=== PATIENT | female | born 1930 | race Caucasian/White ===

== ENCOUNTER 2016-12-20 10:40 | Emergency (ER) | payer OTHER, MEDICARE ==
[~2016-12-20] VITALS: Ht 167.6 cm; Wt 72.6 kg
[~2016-12-20 10:40] MED LIST: AMLODIPINE BESY10 M1; AMLODIPINE BESY10 M1 PO; AMLODIPINE10 MG PO; AVAPRO 150MG150 MG PO; AVAPRO300 M1 PO; CEFTRIAXONE2 G2 IV; CENTRUM SILVER1 CTB PO; CLONIDINE HCL0.1 MG PO; CLONIDINE0.1 MG PO; CRANBERRY450 M3 PO; DIGOXIN125 MCG PO; FIBER625 MG PO; FUROSEMIDE40 M1 PO; GABAPENTIN300 M2 PO; HYDRALAZINE HCL50 MG PO; JANUVIA100 M1 PO; KLOR-CON M2020 ME1 PO; KLOR-CON M2020 MEQ PO; LEVEMIR 10100 UNITS/ SC; LEVEMIR100 U/ML SC; LEVOTHROID0.125 MG PO; LIPITOR20 M2 PO; LOMOTIL 2.5-0.1 EACH PO; LOPERAMIDE2 M2 PO; LOVENOX 8080 MG/0.8 SC; LOVENOX80 MG/0.8 SC; Lomotil PO; MASON NATURAL1200 MG PO; METOPROLOL SUCC25 M1; MULTI-DAY VITA1 EACH PO; MULTIVITAMIN1 TAB PO; NEURONTIN300 MG; OMEPRAZOLE20 M2 PO; ONDANSETRON ODT8 M1 PO; PERCOCET 325 MG1 TA2 PO; POTASSIUM CHLO20 ME4 PO; RIVA15T PO; SYNTHROID125 MCG PO; TOPROL XL25 M1 PO; TRAMADOL HCL50 M1 PO; VESICARE5 M1 PO; VITAMIN D1000 UNIT PO; XANAX0.5 M1 PO
[2016-12-20 11:23] VITALS: BP 180/86
--- NOTE | 2016-12-20 11:32 | ED ANKLE/FOOT INJURY COMPLAINT ---
History of Present Illness General Chief Complaint: Foot or Ankle Injury Stated Complaint: L FOOT INFECTION/BLEEDING Source: patient Exam Limitations: no limitations Vital Signs & Intake/Output Vital Signs & Intake/Output Vital Signs Date Time Temp Pulse Resp B/P Pulse O2 O2 Flow FiO2 Ox Delivery Rate 12/20 1124 Room Air 12/20 1123 180/86 12/20 1053 97.2 93 18 195/75 97 Room Air Allergies Coded Allergies: Sulfa (Sulfonamide Antibiotics) (Intermediate, RASH 04/11/16) adhesive tape (PAPER TAPE OK PER PT 04/11/16) Reconcile Medications Alprazolam (Xanax 0.5MG Tab) 0.5 MG TAB 1 TAB PO PRN Anxiety (Reported) Amlodipine Besylate 5 MG TABLET 1 TAB PO DAILY HTN (Reported) Amoxicillin/Potassium Clav (Augmentin 875-125 Tablet) 875 MG-125 MG TABLET 1 TAB PO BID cellulitis Atorvastatin Calcium (Lipitor) 20 MG TAB 1 TAB PO DAILY High LIPID (Reported) Cholecalciferol (Vitamin D3) (Vitamin D) 1,000 UNIT TABLET 1 TAB PO DAILY SUPPLEMENT (Reported) Cranberry Fruit Concentrate (Cranberry) (Unknown Strength) CAPSULE (Unknown Dose) PO DAILY SUPPLEMENT (Reported) Digoxin 125 MCG TABLET 1 TAB PO QPM HEART (Reported) Furosemide 40 MG TAB 1 TAB PO DAILY Blood pressure (Reported) Gabapentin 300 MG CAPSULE 1 CAP PO BID Pain/Neuropathy Insulin Detemir (Levemir) 100 UNITS/ML CHRISTIAN 35 UNITS SC BID diabetes management Irbesartan 300 MG TAB 1 TAB PO DAILY Blood pressure (Reported) Levothyroxine Sodium (Synthroid) 125 MCG TABLET 1 TAB PO DAILY THYROID ( Reported) Metoprolol Succ XL (Toprol XL) 25 MG TAB 0.5 TAB PO DAILY HEART/BP (Reported) Multivitamin (Multi-Day Vitamins) 1 EACH TABLET 1 TAB PO DAILY SUPPLEMENT ( Reported) Potassium Chloride 20 MEQ TABLET.ER 1 TAB PO DAILY SUPPLEMENT (Reported) Rivaroxaban (Xarelto) 15 MG TAB 1 TAB PO DAILY BLOOD THINNER Sitagliptin Phosphate (Januvia) 100 MG TAB 1 TAB PO DAILY DM type 2 (Reported ) Before lunch Solifenacin Succinate (Vesicare) 5 MG TAB 1 TAB PO DAILY Bladder issues ( Reported) after breakfast Triage Note: PT TO ED FOR L TOE INFECTION. REPORTS SHE TOOK A SHOWER THIS AM AND NOTICED TOE STARTED BLEEDING, DENIES FEVER, WEAKNESS, SOB, FLOYD. CALLED DR RODRIGUEZ WHO REFERRED PT TO ED. Triage Nurses Notes Reviewed? yes HPI: Patient is an 86 year old female presents for evaluation of possible infection of her left 2nd toe. Patient has had a blister to her left 2nd toe chronically. Seeing Dr. Rodriguez, last saw 1 month ago for the blister on the 2nd toe, has an appointment on Thursday. Yesterday patient felt tingling in her toes, took off her sock and noticed that her toe was red. Overnight toe was swollen, red and area of blister was oozing a small amount of blood. Patient called Dr. Rodriguez and was referred to the Emergency department. Denies fevers, recent trauma (ELKIN PFEIFFER) Past History Travel History Traveled to [place] past 21 day No Medical History Any Pertinent Medical History? see below for history Neurological: peripheral neuropathy, TIA EENT: NONE Cardiovascular: AFIB, CHF, hypertension, hyperlipidemia Respiratory: NONE Gastrointestinal: hx colon ca, s/p R extended colectomy Hepatic: NONE Renal: NONE Musculoskeletal: osteoarthritis Psychiatric: anxiety Endocrine: diabetes, hyperthyroidism, vitamin D deficiency Blood Disorders: NONE Cancer(s): colon/rectal cancer COMMERCIAL COORDINATOR/Reproductive: NONE Other Medical Hx: Gout Rheumatoid arthritis History of MRSA: No History of VRE: No History of CDIFF: No Surgical History Surgical History: cholecystectomy, colon resection, , hysterectomy, diagnostic laparoscopy, PERNELL Psychosocial History Who do you live with Spouse Services at Home None What is your primary language Dominican Tobacco Use: Never used ETOH Use: denies use Illicit Drug Use: denies illicit drug use Family History Family History, If Any: FATHER FH: heart disease MOTHER FH: diabetes mellitus Hx Contributory? No (ELKIN PFEIFFER) Review of Systems Review of Systems Constitutional: Denies: chills, fever. EENTM: Reports: no symptoms. Respiratory: Denies: cough, short of breath. Cardiovascular: Denies: chest pain. GI: Denies: abdominal pain, nausea, vomiting. Genitourinary: Reports: no symptoms. Musculoskeletal: Denies: back pain, neck pain. Skin: Reports: see HPI. Neurological/Psychological: Reports: headache (none currently). Hematologic/Endocrine: Reports: bleeding. Immunologic/Allergic: Denies: splenectomy. (ELKIN PFEIFFER) Physical Exam Physical Exam General Appearance: well developed/nourished, alert, awake Head: atraumatic, normal appearance Eyes: Bilateral: normal appearance, PERRL, EOMI. Ears, Nose, Throat: hearing grossly normal Neck: normal inspection, full range of motion Cardiovascular/Respiratory: irregularly irregular (systolic murmur 4/6) Back: normal range of motion Leg/Knee/Thigh Left: normal range of motion, normal inspection Leg/Knee/Thigh Right: normal range of motion, normal inspection Ankle Left: normal inspection, normal range of motion Foot Left: 1 cm blister on the dorsal surface 2nd toe over PIP joint Diffuse erythema and swelling of left 2nd toe Dorsalis pedis pulse and posterior tibialis pulse 2+ Neuro/Vascular: normal motor function, decreased sensation to left foot to light touch Psychiatric: awake, alert, oriented x 3 (ELKIN PFEIFFER) Progress Differential Diagnosis: Cellulitis, osteomyelitis, abscess Plan of Care: Orders Procedure Date/time Status BLOOD CULTURE 12/20 115 Active WESTERGREN SED RATE 12/20 1155 Complete COMPREHENSIVE METABOLIC PANEL 12/20 115 Complete CBC WITHOUT DIFFERENTIAL 12/20 115 Complete Laboratory Tests 12/20/16 1225: Anion Gap 11, Estimated GFR > 60, BUN/Creatinine Ratio 25.0, Glucose 218 H, Calcium 9.7, Total Bilirubin 0.8, AST 26, ALT 32, Alkaline Phosphatase 84, Total Protein 7.8, Albumin 4.4, Globulin 3.4, Albumin/Globulin Ratio 1.3, CBC w Diff NO MAN DIFF REQ, RBC 4.53, MCV 85.0, MCH 27.9, RDW 14.5, MPV 8.7, Gran % 72.7, Lymphocytes % 17.7 L, Monocytes % 7.4, Eosinophils % 1.8, Basophils % 0.4, Absolute Granulocytes 5.6, Absolute Lymphocytes 1.4, Absolute Monocytes 0.6, Absolute Eosinophils 0.1, Absolute Basophils 0, PUBS MCHC 32.8 L, ESR Westergren 30 H Microbiology 12/20 1235 BLOOD: Blood Culture - RECD 12/20 1225 BLOOD: Blood Culture - RECD 1210: Discussed with Dr. Tejada. 1315: Discussed with Dr. Rodriguez: Place on antibiotics and will see in the office on Thursday. Labs, x-ray and follow up discussed with patient who is agreeable to plan. (ELKIN PFEIFFER) Diagnostic Imaging: Viewed by Me: Radiology Read. Discussed w/RAD: Radiology Read. Radiology Impression: PATIENT: LARS FENG PRESENT AGE: 86 PATIENT ACCOUNT NO: [id number] : 30 LOCATION: [facility] ORDERING PHYSICIAN: ELKIN HENLEY SERVICE DATE: 12/20/16 EXAM TYPE: RAD - XRY-TOES, LEFT EXAMINATION: XR TOES, LEFT CLINICAL INFORMATION: Left second toe infection. Evaluate for osteomyelitis. COMPARISON: Contralateral right foot films from 04/11/2016. TECHNIQUE: Frontal view of the left foot and 2 views of the left toes were obtained. FINDINGS: Diffuse osteopenia. No acute fracture or dislocation. Evaluation limited due to chronic flexion deformities of the second through fifth digits. There is mild soft tissue swelling seen associated with the dorsum of the second toe. No underlying radiopaque foreign body, soft tissue calcification, abnormal periosteal reaction or focal lytic or destructive bone lesion is seen. There is mild hallux valgus deformity of the first ray with moderate degenerative changes at the first metatarsal phalangeal joint and the first interphalangeal joint. Mild degenerative changes are seen at the interphalangeal joints of the second through fifth digits. IMPRESSION: 1. No plain film evidence of osteomyelitis. 2. Diffuse osteopenia, hallux valgus deformity and degenerative changes as discussed above. DICTATED BY: ANDI MEREDITH MD DATE/TIME DICTATED:12/20/161242 BOX SPRING MAKER:ALEX DATE/ TIME TRANSCRIBED:12/20/161242 CONFIDENTIAL, DO NOT COPY WITHOUT APPROPRIATE AUTHORIZATION. <Electronically signed in Other Vendor System> SIGNED BY: ANDI MEREDITH MD 12/20/16 1253 (ELKIN PFEIFFER) Departure Departure Time of Disposition: 1321 Disposition: HOME OR SELF CARE Condition: Stable Clinical Impression Primary Impression: Cellulitis of toe of left foot Secondary Impressions: Hyperglycemia, Hypertension Referrals: SHAUN AVALOS,XIOMARA Lacy (PCP/Family) JOSEPHINE RODRIGUEZ DPM Additional Instructions: Follow up with Dr. Rodriguez on Thursday. Return to the emergency department if fevers, redness spreading, worsening of symptoms. Departure Forms: Customer Survey General Discharge Information Prescriptions: Current Visit Scripts Amoxicillin/Potassium Clav (Augmentin 875-125 Tablet) 1 TAB PO BID #14 TAB (ALEXANDRE HENLEY,ELKIN) PA/EDGERMAN Co-Sign Statement Statement: ED Attending supervision documentation- [X] I saw and evaluated the patient. I have also reviewed all the pertinent lab results and diagnostic results. I agree with the findings and the plan of care as documented in the PA's/EDGERMAN's documentation. [X] I have reviewed the ED Record and agree with the PA's/EDGERMAN's documentation. [] Additions or exceptions (if any) to the PAs/EDGERMAN's note and plan are summarized below: [] (MONTY AVALOS,JEANIE Correa)
[2016-12-20] MEDS ORDERED: AMLODIPINE BESYL5 M1 PO (11:58)
[2016-12-20 12:52] LABS: ABSOLUTE BASOPHIL COUNT 0 /CUMM (0.0-0.2); ABSOLUTE EOSINOPHIL COUNT 0.1 /CUMM (0.0-0.7); ABSOLUTE GRANULOCYTE CT 5.6 /CUMM (1.4-6.5); ABSOLUTE LYMPH COUNT 1.4 /CUMM (1.2-3.4); ABSOLUTE MONOCYTE COUNT 0.6 /CUMM (0.10-0.60); BASOPHIL % 0.4 % (0.0-2.0); EOSINOPHIL % 1.8 % (0-5); GRANULOCYTE % 72.7 % (42.2-75.2); HEMATOCRIT 38.5 % (37-47); MEAN CORPUSCULAR HGB 27.9 PG (27.0-31.0); MEAN CORPUSCULAR HGB CONC 32.8 G/DL (33.0-37.0); MEAN PLATELET VOLUME 8.7 FL (7.4-10.4); PLATELET COUNT 204 /CUMM (130-400); RBC DISTRIBUTION WIDTH 14.5 % (11.5-14.5); RED BLOOD CELL CT 4.53 /CUMM (4.20-5.40); WHITE BLOOD CELL COUNT 7.7 /CUMM (4.8-10.8)
--- NOTE | 2016-12-20 12:52 | RADIOLOGY REPORT ---
EXAMINATION: XR TOES, LEFT CLINICAL INFORMATION: Left second toe infection. Evaluate for osteomyelitis. COMPARISON: Contralateral right foot films from 04/11/2016. TECHNIQUE: Frontal view of the left foot and 2 views of the left toes were obtained. FINDINGS: Diffuse osteopenia. No acute fracture or dislocation. Evaluation limited due to chronic flexion deformities of the second through fifth digits. There is mild soft tissue swelling seen associated with the dorsum of the second toe. No underlying radiopaque foreign body, soft tissue calcification, abnormal periosteal reaction or focal lytic or destructive bone lesion is seen. There is mild hallux valgus deformity of the first ray with moderate degenerative changes at the first metatarsal phalangeal joint and the first interphalangeal joint. Mild degenerative changes are seen at the interphalangeal joints of the second through fifth digits. IMPRESSION: 1. No plain film evidence of osteomyelitis. 2. Diffuse osteopenia, hallux valgus deformity and degenerative changes as discussed above.
[2016-12-20] MEDS ORDERED: AUGMENTIN 875-1 EACH PO (13:20)
== END 2016-12-20 13:36 ==
LOC: ERH 10:40
PROVIDERS: Physician Assistant
DX: L03.032 Cellulitis of left toe (principal); I10 Essential (primary) hypertension; E11.65 Type 2 diabetes mellitus with hyperglycemia; I50.9 Heart failure, unspecified; I48.91 Unspecified atrial fibrillation
CPT/HCPCS: 73660-LT; 87040

== ENCOUNTER 2017-02-09 13:50 | Inpatient (IN) | payer OTHER, MEDICARE ==
[~2017-02-09] VITALS: Ht 167.6 cm; Wt 68.9 kg
[~2017-02-09 13:50] MED LIST changes: +AMLODIPINE BESYL5 M1 PO; +AUGMENTIN 875-1 EACH PO
--- NOTE | 2017-02-09 14:33 | ED AMS/SEIZURE/WEAK/DIZZY ---
History of Present Illness General Chief Complaint: General Adult Stated Complaint: WEAKNESS Source: patient, family, old records Exam Limitations: no limitations Vital Signs & Intake/Output Vital Signs & Intake/Output Vital Signs Date Time Temp Pulse Resp B/P Pulse O2 O2 Flow FiO2 Ox Delivery Rate 02/10 0620 98.2 65 20 122/58 92 Room Air 02/09 2300 98.0 02/09 2251 98.0 63 19 118/60 91 Room Air 02/09 1935 98.3 95 20 144/64 96 Room Air 02/09 1538 100.8 76 18 145/65 93 Room Air 02/09 1445 Room Air 02/09 1358 100.5 02/09 1353 100.5 114 20 170/73 95 Room Air ED Intake and Output 02/10 0000 02/09 1200 Intake Total 630 Output Total 300 Balance 330 Intake, IV 150 Intake, Oral 480 Output, Urine 300 Patient 152 lb Weight Allergies Coded Allergies: Sulfa (Sulfonamide Antibiotics) (Intermediate, RASH 04/11/16) adhesive tape (PAPER TAPE OK PER PT 04/11/16) Triage Note: PT PRESENTS TO ER C/O OF BODY ACHES AND WEAKNESS. PT STATES SHE HAS FELT WEAK FOR OVER A FEW WEEKS. Triage Nurses Notes Reviewed? yes Onset: Abrupt Duration: week(s): (3), constant, getting worse Timing: recent history Injury Environment: home Severity: moderate, severe Severity Numbers: 7 No Modifying Factors: none Associated Symptoms: denies HPI: 86-year-old female history of A. fib on xarelto,dm, resected colon cancer hypertension presents emergency room for evaluation complaining of generalized bodyaches weakness and increased urinary incontinence over the past 3 weeks. She reports the positive subjective fever chills at home she presents febrile today, she took Tylenol just prior to arrival medicated Motrin in triage. She denies any chest pain shortness of breath sore throat rhinorrhea congestion. No abdominal pain nausea vomiting or diarrhea. No black or bloody stools. No rashes to her skin recent tick or insect bites. No sick contacts. She states that she is a leasing cotton of urine however more so recently. No modifying factors or associated symptoms otherwise she is THE symptoms until today. (QUANG HENLEY,TONY) Reconcile Medications Alprazolam (Xanax) 0.5 MG TABLET 1 TAB PO PRN ANXIETY (Reported) Atorvastatin Calcium (Lipitor) 20 MG TABLET 1 TAB PO DAILY CHOLESTEROL ( Reported) Cholecalciferol (Vitamin D3) (Vitamin D) 1,000 UNIT TABLET 1 TAB PO DAILY SUPPLEMENT (Reported) Clonidine HCl 0.1 MG TABLET 1 TAB PO PRN BP (Reported) Cranberry Fruit Concentrate (Cranberry) (Unknown Strength) CAPSULE (Unknown Dose) PO DAILY SUPPLEMENT (Reported) Digoxin 125 MCG TABLET 1 TAB PO QPM HEART (Reported) Furosemide 40 MG TABLET 1 TAB PO DAILY DIURETIC (Reported) Gabapentin 300 MG CAPSULE 1 CAP PO DAILY NEUROPATHY Insulin Detemir (Levemir) 100 UNIT/ML VIAL 35 UNIT SC BID DM (Reported) Irbesartan (Avapro) 300 MG TABLET 1 TAB PO DAILY BP (Reported) Levothyroxine Sodium (Synthroid) 125 MCG TABLET 1 TAB PO DAILY THYROID ( Reported) Metoprolol Succ XL (Toprol XL) 25 MG TAB 12.5 TAB PO DAILY HEART/BP (Reported ) Multivitamin (Multi-Day Vitamins) 1 EACH TABLET 1 TAB PO DAILY SUPPLEMENT ( Reported) Potassium Chloride 20 MEQ TABLET.ER 1 TAB PO BID SUPPLEMENT (Reported) Rivaroxaban (Xarelto) 15 MG TABLET 1 TAB PO DAILY BLOOD THINNER (Reported) Sitagliptin Phosphate (Januvia) 100 MG TABLET 1 TAB PO DAILY DM (Reported) Solifenacin Succinate (Vesicare) 5 MG TABLET 1 TAB PO DAILY BLADDER (Reported ) (BRUCE AVALOS,JOHNIE) Past History Travel History Traveled to [place] past 21 day No Medical History Any Pertinent Medical History? 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 No (TONY LIM) Review of Systems Review of Systems Constitutional: Reports: see HPI. All Other Systems: Reviewed and Negative Comments Review of systems: See HPI, All other systems negative. Constitutional, chills fever, no malaise HEENT: No visual changes no sore throat no congestion Cardiovascular: No chest pain , no palpitation , no orthopnea no ankle swelling Skin, no jaundice no rashes, no change in skin Respiratory: No dyspnea no cough no sputum GI: No nausea no vomiting, no diarrhea, no bloating/constipation : No dysuria No hematuria, frequency, no discharge Muscle skeletal: No joint pain, no joint swelling, no back pain, no neck pain, Neurologic: No numbness no headache Psych: No stress Heme/endocrine: No bruising no bleeding Immunology: No lymphadenopathy (TONY LIM) Physical Exam Physical Exam General Appearance: well developed/nourished, no apparent distress, alert Comments: Well-developed well-nourished person in no acute distress HEENT: Normal EENT exam; PERRL, EOMI,HEAD is atraumatic. moist mucous membranes. Neck: Supple, no lymphadenopathy, normal range of motion Back: Nontender, no CVA tenderness. Full range of motion Cardiovascular: Regular rate and rhythms no murmurs rubs Respiratory: Chest nontender.There were no bony deformities, no asymmetry. No respiratory distress. Patient speaking in full complete sentences. Breath sounds clear to auscultation bilaterally: NO W/R/R Abdomen: Soft, nontender nondistended, no appreciable organomegaly. Normal bowel sounds. No rebound/guarding Extremity: No edema, full range of motion of extremities Neuro: Alert oriented x3, motor sensory normal,There were no obvious focal neurologic abnormalities. Skin: No appreciable rash on exposed skin, skin is warm and dry. Psych: Mood and affect is normal, memory and judgment is normal. Core Measures ACS in differential dx? Yes CVA/TIA Diagnosis: No Severe Sepsis Present: No Septic Shock Present: No (TONY LIM) Progress Differential Diagnosis: arrythmia, anemia, benign positional vertigo, dehydration, electrolyte imbalance, GI bleed, labrynthitis, meningitis, pneumonia, UTI/pyelo, vertebrobasilar insuff Plan of Care: Orders Procedure Date/time Status Consistent Carbohydrate 2 02/10 B Active ECHOCARDIOGRAM 02/10 1647 Active CBC WITHOUT DIFFERENTIAL 02/10 0500 Complete BASIC ELECTROLYTES PLUS BUN&CR 02/10 0500 Complete FingerStick- Glucose 02/09 2130 Active WESTERGREN SED RATE 02/10 2000 Complete BASIC ELECTROLYTES PLUS BUN&CR 02/10 2000 Complete Vital Signs 02/09 192 Active Teach/Educate 02/09 192 Active Pain Treatment and Response 02/09 192 Active Nutritional Intake, Monitor 02/09 192 Active Isolation 02/09 192 Active Intake & Output 02/09 192 Active Patient Care Conference 02/09 192 Active Activity/Ambulation 02/09 1921 Active Intake & Output 02/09 1632 Active Admit to inpatient 02/09 1628 Active Pathway - chart 02/09 1623 Active House Staff 02/09 1623 Active Patient Data 02/09 1623 Active Code Status 02/09 1623 Active Add-on Test (ER Only) 02/09 1608 Active URINE OSMOLALITY 02/09 1516 Complete THYROID STIMULATING HORMONE 02/09 1501 Complete SERUM OSMOLALITY 02/09 1501 Complete LACTIC ACID 02/09 1501 Complete DIGOXIN 02/09 1501 Complete Straight Cath 02/09 1441 Complete CULTURE,URINE 02/09 1434 Active BLOOD CULTURE 02/09 1434 Active URINALYSIS 02/09 1434 Complete TROPONIN LEVEL 02/09 1434 Complete PARTIAL THROMBOPLASTIN TIME 02/09 1434 Complete PROTHROMBIN TIME 02/09 1434 Complete COMPREHENSIVE METABOLIC PANEL 02/09 1434 Complete CBC WITHOUT DIFFERENTIAL 02/09 1434 Complete RAPID VIRAL INFLUENZA A 02/09 1355 Complete EKG 02/09 1354 Active Lab Add-on Test 02/09 UNK Active VTE Mechanical Prophylaxis 02/09 UNK Active Current Medications Sig/Darrell Start time Last Medication Dose Stop Time Status Admin Atorvastatin Calcium 20 MG 1700 02/10 1700 AC (Lipitor) Amlodipine Besylate 5 MG DAILY 02/10 1000 CAN (Norvasc) Enoxaparin Sodium 40 MG DAILY 02/10 1000 CAN (Lovenox) Insulin Detemir 30 UNITS BID 02/10 1000 AC (Levemir) Metoprolol Succinate 312.5 MG DAILY 02/10 1000 CAN (Toprol XL) Metoprolol Tartrate 12.5 MG DAILY 02/10 1000 AC (Lopressor) Levothyroxine Sodium 0.125 MG DAILY AC 02/10 0700 AC (Synthroid) Insulin Aspart 0 TIDAC 02/09 1700 AC (NovoLOG) Clonidine 0.1 MG QPM PRN 02/09 1645 AC (Catapres) Acetaminophen 650 MG Q6P PRN 02/09 1630 AC (Tylenol) Acetaminophen/ 1 TAB Q6P PRN 02/09 1630 AC Hydrocodone Bitart (Vicodin) Morphine Sulfate 2 MG Q4P PRN 02/09 1630 AC (Morphine) Laboratory Tests 02/10/17 0720: Anion Gap 10, Estimated GFR > 60, BUN/Creatinine Ratio 21.3, CBC w Diff NO MAN DIFF REQ, RBC 3.46 L, MCV 83.5, MCH 27.5, RDW 15.3 H, MPV 8.5, Gran % 74.4, Lymphocytes % 11.9 L, Monocytes % 11.4 H, Eosinophils % 1.8, Basophils % 0.5, Absolute Granulocytes 6.1, Absolute Lymphocytes 1.0 L, Absolute Monocytes 0.9 H, Absolute Eosinophils 0.1, Absolute Basophils 0, PUBS MCHC 33.0 02/09/17 2050: Anion Gap 8, Estimated GFR 53 L, BUN/Creatinine Ratio 19.0, ESR Westergren 63 H 02/09/17 1836: ESR Westergren Cancelled 02/09/17 1747: Lactic Acid Cancelled 02/09/17 1516: Urine Osmolality 309 02/09/17 1516: Urine Color YEL, Urine Clarity CLEAR, Urine pH 6.5, Ur Specific [place] 1.010, Urine Protein 100 H, Urine Ketones NEG, Urine Nitrite NEG, Urine Bilirubin NEG, Urine Urobilinogen 0.2, Ur Leukocyte Esterase NEG, Ur Microscopic SEDIMENT EXAMINED, Urine RBC RARE, Ur Epithelial Cells FEW, Urine Bacteria FEW H, Urine Hemoglobin TRACE-INTACT, Urine Glucose NEG 02/09/17 1501: Anion Gap 12, Estimated GFR 59 L, BUN/Creatinine Ratio 22.2, Glucose 214 H, Serum Osmolality 272 L, Lactic Acid 1.7, Calcium 8.6, Total Bilirubin 1.0, AST 27, ALT 38, Alkaline Phosphatase 79, Troponin I < 0.01, Total Protein 6.5, Albumin 3.4 L, Globulin 3.1, Albumin/Globulin Ratio 1.1, TSH 0.445, PT 16.1 H, INR 1.54 H, APTT 31, CBC w Diff NO MAN DIFF REQ, RBC 3.72 L, MCV 81.5, MCH 27.8, RDW 15.3 H, MPV 8.1, Gran % 81.5 H, Lymphocytes % 8.5 L, Monocytes % 9.5 H, Eosinophils % 0.3, Basophils % 0.2, Absolute Granulocytes 9.7 H, Absolute Lymphocytes 1.0 L, Absolute Monocytes 1.1 H, Absolute Eosinophils 0, Absolute Basophils 0, PUBS MCHC 34.0, Digoxin 0.5 L 02/09/17 1447: Lactic Acid Cancelled Microbiology 02/09 1537 BLOOD: Blood Culture - RECD 02/09 1516 URINE ROUT: Urine Culture - RECD 02/09 1501 BLOOD: Blood Culture - RECD 02/09 1402 NASOPHARYN: Influenza Virus A & B Rapid Smear - COMP Labs ordered old records reviewed. Negative case discussed with Dr. Polk agrees with plan medically of Motrin in triage Old records reviewed patient had one episode previously with sodium of 123 however given her fever, generalized malaise going on for 3 weeks I believe premature discharge in medically harmful case was discussed Dr. Polk agrees with plan. Case was discussed with Dr. foy will admit (TONY LIM) Diagnostic Imaging: Viewed by Me: Radiology Read. Discussed w/RAD: Radiology Read. Initial ED EKG: a. FIB AT 100, NO ACUTE st SEGMENT CHANGES NORMAL AXIS Prior EKG: unchanged (08/2016) (TONY LIM) Departure Departure Time of Disposition: 1616 Disposition: STILL A PATIENT Condition: Stable Clinical Impression Primary Impression: Hyponatremia Secondary Impressions: Fever of unknown origin, Hyperkalemia Referrals: SHAUN AVALOS,XIOMARA Lacy (PCP/Family) Departure Forms: Customer Survey General Discharge Information Admission Note Spoke With: YAHIR FOY MD Documentation of Exam: Documentation of any treatments & extenuating circumstances including Concerns Regarding Discharge (functional status, medication knowledge or non-compliance, living conditions, etc.) that warrant an admission rather than observation: TREND LABS, IV FLUIDS, TREND CULTURES, UNKNOWN SOURCE OF WHITE COUTN, FEVERS, PREMATURE DISCHARGE WOULD BE MEDICALLY HARMFUL (TONY LIM) Departure Prescriptions: Current Visit Scripts Gabapentin 1 CAP PO DAILY 30 Days PA/RADIO PROGRAM DIRECTOR Co-Sign Statement Statement: ED Attending supervision documentation- [X] I saw and evaluated the patient. I have also reviewed all the pertinent lab results and diagnostic results. I agree with the findings and the plan of care as documented in the PA's/RADIO PROGRAM DIRECTOR's documentation. [X] I have reviewed the ED Record and agree with the PA's/RADIO PROGRAM DIRECTOR's documentation. [] Additions or exceptions (if any) to the PAs/RADIO PROGRAM DIRECTOR's note and plan are summarized below: [] (BRUCE AVALOS,JOHNIE)
--- NOTE | 2017-02-09 15:09 | RADIOLOGY REPORT ---
EXAMINATION: XR PORTABLE CHEST CLINICAL INFORMATION: Fever. Weakness. COMPARISON: CT chest 08/18/16. Chest x-ray of 06/05/16 and multiple priors dated back to 11/22/15. TECHNIQUE: Portable AP view of the chest was obtained. FINDINGS: The cardiomediastinal silhouette is stable with moderate cardiomegaly. A right-sided Port-A-Cath is in place with the tip projecting over the expected location of the lower SVC. The lungs are mildly hypoexpanded. No focal consolidation, changes of congestion, pleural effusions or pneumothorax. Mild central congestion persists. Severe deformity of the right humeral head is redemonstrated. No acute osseous abnormality. IMPRESSION: Stable cardiomegaly. No radiographic evidence of pneumonia. No acute pulmonary process.
[2017-02-09 15:13] LABS: ABSOLUTE BASOPHIL COUNT 0 /CUMM (0.0-0.2); ABSOLUTE EOSINOPHIL COUNT 0 /CUMM (0.0-0.7); ABSOLUTE GRANULOCYTE CT 9.7 /CUMM (1.4-6.5); ABSOLUTE MONOCYTE COUNT 1.1 /CUMM (0.10-0.60); BASOPHIL % 0.2 % (0.0-2.0); EOSINOPHIL % 0.3 % (0-5); GRANULOCYTE % 81.5 % (42.2-75.2); HEMATOCRIT 30.3 % (37-47); MEAN CORPUSCULAR HGB 27.8 PG (27.0-31.0); MEAN CORPUSCULAR VOLUME 81.5 FL (81.0-99.0); MEAN PLATELET VOLUME 8.1 FL (7.4-10.4); PLATELET COUNT 238 /CUMM (130-400); RBC DISTRIBUTION WIDTH 15.3 % (11.5-14.5); RED BLOOD CELL CT 3.72 /CUMM (4.20-5.40); WHITE BLOOD CELL COUNT 11.9 /CUMM (4.8-10.8)
[2017-02-09 15:20] LABS: PT 16.1 SEC (9.4-12.5); PTT 31 SEC (25-37)
[2017-02-09] MEDS ORDERED: LEVEMIR100 UNIT/1 SC (15:59)
[2017-02-09] MEDS ORDERED: CLONIDINE HCL0.1 MG PO (16:00)
[2017-02-09] MEDS ORDERED: XARELTO15 M1 PO (16:01)
--- NOTE | 2017-02-09 16:19 | History & Physical ---
See Addendum General Information and HPI MD Statement: I have seen and personally examined LARS FENG and documented this H&P. The patient is a 86 year old F who presented with a patient stated chief complaint of [MUSCLE ACHES]. 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 She has been complaining of persistet fever and myalgas and arthrlagias for the last 1 week. The patient states that the fever started suddenly and has denied any recent sick contacts or any recent travels. She lives at home with her . Denies any recent outdoor activity, rash. No history significant for cough chest pain palpitations rhinorrhea or congestion. No no reports of black or melanotic stools. In the ER she was found to have a temperature of 100.8, sodium I-123 Allergies/Medications Allergies: Coded Allergies: Sulfa (Sulfonamide Antibiotics) (Intermediate, RASH 04/11/16) adhesive tape (PAPER TAPE OK PER PT 04/11/16) Home Med list Alprazolam (Xanax) 0.5 MG TABLET 1 TAB PO PRN ANXIETY (Reported) Amlodipine Besylate 5 MG TABLET 1 TAB PO DAILY HTN (Reported) Atorvastatin Calcium (Lipitor) 20 MG TABLET 1 TAB PO DAILY CHOLESTEROL ( Reported) Cholecalciferol (Vitamin D3) (Vitamin D) 1,000 UNIT TABLET 1 TAB PO DAILY SUPPLEMENT (Reported) Clonidine HCl 0.1 MG TABLET 1 TAB PO PRN BP (Reported) Cranberry Fruit Concentrate (Cranberry) (Unknown Strength) CAPSULE (Unknown Dose) PO DAILY SUPPLEMENT (Reported) Digoxin 125 MCG TABLET 1 TAB PO QPM HEART (Reported) Furosemide 40 MG TABLET 1 TAB PO DAILY DIURETIC (Reported) Gabapentin 300 MG CAPSULE 1 CAP PO BID Pain/Neuropathy Insulin Detemir (Levemir) 100 UNIT/ML VIAL 35 UNIT SC BID DM (Reported) Irbesartan (Avapro) 300 MG TABLET 1 TAB PO DAILY BP (Reported) Levothyroxine Sodium (Synthroid) 125 MCG TABLET 1 TAB PO DAILY THYROID ( Reported) Metoprolol Succ XL (Toprol XL) 25 MG TAB 0.5 TAB PO DAILY HEART/BP (Reported) Multivitamin (Multi-Day Vitamins) 1 EACH TABLET 1 TAB PO DAILY SUPPLEMENT ( Reported) Potassium Chloride 20 MEQ TABLET.ER 1 TAB PO BID SUPPLEMENT (Reported) Rivaroxaban (Xarelto) 15 MG TABLET 1 TAB PO DAILY BLOOD THINNER (Reported) Sitagliptin Phosphate (Januvia) 100 MG TABLET 1 TAB PO DAILY DM (Reported) Solifenacin Succinate (Vesicare) 5 MG TABLET 1 TAB PO DAILY BLADDER (Reported ) Past History Travel History Traveled to [place] past 21 day No Medical History Neurological: peripheral neuropathy, TIA EENT: NONE Cardiovascular: AFIB, CHF, hypertension, hyperlipidemia Respiratory: NONE Gastrointestinal: hx colon ca, s/p R extended colectomy Hepatic: NONE Renal: NONE Musculoskeletal: osteoarthritis Psychiatric: anxiety Endocrine: diabetes, hyperthyroidism, vitamin D deficiency Blood Disorders: NONE Cancer(s): colon/rectal cancer 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 spouse Services at Home: None Functional Ability ADLs Independent: dressing, eating, toileting, bathing. Ambulation: independent IADLs Independent: shopping, housework, finances, food prep, telephone, medication admin. Needs Assist: transportation. Review of Systems Review of Systems Constitutional: Reports: see HPI. EENTM: Reports: see HPI. Cardiovascular: Denies: chest pain, edema, orthopena, palpitations. Respiratory: Denies: cough, hemoptysis, orthopnea, short of breath. GI: Denies: bloating, constipation, diarrhea, distention. Genitourinary: Denies: dysuria, frequency, hematuria. Musculoskeletal: Denies: back pain, gout, joint pain, joint swelling. Skin: Denies: change in skin color, change in hair/nails, dryness, jaundice, lesions. Exam & Diagnostic Data Last 24 Hrs of Vital Signs/I&O Vital Signs Date Time Temp Pulse Resp B/P Pulse O2 O2 Flow FiO2 Ox Delivery Rate 02/09 1538 100.8 76 18 145/65 93 Room Air 02/09 1445 Room Air 02/09 1358 100.5 02/09 1353 100.5 114 20 170/73 95 Room Air Physical Exam General Appearance Alert, Oriented X3 Skin No Rashes, No Breakdown HEENT PERRLA, EOMI Neck No JVD, No thryomegaly Lymphatic Axillary nl, Cervical nl Cardiovascular Normal S1, Normal S2 Lungs Clear to Auscultation, Normal Air Movement Abdomen Soft, No Tenderness Extremities No Cyanosis, No Edema, Normal Pulses, WOUND ON THE LEFT SECOND TOE COVERED WITH bAND-aID BUT NO DRAINAGE OR PUS COMING OUT. Diagnostic Data EKG Results Normal sinus rhythm CXR Results Stable cardiomegaly. No radiographic evidence of pneumonia. No acute pulmonary process. Assessment/Plan Assessment: This is 86-year-old female with a past medical history of moderate aortic stenosis atrial fibrillation currently on Xarelto, hypertension and diabetes mellitus must colon cancer status post resection and chemotherapy currently in remission who presented to the [facility] with generalized body aches and fever What is at the time of admission shows a temperature of 100.8 blood pressure 144 /78, respiration rate of 18, heart rate of 74, saturation of 94% on room air Labs at the time of admission showed WBC of 11.9, hemoglobin of 10.3 hematocrit of 30.3, platelet count of 238, INR 1.54, sodium 123, potassium of 5.4, chloride of 89, WN of 20, Chest x-ray unremarkable Assessment 1. Fever of unknown origin: Differential is broad, , the wound on the left toE doesn't seem like infected and does not have a purulent discharge. Site of the Port-A-Cath also looks clean Lyme disease can be one of the differentials as well as infective endocarditis 2. Hyponatremia likely secondary to medication induced which includes furosemide, other possibility could be hypothyroidism needs to be ruled out 3. History of atrial fibrillation currently on Xarelto did controlled with metoprolol 4. History of moderate aortic stenosis 5. History of colon cancer status post resection and chemotherapy currently in remission Moderate times Plan Admit to general medicine floor Do the infectious disease workup for fever of unknown origin, will do Lyme titers Transthoracic echocardiogram considering that the patient has systolic murmur on examination Watch off antibiotics for now Blood cultures 2 urine cultures time 2 ESR and CRP For the patient's hyponatremia will check TSH and free T4 Even though urine osmolarity and lites would be unreliable in the setting off Lasix use they have been admitted by the ER IV fluids normal saline and recheck sodium in the next 6 hours. No increase or improvement of sodium more than 8 mEq in the first 24 hours Hold the Lasix and digoxin along with lisinopril in the setting of hyponatremia Patient is full code Due to prophylaxis with Xarelto at all times Pain pathways As Ranked By This Provider Problem List: 1. Hyperkalemia 2. Fever of unknown origin Core Measures/Miscellaneous Acute Coronary Syndrome ACS Diagnosis: No Cerebrovascular Accident CVA/TIA Diagnosis: No Congestive Heart Failure CHF Diagnosis: No Venous Thromboembolism VTE Risk Factors: Acute medical illness, Age > 40 No [facility] VTE prophylaxis d/t: VTE low risk, No contraindications No VTE Pharm Prophylaxis d/t: VTE low risk, No contraindications VTE Diagnosis: No VTE Type: NONE VTE Confirmed by (Test): NONE Severe Sepsis Severe Sepsis Present: No Septic Shock Septic Shock Present: No Miscellaneous Documentation Attending Case Discussed With: YAHIR JACKMAN MD Primary Care Physician: SHAUN AVALOS,XIOMARA Lacy Patient sees these Specialists NONE Level of Patient Care: General Medicine
--- NOTE | 2017-02-09 18:17 | Admission Certification ---
Admission Certification Certification Statement - As attending physician, I certify that at the time of - admission, based on clinical presentation, severity of - symptoms, need for further diagnostic testing and - therapeutic interventions, and risk of adverse outcomes - without in-hospital treatment, in my clinical assessment, - this patient requires an acute hospital stay for a minimum - of two nights or longer. I have also considered psychsocial - factors such as support system, advanced age, financial - issues, cognitive issues, and failed out-patient treatments, - past re-admission history, safety of patient, and lack of - compliance as applicable. Specific rationale supporting this admission is: hyponatremia. hyperkalemia, fever.
--- NOTE | 2017-02-09 18:17 | PN- Att Addend ---
Attending MD Review Statement Attending Statement Attending MD Statement: examined this patient, discuss w/resident/PA/JUVENILE DETENTION OFFICER, agreed w/resident/PA/JUVENILE DETENTION OFFICER, discussed with family, reviewed EMR data (avail), discussed w/ nursing Attending Assessment/Plan: Laboratory Tests 02/09/17 1747: Lactic Acid Cancelled 02/09/17 1516: Urine Color YEL, Urine Clarity CLEAR, Urine pH 6.5, Ur Specific Perkins 1.010, Urine Protein 100 H, Urine Ketones NEG, Urine Nitrite NEG, Urine Bilirubin NEG, Urine Urobilinogen 0.2, Ur Leukocyte Esterase NEG, Ur Microscopic SEDIMENT EXAMINED, Urine RBC RARE, Ur Epithelial Cells FEW, Urine Bacteria FEW H, Urine Hemoglobin TRACE-INTACT, Urine Glucose NEG 02/09/17 1501: Anion Gap 12, Estimated GFR 59 L, BUN/Creatinine Ratio 22.2, Glucose 214 H, Lactic Acid 1.7, Calcium 8.6, Total Bilirubin 1.0, AST 27, ALT 38, Alkaline Phosphatase 79, Troponin I < 0.01, Total Protein 6.5, Albumin 3.4 L, Globulin 3.1, Albumin/Globulin Ratio 1.1, PT 16.1 H, INR 1.54 H, APTT 31, CBC w Diff NO MAN DIFF REQ, RBC 3.72 L, MCV 81.5, MCH 27.8, RDW 15.3 H, MPV 8.1, Gran % 81.5 H, Lymphocytes % 8.5 L, Monocytes % 9.5 H, Eosinophils % 0.3, Basophils % 0.2 , Absolute Granulocytes 9.7 H, Absolute Lymphocytes 1.0 L, Absolute Monocytes 1.1 H, Absolute Eosinophils 0, Absolute Basophils 0, PUBS MCHC 34.0, Digoxin 0.5 L 02/09/17 1447: Lactic Acid Cancelled Microbiology 02/09 1402 NASOPHARYN: Influenza Virus A & B Rapid Smear - COMP Vital Signs Date Time Temp Pulse Resp B/P Pulse O2 O2 Flow FiO2 Ox Delivery Rate 02/09 1538 100.8 76 18 145/65 93 Room Air 02/09 1445 Room Air 02/09 1358 100.5 02/09 1353 100.5 114 20 170/73 95 Room Air Patient seen and examined at bedside. Discussed with patient as well as patient 's family member at bedside the care plan. 86-year-old female with past medical history of diabetes mellitus on insulin, atrial fibrillation onset alto and digoxin, CHF, colon cancer status post resection in August 2015 and status post chemotherapy. Patient admitted with the chief complaint of weakness for about 1 week and was found to have fever in the emergency room of 100.8 along with white count of 11.9 and sodium of 123. Patient gives history of eating outside at the [employer] but denies eating any uncooked food. Denies any sick contacts. On exam patient found to have systolic murmur in the aortic area as well as mitral area with radiation to the axilla. Hyponatremia severe-patient does have previous history of hyponatremia with sodium down to 123 last year which resolved with IV fluids. We will hold her Lasix and give her IV fluid with normal saline and recheck her sodium every 8 hour. We will also follow up on her potassium as her potassium in emergency room was 5.4. Given her murmur on exam we'll get an echocardiogram. We will hold off on antibiotics at this point of time and monitor her closely.
--- NOTE | 2017-02-09 19:30 | PN- Student ---
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 Denies any recent outdoor activity, rash. No history significant for cough, chest pain, palpitations, rhinorrhea, or congestion. No reports of black or melanotic stools. 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 Other Medical Hx: Gout Rheumatoid arthritis History of MRSA: No History of VRE: No History of CDIFF: No Surgical History Surgical History: Cholecystectomy, colon resection, , hysterectomy, diagnostic laparoscopy, PERNELL Family History Relations & Conditions if any Father FH: heart disease Mother FH: diabetes mellitus Allergies/Medications Allergies: Coded Allergies: Sulfa (Sulfonamide Antibiotics) (Intermediate, RASH 04/11/16) adhesive tape (PAPER TAPE OK PER PT 04/11/16) Home Medication List Alprazolam (Xanax) 0.5 MG TABLET 1 TAB PO PRN ANXIETY (Reported) Amlodipine Besylate 5 MG TABLET 1 TAB PO DAILY HTN (Reported) Atorvastatin Calcium (Lipitor) 20 MG TABLET 1 TAB PO DAILY CHOLESTEROL ( Reported) Cholecalciferol (Vitamin D3) (Vitamin D) 1,000 UNIT TABLET 1 TAB PO DAILY SUPPLEMENT (Reported) Clonidine HCl 0.1 MG TABLET 1 TAB PO PRN BP (Reported) Cranberry Fruit Concentrate (Cranberry) (Unknown Strength) CAPSULE (Unknown Dose) PO DAILY SUPPLEMENT (Reported) Digoxin 125 MCG TABLET 1 TAB PO QPM HEART (Reported) Furosemide 40 MG TABLET 1 TAB PO DAILY DIURETIC (Reported) Gabapentin 300 MG CAPSULE 1 CAP PO BID Pain/Neuropathy Insulin Detemir (Levemir) 100 UNIT/ML VIAL 35 UNIT SC BID DM (Reported) Irbesartan (Avapro) 300 MG TABLET 1 TAB PO DAILY BP (Reported) Levothyroxine Sodium (Synthroid) 125 MCG TABLET 1 TAB PO DAILY THYROID ( Reported) Metoprolol Succ XL (Toprol XL) 25 MG TAB 0.5 TAB PO DAILY HEART/BP (Reported) Multivitamin (Multi-Day Vitamins) 1 EACH TABLET 1 TAB PO DAILY SUPPLEMENT ( Reported) Potassium Chloride 20 MEQ TABLET.ER 1 TAB PO BID SUPPLEMENT (Reported) Rivaroxaban (Xarelto) 15 MG TABLET 1 TAB PO DAILY BLOOD THINNER (Reported) Sitagliptin Phosphate (Januvia) 100 MG TABLET 1 TAB PO DAILY DM (Reported) Solifenacin Succinate (Vesicare) 5 MG TABLET 1 TAB PO DAILY BLADDER (Reported ) Review of Systems Constitutional: Reports: see HPI. EENTM: Reports: see HPI. Cardiovascular: Denies: chest pain, edema, orthopena, palpitations. Respiratory: Denies: cough, hemoptysis, orthopnea, short of breath. GI: Denies: bloating, constipation, diarrhea, distention. Genitourinary: Denies: dysuria, frequency, hematuria. Musculoskeletal: Denies: back pain, gout, joint pain, joint swelling. Skin: Denies: change in skin color, change in hair/nails, dryness, jaundice, lesions. Objective Objective: Vital Signs Date Time Temp Pulse Resp B/P Pulse O2 O2 Flow FiO2 Ox Delivery Rate 02/09 1538 100.8 76 18 145/65 93 Room Air 02/09 1445 Room Air 02/09 1358 100.5 02/09 1353 100.5 114 20 170/73 95 Room Air Physical Exam General Appearance Alert, Oriented X3 Skin No Rashes, No Breakdown HEENT PERRLA, EOMI Neck No JVD, No thryomegaly Lymphatic Axillary nl, Cervical nl Cardiovascular Normal S1, Normal S2 Lungs Clear to Auscultation, Normal Air Movement Abdomen Soft, No Tenderness Extremities No Cyanosis, No Edema, Normal Pulses, WOUND ON THE LEFT SECOND TOE COVERED WITH bAND-aID BUT NO DRAINAGE OR PUS COMING OUT. Current Medications Sig/Darrell Start time Last Medication Dose Route Stop Time Status Admin Acetaminophen 650 MG Q6P PRN 02/09 1630 AC PO Acetaminophen/ 1 TAB Q6P PRN 02/09 1630 AC Hydrocodone Bitart PO Amlodipine Besylate 5 MG DAILY 02/10 1000 AC PO Atorvastatin Calcium 20 MG 1700 02/10 1700 AC PO Clonidine 0.1 MG QPM PRN 02/09 1645 AC PO Enoxaparin Sodium 40 MG DAILY 02/10 1000 CAN SC Ibuprofen 400 MG ONCE ONE 02/09 1400 DC 02/09 PO 02/09 1401 1358 Insulin Aspart 0 TIDAC 02/09 1700 AC SC Insulin Detemir 20 UNITS BID 02/09 2200 AC SC Levothyroxine Sodium 0.125 MG DAILY AC 02/10 0700 AC PO Morphine Sulfate 2 MG Q4P PRN 02/09 1630 AC IV Rivaroxaban 15 MG DAILY 02/10 1000 AC PO Sodium Chloride 1,000 ML Q13H 02/09 1645 AC IV Sodium Chloride 1,000 ML BOLUS ONE 02/09 1615 DC 02/09 IV 02/09 1714 1631 Assessment/Plan Assessment: Patient is an 86 year-old diabetic woman with a past medical history significant for peripheral neuropathy, atrial fibrillation maintained on Xarelto, moderate aortic stenosis, colon cancer (diagnosed June of 2016) status post right hemicolectomy 1 year ago which was previously treated with chemotherapy ( currently not receiving any chemotherapy treatment) via a Port-A-Cath (still getting flushed every 6 weeks), osteomyelitis of the right big toe status post amputation on October 2015, and osteomyelitis of the left 2nd toe who presented to [facility] with generalized body aches and fevers. On admission, patient showed a temperature of 100.8 F, blood pressure of 144/78 mmHg, respiratory rate of 18, heart rate of 74, saturation of 94% on room air Labs on admission: WBC of 11.9, hemoglobin of 10.3, hematocrit of 30.3, platelet count of 238, INR of 1.54, sodium of 123, potassium of 5.4, chloride of 89, WN of 20, Chest x-ray: unremarkable 1. Fever of unknown origin: Broad differential. The wound on the left 2nd toe doesn't seem infected with no purulent discharge. Site of the Port-A-Cath also looks clean. Differential diagnosis includes Lyme disease, as well as infective endocarditis. 2. Hyponatremia: Likely secondary to medication-induced, which includes furosemide. Other cause could be due to hypothyroidism (needs to be ruled out) 3. History of atrial fibrillation: currently on Xarelto did controlled with metoprolol 4. History of moderate aortic stenosis. 5. History of colon cancer status post resection and chemotherapy: currently in remission. Moderate times Plan 1. Fever of unknown origin: * Admit to the general medicine floor * Do infectious disease workup for fever of unknown origin, as well as Lyme titers * Do a transthoracic echocardiogram considering that the patient has systolic murmur on examination * Watch off antibiotics for now * Blood cultures 2 urine cultures * ESR and CRP 2. Hyponatremia: * Check TSH and free T4 to rule out hypothyroidism * Administer IV fluids (normal saline) and recheck sodium in the next 6 hours. No increase or improvement of sodium more than 8 mEq in the first 24 hours * Hold the Lasix and digoxin along with lisinopril in the setting of hyponatremia 3. History of atrial fibrillation: * Continue with Xarelto Patient is full code Prophylaxis with Xarelto at all times Pain pathways Pain pathways
[2017-02-09 19:35] VITALS: BP 144/64
[2017-02-09] MEDS ORDERED: GABAPENTIN300 M2 PO (22:14)
[2017-02-09 22:51] VITALS: BP 118/60
[2017-02-10 06:20] VITALS: BP 122/58
[2017-02-10 08:32] LABS: ABSOLUTE BASOPHIL COUNT 0 /CUMM (0.0-0.2); ABSOLUTE EOSINOPHIL COUNT 0.1 /CUMM (0.0-0.7); ABSOLUTE GRANULOCYTE CT 6.1 /CUMM (1.4-6.5); ABSOLUTE MONOCYTE COUNT 0.9 /CUMM (0.10-0.60); BASOPHIL % 0.5 % (0.0-2.0); EOSINOPHIL % 1.8 % (0-5); GRANULOCYTE % 74.4 % (42.2-75.2); HEMATOCRIT 28.9 % (37-47); MEAN CORPUSCULAR HGB 27.5 PG (27.0-31.0); MEAN CORPUSCULAR VOLUME 83.5 FL (81.0-99.0); MEAN PLATELET VOLUME 8.5 FL (7.4-10.4); PLATELET COUNT 202 /CUMM (130-400); RBC DISTRIBUTION WIDTH 15.3 % (11.5-14.5); RED BLOOD CELL CT 3.46 /CUMM (4.20-5.40); WHITE BLOOD CELL COUNT 8.2 /CUMM (4.8-10.8)
--- NOTE | 2017-02-10 11:47 | Cons- Infect Disease ---
General Information and HPI Consulting Request Date of Consult: 02/10/17 Requested By: YAHIR JACKMAN MD Reason for Consult: Fever with no obvious source Source of Information: patient, old records History of Present Illness: This is an 86-year-old woman with a history of diabetes, peripheral neuropathy, atrial fibrillation, maintained on Xarelto, osteoarthritis, gout and colon cancer, status post right hemicolectomy 1 and 1/2 years prior to admission, followed by chemotherapy for 4 months via a Port-A-Cath, which remains in place, hospitalized 10 months prior to admission with osteomyelitis of the right great toe in the setting of gout, status post amputation of the toe and a four-week course of antibiotics, seen in the emergency room 2 months prior to admission with a left second toe infection, with an x-ray negative for osteomyelitis, treated with Augmentin for 1 week, admitted on February 09 with several weeks of myalgias, primarily of the proximal muscles of the lower extremities, and fatigue and a more recent onset of fevers and chills. On admission she was febrile to 100.8. Laboratory data revealed a white blood cell count of 12,000, BUN/creatinine 20 and 0.9, sodium 123, with normal liver enzymes, INR 1.54. Urinalysis rare RBCs. Chest x-ray was negative. She was followed off antibiotics. She has remained afebrile overnight and feels improved this morning. She does report mild tenderness on the medial aspect of her left knee and chronic urinary incontinence, but she denies any acute respiratory, GI or symptoms. Allergies/Medications Allergies: Coded Allergies: Sulfa (Sulfonamide Antibiotics) (Intermediate, RASH 04/11/16) adhesive tape (PAPER TAPE OK PER PT 04/11/16) Home Med List: Alprazolam (Xanax) 0.5 MG TABLET 1 TAB PO PRN ANXIETY (Reported) Atorvastatin Calcium (Lipitor) 20 MG TABLET 1 TAB PO DAILY CHOLESTEROL ( Reported) Cholecalciferol (Vitamin D3) (Vitamin D) 1,000 UNIT TABLET 1 TAB PO DAILY SUPPLEMENT (Reported) Clonidine HCl 0.1 MG TABLET 1 TAB PO PRN BP (Reported) Cranberry Fruit Concentrate (Cranberry) (Unknown Strength) CAPSULE (Unknown Dose) PO DAILY SUPPLEMENT (Reported) Digoxin 125 MCG TABLET 1 TAB PO QPM HEART (Reported) Furosemide 40 MG TABLET 1 TAB PO DAILY DIURETIC (Reported) Gabapentin 300 MG CAPSULE 1 CAP PO DAILY NEUROPATHY Insulin Detemir (Levemir) 100 UNIT/ML VIAL 35 UNIT SC BID DM (Reported) Irbesartan (Avapro) 300 MG TABLET 1 TAB PO DAILY BP (Reported) Levothyroxine Sodium (Synthroid) 125 MCG TABLET 1 TAB PO DAILY THYROID ( Reported) Metoprolol Succ XL (Toprol XL) 25 MG TAB 12.5 TAB PO DAILY HEART/BP (Reported ) Multivitamin (Multi-Day Vitamins) 1 EACH TABLET 1 TAB PO DAILY SUPPLEMENT ( Reported) Potassium Chloride 20 MEQ TABLET.ER 1 TAB PO BID SUPPLEMENT (Reported) Rivaroxaban (Xarelto) 15 MG TABLET 1 TAB PO DAILY BLOOD THINNER (Reported) Sitagliptin Phosphate (Januvia) 100 MG TABLET 1 TAB PO DAILY DM (Reported) Solifenacin Succinate (Vesicare) 5 MG TABLET 1 TAB PO DAILY BLADDER (Reported ) Past History Travel History Traveled to [place] past 21 day No Medical History Blood Transfusion Hx: Yes Neurological: peripheral neuropathy, TIA EENT: NONE Cardiovascular: AFIB, CHF, hypertension, hyperlipidemia Respiratory: NONE Hepatic: NONE Renal: NONE Musculoskeletal: gout, osteoarthritis Psychiatric: anxiety Endocrine: diabetes, hypothyroidism, vitamin D deficiency Blood Disorders: NONE Cancer(s): colon/rectal cancer GEAR TESTER/Reproductive: NONE Other Medical Hx: Gout Rheumatoid arthritis History of MRSA: No History of VRE: No History of CDIFF: No Isolation History: Standard Influenza Vaccine: 09/25/16 Surgical History Surgical History: cholecystectomy, colon resection (right hemicolectomy), c- section, hysterectomy, diagnostic laparoscopy, PERNELL Family History Relations & Conditions If Any: FATHER FH: heart disease MOTHER FH: diabetes mellitus Psychosocial History Where Do You Live? Home Who Do You Live With? spouse Services at Home: None Smoking Status: Never Smoked Functional Ability ADLs Independent: dressing, eating, toileting, bathing. Ambulation: independent IADLs Independent: shopping, housework, finances, food prep, telephone, medication admin. Needs Assist: transportation. Review of Systems Review of Systems Musculoskeletal: Reports: joint pain (left knee). All Other Systems: Reviewed and Negative Exam & Diagnostic Data Last 24 Hrs of Vital Signs/I&O Vital Signs Date Time Temp Pulse Resp B/P Pulse O2 O2 Flow FiO2 Ox Delivery Rate 02/10 0954 98.2 65 20 122/58 02/10 0620 98.2 65 20 122/58 92 Room Air 02/09 2300 98.0 02/09 2251 98.0 63 19 118/60 91 Room Air 02/09 1935 98.3 95 20 144/64 96 Room Air 02/09 1538 100.8 76 18 145/65 93 Room Air 02/09 1445 Room Air 02/09 1358 100.5 02/09 1353 100.5 114 20 170/73 95 Room Air Intake & Output 02/10 1600 02/10 0800 02/10 0000 Intake Total 630 Output Total 300 Balance 330 Intake, IV 150 Intake, Oral 480 Output, Urine 300 Patient 152 lb Weight Physical Exam Other Physical Findings: She is awake and alert in no acute distress. MAXIMUM TEMPERATURE 100.8. Skin reveals no rash. HEENT exam is negative. Neck is supple with no adenopathy. Chest Port-A-Cath in the right upper chest with no inflammation at the site. Lungs few basilar crackles. Heart irregular rhythm with no murmur. Abdomen is soft, nontender with positive bowel sounds. Back no CVA tenderness. Extremities left knee mild swelling and warmth, with good range of motion and with no erythema or tenderness; status post right great toe amputation; left second toe ulcer over the dorsal aspect with no surrounding erythema or drainage ; no cyanosis, clubbing or edema of the lower extremities; 1+ pulses bilaterally. Neuro neuropathy both feet. Last 24 Hours of Lab Results: Laboratory Tests 02/10 02/09 02/09 0720 2050 1836 Chemistry Sodium (137 - 145 mmol/L) 129 L 122 L Potassium (3.5 - 5.1 mmol/L) 4.6 5.2 H Chloride (98 - 107 mmol/L) 97 L 90 L Carbon Dioxide (22 - 30 mmol/L) 22 23 Anion Gap (5 - 16) 10 8 BUN (7 - 17 mg/dL) 17 19 H Creatinine (0.5 - 1.0 mg/dL) 0.8 1.0 Estimated GFR (>60 ml/min) > 60 53 L BUN/Creatinine Ratio (7 - 25 %) 21.3 19.0 Hematology CBC w Diff NO MAN DIFF REQ WBC (4.8 - 10.8 /CUMM) 8.2 RBC (4.20 - 5.40 /CUMM) 3.46 L Hgb (12.0 - 16.0 G/DL) 9.5 L Hct (37 - 47 %) 28.9 L MCV (81.0 - 99.0 FL) 83.5 MCH (27.0 - 31.0 PG) 27.5 RDW (11.5 - 14.5 %) 15.3 H Plt Count (130 - 400 /CUMM) 202 MPV (7.4 - 10.4 FL) 8.5 Gran % (42.2 - 75.2 %) 74.4 Lymphocytes % (20.5 - 51.1 %) 11.9 L Monocytes % (1.7 - 9.3 %) 11.4 H Eosinophils % (0 - 5 %) 1.8 Basophils % (0.0 - 2.0 %) 0.5 Absolute Granulocytes (1.4 - 6.5 /CUMM) 6.1 Absolute Lymphocytes (1.2 - 3.4 /CUMM) 1.0 L Absolute Monocytes (0.10 - 0.60 /CUMM) 0.9 H Absolute Eosinophils (0.0 - 0.7 /CUMM) 0.1 Absolute Basophils (0.0 - 0.2 /CUMM) 0 PUBS MCHC (33.0 - 37.0 G/DL) 33.0 ESR Westergren (0 - 20 MM) 63 H Cancelled 02/09 02/09 02/09 1747 1516 1516 Chemistry Lactic Acid Cancelled Urines Urine Color (YEL,AMB,STR) YEL Urine Clarity (CLEAR) CLEAR Urine pH (5.0 - 8.0) 6.5 Ur Specific [place] (1.001 - 1.035) 1.010 Urine Protein (NEG,<30 MG/DL) 100 H Urine Ketones (NEG) NEG Urine Nitrite (NEG) NEG Urine Bilirubin (NEG) NEG Urine Urobilinogen (0.1 - 1.0 EU/dl) 0.2 Ur Leukocyte Esterase (NEG) NEG Ur Microscopic SEDIMENT EXAMINED Urine RBC (0 - 5 /HPF) RARE Ur Epithelial Cells (NONE,FEW) FEW Urine Bacteria (NEG/NONE) FEW H Urine Hemoglobin (NEG) TRACE-INTACT Urine Osmolality (300 - 1000 MOSM/KG) 309 Urine Glucose (N MG/DL) NEG 02/09 02/09 1501 1447 Chemistry Sodium (137 - 145 mmol/L) 123 L Potassium (3.5 - 5.1 mmol/L) 5.4 H Chloride (98 - 107 mmol/L) 89 L Carbon Dioxide (22 - 30 mmol/L) 22 Anion Gap (5 - 16) 12 BUN (7 - 17 mg/dL) 20 H Creatinine (0.5 - 1.0 mg/dL) 0.9 Estimated GFR (>60 ml/min) 59 L BUN/Creatinine Ratio (7 - 25 %) 22.2 Glucose (65 - 99 mg/dL) 214 H Serum Osmolality (285 - 295 MOSM/KG) 272 L Lactic Acid (0.7 - 2.1 mmol/L) 1.7 Cancelled Calcium (8.4 - 10.2 mg/dL) 8.6 Total Bilirubin (0.2 - 1.3 mg/dL) 1.0 AST (14 - 36 U/L) 27 ALT (9 - 52 U/L) 38 Alkaline Phosphatase (<127 U/L) 79 Troponin I (< 0.11 ng/ml) < 0.01 Total Protein (6.3 - 8.2 g/dL) 6.5 Albumin (3.5 - 5.0 g/dL) 3.4 L Globulin (1.9 - 4.2 gm/dL) 3.1 Albumin/Globulin Ratio (1.1 - 2.2 %) 1.1 TSH (0.270 - 4.200 uIU/mL) 0.445 Coagulation PT (9.4 - 12.5 SEC) 16.1 H INR (0.90 - 1.19) 1.54 H APTT (25 - 37 SEC) 31 Hematology CBC w Diff NO MAN DIFF REQ WBC (4.8 - 10.8 /CUMM) 11.9 H RBC (4.20 - 5.40 /CUMM) 3.72 L Hgb (12.0 - 16.0 G/DL) 10.3 L Hct (37 - 47 %) 30.3 L MCV (81.0 - 99.0 FL) 81.5 MCH (27.0 - 31.0 PG) 27.8 RDW (11.5 - 14.5 %) 15.3 H Plt Count (130 - 400 /CUMM) 238 MPV (7.4 - 10.4 FL) 8.1 Gran % (42.2 - 75.2 %) 81.5 H Lymphocytes % (20.5 - 51.1 %) 8.5 L Monocytes % (1.7 - 9.3 %) 9.5 H Eosinophils % (0 - 5 %) 0.3 Basophils % (0.0 - 2.0 %) 0.2 Absolute Granulocytes (1.4 - 6.5 /CUMM) 9.7 H Absolute Lymphocytes (1.2 - 3.4 /CUMM) 1.0 L Absolute Monocytes (0.10 - 0.60 /CUMM) 1.1 H Absolute Eosinophils (0.0 - 0.7 /CUMM) 0 Absolute Basophils (0.0 - 0.2 /CUMM) 0 PUBS MCHC (33.0 - 37.0 G/DL) 34.0 Toxicology Digoxin (0.8 - 2.0 ng/mL) 0.5 L Last 24 Hours of Sanjeev Results: Blood cultures 2 February 09 negative Urine culture February 09 approximately 40,000 colonies of gram-negative rods Rapid flu swab February 09 negative Diagnostic Data Recent Imaging Findings: Chest x-ray February 09 mild central congestion with no acute process Assessment/Plan Assessment/Plan Impression: This is an 86-year-old woman with a history of diabetes, peripheral neuropathy, atrial fibrillation, osteoarthritis, gout and colon cancer, status post right hemicolectomy and treatment with chemotherapy, with a Port-A-Cath still in place , treated with antibiotics for an infected left second toe ulcer 2 months prior to admission, admitted on February 09 with several weeks of myalgias, primarily of the lower extremities, and fatigue, found to have a low-grade fever with a mild leukocytosis with no obvious source. She has several possible sources of fever including the left second toe ulcer, with the possibility of underlying osteomyelitis, the Port-A-Cath, though there is no overlying inflammation and her blood cultures are so far negative, and a noninfectious process such as gout or pseudogout with mild inflammation on the medial aspect of her left knee (and which could also be responsible for her left second toe process) or another inflammatory process such as polymyalgia rheumatica, with her elevated ESR, though she has no definite proximal muscle weakness. Her positive urine culture likely represents contamination with no new urinary symptoms and a negative urinalysis. Suggestion: 1. X-ray of the left knee and left second toe 2. MRI of the left foot if x-ray of the toe negative 3. Would discuss removal of the Port-A-Cath with Oncology 4. Would evaluate need for prophylaxis for gout upon discharge 5. Continue to follow off antibiotics pending above Consult Acknowledgment - Thank you for your consult request.
--- NOTE | 2017-02-10 12:34 | Event Note ---
Event Note Event Note: Spoke to Dr Son and discussed the possibility of removal of Jeferson cath. Dr Son was comofrtable with the decision of removing the jeferson cath.Will schedule with IR the removal.
--- NOTE | 2017-02-10 12:46 | ECHOCARDIOGRAM REPORT ---
LARS FENG Age: 86 : 1930 Gender: F Exam Date: 02/10/2017 10:03 Exam Location: 2 [address] A Ht (in): 66 Wt (lb): 151 BSA: 1.79 BP: 122 / 58 Ordering Physician: TEMITOPE FLORES MD Referring Physician: TEMITOPE FLORES MD Technologist: Gonzalo Pruitt [facility] Room Number: [id number] Indications: AFIB/FLUTTER Rhythm: Atrial fibrillation Technical Quality: FINDINGS Left Ventricle Normal left ventricular wall motion. Normal size left ventricle. left ventricular wall thickness mildly increased. Left ventricular ejection fraction is estimated at 65 %. Right Ventricle Normal right ventricular size and function. Right Atrium Moderate to severe right atrial dilatation. Left Atrium Severe left atrial dilatation. Mitral Valve Mitral annular calcification. Fbxa-jw-kcgciwjp mitral regurgitation. Aortic Valve Diffuse thickening of the aortic valve cusps with reduced excursion. Pcyxcuid-dv-wcgyal aortic stenosis. Mild aortic regurgitation. Tricuspid Valve Structurally normal tricuspid valve. Nkqp-wx-gtnlzsfu tricuspid regurgitation. Right ventricular systolic pressure estimated at 55 mmHg. Pulmonic Valve Structurally normal pulmonic valve. Mild pulmonic regurgitation. Pericardium No pleural effusion. No pericardial effusion. Great Vessels Normal size aortic root. CONCLUSIONS Left ventricular wall thickness mildly increased. Left ventricular ejection fraction is estimated at 65 %. Moderate to severe right atrial dilatation. Severe left atrial dilatation. Mitral annular calcification. Askw-cd-cscyotpq mitral regurgitation. Mmwvecjo-mo-pobgoh aortic stenosis. Mild aortic regurgitation. Aale-ft-njlayapq tricuspid regurgitation. Right ventricular systolic pressure estimated at 55 mmHg. Mild pulmonic regurgitation. Johan Ferguson M.D. (Electronically Signed) Final Date: 10 February 2017 12:46 MEASUREMENTS (Male / Female) Normal Values 2D ECHO LV Diastolic Diameter PLAX 4.7 cm 4.2 - 5.9 / 3.9 - 5.3 cm LV Systolic Diameter PLAX 2.6 cm 2.1 - 4.0 cm LV Fractional Shortening PLAX 44.7 % 25 - 46 % LV Ejection Fraction 2D Teich 76.0 % IVS Diastolic Thickness 1.0 cm LVPW Diastolic Thickness 1.0 cm LV Relative Wall Thickness 0.4 RV Internal Dim ED PLAX 4.2 cm 1.9 - 3.8 cm LVOT Diameter 1.8 cm Aortic Root Diameter 3.3 cm LA Systolic Diameter LX 5.9 cm 3.0 - 4.0 / 2.7 - 3.8 cm LA Volume 226.0 cm 18 - 58 / 22 - 52 cm Ascending Aorta Diameter 3.8 cm DOPPLER AV Peak Velocity 410.0 cm/s AV Peak Gradient 67.2 mmHg AV Mean Velocity 283.0 cm/s AV Mean Gradient 38.0 mmHg AV Velocity Time Integral 101.0 cm AI Deceleration [place] 228.0 cm/s AI Peak Velocity 379.5 cm/s AI Pressure Half Time 558.5 ms AI Peak Gradient 57.6 mmHg LVOT Peak Velocity 115.0 cm/s LVOT Peak Gradient 5.3 mmHg LVOT Mean Velocity 75.7 cm/s LVOT Mean Gradient 3.0 mmHg LVOT Velocity Time Integral 27.2 cm LVOT Stroke Volume 69.2 cm AV Area Cont Eq vti 0.7 cm AV Area Cont Eq pk 0.7 cm MV Peak Velocity 161.0 cm/s MV Peak Gradient 10.4 mmHg MV Mean Velocity 69.9 cm/s MV Mean Gradient 3.0 mmHg Mitral E Point Velocity 186.0 cm/s MV Deceleration [place] 630.0 cm/s MV Deceleration Time 218.0 ms MR Peak Velocity 645.0 cm/s MR Peak Gradient 166.4 mmHg TR Peak Velocity 352.0 cm/s TR Peak Gradient 49.6 mmHg Right Atrial Pressure 10.0 mmHg Pulmonary Artery Systolic Pressu 59.6 mmHg Right Ventricular Systolic Press 59.6 mmHg PV Peak Velocity 175.0 cm/s PV Peak Gradient 12.3 mmHg PV Mean Velocity 116.0 cm/s PV Mean Gradient 7.0 mmHg PV Velocity Time Integral 35.5 cm LV E' Lateral Velocity 9.3 cm/s Mitral E to LV E' Lateral Ratio 20.1 LV E' Septal Velocity 5.3 cm/s Mitral E to LV E' Septal Ratio 35.4
--- NOTE | 2017-02-10 13:35 | PN- Housestaff ---
JOE AVALOS,[facility] 02/10/17 1335: Subjective Follow-up For: hyponatremia fever Subjective: saw pt at [facility]. She staetd that she felt better in AM. Febrile to 100.8. Review of Systems Constitutional: Reports: no symptoms. Objective Last 24 Hrs of Vital Signs/I&O Vital Signs Date Time Temp Pulse Resp B/P B/P Pulse O2 O2 Flow FiO2 Mean Ox Delivery Rate 02/11 1725 70 128/60 02/11 1627 100.3 02/11 1620 100.3 02/11 1548 102.0 02/11 1439 102.0 02/11 1410 100.5 100 20 140/70 96 Room Air 02/11 1234 99.8 95 22 170/78 02/11 1230 99.8 95 22 17078 95 Room Air Room Air 02/11 0800 95 Room Air Room Air 02/11 0624 98.6 98 20 160/72 92 Room Air Intake & Output 02/11 1600 02/11 0800 02/11 0000 Intake Total 930 600 440 Output Total Balance 930 600 440 Intake, IV 450 600 300 Intake, Oral 480 140 Physical Exam General Appearance: Alert, Oriented X3, Cooperative, No Acute Distress Skin: No Significant Lesion HEENT: Atraumatic, PERRLA, EOMI Neck: Supple Cardiovascular: Regular Rate, Normal S1, Normal S2 Lungs: Clear to Auscultation Abdomen: Soft, No Tenderness Neurological: Normal Gait, Normal Speech Extremities: No Cyanosis, No Edema Assessment/Plan Assessment: This is an 86-year-old diabetic woman with a peripheral neuropathy, atrial fibrillation on Xarelto, moderate , Colon ca s/p right hemicolectomy treated with chemotherapy via a Port-A-Cath, currently not on any chemotherapy, 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 Comes in with CC persistent fever and myalgas and arthrlagias for the last 1 week PLAN 1. Fever: Currently unknown source but with several possibilities. Tmax 100.8 overnight. Has UC with 62543 CFU GNR. Portacath in place. Possible infection in second toe of l. foot. * Unlikely to be UTI with only 40,000 CFU; monitor final result * Set for protacath removal tomorrow * culture tip * pancultures if she spikes * watch of abx * ID onboard * F/u existing sputum and blood cultures * Note hx of colon ca in setting of unnown fevers... 2. Hyponatremia: Came in with NA 123 now 129.Given elevated BUN could be 2/2 dehydration. No alkalosis suggesting diuretic was responsible for Na loss, but cannot entirely rule out. Improving well. Con't monitor * Con't NS at 75cc/hr * hold dig and diuretic; consider restarting tomorro 4. Afib on xarelto: Chronic and stable. COn't monitor * cont xarelto * hold dig * monitor HR. 5. Hx : hAS 3/6 murmur at RUSB * echo Problem List: 1. Hyperkalemia 2. Hyperglycemia 3. Status post partial colectomy 4. Amputated great toe of right foot Pain Ratin Pain Location: none Pain Goal: Remain pain free Pain Plan: none Tomorrow's Labs & Rationales: cbc bep DVT/Prophylaxis: pharmacological DEBRA ACEVEDO 02/10/17 1401: Attending MD Review Statement Attending Statement Attending MD Statement: examined this patient, discuss w/resident/PA/[employer], agreed w/resident/PA/[employer], discussed with family, reviewed EMR data (avail), discussed with nursing, discussed with case mgmt, reviewed images, amended to note Attending Assessment/Plan: ASSESSMENT 1. Fever of unknown origin 2. Hyponatremia 2/2 IVVD 3. History of atrial fibrillation currently on Xarelto did controlled with metoprolol 4. History of moderate aortic stenosis 5. History of colon cancer status post resection and chemotherapy currently in remission 6. h/o osteomyeltiis 7. Cardiac murmur. 8. Elevated ESR 9 Port -a cath placement. PLAN Admit to general medicine floor Consult infectious disease workup for fever. f/u cultures. f/u imaging. Transthoracic echocardiogram considering that the patient has systolic murmur on examination IV fluids normal saline, Na improving. Watch off antibiotics for now, port-a cath exchange. IR consult. Patient is full code DVT prophylaxis with Xarelto at all times
[2017-02-10 14:06] VITALS: BP 130/70
--- NOTE | 2017-02-10 15:42 | RADIOLOGY REPORT ---
EXAMINATION: XR FOOT, left X-ray knee, LEFT CLINICAL INFORMATION: Left knee pain. Swelling. Effusion. Second toe infection. Pain. COMPARISON: None TECHNIQUE: Four views of the left foot. 4 views of the left knee FINDINGS: Left knee: There is no acute fracture, subluxation or suspicious focal lesion. There is mild narrowing of the medial compartment. There are some marginal osteophytes. Moderately extensive chondrocalcinosis. No convincing opaque loose body. There may be a small amount joint fluid. Extensive arterial calcification. Left foot: Moderate to marked hallux valgus deformity. Narrowing of first MTP joint with overlying soft tissue swelling and some soft tissue calcification medial to the distal first metatarsal. No convincing erosion. There is generalized osteopenia. The toes are not well evaluated due to marked dorsi flexion at the MTP joints. There may be some flattening of the distal second metatarsal. There is some irregularity at the base of the second proximal phalanx. No convincing acute destruction. No soft tissue gas. There is some ossific density in the region of the plantar fascia adjacent to the calcaneus. There may be some degenerative change of the tibiotalar joint. IMPRESSION: No acute abnormality. Chondrocalcinosis involving the knee. Limited assessment of the second toe due to severe dorsi flexion. Depending upon the clinical circumstances further evaluation might include dedicated views of the second toe with attention to positioning. Hallux valgus with bunion formation and adjacent soft tissue calcification
[2017-02-10 16:09] VITALS: BP 128/60
[2017-02-10 22:05] VITALS: BP 124/70
[2017-02-11 06:24] VITALS: BP 160/72
[2017-02-11 08:32] LABS: PT 13.9 SEC (9.4-12.5)
[2017-02-11 08:51] LABS: ABSOLUTE BASOPHIL COUNT 0 /CUMM (0.0-0.2); ABSOLUTE EOSINOPHIL COUNT 0.1 /CUMM (0.0-0.7); ABSOLUTE GRANULOCYTE CT 7.1 /CUMM (1.4-6.5); ABSOLUTE MONOCYTE COUNT 0.9 /CUMM (0.10-0.60); BASOPHIL % 0.3 % (0.0-2.0); EOSINOPHIL % 0.6 % (0-5); GRANULOCYTE % 77.8 % (42.2-75.2); MEAN CORPUSCULAR HGB 27.5 PG (27.0-31.0); MEAN CORPUSCULAR HGB CONC 33.5 G/DL (33.0-37.0); MEAN CORPUSCULAR VOLUME 82.1 FL (81.0-99.0); MEAN PLATELET VOLUME 8.3 FL (7.4-10.4); PLATELET COUNT 253 /CUMM (130-400); RBC DISTRIBUTION WIDTH 15.2 % (11.5-14.5); RED BLOOD CELL CT 3.54 /CUMM (4.20-5.40); WHITE BLOOD CELL COUNT 9.2 /CUMM (4.8-10.8)
--- NOTE | 2017-02-11 08:56 | PN- Housestaff ---
JOE AVALOS,[facility]ANDEGRAND [facility] H[facility]ALSaravanan 02/11/17 0856: Subjective Follow-up For: fever hyponatremia Subjective: pt feeling better. States that her muscle aches have improved but still feels like she is having fevers and chills. Low grade temp present overnight. Review of Systems Constitutional: Reports: chills, fever. EENTM: Reports: no symptoms. Cardiovascular: Reports: no symptoms. Respiratory: Denies: cough, short of breath. Gastrointestinal: Reports: no symptoms. Genitourinary: Reports: no symptoms. Denies: frequency, hesitation. Musculoskeletal: Reports: joint pain. Objective Last 24 Hrs of Vital Signs/I&O Vital Signs Date Time Temp Pulse Resp B/P B/P Pulse O2 O2 Flow FiO2 Mean Ox Delivery Rate 02/11 1439 102.0 02/11 1410 100.5 100 20 140/70 96 Room Air 02/11 1234 99.8 95 22 170/78 02/11 1230 99.8 95 22 170/78 95 Room Air Room Air 02/11 0800 95 Room Air Room Air 02/11 0624 98.6 98 20 160/72 92 Room Air 02/10 2205 99.3 81 20 124/70 94 02/10 1609 99.4 90 20 128/60 93 Intake & Output 02/11 1600 02/11 0800 02/11 0000 Intake Total 930 600 440 Output Total Balance 930 600 440 Intake, IV 450 600 300 Intake, Oral 480 140 Physical Exam General Appearance: Alert, Oriented X3, Cooperative, No Acute Distress Skin: No Breakdown, No Significant Lesion HEENT: Atraumatic, PERRLA, EOMI Neck: Supple Cardiovascular: Regular Rate, Normal S1, Normal S2 Lungs: Normal Air Movement Abdomen: Soft, No Tenderness Neurological: Normal Speech Extremities: l. knee looks normal to inspection. Smok slight tenderness to aggressive palpation. Not erythematous, luctuant or warmer than other extremity. 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 Comes in with CC persistent fever and myalgas and arthrlagias for the last 1 week PLAN 1. Fever: Has UC with 59975 CFU GNR. Portacath scheduled to be removed today with culture of cath tip. Patient had MAXIMUM TEMPERATURE yesterday of 102.5. Overnight she remained afebrile with a MAXIMUM TEMPERATURE of 99.8. However today during the day, she has a temperature of 100.5. Labs show an improving white count. Came in with 11.9, today at 9.2. Concerrn forpossible rheuumatic etiology of fever; possible pseudogout/gout of l. knee. MRI of l. toe came back - for osteomyelitis tho study was not of optimal quality. Note hx of colon ca in setting of unnown fevers...?? * Unlikely to be UTI with only 40,000 CFU; monitor final result * Set for protacath removal today * culture tip * pancultures if she spikes * watch of abx * ID onboard * F/u existing sputum and blood cultures * colchicine started 2. Hyponatremia: Came in with NA 123--> 129--> 132.Given elevated BUN could be 2 /2 dehydration. No alkalosis; suggesting diuretic was responsible for Na loss, but cannot entirely rule out. Improving well on fluids suggesting hypovolemic hyponatremia. Con't monitor. * Con't NS at 75cc/hr * holding diuretic * Start digoxin today 4. Afib on xarelto: Chronic and stable. COn't monitor * cont xarelto * hold dig * monitor HR. 5. Hx : Has 3/6 murmur at RUSB * echo 6. DM: Chronic and stable. Con't current reg * cont' insulin regimen * FS * Start gabapentin Problem List: 1. Hyperkalemia 2. Fever of unknown origin 3. H/O right hemicolectomy Pain Ratin Pain Location: none Pain Goal: Remain pain free Pain Plan: none Tomorrow's Labs & Rationales: DEBRA Berry 02/11/17 1412: Attending MD Review Statement Attending Statement Attending MD Statement: examined this patient, discuss w/resident/PA/OUTSOLE CUTTER MACHINE, agreed w/resident/PA/OUTSOLE CUTTER MACHINE, discussed with family, reviewed EMR data (avail), discussed with nursing, discussed with case mgmt, reviewed images, amended to note Attending Assessment/Plan: ASSESSMENT 1. Fever of unknown origin 2. Hyponatremia 2/2 IVVD 3. History of atrial fibrillation currently on Xarelto did controlled with metoprolol 4. History of moderate aortic stenosis 5. History of colon cancer status post resection and chemotherapy currently in remission 6. h/o osteomyeltiis 7. Cardiac murmur. 8. Elevated ESR 9 Port -a cath placement. 10 Chondrocalcinosis pseudogout PLAN Admit to general medicine floor Consult infectious disease workup for fever. f/u cultures. f/u imaging. Transthoracic echocardiogram considering that the patient has systolic murmur on examination Watch off antibiotics for now, port-a cath removal. IR consulted started on colchicine. Patient is full code DVT prophylaxis with Xarelto at all times
[2017-02-11 12:30] VITALS: BP 170/78
[2017-02-11 14:10] VITALS: BP 140/70
--- NOTE | 2017-02-11 14:11 | MRI REPORT ---
EXAMINATION: MR FOOT WITHOUT CONTRAST, LEFT CLINICAL INFORMATION: Pain and nonhealing ulcer on the left 2nd toe. COMPARISON: Radiograph dated 02/10/2017. TECHNIQUE: Multiplanar MR imaging was obtained through the left foot without contrast material on a 1.5 Kelsea magnet. Images are limited due to marked motion artifact on all sequences. FINDINGS: As noted above, the examination is markedly limited by motion artifact on all sequences, limiting sensitivity and specificity of this study. There is likely mild edema signal at the 2nd toe proximal phalangeal base. No appreciable low signal intensity in this region on T1-weighted images. No specific findings of osteomyelitis are identified. Bone marrow signal is otherwise normal. The toes are hyperextended at the MTP joints with flexion at the interphalangeal joints. There is at least moderate degenerative arthritis at the 1st MTP joint with hallux valgus. Intrinsic foot musculature is atrophic. No fluid collections are identified. Evaluation of the tendons is limited. IMPRESSION: Markedly limited examination due to patient motion. Marrow edema at the base of the 2nd toe proximal phalanx. This is nonspecific and could be due to degenerative arthritis, fracture, trauma, or other processes in addition to osteomyelitis. No specific findings of osteomyelitis. 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
--- NOTE | 2017-02-11 14:30 | PN- Infect Dx ---
Subjective Subjective: MAXIMUM TEMPERATURE 102.5. She feels improved today with no further myalgias and with decreased left knee discomfort. Objective Last 24 Hrs of Vital Signs/I&O Vital Signs Date Time Temp Pulse Resp B/P B/P Pulse O2 O2 Flow FiO2 Mean Ox Delivery Rate 02/11 1410 100.5 100 20 140/70 96 Room Air 02/11 1234 99.8 95 22 170/78 02/11 1230 99.8 95 22 170/78 95 Room Air Room Air 02/11 0800 95 Room Air Room Air 02/11 0624 98.6 98 20 160/72 92 Room Air 02/10 2205 99.3 81 20 124/70 94 02/10 1609 99.4 90 20 128/60 93 02/10 1530 99.6 02/10 1437 102.5 02/10 1419 102.5 Intake & Output 02/11 1600 02/11 0800 02/11 0000 Intake Total 600 440 Output Total Balance 600 440 Intake, IV 600 300 Intake, Oral 140 Physical Exam Other Physical Findings: She appears comfortable in no acute distress Lungs crackles at the left base Heart irregular rhythm with no murmur Extremities decreased swelling over the left knee, with no erythema or tenderness; left second toe ulcer with no surrounding inflammation Results Last 24 Hours of Lab Results: Laboratory Tests 02/11 0800 Chemistry Sodium (137 - 145 mmol/L) 132 L Potassium (3.5 - 5.1 mmol/L) 4.2 Chloride (98 - 107 mmol/L) 98 Carbon Dioxide (22 - 30 mmol/L) 25 Anion Gap (5 - 16) 9 BUN (7 - 17 mg/dL) 13 Creatinine (0.5 - 1.0 mg/dL) 0.7 Estimated GFR (>60 ml/min) > 60 BUN/Creatinine Ratio (7 - 25 %) 18.6 Coagulation PT (9.4 - 12.5 SEC) 13.9 H INR (0.90 - 1.19) 1.33 H Hematology CBC w Diff NO MAN DIFF REQ WBC (4.8 - 10.8 /CUMM) 9.2 RBC (4.20 - 5.40 /CUMM) 3.54 L Hgb (12.0 - 16.0 G/DL) 9.7 L Hct (37 - 47 %) 29.0 L MCV (81.0 - 99.0 FL) 82.1 MCH (27.0 - 31.0 PG) 27.5 RDW (11.5 - 14.5 %) 15.2 H Plt Count (130 - 400 /CUMM) 253 MPV (7.4 - 10.4 FL) 8.3 Gran % (42.2 - 75.2 %) 77.8 H Lymphocytes % (20.5 - 51.1 %) 11.1 L Monocytes % (1.7 - 9.3 %) 10.2 H Eosinophils % (0 - 5 %) 0.6 Basophils % (0.0 - 2.0 %) 0.3 Absolute Granulocytes (1.4 - 6.5 /CUMM) 7.1 H Absolute Lymphocytes (1.2 - 3.4 /CUMM) 1.0 L Absolute Monocytes (0.10 - 0.60 /CUMM) 0.9 H Absolute Eosinophils (0.0 - 0.7 /CUMM) 0.1 Absolute Basophils (0.0 - 0.2 /CUMM) 0 PUBS MCHC (33.0 - 37.0 G/DL) 33.5 Last 24 Hours of Sanjeev Results: Blood cultures 2 February 09 negative Urine culture February 09 approximately 40,000 colonies of Klebsiella pneumoniae resistant to Ampicillin Recent Imaging Studies: X-ray of the left knee February 10 revealed moderately extensive chondrocalcinosis with a small amount of joint fluid X-ray of the left foot February 10 (a limited exam secondary to severe dorsiflexion ) with no convincing erosion noted MRI of the left foot February 11 negative for any specific findings of osteomyelitis, though exam is markedly limited due to patient motion Assessment/Plan Impression: Stable with no further fevers, now on Colchicine, begun yesterday for possible pseudogout of the left knee. The MRI of the left foot, though a poor study, did not reveal evidence of osteomyelitis. Her Port-A-Cath was removed earlier today , with culture of the tip pending, though this is not likely to be the source of her fever. The positive urine culture likely represents contamination with no urinary symptoms and with a negative urinalysis. Suggestion: 1. Further management of her left toe ulcer per Podiatry 2. Follow-up Portacath tip culture 3. Continue Colchicine 4. Would begin prophylaxis for gout after she completes her course of Colchicine 5. Continue to follow off antibiotics
--- NOTE | 2017-02-11 14:37 | PN- Student ---
Subjective Subjective: Patient seen this morning. Overnight reports of epistaxis secondary to dry nose, as well as episodes of fever and chills. Patient deny any other current complaint this morning. Objective Objective: Vital Signs Date Time Temp Pulse Resp B/P B/P Pulse O2 O2 Flow FiO2 Mean Ox Delivery Rate 02/11 1410 100.5 100 20 140/70 96 Room Air 02/11 1234 99.8 95 22 170/78 02/11 1230 99.8 95 22 170/78 95 Room Air Room Air 02/11 0800 95 Room Air Room Air 02/11 0624 98.6 98 20 160/72 92 Room Air 02/10 2205 99.3 81 20 124/70 94 02/10 1609 99.4 90 20 128/60 93 02/10 1530 99.6 02/10 1437 102.5 Intake & Output 02/11 1600 02/11 0800 02/11 0000 Intake Total 600 440 Output Total Balance 600 440 Intake, IV 600 300 Intake, Oral 140 Current Medications Sig/Darrell Start time Last Medication Dose Route Stop Time Status Admin Acetaminophen 650 MG Q6P PRN 02/09 1630 AC 02/10 PO 1437 Acetaminophen/ 1 TAB Q6P PRN 02/09 1630 AC Hydrocodone Bitart PO Atorvastatin Calcium 20 MG 1700 02/10 1700 AC 02/10 PO 1615 Clonidine 0.1 MG QPM PRN 02/09 1645 AC PO Colchicine 600 MCG BID 02/11 1000 AC 02/11 PO 1416 Colchicine 1,200 MCG ONCE ONE 02/10 1845 DC 02/10 PO 02/10 1846 1846 Colchicine 600 MCG ONCE ONE 02/10 1815 DC 02/10 PO 02/10 181 2034 Colchicine 1.2 MCG ONCE ONE 02/10 1715 DC PO 02/10 1716 Dextrose/Sodium 1,000 ML Q13H 02/11 0100 DC 02/11 Chloride IV 0129 Digoxin 0.125 MG 1700 02/11 1700 AC PO Fentanyl Citrate 0 .STK-MED ONE 02/11 1007 DC .ROUTE Furosemide 40 MG DAILY 02/12 1000 AC PO Insulin Aspart 0 TIDAC 02/09 1700 AC 02/11 SC 1241 Insulin Detemir 30 UNITS BID 02/10 1000 AC 02/11 SC 1234 Levothyroxine Sodium 0.125 MG DAILY AC 02/10 0700 AC 02/11 PO 0611 Lidocaine 0 .STK-MED ONE 02/11 0850 DC .ROUTE Lidocaine/Epinephrine 0 .STK-MED ONE 02/11 0912 DC .ROUTE Metoprolol Tartrate 12.5 MG DAILY 02/10 1000 AC 02/11 PO 1234 Midazolam HCl 0 .STK-MED ONE 02/11 1007 DC .ROUTE Morphine Sulfate 2 MG Q4P PRN 02/09 1630 AC IV Oxybutynin Chloride 5 MG 1/2H BEFOR/BREAKFAST 02/10 0700 02/11 PO 0611 Patient Medication 1 ED .STK-MED ONE 02/11 1404 DC Teaching ED 02/11 1405 Rivaroxaban 15 MG 2200 02/09 2359 DC 02/10 PO 0037 Sodium Chloride 1,000 ML Q13H 02/09 1645 DC 02/10 IV 02/10 2300 2034 Assessment/Plan Assessment: Patient is an 86 year-old diabetic woman with a past medical history significant for peripheral neuropathy, atrial fibrillation maintained on Xarelto, moderate aortic stenosis, colon cancer (diagnosed June of 2016) status post right hemicolectomy 1 year ago which was previously treated with chemotherapy ( currently not receiving any chemotherapy treatment) via a Port-A-Cath (still getting flushed every 6 weeks), osteomyelitis of the right big toe status post amputation on October 2015, and osteomyelitis of the left 2nd toe who presented to [facility] with generalized body aches and fevers. 1 - Fever of unknown origin 2 - Hyponatremia 3 - Hyperkalemia 4 - Atrial fibrillation 5 - Aortic stenosis 1 - Fever of unknown origin * Port-A-Cath removal with tip culture. Pending results * MRI of the left foot showed no specific findings of osteomyelitis * X-ray of the left knee showed findings of chondrocalcinosis. Rule out pseudogout as possible cause of fever 2 - Hyponatremia * Upward trend of serum sodium to lower 130s * Continue current treatment 3 - Hyperkalemia * Serum potassium normalized * Check serum magnesium 4 - Atrial Fibrillation * Restart patient on Xarelto post Port-A-Cath removal 5 - Aortic Stenosis * Echo results received: Findings of mild LV wall thickness increase; Ejection fraction of 65%; [id number] right atrial dilation; Severe left atrial dilation; Vksnahvm-yi-nhauhq aortic stenosis; Mild aortic regurgitation; Mitral annular calcifications; Stgj-vm-pryiknmd mitral regurgitation; Pbim-hl-dwmcdsts tricuspid regurgitation; Mild pulmonic regurgitation
--- NOTE | 2017-02-11 16:48 | INTERVENTIONAL RADIOLOGY RPT ---
PROCEDURE: Port removal CLINICAL INFORMATION: Port no longer required. Recurrent fevers. COMPARISON: Chest x-ray 02/09/2017 INTERVENTIONAL RADIOLOGIST: Jameel Lorenzana M.D. FLUOROSCOPY TIME: 0.1 minutes. SEDATION: Intravenous conscious sedation was performed with full clinical nurse monitoring. An independent third-alliance party monitor nurse was utilized for full clinical nurse monitoring. The total sedation time was 25 minutes. A total of 1 mg of Versed and 50 mcg of fentanyl was utilized. 1% lidocaine and lidocaine with epinephrine was also used. DESCRIPTION: Informed consent was obtained from the patient prior to the procedure. During this process, the procedure and potential alternatives were explained, along with the intended outcome and benefits. The risks of the procedure, as well as the risks of not doing the procedure, were discussed. The patient was given the opportunity to ask questions regarding the procedure and appeared competent to make medical decisions. A signed consent form which documents this discussion was placed in the medical record. The patient was placed on the procedure table. A final timeout was called. The right chest wall and neck were prepped in a sterile fashion with maximal barrier protection. A single fluoroscopic image was taken of the port. Using lidocaine and lidocaine with epinephrine, the right chest wall pocket was reaccessed through the prior incision. The catheter was dissected using blunt dissection and clamped proximally. The catheter was then pulled back while holding pressure at the insertion site to the vein in the lower right neck. Pressure was held for approximately 5 minutes, assuring hemostasis. The port was then bluntly dissected. Two sutures securing the port in place were removed The port was then removed in its entirety. The pocket was flushed with saline. There was no bleeding appreciated. The pocket was closed using deep subcutaneous absorbable sutures. The skin was closed using Dermabond. A single fluoroscopic image was obtained at the end of the procedure verifying complete removal of the port. The patient tolerated the procedure well. There were no complications. The patient was discharged back to the floor after standard monitoring with written instructions. Port tip sent for culture. IMPRESSION: Successful port removal. No complications.
[2017-02-11 22:42] VITALS: BP 140/70
[2017-02-12 06:38] VITALS: BP 134/70
[2017-02-12] MEDS ORDERED: COLCHICINE0.6 M2 PO ×2 (07:28→21:13)
--- NOTE | 2017-02-12 07:30 | Patient Discharge Instructions ---
Discharge Instructions General Discharge Information You were seen/treated for: FEVER AND JOINT PAIN Special Instructions: PLEASE F/U WITH YOURT PCP IN 1 WEEK OF DISCHARGE Acute Coronary Syndrome Inclusion Criteria At DC or during hospital stay patient has or had the following: ACS DIAGNOSIS No Discharge Core Measures Meds if any: Prescribed or Continued at Discharge Meds if any: NOT Prescribed or Continued at Discharge Congestive Heart Failure Inclusion Criteria At DC or during hospital stay patient has or had the following: CHF DIAGNOSIS No Discharge Core Measures Meds if any: Prescribed or Continued at Discharge Meds if any: NOT Prescribed or Continued at Discharge Cerebrovascular accident Inclusion Criteria At DC or during hospital stay patient has or had the following: CVA/TIA Diagnosis No Discharge Core Measures Meds if any: Prescribed or Continued at Discharge Meds if any: NOT Prescribed or Continued at Discharge Venous thromboembolism Inclusion Criteria VTE Diagnosis No VTE Type NONE VTE Confirmed by (Test) NONE Discharge Core Measures - Per Current guidelines, there needs to be overlap - treatment for the first 5 days of Warfarin therapy. - If discharged on Warfarin prior to 5 days of - overlap therapy, the patient will need to be - assessed for post discharge needs including - *Post discharge parental anticoagulation - *Warfarin and/or parental anticoagulation education - *Follow up date to check INR post discharge At least 5 days overlap therapy as Inpatient No Meds if any: Prescribed or Continued at Discharge Note: Overlap Therapy is Warfarin and Anticoagulant Meds if any: NOT Prescribed or Continued at Discharge
[2017-02-12 08:17] LABS: ABSOLUTE BASOPHIL COUNT 0 /CUMM (0.0-0.2); ABSOLUTE EOSINOPHIL COUNT 0.2 /CUMM (0.0-0.7); ABSOLUTE GRANULOCYTE CT 6.4 /CUMM (1.4-6.5); ABSOLUTE LYMPH COUNT 1.8 /CUMM (1.2-3.4); ABSOLUTE MONOCYTE COUNT 1.3 /CUMM (0.10-0.60); BASOPHIL % 0.4 % (0.0-2.0); EOSINOPHIL % 1.6 % (0-5); GRANULOCYTE % 65.6 % (42.2-75.2); HEMATOCRIT 26.8 % (37-47); MEAN CORPUSCULAR HGB 27.7 PG (27.0-31.0); MEAN CORPUSCULAR HGB CONC 33.4 G/DL (33.0-37.0); MEAN CORPUSCULAR VOLUME 82.8 FL (81.0-99.0); MEAN PLATELET VOLUME 8.2 FL (7.4-10.4); PLATELET COUNT 236 /CUMM (130-400); RBC DISTRIBUTION WIDTH 15.3 % (11.5-14.5); RED BLOOD CELL CT 3.24 /CUMM (4.20-5.40); WHITE BLOOD CELL COUNT 9.8 /CUMM (4.8-10.8)
--- NOTE | 2017-02-12 08:21 | PN- Housestaff ---
JOE AVALOS,SMOOTH 02/12/17 0805: Subjective Follow-up For: Hyponatremia fever Subjective: Saw pt at bedside. She stated that she did not sleep well last night. States she was "zay by the MRI" and it made her SOB and kept her awake. Otherwise no acute overnight events. Pt afebrile and remains off antibiotics. Review of Systems Constitutional: Denies: chills, fever, weakness. EENTM: Reports: no symptoms. Cardiovascular: Denies: chest pain, palpitations. Respiratory: Reports: no symptoms. Gastrointestinal: Denies: abdominal pain, diarrhea, nausea, vomiting. Genitourinary: Denies: frequency, pain, urgency. Musculoskeletal: Reports: no symptoms. Objective Last 24 Hrs of Vital Signs/I&O Vital Signs Date Time Temp Pulse Resp B/P B/P Pulse O2 O2 Flow FiO2 Mean Ox Delivery Rate 02/12 0638 98.4 90 18 134/70 96 Room Air 02/12 0217 99.0 02/11 2242 98.8 92 20 140/70 97 Room Air 02/11 1725 70 128/60 02/11 1627 100.3 02/11 1620 100.3 02/11 1548 102.0 02/11 1439 102.0 02/11 1410 100.5 100 20 140/70 96 Room Air 02/11 1234 99.8 95 22 170/78 02/11 1230 99.8 95 22 170/78 95 Room Air Room Air Intake & Output 02/12 1600 02/12 0800 02/12 0000 Intake Total 240 120 Output Total Balance 240 120 Intake, Oral 240 120 Physical Exam General Appearance: Alert, Oriented X3, Cooperative, No Acute Distress Skin: No Rashes, No Significant Lesion HEENT: Atraumatic, PERRLA, EOMI, Mucous Membr. moist/pink Neck: Supple Cardiovascular: Regular Rate, Normal S1, Normal S2 Lungs: Clear to Auscultation Abdomen: Soft, No Tenderness Extremities: No Edema, Normal Pulses Current Medications: Current Medications Sig/Darrell Start time Last Medication Dose Route Stop Time Status Admin Acetaminophen 650 MG .STK-MED ONE 02/11 1455 DC PO 02/11 1456 Acetaminophen 650 MG Q6P PRN 02/09 1630 AC 02/11 PO 1548 Acetaminophen/ 1 TAB Q6P PRN 02/09 1630 AC 02/12 Hydrocodone Bitart PO 0225 Atorvastatin Calcium 20 MG 1700 02/10 1700 AC 02/11 PO 1723 Clonidine 0.1 MG QPM PRN 02/09 1645 AC PO Colchicine 600 MCG BID 02/11 1000 AC 02/11 PO 2121 Dextrose/Sodium 1,000 ML Q13H 02/11 0100 DC 02/11 Chloride IV 0129 Digoxin 0.125 MG 1700 02/11 1700 AC 02/11 PO 1725 Fentanyl Citrate 0 .STK-MED ONE 02/11 1007 DC .ROUTE Furosemide 40 MG DAILY 02/12 1000 AC PO Gabapentin 300 MG DAILY 02/11 1556 AC 02/11 PO 1757 Insulin Aspart 0 TIDAC 02/09 1700 AC 02/11 SC 1725 Insulin Detemir 30 UNITS BID 02/10 1000 AC 02/11 SC 2121 Levothyroxine Sodium 0.125 MG DAILY AC 02/10 0700 AC 02/12 PO 0609 Lidocaine 0 .STK-MED ONE 02/11 0850 DC .ROUTE Lidocaine/Epinephrine 0 .STK-MED ONE 02/11 0912 DC .ROUTE Melatonin 5 MG AT BEDTIME 02/11 2200 AC 02/11 PO 2121 Metoprolol Tartrate 12.5 MG DAILY 02/10 1000 AC 02/11 PO 1234 Midazolam HCl 0 .STK-MED ONE 02/11 1007 DC .ROUTE Morphine Sulfate 2 MG Q4P PRN 02/09 1630 AC IV Oxybutynin Chloride 5 MG 1/2H BEFOR/BREAKFAST 02/10 0700 AC 02/12 PO 0609 Patient Medication 1 ED .STK-MED ONE 02/11 1404 DC Teaching ED 02/11 1405 Rivaroxaban 15 MG 02/11 220 AC 02/11 PO 2121 Last 24 Hrs of Lab/Sanjeev Results Last 24 Hrs of Labs/Mics: Laboratory Tests 02/12/17 0656: Sodium Pending, Potassium Pending, Chloride Pending, Carbon Dioxide Pending, Anion Gap Pending, BUN Pending, Creatinine Pending, BUN/Creatinine Ratio Pending , CBC w Diff Pending, WBC Pending, RBC Pending, Hgb Pending, Hct Pending, MCV Pending, MCH Pending, RDW Pending, Plt Count Pending, MPV Pending, PUBS MCHC Pending Microbiology 02/11 0900 CATH TIP: Catheter Tip Culture - RECD Assessment/Plan Assessment: This is an 86-year-old diabetic woman with a peripheral neuropathy, atrial fibrillation on Xarelto, moderate , Colon ca s/p right hemicolectomy with a Port-A-Cath currently not on any chemotherapy, 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 Comes in with CC persistent fever and myalgas and arthrlagias for the last 1 week PLAN 1. Fever: Has UC with 04559 CFU now speciated to Klebsiella pneumonia. Portacath removed 02/11/2017 with culture of cath tip pending. Patient had MAXIMUM TEMPERATURE yesterday of 102.5. Overnight she remained afebrile. Came in with WBC 11.9--> 9.2--> 9.8. Concern for possible rheumatic etiology of fever; possible pseudogout/gout of l. knee. MRI of l. toe came back negative for osteomyelitis though study was not of optimal quality. Note hx of colon ca in setting of unnown fevers...?? Also considering tick-borne etiology of fevers. * Unlikely to be UTI with only 40,000 CFU; monitor final result * F/U culture tip * del cid-cultures if she spikes * watch of abx * ID onboard * F/u existing sputum and blood cultures * colchicine started 2. Hyponatremia: Came in with NA 123--> 129--> 132--->129. Given elevated BUN could be 2/2 dehydration. No alkalosis to suggest diuretic was responsible for Na loss, but cannot entirely rule out. Improving well on fluids suggesting hypovolemic hyponatremia. Con't monitor. * Con't NS at 75cc/hr * holding diuretic * Start digoxin today 4. Afib on xarelto: Chronic and stable. Con't monitor * cont xarelto * hold dig * monitor HR. 5. Hx : Has 3/6 murmur at RUSB * echo done showing 6. DM: Chronic and stable. Con't current reg * cont' insulin regimen * FS * Start gabapentin Problem List: 1. Hyperkalemia Pain Ratin Pain Location: none Pain Goal: Remain pain free Pain Plan: none Tomorrow's Labs & Rationales: none DEBRA ACEVEDO 02/12/17 1103: Attending MD Review Statement Attending Statement Attending MD Statement: examined this patient, discuss w/resident/PA/PRODUCT/DEVICE TECHNOLOGIST, agreed w/resident/PA/PRODUCT/DEVICE TECHNOLOGIST, discussed with family, reviewed EMR data (avail), discussed with nursing, discussed with case mgmt, reviewed images, amended to note Attending Assessment/Plan: ASSESSMENT 1. Fever 2. Hyponatremia 2/2 IVVD 3. History of atrial fibrillation currently on Xarelto did controlled with metoprolol 4. History of moderate aortic stenosis 5. History of colon cancer status post resection and chemotherapy currently in remission 6. h/o osteomyeltiis 7. Cardiac murmur. 8. Elevated ESR 9 Port -a cath placement. 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 f/u cultures. f/u imaging. Watch off antibiotics for now, port-a cath removal. IR consulted started on colchicine. watch for fever. plan for afebrile 24-48 hrs before d/c. Patient is full code DVT prophylaxis with Xarelto at all times plan of care d/wed patient and ID. time spent >35 min
--- NOTE | 2017-02-12 09:55 | Discharge Summary ---
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 Comes in with CC persistent fever and myalgas and arthrlagias for the last 1 week. During hospital stay had Tmax 102.8 and was held off antibiotics. Pt seen for following problems in hospital. 1. Fever: Full fever workup was done:Pt had UC with 10209 CFU Klebsiella pneumonia but a negative UA. Portacath removed on 02/11/2017 with culture of cath tip pending. Came in with WBC 11.9--> 9.2 WITHOUT antibiotics. MRI of l. toe came back negative for osteomyelitis though study was not of optimal quality. Negative Lyme titer. Tmax 102.8 in hospital, so far all blood cultures negative. Pt not treated with antibiotics and fevers resolved. Most likely etiology of fever is of rheumatic etiology;most likely pseudogout/ gout of l. knee as she has chondrocalcinosis on cxr, some warmth, swelling and pain in that area. HOWEVER, note hx of colon ca in setting of unnown fevers. She was informed that if she continued to have fevers that consideration for malignancy would likely be higher on differential and pt would require outpatient work up, including abdominal cat scan with contrast. * Unlikely to be UTI with only 40,000 CFU * F/U culture tip of matias-cath * F/u existing sputum and blood cultures * Colchicine started * CONCERN FOR MALIGNANCY IN SETTING OF RECURRENT FEVERS AND PREVIOUS COLON CA! 2. Hyponatremia: Came in with NA 123--> 129--> 132. Given elevated BUN could be 2/2 dehydration. No alkalosis; suggesting diuretic was not responsible for Na loss, but cannot entirely rule out. Improving well on fluids suggesting hypovolemic hyponatremia. Con't monitor. * Diuretic started prior to discharge * Digoxin cont' * Monitor electrolytes in outpatient basis 4. Afib on xarelto: Chronic and stable. Con't monitor * cont' xarelto * Cont' dig * monitor HR. 5. Hx : Has 3/6 murmur at RUSB * echo done 6. DM: Chronic and stable. Con't current reg * cont' insulin regimen * FS * Start gabapentin Allergies: Coded Allergies: Sulfa (Sulfonamide Antibiotics) (Intermediate, RASH 04/11/16) adhesive tape (PAPER TAPE OK PER PT 04/11/16) Pertinent Lab Results: ECHOCARDIOGRAM Left Ventricle Normal left ventricular wall motion. Normal size left ventricle. left ventricular wall thickness mildly increased. Left ventricular ejection fraction is es Laboratory Tests 02/13 0819 Chemistry Sodium (137 - 145 mmol/L) 131 L Potassium (3.5 - 5.1 mmol/L) 4.4 Chloride (98 - 107 mmol/L) 95 L Carbon Dioxide (22 - 30 mmol/L) 24 Anion Gap (5 - 16) 12 BUN (7 - 17 mg/dL) 18 H Creatinine (0.5 - 1.0 mg/dL) 0.8 Estimated GFR (>60 ml/min) > 60 BUN/Creatinine Ratio (7 - 25 %) 22.5 Vital Signs Date Time Temp Pulse Resp B/P B/P Pulse O2 O2 Flow FiO2 Mean Ox Delivery Rate 02/13 0901 80 136/78 02/13 0624 98.9 82 20 126/80 94 Room Air 02/13 0006 99.2 02/12 2210 99.5 99 20 128/80 95 02/12 1621 97 118/80 02/12 1600 Room Air 02/12 1422 98.4 84 20 120/60 97 Room Air Intake & Output 02/13 1600 02/13 0800 02/13 0000 Intake Total 360 500 Output Total Balance 360 500 Intake, Oral 360 500 timated at 65 %. Right Ventricle Normal right ventricular size and function. Right Atrium Moderate to severe right atrial dilatation. Left Atrium Severe left atrial dilatation. Mitral Valve Mitral annular calcification. Hpkh-ds-fcgqejkt mitral regurgitation. Aortic Valve Diffuse thickening of the aortic valve cusps with reduced excursion. Avaeccmx-vn-osiirw aortic stenosis. Mild aortic regurgitation. Tricuspid Valve Structurally normal tricuspid valve. Wcwq-to-eejnztmt tricuspid regurgitation. Right ventricular systolic pressure estimated at 55 mmHg. Pulmonic Valve Structurally normal pulmonic valve. Mild pulmonic regurgitation. Pericardium No pleural effusion. No pericardial effusion. Great Vessels Normal size aortic root. CONCLUSIONS Left ventricular wall thickness mildly increased. Left ventricular ejection fraction is estimated at 65 %. Moderate to severe right atrial dilatation. Severe left atrial dilatation. Mitral annular calcification. Ijlw-sq-juijnuij mitral regurgitation. Reitnnjm-le-nmkydc aortic stenosis. Mild aortic regurgitation. Taaa-xs-txmukbiq tricuspid regurgitation. Right ventricular systolic pressure estimated at 55 mmHg. Mild pulmonic regurgitation. Johan Ferguson M.D. (Electronically Signed) Final Date: 10 February 2017 12:46 MEASUREMENTS (Male / Female) Normal Values 2D ECHO LV Diastolic Diameter PLAX 4.7 cm 4.2 - 5.9 / 3.9 - 5.3 cm LV Systolic Diameter PLAX 2.6 cm 2.1 - 4.0 cm LV Fractional Shortening PLAX 44.7 % 25 - 46 % LV Ejection Fraction 2D Teich 76.0 % IVS Diastolic Thickness 1.0 cm LVPW Diastolic Thickness 1.0 cm LV Relative Wall Thickness 0.4 RV Internal Dim ED PLAX 4.2 cm 1.9 - 3.8 cm LVOT Diameter 1.8 cm Aortic Root Diameter 3.3 cm LA Systolic Diameter LX 5.9 cm 3.0 - 4.0 / 2.7 - 3.8 cm LA Volume 226.0 cm 18 - 58 / 22 - 52 cm Ascending Aorta Diameter 3.8 cm DOPPLER AV Peak Velocity 410.0 cm/s AV Peak Gradient 67.2 mmHg AV Mean Velocity 283.0 cm/s AV Mean Gradient 38.0 mmHg AV Velocity Time Integral 101.0 cm AI Deceleration [place] 228.0 cm/s AI Peak Velocity 379.5 cm/s AI Pressure Half Time 558.5 ms AI Peak Gradient 57.6 mmHg LVOT Peak Velocity 115.0 cm/s LVOT Peak Gradient 5.3 mmHg LVOT Mean Velocity 75.7 cm/s LVOT Mean Gradient 3.0 mmHg LVOT Velocity Time Integral 27.2 cm LVOT Stroke Volume 69.2 cm AV Area Cont Eq vti 0.7 cm AV Area Cont Eq pk 0.7 cm MV Peak Velocity 161.0 cm/s MV Peak Gradient 10.4 mmHg MV Mean Velocity 69.9 cm/s MV Mean Gradient 3.0 mmHg Mitral E Point Velocity 186.0 cm/s MV Deceleration [place] 630.0 cm/s MV Deceleration Time 218.0 ms MR Peak Velocity 645.0 cm/s MR Peak Gradient 166.4 mmHg TR Peak Velocity 352.0 cm/s TR Peak Gradient 49.6 mmHg Right Atrial Pressure 10.0 mmHg Pulmonary Artery Systolic Pressu 59.6 mmHg Right Ventricular Systolic Press 59.6 mmHg PV Peak Velocity 175.0 cm/s PV Peak Gradient 12.3 mmHg PV Mean Velocity 116.0 cm/s PV Mean Gradient 7.0 mmHg PV Velocity Time Integral 35.5 cm LV E' Lateral Velocity 9.3 cm/s Mitral E to LV E' Lateral Ratio 20.1 LV E' Septal Velocity 5.3 cm/s Mitral E to LV E' Septal Ratio 35.4 MRI FINDINGS: As noted above, the examination is markedly limited by motion artifact on all sequences, limiting sensitivity and specificity of this study. There is likely mild edema signal at the 2nd toe proximal phalangeal base. No appreciable low signal intensity in this region on T1-weighted images. No specific findings of osteomyelitis are identified. Bone marrow signal is otherwise normal. The toes are hyperextended at the MTP joints with flexion at the interphalangeal joints. There is at least moderate degenerative arthritis at the 1st MTP joint with hallux valgus. Intrinsic foot musculature is atrophic. No fluid collections are identified. Evaluation of the tendons is limited. IMPRESSION: Markedly limited examination due to patient motion. Marrow edema at the base of the 2nd toe proximal phalanx. This is nonspecific and could be due to degenerative arthritis, fracture, trauma, or other processes in addition to osteomyelitis. No specific findings of osteomyelitis. 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 Disposition Summary Disposition Principal Diagnosis: HYPONATREMIA Additional Diagnosis: GOUT FLARE Discharge Disposition: home health services Discharge Instructions General Discharge Information Code Status: Full Code Patient's Diet: TOLERATED Patient's Activity: TOLERATED Follow-Up Instructions/Appts: SEE ABOVE Medications at Discharge Discharge Medications: Continue taking these medications: Irbesartan (Avapro) 300 MG TABLET 1 Tablet ORAL DAILY Comments: NOT GIVEN IN HOSPITAL Alprazolam (Xanax) 0.5 MG TABLET 1 Tablet ORAL QDAILY as needed for ANXIETY Comments: NOT GIVEN IN HOSPITAL Atorvastatin Calcium (Lipitor) 20 MG TABLET 1 Tablet ORAL DAILY Comments: Last Taken:02/12/17 Time:4:20 PM Digoxin (Digoxin) 125 MCG TABLET 1 Tablet ORAL Every night Comments: Last Taken:02/12/17 Time:4:30 PM Furosemide (Furosemide) 40 MG TABLET 1 Tablet ORAL DAILY Comments: Last Taken:02/13/17 Time:9 AM Sitagliptin Phosphate (Januvia) 100 MG TABLET 1 Tablet ORAL DAILY Comments: NOT GIVEN IN HOSPITAL Solifenacin Succinate (Vesicare) 5 MG TABLET 1 Tablet ORAL DAILY Comments: NOT GIVEN IN HOSPITAL DITROPAN GIVEN Levothyroxine Sodium (Synthroid) 125 MCG TABLET 1 Tablet ORAL DAILY Comments: Last Taken:02/13/17 Time:6 AM Multivitamin (Multi-Day Vitamins) 1 EACH TABLET 1 Tablet ORAL DAILY Comments: NOT GIVEN IN HOSPITAL Cranberry Fruit Concentrate (Cranberry) (Unknown Strength) CAPSULE Unknown Dose ORAL DAILY Comments: NOT GIVEN IN HOSPITAL Potassium Chloride (Potassium Chloride) 20 MEQ TABLET.ER 1 Tablet ORAL TWICE DAILY Comments: PER PT Cholecalciferol (Vitamin D3) (Vitamin D) 1,000 UNIT TABLET 1 Tablet ORAL DAILY Comments: NOT GIVEN IN HOSPITAL Metoprolol Succ XL (Toprol XL) 25 MG TAB 12.5 Tablet ORAL DAILY Comments: Last Taken:02/13/17 Time:9 AM Insulin Detemir (Levemir) 100 UNIT/ML VIAL 35 Unit Inject into fatty tissue TWICE DAILY Comments: Last Taken:02/13/17 Time:11 AM Clonidine HCl (Clonidine HCl) 0.1 MG TABLET 1 Tablet ORAL QDAILY as needed for BP Comments: NOT GIVEN IN HOSPITAL Rivaroxaban (Xarelto) 15 MG TABLET 1 Tablet ORAL DAILY Comments: Last Taken:02/12/17 Time:8 PM Start taking the following new medications: Colchicine (Colchicine) 0.6 MG TABLET 300 Microgram ORAL TWICE DAILY Qty = 30 No Refills Comments: Last Taken:02/13/17 Time:9 AM The following medications have been changed: Old: Gabapentin (Gabapentin) 300 MG CAPSULE 1 Capsule ORAL TWICE DAILY Days = 30 New: Gabapentin (Gabapentin) 300 MG CAPSULE 1 Capsule ORAL DAILY Days = 30 Comments: Last Taken:02/13/17 Time:9 AM Copies To: SHAUN AVALOS,XIOMARA Lacy
--- NOTE | 2017-02-12 11:15 | PN- Infect Dx ---
Subjective Subjective: Afebrile. She feels well today with no complaints Objective Last 24 Hrs of Vital Signs/I&O Vital Signs Date Time Temp Pulse Resp B/P B/P Pulse O2 O2 Flow FiO2 Mean Ox Delivery Rate 02/12 0949 88 130/68 02/12 0638 98.4 90 18 134/70 96 Room Air 02/12 0217 99.0 02/11 2242 98.8 92 20 140/70 97 Room Air 02/11 1725 70 128/60 02/11 1627 100.3 02/11 1620 100.3 02/11 1548 102.0 02/11 1439 102.0 02/11 1410 100.5 100 20 140/70 96 Room Air 02/11 1234 99.8 95 22 170/78 02/11 1230 99.8 95 22 170/78 95 Room Air Room Air Intake & Output 02/12 1600 02/12 0800 02/12 0000 Intake Total 240 120 Output Total Balance 240 120 Intake, Oral 240 120 Physical Exam Other Physical Findings: She appears comfortable in no acute distress Lungs bibasilar crackles Heart regular rhythm with no murmur Extremities left knee with no inflammation; left second toe ulcer with no surrounding inflammation Results Last 24 Hours of Lab Results: Laboratory Tests 02/12 0656 Chemistry Sodium (137 - 145 mmol/L) 129 L Potassium (3.5 - 5.1 mmol/L) 4.0 Chloride (98 - 107 mmol/L) 96 L Carbon Dioxide (22 - 30 mmol/L) 26 Anion Gap (5 - 16) 7 BUN (7 - 17 mg/dL) 16 Creatinine (0.5 - 1.0 mg/dL) 0.9 Estimated GFR (>60 ml/min) 59 L BUN/Creatinine Ratio (7 - 25 %) 17.8 Hematology CBC w Diff NO MAN DIFF REQ WBC (4.8 - 10.8 /CUMM) 9.8 RBC (4.20 - 5.40 /CUMM) 3.24 L Hgb (12.0 - 16.0 G/DL) 8.9 L Hct (37 - 47 %) 26.8 L MCV (81.0 - 99.0 FL) 82.8 MCH (27.0 - 31.0 PG) 27.7 RDW (11.5 - 14.5 %) 15.3 H Plt Count (130 - 400 /CUMM) 236 MPV (7.4 - 10.4 FL) 8.2 Gran % (42.2 - 75.2 %) 65.6 Lymphocytes % (20.5 - 51.1 %) 18.7 L Monocytes % (1.7 - 9.3 %) 13.7 H Eosinophils % (0 - 5 %) 1.6 Basophils % (0.0 - 2.0 %) 0.4 Absolute Granulocytes (1.4 - 6.5 /CUMM) 6.4 Absolute Lymphocytes (1.2 - 3.4 /CUMM) 1.8 Absolute Monocytes (0.10 - 0.60 /CUMM) 1.3 H Absolute Eosinophils (0.0 - 0.7 /CUMM) 0.2 Absolute Basophils (0.0 - 0.2 /CUMM) 0 PUBS MCHC (33.0 - 37.0 G/DL) 33.4 Last 24 Hours of Sanjeev Results: Blood cultures 2 February 09 negative Port-A-Cath tip culture February 11 negative Assessment/Plan Impression: Overall improved though was again febrile yesterday despite treatment with Colchicine, begun 2 days ago for presumed pseudogout of the left knee. The MRI of the left foot, though a poor study, did not reveal evidence of osteomyelitis. Other possible sources of fever include the left toe, though there is no surrounding inflammation, the urinary tract, though she has no urinary symptoms and her urinalysis was negative, or a noninfectious process, such as tumor fever , for example secondary to liver metastasis from her colon cancer, though her liver enzymes are normal. The Port-A-Cath has been removed but does not appear to be a likely source of fever, with her blood cultures negative and the tip culture, so far, negative. Suggestion: 1. Follow-up Portacath tip culture 2. Continue Colchicine 3. Would begin prophylaxis for gout/pseudogout after she completes her course of treatment 4. Consider further evaluation, for example CT the abdomen and pelvis, if fevers persist 5. Continue to follow off antibiotics
--- NOTE | 2017-02-12 14:17 | PN- Student ---
Subjective Subjective: Patient seen this morning eating breakfast on the bedside. Overnight report of poor sleep. Patient denies any other current complaints. Objective Objective: Vital Signs Date Time Temp Pulse Resp B/P B/P Pulse O2 O2 Flow FiO2 Mean Ox Delivery Rate 02/12 0949 88 130/68 02/12 0638 98.4 90 18 134/70 96 Room Air 02/12 0217 99.0 02/11 2242 98.8 92 20 140/70 97 Room Air 02/11 1725 70 128/60 02/11 1627 100.3 02/11 1620 100.3 02/11 1548 102.0 02/11 1439 102.0 Intake & Output 02/12 1600 02/12 0800 02/12 0000 Intake Total 240 120 Output Total Balance 240 120 Intake, Oral 240 120 Current Medications Sig/Darrell Start time Last Medication Dose Route Stop Time Status Admin Acetaminophen 650 MG .STK-MED ONE 02/11 1455 DC PO 02/11 1456 Acetaminophen 650 MG Q6P PRN 02/09 1630 AC 02/11 PO 1548 Acetaminophen/ 1 TAB Q6P PRN 02/09 1630 AC 02/12 Hydrocodone Bitart PO 0225 Atorvastatin Calcium 20 MG 1700 02/10 1700 AC 02/11 PO 1723 Clonidine 0.1 MG QPM PRN 02/09 1645 AC PO Colchicine 600 MCG BID 02/11 1000 AC 02/12 PO 0947 Digoxin 0.125 MG 1700 02/11 1700 AC 02/11 PO 1725 Furosemide 40 MG DAILY 02/12 1000 AC 02/12 PO 0947 Gabapentin 300 MG DAILY 02/11 1556 AC 02/12 PO 0947 Insulin Aspart 0 TIDAC 02/09 1700 AC 02/12 SC 1206 Insulin Detemir 30 UNITS BID 02/10 1000 AC 02/12 SC 1039 Levothyroxine Sodium 0.125 MG DAILY AC 02/10 0700 AC 02/12 PO 0609 Melatonin 5 MG AT BEDTIME 02/11 2200 AC 02/11 PO 2121 Metoprolol Tartrate 12.5 MG DAILY 02/10 1000 AC 02/12 PO 0949 Morphine Sulfate 2 MG Q4P PRN 02/09 1630 AC IV Oxybutynin Chloride 5 MG 1/2H BEFOR/BREAKFAST 02/10 0700 AC 02/12 PO 0609 Rivaroxaban 15 MG 02/11 2200 AC 02/11 PO 212 Assessment/Plan Assessment: Patient is an 86 year-old diabetic woman with a past medical history significant for peripheral neuropathy, atrial fibrillation maintained on Xarelto, moderate aortic stenosis, colon cancer (diagnosed June of 2016) status post right hemicolectomy 1 year ago which was previously treated with chemotherapy ( currently not receiving any chemotherapy treatment) via a Port-A-Cath (still getting flushed every 6 weeks), osteomyelitis of the right big toe status post amputation on October 2015, and osteomyelitis of the left 2nd toe who presented to [facility] with generalized body aches and fevers. 1 - Fever of unknown origin 2 - Hyponatremia 3 - Hyperkalemia 4 - Atrial fibrillation 5 - Aortic stenosis 1 - Fever of unknown origin * Port-A-Cath removed. Cultured tip revealed no significant findings * MRI of the left foot showed no specific findings of osteomyelitis * X-ray of the left knee showed findings of chondrocalcinosis. Rule out pseudogout as possible cause of fever. Low dose Colchicine * Urine culture on 02/09/17 found 40,000 colonies of ampicillin-resistant Klebsiella pneumoniae per ml. Repeat UC to monitor for growth * Rule out recurrence of cancer with possible metastasis. Consider CT scan with contrast of the abdomen * Lyme disease antibody of 0.50. No presence of lyme disease. 2 - Hyponatremia * IV saline * Continue monitoring for resolution 3 - Hyperkalemia * Resolved 4 - Atrial Fibrillation * Xarelto started again on 02/11/17 5 - Aortic Stenosis * Echo results received: Findings of mild LV wall thickness increase; Ejection fraction of 65%; Ijybzdwa-tp-fvoxey right atrial dilation; Severe left atrial dilation; Yfkeiehg-dj-zdddoj aortic stenosis; Mild aortic regurgitation; Mitral annular calcifications; Eskv-pj-fzlbygdi mitral regurgitation; Sfcc-xo-lkfyuwik tricuspid regurgitation; Mild pulmonic regurgitation
[2017-02-12 14:22] VITALS: BP 120/60
[2017-02-12 22:10] VITALS: BP 128/80
[2017-02-13 06:24] VITALS: BP 126/80
--- NOTE | 2017-02-13 07:16 | PN- Housestaff ---
JOE AVALOS,SMOOTH 02/13/17 0714: Subjective Follow-up For: hyponatremia fevers Subjective: Saw pt at bedside this AM. She stated that she felt better, had no fevers overnight. Likely d/c this AM. Review of Systems Constitutional: Denies: chills, fever, weakness. EENTM: Reports: no symptoms. Cardiovascular: Denies: chest pain, palpitations. Respiratory: Reports: no symptoms. Gastrointestinal: Reports: no symptoms. Genitourinary: Denies: frequency, hesitation. Musculoskeletal: Reports: no symptoms. Objective Last 24 Hrs of Vital Signs/I&O Vital Signs Date Time Temp Pulse Resp B/P B/P Pulse O2 O2 Flow FiO2 Mean Ox Delivery Rate 02/13 0624 98.9 82 20 126/80 94 Room Air 02/13 0006 99.2 02/12 2210 99.5 99 20 128/80 95 02/12 1621 97 118/80 02/12 1600 Room Air 02/12 1422 98.4 84 20 120/60 97 Room Air 02/12 0949 88 130/68 Intake & Output 02/13 0800 02/13 0000 02/12 1600 Intake Total 360 500 720 Output Total Balance 360 500 720 Intake, Oral 360 500 720 Physical Exam General Appearance: Alert, Oriented X3, Cooperative, No Acute Distress Skin: No Rashes, No Significant Lesion HEENT: Atraumatic, PERRLA, EOMI Neck: Supple Cardiovascular: Regular Rate, Normal S1, Normal S2, 3/6 murmur at rusb Lungs: Normal Air Movement Abdomen: Soft, No Tenderness Neurological: Normal Speech Extremities: No Clubbing, No Edema Current Medications: Current Medications Sig/Darrell Start time Last Medication Dose Route Stop Time Status Admin Acetaminophen 650 MG Q6P PRN 02/09 1630 AC 02/11 PO 1548 Acetaminophen/ 1 TAB Q6P PRN 02/09 1630 AC 02/12 Hydrocodone Bitart PO 2127 Atorvastatin Calcium 20 MG 02/10 1700 AC 02/12 PO 1621 Clonidine 0.1 MG QPM PRN 02/09 1645 AC PO Colchicine 600 MCG BID 02/11 1000 AC 02/12 PO 2126 Digoxin 0.125 MG 1700 02/11 1700 AC 02/12 PO 1621 Furosemide 40 MG DAILY 02/12 1000 AC 02/12 PO 0947 Gabapentin 300 MG DAILY 02/11 1556 AC 02/12 PO 0947 Insulin Aspart 0 TIDAC 02/09 1700 AC 02/12 SC 1206 Insulin Detemir 30 UNITS BID 02/10 1000 AC 02/12 SC 2127 Levothyroxine Sodium 0.125 MG DAILY AC 02/10 0700 AC 02/13 PO 0618 Melatonin 5 MG AT BEDTIME 02/11 2200 AC 02/12 PO 2125 Metoprolol Tartrate 12.5 MG DAILY 02/10 1000 AC 02/12 PO 0949 Morphine Sulfate 2 MG Q4P PRN 02/09 1630 AC IV Oxybutynin Chloride 5 MG 1/2H BEFOR/BREAKFAST 02/10 0700 AC 02/13 PO 617 Rivaroxaban 15 MG 2200 02/11 2200 AC 02/12 PO 2125 Assessment/Plan Assessment: This is an 86-year-old diabetic woman with a peripheral neuropathy, atrial fibrillation on Xarelto, moderate , Colon ca s/p right hemicolectomy with a Port-A-Cath currently not on any chemotherapy, 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 Comes in with CC persistent fever and myalgas and arthrlagias for the last 1 week. PLAN 1. Fever: Has UC with 05591 CFU now speciated to Klebsiella pneumonia. Portacath removed 02/11/2017 with culture of cath tip pending. Overnight she remained afebrile. Came in with WBC 11.9--> 9.2--> 9.8. Concern for possible rheumatic etiology of fever; possible pseudogout/gout of l. knee. MRI of l. toe came back negative for osteomyelitis though study was not of optimal quality. Note hx of colon ca in setting of unnown fevers...?? Remained afebrile for past 24 hrs. Hightest temp recorded in last 24hrs is 99.5. * Unlikely to be UTI with only 40,000 CFU * F/U culture tip * del cid-cultures if she spikes * watch off abx * ID onboard * F/u existing sputum and blood cultures * colchicine started * Negative Lyme titer 2. Hyponatremia: Came in with NA 123--> 129--> 132--->129. Given elevated BUN could be 2/2 dehydration. No alkalosis to suggest diuretic was responsible for Na loss, but cannot entirely rule out. Improving well on fluids suggesting hypovolemic hyponatremia. Con't monitor. * Con't NS at 75cc/hr * holding diuretic * Started digoxin 4. Afib on xarelto: Chronic and stable. Con't monitor * cont xarelto * hold dig * monitor HR. 5. Hx : Has 3/6 murmur at RUSB * echo done showing moderate --> outpt cardiology follow up. 6. DM: Chronic and stable. Last blood sugars between 130-150. Con't current reg * cont' insulin regimen * FS * Start gabapentin Problem List: 1. Hyperkalemia 2. Fever of unknown origin Pain Ratin Pain Location: none Pain Goal: Remain pain free Pain Plan: none Tomorrow's Labs & Rationales: none DVT/Prophylaxis: pharmacological Consulting Request: Consulting Specialty: Infectious Disease DEBRA ACEVEDO 02/13/17 1134: Attending MD Review Statement Attending Statement Attending MD Statement: examined this patient, discuss w/resident/PA/BOW STRING MAKER, agreed w/resident/PA/BOW STRING MAKER, discussed with family, reviewed EMR data (avail), discussed with nursing, discussed with case mgmt, reviewed images, amended to note Attending Assessment/Plan: ASSESSMENT 1. Fever 2. Hyponatremia 2/2 IVVD 3. History of atrial fibrillation currently on Xarelto did controlled with metoprolol 4. History of moderate aortic stenosis 5. History of colon cancer status post resection and chemotherapy currently in remission 6. h/o osteomyeltiis 7. Cardiac murmur. 8. Elevated ESR 9 Port -a cath placement. 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 f/u cultures negative so far, MRI negative for OM. Watch off antibiotics for now, port-a cath removal. IR consulted started on colchicine. watch for fever. plan for afebrile 24-48 hrs before d/c. Patient is full code DVT prophylaxis with Xarelto at all times d/c today.
--- NOTE | 2017-02-13 08:15 | PN- Student ---
Subjective Subjective: Patient seen this morning. Sitting at the bedside eating breakfast. No acute overnight reports. Patient denies any other current complaint. Objective Objective: Vital Signs Date Time Temp Pulse Resp B/P B/P Pulse O2 O2 Flow FiO2 Mean Ox Delivery Rate 02/14 624 98.9 82 20 126/80 94 Room Air 02/13 0006 99.2 02/12 2210 99.5 99 20 128/80 95 02/12 1621 97 118/80 02/12 1600 Room Air 02/12 1422 98.4 84 20 120/60 97 Room Air 02/12 0949 88 130/68 Intake & Output 02/13 1600 02/13 0800 02/13 0000 Intake Total 360 500 Output Total Balance 360 500 Intake, Oral 360 500 Current Medications Sig/Darrell Start time Last Medication Dose Route Stop Time Status Admin Acetaminophen 650 MG Q6P PRN 02/09 1630 AC 02/11 PO 1548 Acetaminophen/ 1 TAB Q6P PRN 02/09 1630 AC 02/12 Hydrocodone Bitart PO 212 Atorvastatin Calcium 20 MG 1700 02/10 1700 AC 02/12 PO 1621 Clonidine 0.1 MG QPM PRN 02/09 1645 AC PO Colchicine 600 MCG BID 02/11 1000 AC 02/12 PO 2126 Digoxin 0.125 MG 1700 02/11 1700 AC 02/12 PO 1621 Furosemide 40 MG DAILY 02/12 1000 AC 02/12 PO 0947 Gabapentin 300 MG DAILY 02/11 1556 AC 02/12 PO 0947 Insulin Aspart 0 TIDAC 02/09 1700 AC 02/12 SC 1206 Insulin Detemir 30 UNITS BID 02/10 1000 AC 02/12 SC 2127 Levothyroxine Sodium 0.125 MG DAILY AC 02/10 0700 AC 02/13 PO 0618 Melatonin 5 MG AT BEDTIME 02/11 2200 AC 02/12 PO 2125 Metoprolol Tartrate 12.5 MG DAILY 02/10 1000 AC 02/12 PO 0949 Morphine Sulfate 2 MG Q4P PRN 02/09 1630 AC IV Oxybutynin Chloride 5 MG 1/2H BEFOR/BREAKFAST 02/10 0700 AC 02/13 PO 0618 Rivaroxaban 15 MG 2200 02/11 2200 AC 02/12 PO 2126 Assessment/Plan Assessment: Patient is an 86 year-old diabetic woman with a past medical history significant for peripheral neuropathy, atrial fibrillation maintained on Xarelto, moderate aortic stenosis, colon cancer (diagnosed June of 2016) status post right hemicolectomy 1 year ago which was previously treated with chemotherapy ( currently not receiving any chemotherapy treatment) via a Port-A-Cath (still getting flushed every 6 weeks), osteomyelitis of the right big toe status post amputation on October 2015, and osteomyelitis of the left 2nd toe who presented to [facility] with generalized body aches and fevers. 1 - Fever of unknown origin 2 - Hyponatremia 3 - Hyperkalemia 4 - Atrial fibrillation 5 - Aortic stenosis 1 - Fever of unknown origin * Afebril for 24 hours with Tmax of 99.5 * Work-up negative for Port-A-Cath tip culture MRI of the left foot Lyme disease antibody * Urine culture on 02/09/17 found 40,000 colonies of ampicillin-resistant Klebsiella pneumoniae per ml. Unliky source of fevers as WBC is normal, along with absent clinical signs & symptoms of UTI * If fevers reoccur, follow up with PCP for possibility of cancer recurrence 2 - Hyponatremia * Increased to lower 130s * Add salt to diet 3 - Hyperkalemia * Resolved 4 - Atrial Fibrillation * Xarelto started again on 02/11/17 5 - Aortic Stenosis * Echo results received: Findings of mild LV wall thickness increase; Ejection fraction of 65%; Wbmsgrmv-ki-ahhsqh right atrial dilation; Severe left atrial dilation; Wlfmusym-dq-ztykcf aortic stenosis; Mild aortic regurgitation; Mitral annular calcifications; Pckw-nc-epycgrni mitral regurgitation; Idgw-ku-jfwjgmik tricuspid regurgitation; Mild pulmonic regurgitation
--- NOTE | 2017-02-13 11:28 | PN- Infect Dx ---
Subjective Subjective: Afebrile without complaints Objective Last 24 Hrs of Vital Signs/I&O Vital Signs Date Time Temp Pulse Resp B/P B/P Pulse O2 O2 Flow FiO2 Mean Ox Delivery Rate 02/13 0901 80 136/78 02/13 0624 98.9 82 20 126/80 94 Room Air 02/13 0006 99.2 02/12 2210 99.5 99 20 128/80 95 02/12 1621 97 118/80 02/12 1600 Room Air 02/12 1422 98.4 84 20 120/60 97 Room Air Intake & Output 02/13 1600 02/13 0800 02/13 0000 Intake Total 360 500 Output Total Balance 360 500 Intake, Oral 360 500 Physical Exam Other Physical Findings: She appears well in no acute distress Lungs crackles at the left base Heart regular rhythm with a 2/6 systolic ejection murmur Extremities mild swelling to the left knee, with no erythema or tenderness and with full range of motion Results Last 24 Hours of Lab Results: Laboratory Tests 02/13 819 Chemistry Sodium (137 - 145 mmol/L) 131 L Potassium (3.5 - 5.1 mmol/L) 4.4 Chloride (98 - 107 mmol/L) 95 L Carbon Dioxide (22 - 30 mmol/L) 24 Anion Gap (5 - 16) 12 BUN (7 - 17 mg/dL) 18 H Creatinine (0.5 - 1.0 mg/dL) 0.8 Estimated GFR (>60 ml/min) > 60 BUN/Creatinine Ratio (7 - 25 %) 22.5 Last 24 Hours of Sanjeev Results: Port-A-Cath tip culture February 11 negative Assessment/Plan Impression: Doing well with temperatures and white blood cell count remaining normal on Colchicine, begun 3 days ago for presumed pseudogout of the left knee, with resolution of her left knee discomfort and diffuse myalgias. She remains stable off antibiotics with no evidence for any infectious process and with Port-A-Cath tip culture negative. Suggestion: 1. Further management of her pseudogout/gout per Medicine, with consideration of prophylaxis for these processes after she completes her course of treatment 2. Continue to follow off antibiotics
[2017-02-13 13:32] VITALS: BP 138/64
== END 2017-02-13 15:50 | disposition home health service (06) | DRG 554 ==
LOC: ENRESERVTM → ENRESERVDT → ERH 13:50 → ERHI 16:28 → 2NA 16:28 → ENPENDDIS 02-13 09:59 → 2NA 02-13 15:50
PROVIDERS: Internal Medicine Nephrology; Physician Assistant Medical; Student in an Organized Health Care Education/Training Program; ADMIT Internal Medicine
PROC: 0JPT0XZ Removal of Tunneled Vascular Access Device from Trunk Subcutaneous Tissue and Fascia, Open Approach (ICD-10-PCS; principal; 2017-02-11)
DX: M11.262 Other chondrocalcinosis, left knee (principal); E87.5 Hyperkalemia; I11.0 Hypertensive heart disease with heart failure; I50.9 Heart failure, unspecified; E87.1 Hypo-osmolality and hyponatremia; I48.91 Unspecified atrial fibrillation; L97.529 Non-pressure chronic ulcer of other part of left foot with unspecified severity; M06.9 Rheumatoid arthritis, unspecified; R50.9 Fever, unspecified; E11.9 Type 2 diabetes mellitus without complications; I35.0 Nonrheumatic aortic (valve) stenosis; M10.9 Gout, unspecified; Z79.84 Long term (current) use of oral hypoglycemic drugs; Z79.01 Long term (current) use of anticoagulants; Z85.038 Personal history of other malignant neoplasm of large intestine; E78.5 Hyperlipidemia, unspecified; E55.9 Vitamin D deficiency, unspecified
CPT/HCPCS: 04007; 2NASP; 75657; 86618; 87070; 87205; 36415; 73562-LT; 73630-LT; 77002; 81001; 82436; 87040; 87086; 87804; 87804-59; 93005; 93010; 93306; 97116-GO; 97161-GP; J7042

== ENCOUNTER 2017-03-26 19:24 | Inpatient (IN) | payer OTHER, MEDICARE ==
[~2017-03-26] VITALS: Ht 167.6 cm; Wt 76.2 kg
[~2017-03-26 19:24] MED LIST changes: +COLCHICINE0.6 M2 PO; +LEVEMIR100 UNIT/1 SC; +XARELTO15 M1 PO
--- NOTE | 2017-03-26 19:27 | NUR ---
PT DENIES SOB AT THIS TIME, ONLY DURING ACTIVITY.
--- NOTE | 2017-03-26 19:33 | NUR ---
PT TO TRIAGE WITH INCREASE SOB WITH EXERTION. PT STATES OVER THE LAST THREE DAYS SHE HAS FELT SOB AND WEAK. DENIES CHEST PAIN. SHE IS ALERT AND ORIENTED AND IN NO DSITRESS AT THIS TIME. SKIN WARM AND DRY
--- NOTE | 2017-03-26 20:01 | ED DYSPNEA/ASTHMA COMPLAINT ---
History of Present Illness General Chief Complaint: Dyspnea (COPD, CHF, Other) Stated Complaint: SOB UPON EXERTION Source: patient, family, old records Exam Limitations: no limitations Vital Signs & Intake/Output Vital Signs & Intake/Output Vital Signs Date Time Temp Pulse Resp B/P B/P Pulse O2 O2 Flow FiO2 Mean Ox Delivery Rate 03/26 2228 99 Nasal 2.0L Cannula 03/26 2222 98.3 73 20 157/77 98 Nasal 2.0L Cannula 03/26 2133 98.4 69 20 151/68 99 Nasal 2.0L Cannula 03/26 1931 99.2 91 16 132/64 96 Room Air Room Air Allergies Coded Allergies: Sulfa (Sulfonamide Antibiotics) (Intermediate, RASH 03/26/17) adhesive tape (PAPER TAPE OK PER PT 03/26/17) Reconcile Medications Alprazolam (Xanax) 0.5 MG TABLET 1 TAB PO QDAILY PRN ANXIETY (Reported) Amlodipine Besylate 5 MG TABLET 1 TAB PO DAILY BP (Reported) Atorvastatin Calcium (Lipitor) 20 MG TABLET 1 TAB PO DAILY CHOLESTEROL ( Reported) Cholecalciferol (Vitamin D3) (Vitamin D) 1,000 UNIT TABLET 1 TAB PO DAILY SUPPLEMENT (Reported) Clonidine HCl 0.1 MG TABLET 1 TAB PO QDAILY PRN BP (Reported) Colchicine 0.6 MG TABLET 300 MCG PO BID PSEUDOGOUT Cranberry Fruit Concentrate (Cranberry) (Unknown Strength) CAPSULE (Unknown Dose) PO DAILY SUPPLEMENT (Reported) Digoxin 125 MCG TABLET 1 TAB PO QPM HEART (Reported) Furosemide 40 MG TABLET 1 TAB PO DAILY DIURETIC (Reported) Gabapentin 300 MG CAPSULE 1 CAP PO DAILY NEUROPATHY Insulin Detemir (Levemir) 100 UNIT/ML VIAL 40 UNIT SC BID DM (Reported) Irbesartan (Avapro) 300 MG TABLET 1 TAB PO DAILY BP (Reported) Levothyroxine Sodium (Synthroid) 125 MCG TABLET 1 TAB PO DAILY THYROID ( Reported) Metoprolol Succ XL (Toprol XL) (Unknown Strength) TAB (Unknown Dose) PO DAILY HEART/BP (Reported) Multivitamin (Multi-Day Vitamins) 1 EACH TABLET 1 TAB PO DAILY SUPPLEMENT ( Reported) Potassium Chloride 20 MEQ TABLET.ER 1 TAB PO DAILY SUPPLEMENT (Reported) Rivaroxaban (Xarelto) 15 MG TABLET 1 TAB PO DAILY BLOOD THINNER (Reported) Sitagliptin Phosphate (Januvia) 100 MG TABLET 1 TAB PO DAILY DM (Reported) Solifenacin Succinate (Vesicare) 5 MG TABLET 1 TAB PO DAILY BLADDER (Reported ) Core Measure Meds Pre-Hospital xarelto Triage Note: PT TO TRIAGE WITH INCREASE SOB WITH EXERTION. PT STATES OVER THE LAST THREE DAYS SHE HAS FELT SOB AND WEAK. DENIES CHEST PAIN. SHE IS ALERT AND ORIENTED AND IN NO DSITRESS AT THIS TIME. SKIN WARM AND DRY Triage Nurses Notes Reviewed? yes Onset: Last week Duration: day(s):, changing over time Timing: recent history Severity: moderate Activities at Onset: activity Prior Episodes/Possible Cause: occasional episodes Modifying Factors: Improves With: rest. Worsens With: movement. Associated Symptoms: weakness LMP (ages 10-50): post menopausal : No Patient currently breastfeeds: No HPI: One week prior to admission patient complains of shortness of breath with exertion palpitations resolving with rest. She reports now she can only walk 10 -20 feet. During this time she noted her stools to become darker in color now almost black. She denies fever chills nausea vomiting diarrhea abdominal pain chest pain headache dysuria rash. Past History Travel History Traveled to [place] past 21 day No Medical History Any Pertinent Medical History? see below for history Neurological: peripheral neuropathy, TIA EENT: NONE Cardiovascular: AFIB, CHF, hypertension, hyperlipidemia Respiratory: NONE Gastrointestinal: NONE Hepatic: NONE Renal: NONE Musculoskeletal: gout, osteoarthritis Psychiatric: anxiety Endocrine: diabetes, hypothyroidism, vitamin D deficiency Blood Disorders: NONE Cancer(s): colon/rectal cancer FLY RAISER LOCKSTITCH/Reproductive: NONE Other Medical Hx: Gout Rheumatoid arthritis History of MRSA: No History of VRE: No History of CDIFF: No Influenza Vaccine: 09/25/16 Surgical History Surgical History: cholecystectomy, colon resection (right hemicolectomy), c- section, hysterectomy, diagnostic laparoscopy, PERNELL Psychosocial History Who do you live with Spouse Services at Home None What is your primary language Maori Tobacco Use: Never used ETOH Use: denies use Illicit Drug Use: denies illicit drug use Family History Family History, If Any: FATHER FH: heart disease MOTHER FH: diabetes mellitus Hx Contributory? No Review of Systems Review of Systems Constitutional: Reports: no symptoms. EENTM: Reports: no symptoms. Respiratory: Reports: see HPI, short of breath. Cardiovascular: Reports: see HPI, palpitations, peripheral edema. GI: Reports: see HPI, changes in stool. Genitourinary: Reports: no symptoms. Musculoskeletal: Reports: no symptoms. Skin: Reports: no symptoms. Neurological/Psychological: Reports: no symptoms. Hematologic/Endocrine: Reports: no symptoms. Immunologic/Allergic: Reports: no symptoms. All Other Systems: Reviewed and Negative Physical Exam Physical Exam General Appearance: well developed/nourished, alert, awake, anxious, mild distress, obese Head: atraumatic, normal appearance Eyes: Bilateral: normal appearance, PERRL, EOMI. Ears, Nose, Throat: normal pharynx, normal ENT inspection, hearing grossly normal Neck: normal inspection, supple, full range of motion, no midline tenderness Respiratory: normal breath sounds, chest non-tender, no respiratory distress, quiet respiration, lungs clear Cardiovascular: edema, normal peripheral pulses, systolic murmur, irregularly irregular Peripheral Pulses: 4+ carotid (R), 4+ carotid (L) Gastrointestinal: normal bowel sounds, soft, non-tender, no organomegaly Rectal: black stool, heme positive stool Extremities: normal capillary refill, normal range of motion Neurologic/Psych: no motor/sensory deficits, awake, alert, oriented x 3, normal mood/affect, aerophysicist II-XII nml as tested Skin: intact, normal color, warm/dry, left foot bandaged with a postop shoe evaluated by podiatry prior to admission Lymphatic: no anterior cervical salomón Core Measures ACS in differential dx? Yes ASA ordered for poss ACS? No-other contraindication Severe Sepsis Present: No Septic Shock Present: No Progress Differential Diagnosis: AMI, CHF, COPD, pneumonia Plan of Care: Orders Procedure Date/time Status Nothing by Mouth 03/27 B Active Intake & Output 03/26 2221 Active FingerStick- Glucose 03/26 2220 Active Patient Data 03/26 2145 Active BLOOD PRODUCT PICKUP 03/26 2136 Active LEUKOCYTE POOR (PACKED CELLS) 03/26 2105 Active OXYGEN SETUP (GEN) 03/26 2101 Active Saline Lock 03/26 2101 Active Admit to inpatient 03/26 2101 Active Vital Signs 03/26 2101 Active Activity/Ambulation 03/26 2101 Active Code Status 03/26 2101 Active Add-on Test (ER Only) 03/26 2042 Active PARTIAL THROMBOPLASTIN TIME 03/26 2038 Complete PROTHROMBIN TIME 03/26 2038 Complete TYPE & SCREEN (NOT X-MATCH) 03/26 2038 Active TROPONIN LEVEL 03/26 1955 Complete MAGNESIUM 03/26 1955 Complete DIGOXIN 03/26 1955 Complete COMPREHENSIVE METABOLIC PANEL 03/26 1955 Complete CBC WITHOUT DIFFERENTIAL 03/26 1955 Complete B-TYPE NATRIURETIC PEP (BNP) 03/26 1955 Complete EKG 03/26 1933 Active Laboratory Tests 03/26/17 2020: Anion Gap 10, Estimated GFR 53 L, BUN/Creatinine Ratio 24.0, Glucose 179 H, Calcium 8.7, Magnesium 1.9, Total Bilirubin 0.4, AST 25, ALT 42, Alkaline Phosphatase 55, Troponin I < 0.01, Oan-V-Ehkorqwjmla Pept 292 H, Total Protein 6.2 L, Albumin 3.6, Globulin 2.6, Albumin/Globulin Ratio 1.4, PT 13.5 H, INR 1.29 H, APTT 30, CBC w Diff NO MAN DIFF REQ, RBC 2.40 L, MCV 79.7 L, MCH 25.6 L, RDW 19.3 H, MPV 8.2, Gran % 65.2, Lymphocytes % 23.8, Monocytes % 8.4, Eosinophils % 2.1, Basophils % 0.5, Absolute Granulocytes 4.9, Absolute Lymphocytes 1.8, Absolute Monocytes 0.6, Absolute Eosinophils 0.2, Absolute Basophils 0, PUBS MCHC 32.1 L, Digoxin 0.9 Diagnostic Imaging: Viewed by Me: Radiology Read. Discussed w/RAD: Radiology Read. CXR Impression: no acute abnormality Initial ED EKG: AFIB, nonspecific ST T wave chg Prior EKG: unchanged Rhythm Strip: atrial fibrillation Departure Departure Disposition: STILL A PATIENT Condition: Stable Clinical Impression Primary Impression: Acute GI bleeding Secondary Impressions: Atrial fibrillation with normal ventricular rate, Dyspnea on exertion, Symptomatic anemia Referrals: SHAUN AVALOS,XIOMARA Lacy (PCP/Family) Departure Forms: Customer Survey General Discharge Information Admission Note Spoke With: RICK SOSA MD Documentation of Exam: Documentation of any treatments & extenuating circumstances including Concerns Regarding Discharge (functional status, medication knowledge or non-compliance, living conditions, etc.) that warrant an admission rather than observation: Transfusion packed red blood cells serial lab exam medication adjustment GI evaluation continuing care discharge planning Critical Care Note Critical Care Note Critical Care Time: 30-74 min (35)
--- NOTE | 2017-03-26 20:23 | NUR ---
PT'S BLOOD DRAWN AT 1LAV,1BLU,[id number] AND SENT TO LAB
[2017-03-26 20:27] LABS: ABSOLUTE BASOPHIL COUNT 0 /CUMM (0.0-0.2); ABSOLUTE EOSINOPHIL COUNT 0.2 /CUMM (0.0-0.7); ABSOLUTE GRANULOCYTE CT 4.9 /CUMM (1.4-6.5); ABSOLUTE LYMPH COUNT 1.8 /CUMM (1.2-3.4); ABSOLUTE MONOCYTE COUNT 0.6 /CUMM (0.10-0.60); BASOPHIL % 0.5 % (0.0-2.0); EOSINOPHIL % 2.1 % (0-5); GRANULOCYTE % 65.2 % (42.2-75.2); MEAN CORPUSCULAR HGB 25.6 PG (27.0-31.0); MEAN CORPUSCULAR HGB CONC 32.1 G/DL (33.0-37.0); MEAN CORPUSCULAR VOLUME 79.7 FL (81.0-99.0); MEAN PLATELET VOLUME 8.2 FL (7.4-10.4); PLATELET COUNT 203 /CUMM (130-400); RBC DISTRIBUTION WIDTH 19.3 % (11.5-14.5); WHITE BLOOD CELL COUNT 7.4 /CUMM (4.8-10.8)
[2017-03-26 20:31] LABS: HEMATOCRIT 19.1 % (37-47)
[2017-03-26] MEDS ORDERED: AMLODIPINE BESYL5 M1 PO (20:44)
--- NOTE | 2017-03-26 20:44 | NUR ---
IV EST, PCXR AT BEDSIDE. PINK TUBE AND EXTRA/MCKEON/SST SENT TO LAB. PT WITH NO COMPLAINTS AT REST,, SP02 96% ON RA, HR 81.
--- NOTE | 2017-03-26 20:45 | NUR ---
CRITICAL TEST RESULTS [id number] LARS FENG 86 F TESTS AND RESULTS: HGB 6.1, HCT 19.1 Results received and read back by: EKTA MENDEZ Results received date and time: 03/26/172044 The following provider was notified of the results, and read the results back: DR GOLDSTEIN Notified date and time: 03/26/17 at 2039
--- NOTE | 2017-03-26 20:49 | NUR ---
DR GOLDSTEIN AT BEDSIDE TO CONSENT PT FOR TRANSFUSION. TYPE AND SCREEN PENDING.
[2017-03-26 20:57] LABS: PT 13.5 SEC (9.4-12.5); PTT 30 SEC (25-37)
--- NOTE | 2017-03-26 21:34 | NUR ---
PT/FAMILY NOW REPORTING BLACK STOOLS AT HOME. MEDICATED WITH PROTONIX, AWAITING COMPLETION OF TYPE AND SCREEN AND PREPARATION OF BLOOD, ALSO AWAITING ADMISSION. PT AWARE OF POC, NO COMPLAINTS AT REST. PLACED ON 2L NC PER DR GOLDSTEIN, 02 SATS 96 ON RA, 99 ON NC.
--- NOTE | 2017-03-26 21:55 | RADIOLOGY REPORT ---
EXAMINATION: XR PORTABLE CHEST CLINICAL INFORMATION: Shortness of breath with exertion. COMPARISON: Chest x-ray 02/09/2017. TECHNIQUE: Portable frontal view of the chest was obtained. FINDINGS: The lungs are hypoinflated, without focal airspace consolidation. No pleural effusions or pneumothoraces are identified. Cardiomediastinal contours are stable and there is stable enlargement of the cardiac silhouette, indicative of cardiomegaly. In comparison to the prior examination, there has been interval removal of a previously identified right chest wall Port-A-Cath. Soft tissues are unremarkable. No acute osseous abnormality is identified. Redemonstrated are advanced degenerative changes involving the right shoulder with associated remodeling of the right humeral head. IMPRESSION: Interval removal of a previously identified right chest wall Port-A-Cath. Stable cardiomegaly. No acute pulmonary process.
--- NOTE | 2017-03-26 22:17 | NUR ---
JEANIE (SON) WOULD LIKE TO BE NOTIFIED OF ANY CHANGES [phone]
--- NOTE | 2017-03-26 22:17 | History & Physical ---
[facility] 03/26/17 2217: General Information and HPI MD Statement: I have seen and personally examined LARS FENG and documented this H&P. The patient is a 86 year old F who presented with a patient stated chief complaint of [shortness of breath on exertion and weakness]. Source of Information: patient Exam Limitations: no limitations History of Present Illness: 86-year-old female with past medical history of atrial fibrillation on xarelto for years, moderate aortic stenosis, hypertension, hyperlipidemia, TIA, hypothyroidism, diabetes mellitus, gout, osteoarthritis, colon cancer status post resection and chemotherapy, presented for shortness of breath on exertion and black stool. Patient has been in her normal state of health up until a few days ago, when she noticed that she gets increasingly dyspneic on mild exertion, such as walking from kitchen to the dining table. She has also noted foul-smelling stool, and it looks "chocolatey brown in color". She usually does not look in her stool so does not know how long the stool has been black for. She denies cough, sputum production, chest pain, palpitations. Her H&H in the ED was noted to be 6.1/19.1. In January 2017, her hemoglobin was 8.9. She was transfused 2 units of packed red blood cell in the ED. Stool guaiac done by Dr. Romano was positive for blood; black stool. Allergies/Medications Allergies: Coded Allergies: Sulfa (Sulfonamide Antibiotics) (Intermediate, RASH 03/26/17) adhesive tape (PAPER TAPE OK PER PT 03/26/17) Past History Travel History Traveled to [place] past 21 day No Medical History Neurological: peripheral neuropathy, TIA EENT: NONE Cardiovascular: AFIB, CHF, hypertension, hyperlipidemia Respiratory: NONE Gastrointestinal: NONE Hepatic: NONE Renal: NONE Musculoskeletal: gout, osteoarthritis Psychiatric: anxiety Endocrine: diabetes, hypothyroidism, vitamin D deficiency Blood Disorders: NONE Cancer(s): colon/rectal cancer [employer]/Reproductive: NONE Other Medical Hx: Gout Rheumatoid arthritis History of MRSA: No History of VRE: No History of CDIFF: No Influenza Vaccine: 09/25/16 Surgical History Surgical History: cholecystectomy, colon resection (right hemicolectomy), c- section, hysterectomy, diagnostic laparoscopy, PERNELL Past Family/Social History Family History Relations & Conditions if any FATHER FH: heart disease MOTHER FH: diabetes mellitus Psychosocial History Where do you live? Home Who Do You Live With? spouse Services at Home: None Smoking Status: Never Smoked ETOH Use: denies use Illicit Drug Use: denies illicit drug use Functional Ability ADLs Independent: dressing, eating, toileting, bathing. Ambulation: independent IADLs Independent: shopping, housework, finances, food prep, telephone, medication admin. Needs Assist: transportation. Review of Systems Review of Systems Constitutional: Reports: weakness. Denies: chills, fever. EENTM: Denies: visual changes. Cardiovascular: Denies: chest pain, palpitations, peripheral edema. Respiratory: Reports: short of breath. Denies: cough, sputum production. GI: Reports: melena. Denies: abdominal pain, bloating, constipation, diarrhea. Genitourinary: Denies: dysuria. Exam & Diagnostic Data Last 24 Hrs of Vital Signs/I&O Vital Signs Date Time Temp Pulse Resp B/P B/P Pulse O2 O2 Flow FiO2 Mean Ox Delivery Rate 03/27 0048 97.1 80 18 163/70 98 Nasal 2.0L Cannula 03/268 99 Nasal 2.0L Cannula 03/26 2222 98.3 73 20 157/77 98 Nasal 2.0L Cannula 03/26 2133 98.4 69 20 151/68 99 Nasal 2.0L Cannula 03/26 1931 99.2 91 16 132/64 96 Room Air Room Air Intake & Output 03/27 0800 06/ 0000 03/26 1600 Intake Total 100 Output Total 400 Balance -300 Intake, IV 100 Output, Urine 400 Patient 74.843 kg Weight Physical Exam General Appearance Alert, Oriented X3, Cooperative, No Acute Distress Skin No Significant Lesion Skin Temp/Moisture Exam: Warm/Dry Sepsis Skin Exam (color): Normal for Ethnicity HEENT Atraumatic, PERRLA, EOMI, dry mucous membrane Neck Supple, left carotid bruit Lymphatic Axillary nl, Cervical nl Cardiovascular systolic murmur 3/6 irregularly irregular r Lungs Clear to Auscultation, Normal Air Movement Abdomen Normal Bowel Sounds, Soft, No Tenderness Extremities chronic swelling , sp first toe amputation on right, ulcer on 2nd toe on the left foot Vascular Normal Pulses Last 24 Hrs of Labs/Sanjeev: Laboratory Tests 03/26/17 2020: Anion Gap 10, Estimated GFR 53 L, BUN/Creatinine Ratio 24.0, Glucose 179 H, Calcium 8.7, Magnesium 1.9, Total Bilirubin 0.4, AST 25, ALT 42, Alkaline Phosphatase 55, Troponin I < 0.01, Vjr-V-Yfslefgfefd Pept 292 H, Total Protein 6.2 L, Albumin 3.6, Globulin 2.6, Albumin/Globulin Ratio 1.4, PT 13.5 H, INR 1.29 H, APTT 30, CBC w Diff NO MAN DIFF REQ, RBC 2.40 L, MCV 79.7 L, MCH 25.6 L, RDW 19.3 H, MPV 8.2, Gran % 65.2, Lymphocytes % 23.8, Monocytes % 8.4, Eosinophils % 2.1, Basophils % 0.5, Absolute Granulocytes 4.9, Absolute Lymphocytes 1.8, Absolute Monocytes 0.6, Absolute Eosinophils 0.2, Absolute Basophils 0, PUBS MCHC 32.1 L, Digoxin 0.9 Diagnostic Data CXR Results EXAM TYPE: RAD - XRY-PORTABLE CHEST XRAY EXAMINATION: XR PORTABLE CHEST CLINICAL INFORMATION: Shortness of breath with exertion. COMPARISON: Chest x-ray 02/09/2017. TECHNIQUE: Portable frontal view of the chest was obtained. FINDINGS: The lungs are hypoinflated, without focal airspace consolidation. No pleural effusions or pneumothoraces are identified. Cardiomediastinal contours are stable and there is stable enlargement of the cardiac silhouette, indicative of cardiomegaly. In comparison to the prior examination, there has been interval removal of a previously identified right chest wall Port-A-Cath. Soft tissues are unremarkable. No acute osseous abnormality is identified. Redemonstrated are advanced degenerative changes involving the right shoulder with associated remodeling of the right humeral head. IMPRESSION: Interval removal of a previously identified right chest wall Port-A-Cath. Stable cardiomegaly. No acute pulmonary process. DICTATED BY: DELONTE ALICEA MD DATE/TIME DICTATED:03/26/172148 Other Results Left ventricular wall thickness mildly increased. Left ventricular ejection fraction is estimated at 65 %. Moderate to severe right atrial dilatation. Severe left atrial dilatation. Mitral annular calcification. Uuev-ez-vmgqqfcd mitral regurgitation. Werjtnvd-wo-koqoog aortic stenosis. Mild aortic regurgitation. Rrte-rb-bwjsldht tricuspid regurgitation. Right ventricular systolic pressure estimated at 55 mmHg. Mild pulmonic regurgitation. Johan Ferguson M.D. (Electronically Signed) Final Date: 10 February 2017 12:46 Assessment/Plan Assessment: 86-year-old female with past medical history of atrial fibrillation on xarelto for years, moderate aortic stenosis, hypertension, hyperlipidemia, TIA, hypothyroidism, diabetes mellitus, gout, osteoarthritis, colon cancer status post resection and chemotherapy, presented for shortness of breath on exertion and black stool. Stool guaiac was positive, and H&H was 6. 1/19.1. Patient was admitted to general medicine status post 2 units of packed red blood cell transfusion for further workup of anemia, pending gastroenterology and cardiology consultation, as we are holding Xarelto. Problem list: # GI bleed, melena # Atrial fibrillation on Xarelto # Moderate to severe aortic stenosis # Hyponatremia # GI bleed, melena, sp 2units PRBCs * hold Xarelto * hold off IV fluid as patient has received 2 packed red blood cell transfusion * NPO for possible upper endoscopy in am * GI consult in am * Insulin nothing by mouth sliding scale * Levemir 20 units twice a day (home 40) * HOLD Lasix 40 mg daily (can resume if orthostats +) * Follow up orthostat vitals * Avoid NSAIDs * Monitor H&H closely # Atrial fibrillation on Xarelto * Hold xarelto * Cardio consult in am (Pt's histotechnologist supervisor is Dr. Orozco) * TSH and cortisol level in am # Moderate to severe aortic stenosis * Watch out for fluid overloaded # Hyponatremia - Na 129 * Serum osm and urine osm # Continue home meds Oxybutynin 5 mg daily Metoprolol XL 25 mg daily Synthroid 125 g daily Losartan 50 mg daily Gabapentin 300 mg daily Digoxin 125 cg QPM colchicine 300 g daily Vitamin D 1000 international unit daily Atorvastatin 20 mg daily Amlodipine 5 mg daily Xanax 0.5 mg daily as needed IVF: none Diet: NPO DVT ppx: alps. Hold xarelto pending GI eval DNR/DNI As Ranked By This Provider Problem List: 1. Symptomatic anemia Core Measures/Miscellaneous Acute Coronary Syndrome ACS Diagnosis: No Cerebrovascular Accident CVA/TIA Diagnosis: No Congestive Heart Failure CHF Diagnosis: No Venous Thromboembolism VTE Risk Factors: Age > 40 [facility] prophylaxis d/t: No contraindications No VTE Pharm Prophylaxis d/t: No contraindications VTE Diagnosis: No VTE Type: NONE VTE Confirmed by (Test): NONE Severe Sepsis Severe Sepsis Present: No Septic Shock Septic Shock Present: No Miscellaneous Documentation Attending Case Discussed With: RICK ROMANO MD Primary Care Physician: SHAUN AVALOS,XIOMARA Lacy Patient sees these Specialists Dr Orozco cardiology Dr Demar Flores Level of Patient Care: General Medicine [facility] 03/26/17 0468: General Information and HPI Allergies/Medications Home Med list Alprazolam (Xanax) 0.5 MG TABLET 1 TAB PO QDAILY PRN ANXIETY (Reported) Amlodipine Besylate 5 MG TABLET 1 TAB PO DAILY BP (Reported) Atorvastatin Calcium (Lipitor) 20 MG TABLET 1 TAB PO DAILY CHOLESTEROL ( Reported) Cholecalciferol (Vitamin D3) (Vitamin D) 1,000 UNIT TABLET 1 TAB PO DAILY SUPPLEMENT (Reported) Colchicine 0.6 MG TABLET 300 MCG PO BID PSEUDOGOUT Cranberry Fruit Concentrate (Cranberry) 450 MG CAPSULE 1 CAP PO DAILY SUPPLEMENT (Reported) Digoxin 125 MCG TABLET 1 TAB PO QPM HEART (Reported) Furosemide 40 MG TABLET 1 TAB PO DAILY DIURETIC (Reported) Gabapentin 300 MG CAPSULE 1 CAP PO DAILY NEUROPATHY Insulin Detemir (Levemir) 100 UNIT/ML VIAL 40 UNIT SC BID DM (Reported) Irbesartan (Avapro) 300 MG TABLET 1 TAB PO DAILY BP (Reported) Levothyroxine Sodium (Synthroid) 125 MCG TABLET 1 TAB PO DAILY THYROID ( Reported) Metoprolol Succ XL (Toprol XL) 25 MG TAB 25 MG PO DAILY HEART/BP (Reported) Multivitamin (Multi-Day Vitamins) 1 EACH TABLET 1 TAB PO DAILY SUPPLEMENT ( Reported) Potassium Chloride 20 MEQ TABLET.ER 1 TAB PO DAILY SUPPLEMENT (Reported) Rivaroxaban (Xarelto) 15 MG TABLET 1 TAB PO DAILY BLOOD THINNER (Reported) Sitagliptin Phosphate (Januvia) 100 MG TABLET 1 TAB PO DAILY DM (Reported) Solifenacin Succinate (Vesicare) 5 MG TABLET 1 TAB PO DAILY BLADDER (Reported ) Resident Review Statement Resident Statement: examined this patient, discussed with international representative, agreed with international representative, discussed with family, reviewed EMR data (avail), discussed with nursing , discussed with case mgmt, reviewed images, amended to note Other Findings: 86-year-old female with a past medical history of peripheral neuropathy, TIA, A. fib on Xarelto, CHF, moderate , AI, MR, hypertension, hyperlipidemia, gout, insulin-dependent diabetes, hypothyroidism, colon/rectal cancer status post right hemicolectomy and chemotherapy, osteomyelitis status post resection of 1st digit of right foot presents to the ED with complains of shortness of breath on exertion with palpitations which resolve with rest. She says it can only walk about 10-20 feet. She also endorses dark colored stools that are now almost black. According to the patient she gets exertional shortness of breath even while ambulating from the kitchen to the dining table. She denies any cough, chest pain, palpitations, nausea, vomiting, abdominal pain, however does endorse change in the color of her stools stating that they seem chocolatey brown. She usually does not be much he to the color of her stools and so cannot really identify how long this has been going on for of note her last hemoglobin was done in January 2017 and was 8.9 however on presentation to the ED today was down to 6.1. Stool guaiac done by Dr. Romano in [facility] ER was positive. Note she was advised to get a colonoscopy when she saw her GI physician earlier on about a week ago however she denied it at that point. Vitals at the time of admission blood pressure 157/77, respiratory rate of 20, pulse 73, afebrile saturating 98% on 2 L of oxygen via nasal cannula. On physical exam she is alert and oriented 3 and in no acute distress lying comfortably in bed. HEENT revealed PERRLA, nonicteric sclera,dry mucous membranes. Examination of the neck did not reveal an elevated JVP, cervical lymphadenopathy with carotid bruit. Cardiovascular exam was pertinent for normal S1, S2, grade IV holosystolic murmur located at the right sternal border with an irregularly irregular pulse. Chest was clear to auscultation bilaterally. Abdominal exam was benign with abdomen soft, nontender, nondistended with normal bowel sounds in all 4 quadrants. Examination of the lower extremities revealed bilateral 1+ nonpitting edema, as well as amputation of the first toe on the right foot, and wound dressing on 2nd toe. Labs pertinent for microcytic anemia with an H&H of 6.1/19.1, MCV of 79.7 with platelet count 203,000. Serum chemistries revealed hyponatremia with a sodium of 129, potassium of 4.7, bicarbonate of 24, anion gap of 10, BUN/creatinine 24 with a creatinine of 1.0. Serum glucose of 179. LFTs unremarkable with an AST/ ALT of 25/42, pulse of 55, and troponin less than 0.01 with a proBNP of 292. INR was 1.29 this level 0.9 Chest x-ray was done which revealed interval and previously identified right chest wall port a cath, stable cardiomegaly no acute pulmonary process. EKG revealed Atrial fibrillation with a heart rate of 87, normal axis, left ventricular hypertrophy, no ST-T changes, QTC of 472. Last echocardiogram was done in January 2017 which revealed normal left ventricular wall motion, EF of 65% In the ER she received Protonix 40 mg IV 1 and was transfused with 1 unit of packed RBC. Assessment and plan Admit patient to general medicine #Dyspnea on exertion Most likely secondary to anemia given acute drop in her H&H, patient did not seem to be hypervolemic on physical exam Follow-up CVC after transfusion with 2 units of packed RBCs Continue to wean off oxygen as tolerated to maintain saturations greater than 94 %. #Acute blood loss anemia Most liekly 2/2 lower GI bleed, gievn melena, and hx of colon cancer Nothing by mouth for now Protonix 40 mg IV twice a day GI consult in a.m. for possible colonoscopy Follow-up CBC in a.m. Continue to hold her out of for now and cardiology consult in a.m. regarding anticoagulation. Follow-up iron studies #Hypertension Continue on amlodipine 5 mg daily, losartan 50 mg daily, metoprolol XL 25 mg by mouth daily, baby Loyda 300 mg daily #Hyponatremia - 2/2 hypovolemia Follow-up serum osmolality and urine osmolality For now hold Lasix #Anxiety Continue on 7.5 mg daily by mouth when necessary #Hyperlipidemia Continue on Lipitor 20 mg daily #Gout Continue on colchicine 300 MCG twice a day by mouth #Diabetic neuropathy Continue on gabapentin 300 mg daily #History of atrial fibrillation Continue digoxin 0.125 mg at bedtime Will hold Xarelto for now given acute blood loss anemia Cardiology consult in a.m. with Dr. Ferreira #Insulin-dependent diabetes mellitus Continue on Levemir 20 units twice a day subcutaneous and Novolin nothing by mouth sliding scale every 6 since patient is currently nothing by mouth Will hold Januvia while in the hospital #Urinary incontinence Continue on Vesicare 5 mg daily #Hypothyroidism Continue on levothyroxine 125 MCG daily -DVT prophylaxis On Alps given acute blood loss anemia -Diet Nothing by mouth for now -CODE STATUS DNR/DNI RICK ROMANO 03/27/17 0258: Attending MD Review Statement Attending Statement Attending MD Statement: examined this patient, discuss w/resident/PA/TOE LASTER, agreed w/resident/PA/TOE LASTER, discussed with family, reviewed EMR data (avail), reviewed images, amended to note Attending Assessment/Plan: CC: Dyspnea on exertion PMH: DM, A. fib, moderate aortic stenosis, moderate MR, mild to moderate AI, CVA : colon cancer S/P colon resection and chemotherapy, HTN, HLD, stroke Patient came to ER for progressive worsening of dyspnea on exertion since 3 days. Patient states that lately she is noticing worsening of shortness of breath more so on walking at home. Then she noticed black colored stools but she is not aware since how long that is going on. Patient denied any bright red colored blood in the stool. Patient denies any cough, expectoration, chest pain, chest tightness, abdominal pain, tenesmus, diarrhea, nausea, vomiting, dizziness , passing out episodes. Given history of colon cancer she followed up with surgeon 1 week back who suggested colonoscopy as follow-up but patient denied at that time. Patient does not recall if patient had black colored stool at that time. Vitals: Tmax 99.2, HR in 90s, RR 16, blood pressure 151/62, saturating well on room air. On exam: A O 3, cooperative, no acute distress, neck supple, JVD normal, no lymphadenopathy, mucosa moist, no focal neurological deficit, gait normal, no dependent edema, no obvious skin rashes or inflammation CVS: S1-S2, irregular, systolic murmur in aortic area, radiating to carotid. RS: Clear to auscultate bilaterally. Abdomen: Soft, NT, ND, bowel sounds present. Rectal examination: vault empty, trace black colored stool heme occult positive, no ashia blood. Labs: WBC 7.4, hemoglobin 6.1, MCV 79.7, RDW 19.3, sodium 129, chloride 95, bicarbonate 24, BUN 24, creatinine 1.0, anion gap 10, glucose 179, AST 25, ALT 42, alkaline phosphatase 55, proBNP 292, troponin less than 0.01, INR 1.29, dig 0.9 CXR: Interval removal of a previously identified right chest wall Port-A-Cath. Stable cardiomegaly. No acute pulmonary process. EKG: Dolly. fib A and P 86-year-old female with multiple comorbidities including but not limited to diabetes, A. fib on anticoagulation, moderate aortic stenosis, colon cancer S/P resection and chemotherapy, currently not under chemotherapy and on routine follow-up presented with dyspnea on exertion of few days duration. Patient does not have any chest pain, chest tightness or cough, her troponin and proBNP are within acceptable range. Her hemoglobin is 6.1 which is markedly decreased from her previous hospitalization done in January 2017. At that time patient was admitted for fever of unclear origin and was found to have pseudogout and was started on colchicine and unclear if patient is using any [id number] NSAIDs. Patient was suggested a follow-up colonoscopy in her previous outpatient visit 1 week back but patient refuses it at that time. Patient hemodynamically stable, no symptoms of orthostatic, gait normal. Patient received 2 unit PRBC in ER. Gastroenterology was consulted. + Melena + Symptomatic anemia + History of DM, A. fib on anticoagulation, moderate aortic stenosis, history of colon cancer S/P resection and chemotherapy, HTN, HLD, stroke - Admit to general medicine - Orthostatic vitals in a.m. - Hold Xeralto - Check hemoglobin and hematocrit at 6 AM - Consult gastroenterology - Inform patient's surgeon and oncologist of patient being admitted for symptomatic anemia - Check serum osmolality and urine osmolality for hyponatremia - Check TSH, serum cortisol in a.m. - Nothing by mouth - Saline lock IV - Cardiology consult in a.m. as anticoagulation is on hold - Continue amlodipine, atorvastatin, digoxin, gabapentin, Levemir,, levothyroxine, irbesartan, metoprolol, Vesicare, - sliding scale insulin for nothing by mouth - Hold Lasix, if orthostatics in morning are negative then continue by mouth Lasix. - Adequate pain control
--- NOTE | 2017-03-26 22:25 | NUR ---
1ST UNIT PRBCS INFUSING AT 100CC/HR PER DR GOLDSTEIN, PT TOLERATING WELL AND AWARE TO REPORT ANY SYMPTOMS TO STAFF. PT AMBULATORY TO/FROM BATHROOM (LESS THAN 25 FEET TOTAL) WITHOUT DIFFICULTY AND WITHOUT VISIBLE SOB USING CANE. PT AWARE SHE IS AWAITING BED ASSIGNMENT AND VOICING NOT COMPLAINTS.
--- NOTE | 2017-03-26 22:44 | NUR ---
CONTS TO TOLERATE TRANSFUSION, RESTING COMFORTABLY ON STRETCHER. MADE AWARE OF ORDER FOR NPO AT MIDNIGHT, AWARE STILL AWAITING BED ASSIGNMENT.
--- NOTE | 2017-03-27 00:12 | NUR ---
BED ASSIGNMENT 222-1
--- NOTE | 2017-03-27 02:14 | NUR ---
REPORT GIVEN TRANSPORTED VIA
--- NOTE | 2017-03-27 02:59 | Admission Certification ---
Admission Certification Certification Statement - As attending physician, I certify that at the time of - admission, based on clinical presentation, severity of - symptoms, need for further diagnostic testing and - therapeutic interventions, and risk of adverse outcomes - without in-hospital treatment, in my clinical assessment, - this patient requires an acute hospital stay for a minimum - of two nights or longer. I have also considered psychsocial - factors such as support system, advanced age, financial - issues, cognitive issues, and failed out-patient treatments, - past re-admission history, safety of patient, and lack of - compliance as applicable. Specific rationale supporting this admission is: Melena, symptomatic anemia
[2017-03-27 06:50] VITALS: BP 130/64
--- NOTE | 2017-03-27 07:29 | PN- Housestaff ---
ABRAHAM AVALOS,FRANKIE 03/27/17 0729: Subjective Follow-up For: GI bleed Subjective: I saw and examined the patient today morning She is doing well, underwent endoscopy today morning which didnt reveal any acute bleeding. No acute distress. Review of Systems Constitutional: Reports: see HPI. Objective Last 24 Hrs of Vital Signs/I&O Vital Signs Date Time Temp Pulse Resp B/P B/P Pulse O2 O2 Flow FiO2 Mean Ox Delivery Rate 03/27 0650 98.3 66 18 130/64 97 Nasal 1.0L Cannula 03/27 0332 Nasal 2.0L Cannula 03/27 0048 97.1 80 18 163/70 98 Nasal 2.0L Cannula 03/26 2228 99 Nasal 2.0L Cannula 03/26 2222 98.3 73 20 157/77 98 Nasal 2.0L Cannula 03/26 2133 98.4 69 20 151/68 99 Nasal 2.0L Cannula 03/26 1931 99.2 91 16 132/64 96 Room Air Room Air Intake & Output 03/27 0800 03/27 0000 03/26 1600 Intake Total 100 Output Total 400 Balance -300 Intake, IV 100 Output, Urine 400 Patient 76.204 kg 74.843 kg Weight Weight Reported by Patient Measurement Method Physical Exam General Appearance: Alert, Oriented X3, Cooperative Skin: No Rashes, No Breakdown HEENT: Atraumatic, PERRLA, EOMI Neck: Supple Cardiovascular: Normal S1, Normal S2 Lungs: Clear to Auscultation, Normal Air Movement Abdomen: Normal Bowel Sounds, No Tenderness, mildly distended Neurological: Normal Gait, Normal Speech, Strength at 5/5 X4 Ext, Normal Tone Extremities: No Clubbing, No Cyanosis, No Edema Assessment/Plan Assessment: 86-year-old female with past medical history of atrial fibrillation on xarelto for years, moderate aortic stenosis, hypertension, hyperlipidemia, TIA, hypothyroidism, diabetes mellitus, gout, osteoarthritis, colon cancer status post resection and chemotherapy, presented for shortness of breath on exertion and black stool. Stool guaiac was positive, and H&H was 6. 1/19.1. Patient was admitted to general medicine status post 2 units of packed red blood cell transfusion for further workup of anemia, pending gastroenterology and cardiology consultation, as we are holding Xarelto. Upper GI bleed --> Melena --> symtomatic anemia--> s/p 2 Units PRBC. * H&H is 6.1/19.1 at admission, previously Hb is 8.9. after transfusion of 2 units -- 8.3/25.6 * hold Xarelto - for next 2 weeks * Underwent endoscopy in the morning, revels no acute bleed but antral gastritis , a benign appearing duodenal nodule (removed). * There is no absolute CI for anticoagulation as per GI. * Avoid NSAIDS, follow up pathology results. * Pillcam study as an outpatient. * Advanced diet, restarted lasix after orthostatic vitals ae negative. * Avoid NSAIDs * Monitor H&H closely Atrial fibrillation on Xarelto * Hold xarelto - consider starting eliquis 2.5mg BID as out patient. * agrees with holding it for 1-2 days and restarting Moderate to severe aortic stenosis * Watch out for fluid overloaded Hyponatremia - Na 129 * Serum osm and urine osm Anxiety Continue on 7.5 mg daily by mouth when necessary Hyperlipidemia Continue on Lipitor 20 mg daily Gout Continue on colchicine 300 MCG twice a day by mouth #Diabetic neuropathy Continue on gabapentin 300 mg daily #History of atrial fibrillation Continue digoxin 0.125 mg at bedtime Will hold Xarelto for now given acute blood loss anemia Cardiology consult in a.m. with Dr. Ferreira #Insulin-dependent diabetes mellitus Continue on Levemir 20 units twice a day subcutaneous and Novolin nothing by mouth sliding scale every 6 since patient is currently nothing by mouth Will hold Januvia while in the hospital #Urinary incontinence Continue on Vesicare 5 mg daily #Hypothyroidism Continue on levothyroxine 125 MCG daily IVF: none Diet: NPO DVT ppx: alps. Hold xarelto pending GI eval DNR/DNI Problem List: 1. Hyponatremia 2. Diabetes 3. GI bleed Pain Ratin Pain Location: n/a Pain Goal: Pain 4 or less Pain Plan: tylenol prn Tomorrow's Labs & Rationales: cbc to monitor H&H IMELDA NELSON MD 03/27/17 1202: Attending Review Statement Attending Statement Attending Statement: examined this patient, discuss w/resident/PA/INSIDE SALES RECRUITER, agreed w/resident/PA/INSIDE SALES RECRUITER, discussed with family, reviewed EMR data (avail), discussed with nursing, discussed with case mgmt, amended to note Attending Assessment/Plan: Patient seen and examined. Resting comfortably not in any acute distress. Afebrile and hemodynamically stable. Underwent EGD earlier on today. It revealed atrophic gastritis, benign-appearing duodenal nodule that was removed via cold biopsy. No active bleeding or upper GI source of her anemia appreciated. On examination she is not in any acute distress. Heart sounds are regular with a 2/6 systolic murmur. Lungs are clear bilaterally. Abdomen is soft and nontender. She has no peripheral edema. She received only 1 unit of blood overnight and hemoglobin has improved from 6.1-6.9. Cardiology consultation appreciated. Problems: 1. Acute on chronic anemia; melena stool raises concern for gastrointestinal bleeding. 2. Atrial fibrillation on anticoagulation with Xarelto 3. Moderate aortic stenosis. 4. Diabetes mellitus. Plan: -Transfuse 1 more unit of blood to further optimize her oxygen carrying capacity giving her symptomatic nature on presentation. -The cardiology service is recommending holding her anticoagulation for 1-[address] Johan Torres will be following up the patient as an outpatient and will possibly restart her on a different anticoagulant Eliquis as it has been shown in a large study to cause less GI bleeding as compared to Coumadin. Continue her home insulin regimen with close monitoring of her glucose levels.- -If her hemoglobin level is stable tomorrow she may be discharged home on Thursday. - She will follow-up with the gastroenterology service as an outpatient for a PillCam study. -Please follow-up iron profile.
--- NOTE | 2017-03-27 07:32 | Cons- Gastroenterology ---
General Information and HPI Consulting Request Date of Consult: 03/27/17 Requested By: IMELDA NELSON M.D Reason for Consult: Anemia, melena Source of Information: patient, old records Exam Limitations: no limitations History of Present Illness: Ms. 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 She states that she noticed her stool to be black over the past few days and it was also a bit loose. She was unable to say how many black bms shes seen, but she doesn't feel its been that much. She is without any associated abdominal pain with the black stool and she denies any brbpr. She also denies any heartburn, dysphagia or vomiting. She denies having black bowel movements like this in the past. Her last dark stool was the day before admission. She is without any CP and she hasn't had any syncopal episodes. On arrival the the ED she was hemodynamically stable and she was noted to have dark guaic positive stool without any blood on rectal exam. She was noted to have a hgb of 6.1 which was a drop from 8.9 this past January. She was admitted to the medical service last night, her xarelto was held and she was started on IV protonix and transfused with 2 units of PRBCs. She has remained hemodynamically stable since admission and she has not had any further black tarry stool. She also notes improvement in her shortness of breath since having the transfusion. Allergies/Medications Allergies: Coded Allergies: Sulfa (Sulfonamide Antibiotics) (Intermediate, RASH 03/26/17) adhesive tape (PAPER TAPE OK PER PT 03/26/17) Home Med List: Alprazolam (Xanax) 0.5 MG TABLET 1 TAB PO QDAILY PRN ANXIETY (Reported) Amlodipine Besylate 5 MG TABLET 1 TAB PO DAILY BP (Reported) Atorvastatin Calcium (Lipitor) 20 MG TABLET 1 TAB PO DAILY CHOLESTEROL ( Reported) Cholecalciferol (Vitamin D3) (Vitamin D) 1,000 UNIT TABLET 1 TAB PO DAILY SUPPLEMENT (Reported) Colchicine 0.6 MG TABLET 300 MCG PO BID PSEUDOGOUT Cranberry Fruit Concentrate (Cranberry) 450 MG CAPSULE 1 CAP PO DAILY SUPPLEMENT (Reported) Digoxin 125 MCG TABLET 1 TAB PO QPM HEART (Reported) Docusate Sodium 100 MG CAPSULE 100 MG PO DAILY NEEDED PRN CONSTIPATION Ferrous Sulfate 325 MG (65 MG IRON) TABLET.DR 325 MG PO BID IRON SUPPLEMENT Furosemide 40 MG TABLET 1 TAB PO DAILY DIURETIC (Reported) Gabapentin 300 MG CAPSULE 1 CAP PO DAILY NEUROPATHY Insulin Detemir (Levemir) 100 UNIT/ML VIAL 40 UNIT SC BID DM (Reported) Irbesartan (Avapro) 300 MG TABLET 1 TAB PO DAILY BP (Reported) Levothyroxine Sodium (Synthroid) 125 MCG TABLET 1 TAB PO DAILY THYROID ( Reported) Metoprolol Succ XL (Toprol XL) 25 MG TAB 25 MG PO DAILY HEART/BP (Reported) Multivitamin (Multi-Day Vitamins) 1 EACH TABLET 1 TAB PO DAILY SUPPLEMENT ( Reported) Omeprazole 20 MG CAPSULE.DR 40 MG PO DAILY AC PRN DYSPEPSIA Polyethylene Glycol 3350 (Miralax) 17 GRAM/DOSE POWDER 17 GM PO DAILY PRN CONSTIPATION Potassium Chloride 20 MEQ TABLET.ER 1 TAB PO DAILY SUPPLEMENT (Reported) Sennosides/Docusate Sodium (Senna Plus Tablet) 8.6 MG-50 MG TABLET 2 TAB PO DAILY CONSTIPATION Sitagliptin Phosphate (Januvia) 100 MG TABLET 1 TAB PO DAILY DM (Reported) Solifenacin Succinate (Vesicare) 5 MG TABLET 1 TAB PO DAILY BLADDER (Reported ) Current Medications: Current Medications Sig/Darrell Start time Last Medication Dose Route Stop Time Status Admin Alprazolam 0.5 MG DAILY NEEDED PRN 03/27 0045 AC PO 04/03 0044 Amlodipine Besylate 5 MG DAILY 03/27 1000 AC PO Atorvastatin Calcium 20 MG DAILY 03/27 1000 AC PO Cholecalciferol 1,000 IU DAILY 03/27 1000 AC PO Colchicine 300 MCG BID 03/27 1000 AC PO Digoxin 0.125 MG QPM 03/27 2200 AC PO Furosemide 40 MG DAILY 03/28 1000 AC PO Furosemide 40 MG DAILY 03/27 1000 DC PO Gabapentin 300 MG DAILY 03/27 1000 AC PO Insulin Detemir 20 UNITS BID 03/27 1000 AC SC Insulin Human Regular 0 Q6 03/27 0600 AC SC Levothyroxine Sodium 0.125 MG DAILY AC 03/27 0700 AC PO Losartan Potassium 50 MG DAILY 03/27 1000 AC PO Metoprolol Succinate 25 MG DAILY 03/27 1000 AC PO Oxybutynin Chloride 5 MG DAILY 03/27 1000 AC PO Pantoprazole Sodium 40 MG DAILY 03/27 1000 DC IV Pantoprazole Sodium 40 MG BID 03/27 1000 AC IV Pantoprazole Sodium 0 .STK-MED ONE 03/26 2134 DC IV Pantoprazole Sodium 40 MG ONCE ONE 03/26 2130 DC 03/26 IV 03/26 Potassium Chloride 40 MEQ .Q10H 03/27 0030 CAN Dextrose/Water 1,000 ML IV Past History Travel History Traveled to [place] past 21 day No Medical History Neurological: peripheral neuropathy, TIA EENT: NONE Cardiovascular: AFIB, CHF, hypertension, hyperlipidemia Respiratory: NONE Gastrointestinal: NONE Hepatic: NONE Renal: NONE Musculoskeletal: gout, osteoarthritis Psychiatric: anxiety Endocrine: diabetes, hypothyroidism, vitamin D deficiency Blood Disorders: NONE Cancer(s): colon/rectal cancer 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 Home Who Do You Live With? spouse Services at Home: None Smoking Status: Never Smoked ETOH Use: denies use Illicit Drug Use: denies illicit drug use Functional Ability ADLs Independent: dressing, eating, toileting, bathing. Ambulation: independent IADLs Independent: shopping, housework, finances, food prep, telephone, medication admin. Needs Assist: transportation. Review of Systems Review of Systems Constitutional: Reports: malaise, weakness. Denies: diaphoresis, fever. EENTM: Denies: no symptoms. Cardiovascular: Denies: chest pain, edema, orthopena. Respiratory: Reports: short of breath. Denies: cough. GI: Reports: see HPI. Genitourinary: Denies: no symptoms. Musculoskeletal: Denies: no symptoms. Skin: Denies: no symptoms. Neurological/Psychological: Denies: no symptoms. Hematologic/Endocrine: Denies: no symptoms. Immunologic/Allergic: Denies: no symptoms. All Other Systems: Reviewed and Negative Exam & Diagnostic Data Vital Signs and I&O Vital Signs Date Time Temp Pulse Resp B/P B/P Pulse O2 O2 Flow FiO2 Mean Ox Delivery Rate 03/27 0650 98.3 66 18 130/64 97 Nasal 1.0L Cannula 03/27 0332 Nasal 2.0L Cannula 03/27 0048 97.1 80 18 163/70 98 Nasal 2.0L Cannula 03/268 99 Nasal 2.0L Cannula 03/26 2222 98.3 73 20 157/77 98 Nasal 2.0L Cannula 03/263 98.4 69 20 151/68 99 Nasal 2.0L Cannula 03/26 1931 99.2 91 16 132/64 96 Room Air Room Air Intake & Output 03/27 04003/26 04003/25 040 Intake Total 100 Output Total 400 Balance -300 Intake, IV 100 Output, Urine 400 Patient 168 lb Weight Weight Reported by Patient Measurement Method Physical Exam General Appearance: well developed/nourished, no apparent distress, alert, comfortable Head: atraumatic, normal appearance Ears, Nose, Throat: normal pharynx, normal ENT inspection Neck: normal inspection, supple, full range of motion Respiratory: normal breath sounds, chest non-tender, no respiratory distress Cardiovascular: systolic murmur, irregularly irregular Gastrointestinal: normal bowel sounds, soft, non-tender, no organomegaly Rectal: deferred, dark guaiac positive per ED Back: normal inspection Extremities: normal inspection Neurologic/Psych: no motor/sensory deficits, awake, alert, oriented x 3 Skin: intact, normal color, warm/dry Results Pertinent Lab Results: Laboratory Tests 03/27 Chemistry Sodium (137 - 145 mmol/L) Pending 129 L Potassium (3.5 - 5.1 mmol/L) Pending 4.7 Chloride (98 - 107 mmol/L) Pending 95 L Carbon Dioxide (22 - 30 mmol/L) Pending 24 Anion Gap (5 - 16) Pending 10 BUN (7 - 17 mg/dL) Pending 24 H Creatinine (0.5 - 1.0 mg/dL) Pending 1.0 Estimated GFR (>60 ml/min) 53 L BUN/Creatinine Ratio (7 - 25 %) Pending 24.0 Glucose (65 - 99 mg/dL) 179 H Serum Osmolality (285 - 295 MOSM/KG) 282 L Calcium (8.4 - 10.2 mg/dL) 8.7 Magnesium (1.6 - 2.3 mg/dL) 1.9 Iron (37 - 170 ug/dL) 24 L TIBC (265 - 497 ug/dL) 437 Ferritin (11.1 - 264 ng/mL) 26.5 Total Bilirubin (0.2 - 1.3 mg/dL) 0.4 AST (14 - 36 U/L) 25 ALT (9 - 52 U/L) 42 Alkaline Phosphatase (<127 U/L) 55 Troponin I (< 0.11 ng/ml) < 0.01 [id number]-[id number] Pept (<125 pg/mL) 292 H Total Protein (6.3 - 8.2 g/dL) 6.2 L Albumin (3.5 - 5.0 g/dL) 3.6 Globulin (1.9 - 4.2 gm/dL) 2.6 Albumin/Globulin Ratio (1.1 - 2.2 %) 1.4 Vitamin B12 (239 - 931 pg/mL) 788 Coagulation PT (9.4 - 12.5 SEC) 13.5 H INR (0.90 - 1.19) 1.29 H APTT (25 - 37 SEC) 30 Hematology CBC w Diff Pending NO MAN DIFF REQ WBC (4.8 - 10.8 /CUMM) Pending 7.4 RBC (4.20 - 5.40 /CUMM) Pending 2.40 L Hgb (12.0 - 16.0 G/DL) Pending 6.1 *L Hct (37 - 47 %) Pending 19.1 *L MCV (81.0 - 99.0 FL) Pending 79.7 L MCH (27.0 - 31.0 PG) Pending 25.6 L RDW (11.5 - 14.5 %) Pending 19.3 H Plt Count (130 - 400 /CUMM) Pending 203 MPV (7.4 - 10.4 FL) Pending 8.2 Gran % (42.2 - 75.2 %) 65.2 Lymphocytes % (20.5 - 51.1 %) 23.8 Monocytes % (1.7 - 9.3 %) 8.4 Eosinophils % (0 - 5 %) 2.1 Basophils % (0.0 - 2.0 %) 0.5 Absolute Granulocytes (1.4 - 6.5 /CUMM) 4.9 Absolute Lymphocytes (1.2 - 3.4 /CUMM) 1.8 Absolute Monocytes (0.10 - 0.60 /CUMM) 0.6 Absolute Eosinophils (0.0 - 0.7 /CUMM) 0.2 Absolute Basophils (0.0 - 0.2 /CUMM) 0 PUBS MCHC (33.0 - 37.0 G/DL) Pending 32.1 L Toxicology Digoxin (0.8 - 2.0 ng/mL) 0.9 Assessment/Plan Assessment/Recommendations: Assessment: Ms. Moreland is an 86 year old female with aortic stenosis and afib on Xarelto who was found to have a 3gm hgb drop since this past January after she presented to yesterday with reports of black stool and worsening shortness of breath. As she reports black stool an upper GI source of anemia should be ruled out. That being said, I am not certain that she truly had melena as she was only noted to have dark guaiaic positive stool on rectal exam and her BUN/cr ratio isn't elevated. So while PUD or an occult upper GI malignancy should be ruled out by an EGD, that I will arrange for today, if that is negative I will then pursue a small bowel pill cam as I suspect her anemia is secondary to small bowel avms that have been exacerbated to bleed by her anticoagulation considering her aortic stenosis which can be associated with AVMs anywhere in the gi tract. Of note, she has a history of crc that was resected last year and she had a one year surveillance examination this past August which I don't feel needs to be repeated at this time. Reommendations: 1. Keep NPO 2. Follow daily CBC and trasfuse as needed to keep hgb > 8 or as per cardiology recommendations 3. Hold xarelto for now 4. Notify GI for signs of hemodynamically significant overt GI bleeding 5. Will arrange for a diagnostic/therapeutic EGD for later today to assess or an upper GI source of anemia and if that is negative will then consider an outpatient small bowel pill cam. 6. Avoid nsaids 7. Continue IV protonix for now. I will continue to follow this patient and make further recommedations based on her clinical course and the results of the EGD to be performed later today. Problem List: 1. Atrial fibrillation with controlled ventricular response 2. GI bleed 3. Symptomatic anemia 4. Acute GI bleeding Copies To: SHAUN AVALOS,XIOMARA Lacy; AGUSTIN AVALOS,YONI Consult Acknowledgment - Thank you for your consult request.
[2017-03-27 07:43] LABS: ABSOLUTE BASOPHIL COUNT 0 /CUMM (0.0-0.2); ABSOLUTE EOSINOPHIL COUNT 0.2 /CUMM (0.0-0.7); ABSOLUTE GRANULOCYTE CT 4.4 /CUMM (1.4-6.5); ABSOLUTE LYMPH COUNT 1.8 /CUMM (1.2-3.4); ABSOLUTE MONOCYTE COUNT 0.6 /CUMM (0.10-0.60); BASOPHIL % 0.5 % (0.0-2.0); EOSINOPHIL % 3.2 % (0-5); GRANULOCYTE % 62.7 % (42.2-75.2); MEAN CORPUSCULAR HGB CONC 31.9 G/DL (33.0-37.0); MEAN CORPUSCULAR VOLUME 81.5 FL (81.0-99.0); PLATELET COUNT 169 /CUMM (130-400); RBC DISTRIBUTION WIDTH 19.5 % (11.5-14.5); RED BLOOD CELL CT 2.67 /CUMM (4.20-5.40); WHITE BLOOD CELL COUNT 7.1 /CUMM (4.8-10.8)
--- NOTE | 2017-03-27 07:45 | NUR ---
TO GI SUITE [facility]RETCH[facility]
[2017-03-27 07:48] LABS: HEMATOCRIT 21.7 % (37-47)
--- NOTE | 2017-03-27 08:54 | Proc Note Endoscopy ---
Endoscopy Procedure Medical History: unchanged (see [facility] consult) Mental Status: alert/oriented Heart/Lung Eval Prior to Sedation: within normal limits Candidate for Sedation? Yes Procedure Date: 03/27/17 Procedure Type: EGD w/biopsy Nurses Director: Ryan Benz MD ASA Classification: III Indications: Melena, anemia. Instrument: diagnostic gastroscope Meds Received: MAC Patient's Tolerance: good Complications: none Extent Reached: second part of duodenum Procedure: After getting written informed consent the patient was placed in the left lateral decubitus position with pulse oximetry, cardiac monitoring, and supplemental oxygen given. A bite block was inserted and IV sedation was given until the desired effect was achieved. A high definition upper Olympus endoscope was then inserted into the mouth and advanced to the second portion of the duodenum with little difficulty. Retroflexed views and photodocumentation was obtained. Findings: Esophagus: The esophageal mucosa was grossly normal in appearance and is a normal-appearing Z line at 44 cm from the incisors. Stomach: The gastric mucosa was diffusely atrophic in appearance, but there were no ulcers, erosions, or masses appreciated. Distention and peristalsis of the stomach appeared normal. Retroflexed views were normal did not reveal significant hiatal hernia. There was bile appreciated throughout the stomach. Duodenum: There was a 3 mm benign-appearing nodule within the duodenal bulb which was biopsied and essentially removed with cold biopsy forceps and was sent to pathology for further evaluation. The duodenal sweep and folds are grossly normal in appearance. The villi were normal and there were no AVMs appreciated. There was bile appreciated throughout to the second portion of the duodenum. Impression: 1. Atrophic gastritis. 2. Benign-appearing duodenal bulb nodule status post removal via cold biopsy forceps. 3. No active bleeding or upper GI source of anemia appreciated. Recommendations: 1. Her diet should be advanced as tolerated. 2. There are no absolute GI contraindications to resuming her anticoagulation if medically indicated, but would recommend holding it for the next 72-96 hours if no objections from cardiology. 3. She should avoid NSAIDs. 4. She should follow up the pathology results me as an outpatient. 5. Notify GI for signs of overt GI bleeding. 6. Follow CBCs and transfuse as needed to keep her hemoglobin greater than 8 or as per cardiology recommendations. 7. My office will arrange for an outpatient small bowel PillCam to assess for small bowel source of anemia. 8. D/c IV protonix and would only use a ppi as needed for dyspeptic symptoms or heartburn or would put her on it for GI prophylaxis if she is going to be started on a baby ASA while her xarelto is being held. CC: SHAUN AVALOS,XIOMARA Lacy; AGUSTIN AVALOS,YONI
[2017-03-27 10:30] VITALS: BP 130/80
--- NOTE | 2017-03-27 10:37 | Cons- Cardiology ---
General Information and HPI Consulting Request Date of Consult: 03/27/17 Requested By: IMELDA NELSON M.D Reason for Consult: AF, GI bleed Source of Information: patient Exam Limitations: no limitations History of Present Illness: 86-year-old female with past medical history of atrial fibrillation on xarelto, moderate to severe aortic stenosis, hypertension, hyperlipidemia, TIA, hypothyroidism, diabetes mellitus, gout, osteoarthritis, colon cancer status post resection and chemotherapy. She has h/o GI bleed due to colon cancer which resolved with cancer treatment and surgery. She was admitted with shortness of breath, anemia and quiack positive black stools. Allergies/Medications Allergies: Coded Allergies: Sulfa (Sulfonamide Antibiotics) (Intermediate, RASH 03/26/17) adhesive tape (PAPER TAPE OK PER PT 03/26/17) Home Med List: Alprazolam (Xanax) 0.5 MG TABLET 1 TAB PO QDAILY PRN ANXIETY (Reported) Amlodipine Besylate 5 MG TABLET 1 TAB PO DAILY BP (Reported) Atorvastatin Calcium (Lipitor) 20 MG TABLET 1 TAB PO DAILY CHOLESTEROL ( Reported) Cholecalciferol (Vitamin D3) (Vitamin D) 1,000 UNIT TABLET 1 TAB PO DAILY SUPPLEMENT (Reported) Colchicine 0.6 MG TABLET 300 MCG PO BID PSEUDOGOUT Cranberry Fruit Concentrate (Cranberry) 450 MG CAPSULE 1 CAP PO DAILY SUPPLEMENT (Reported) Digoxin 125 MCG TABLET 1 TAB PO QPM HEART (Reported) Furosemide 40 MG TABLET 1 TAB PO DAILY DIURETIC (Reported) Gabapentin 300 MG CAPSULE 1 CAP PO DAILY NEUROPATHY Insulin Detemir (Levemir) 100 UNIT/ML VIAL 40 UNIT SC BID DM (Reported) Irbesartan (Avapro) 300 MG TABLET 1 TAB PO DAILY BP (Reported) Levothyroxine Sodium (Synthroid) 125 MCG TABLET 1 TAB PO DAILY THYROID ( Reported) Metoprolol Succ XL (Toprol XL) 25 MG TAB 25 MG PO DAILY HEART/BP (Reported) Multivitamin (Multi-Day Vitamins) 1 EACH TABLET 1 TAB PO DAILY SUPPLEMENT ( Reported) Potassium Chloride 20 MEQ TABLET.ER 1 TAB PO DAILY SUPPLEMENT (Reported) Rivaroxaban (Xarelto) 15 MG TABLET 1 TAB PO DAILY BLOOD THINNER (Reported) Sitagliptin Phosphate (Januvia) 100 MG TABLET 1 TAB PO DAILY DM (Reported) Solifenacin Succinate (Vesicare) 5 MG TABLET 1 TAB PO DAILY BLADDER (Reported ) Current Medications: Current Medications Sig/Darrell Start time Last Medication Dose Route Stop Time Status Admin Alprazolam 0.5 MG DAILY NEEDED PRN 03/27 0045 AC PO 04/03 0044 Amlodipine Besylate 5 MG DAILY 03/27 1000 AC PO Atorvastatin Calcium 20 MG DAILY 03/27 1000 AC PO Chlorhexidine 1 GM .STK-MED ONE 03/27 0918 DC Gluconate TOP 03/27 919 Cholecalciferol 1,000 IU DAILY 03/27 1000 AC PO Colchicine 300 MCG BID 03/27 1000 AC PO Digoxin 0.125 MG QPM 03/27 2200 AC PO Furosemide 40 MG DAILY 03/28 1000 AC PO Furosemide 40 MG DAILY 03/27 1000 DC PO Gabapentin 300 MG DAILY 03/27 1000 AC PO Insulin Detemir 20 UNITS BID 03/27 1000 AC SC Insulin Human Regular 0 Q6 03/27 0600 AC 03/27 SC 0733 Levothyroxine Sodium 0.125 MG DAILY AC 03/27 0700 AC 03/27 PO 0736 Losartan Potassium 50 MG DAILY 03/27 1000 AC PO Metoprolol Succinate 25 MG DAILY 03/27 1000 AC PO Oxybutynin Chloride 5 MG DAILY 03/27 1000 AC PO Pantoprazole Sodium 40 MG DAILY 03/27 1000 DC IV Pantoprazole Sodium 40 MG BID 03/27 1000 AC IV Pantoprazole Sodium 0 .STK-MED ONE 03/26 2134 DC IV Pantoprazole Sodium 40 MG ONCE ONE 03/26 2130 DC 03/26 IV 03/26 2131 2133 Potassium Chloride 40 MEQ .Q10H 03/27 0030 CAN Dextrose/Water 1,000 ML IV Review of Systems Review of Systems: 14 point ROS negative except for HPI Past History Travel History Traveled to [place] past 21 day No Medical History Neurological: peripheral neuropathy, TIA EENT: NONE Cardiovascular: AFIB, CHF, hypertension, hyperlipidemia Respiratory: NONE Gastrointestinal: NONE Hepatic: NONE Renal: NONE Musculoskeletal: gout, osteoarthritis Psychiatric: anxiety Endocrine: diabetes, hypothyroidism, vitamin D deficiency Blood Disorders: NONE Cancer(s): colon/rectal cancer [employer]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 Home Who Do You Live With? spouse Services at Home: None Smoking Status: Never Smoked ETOH Use: denies use Illicit Drug Use: denies illicit drug use Functional Ability ADLs Independent: dressing, eating, toileting, bathing. Ambulation: independent IADLs Independent: shopping, housework, finances, food prep, telephone, medication admin. Needs Assist: transportation. Exam & Diagnostic Data Vital Signs and I&O Vital Signs Date Time Temp Pulse Resp B/P B/P Pulse O2 O2 Flow FiO2 Mean Ox Delivery Rate 03/27 0650 98.3 66 18 130/64 97 Nasal 1.0L Cannula 03/27 0332 Nasal 2.0L Cannula 03/27 0048 97.1 80 18 163/70 98 Nasal 2.0L Cannula 03/26 2228 99 Nasal 2.0L Cannula 03/26 2222 98.3 73 20 157/77 98 Nasal 2.0L Cannula 03/26 2133 98.4 69 20 151/68 99 Nasal 2.0L Cannula 03/26 1931 99.2 91 16 132/64 96 Room Air Room Air Intake & Output 03/27 1600 03/27 0800 03/27 0000 03/26 1600 03/26 0800 03/26 0000 Intake Total 100 Output Total 400 Balance -300 Intake, IV 100 Output, Urine 400 Patient 168 lb 165 lb Weight Weight Reported by Patient Measurement Method Physical Exam: HEENT-PERRLA Neck-JVP normal, no bruits Lungs-clear bilaterally Heart-S1S2 regular, 2/6 KEDAR at the base Abdoment-soft, not tender, BS+, no organomegaly Ext-no edema, 2+ pulses, no cyanosis Neuro-non focal Labs/Sanjeev Results: Laboratory Tests 03/27 03/27 0800 0800 Urines Urine Color (YEL,AMB,STR) YEL Urine Clarity (CLEAR) HAZY H Urine pH (5.0 - 8.0) 6.5 Ur Specific [place] (1.001 - 1.035) <= 1.005 Urine Protein (NEG,<30 MG/DL) NEG Urine Ketones (NEG) NEG Urine Nitrite (NEG) NEG Urine Bilirubin (NEG) NEG Urine Urobilinogen (0.1 - 1.0 EU/dl) 0.2 Ur Leukocyte Esterase (NEG) LARGE H Ur Microscopic SEDIMENT EXAMINED Urine RBC (0 - 5 /HPF) 1-3 Urine WBC (0 - 2 /HPF) > 75 H Ur Epithelial Cells (NONE,FEW) RARE Urine Bacteria (NEG/NONE) MANY H Urine Hemoglobin (NEG) TRACE-INTACT Urine Osmolality (300 - 1000 MOSM/KG) 245 L Urine Glucose (N MG/DL) NEG 03/27 03/26 0612 2020 Chemistry Sodium (137 - 145 mmol/L) 134 L 129 L Potassium (3.5 - 5.1 mmol/L) 3.9 4.7 Chloride (98 - 107 mmol/L) 100 95 L Carbon Dioxide (22 - 30 mmol/L) 24 24 Anion Gap (5 - 16) 10 10 BUN (7 - 17 mg/dL) 23 H 24 H Creatinine (0.5 - 1.0 mg/dL) 1.0 1.0 Estimated GFR (>60 ml/min) 53 L 53 L BUN/Creatinine Ratio (7 - 25 %) 23.0 24.0 Glucose (65 - 99 mg/dL) 179 H Serum Osmolality (285 - 295 MOSM/KG) 282 L Calcium (8.4 - 10.2 mg/dL) 8.7 Magnesium (1.6 - 2.3 mg/dL) 1.9 Iron (37 - 170 ug/dL) 24 L TIBC (265 - 497 ug/dL) 437 Ferritin (11.1 - 264 ng/mL) 26.5 Total Bilirubin (0.2 - 1.3 mg/dL) 0.4 AST (14 - 36 U/L) 25 ALT (9 - 52 U/L) 42 Alkaline Phosphatase (<127 U/L) 55 Troponin I (< 0.11 ng/ml) < 0.01 [id number] Pept (<125 pg/mL) 292 H Total Protein (6.3 - 8.2 g/dL) 6.2 L Albumin (3.5 - 5.0 g/dL) 3.6 Globulin (1.9 - 4.2 gm/dL) 2.6 Albumin/Globulin Ratio (1.1 - 2.2 %) 1.4 Vitamin B12 (239 - 931 pg/mL) 788 Coagulation PT (9.4 - 12.5 SEC) 13.5 H INR (0.90 - 1.19) 1.29 H APTT (25 - 37 SEC) 30 Hematology CBC w Diff NO MAN DIFF REQ NO MAN DIFF REQ WBC (4.8 - 10.8 /CUMM) 7.1 7.4 RBC (4.20 - 5.40 /CUMM) 2.67 L 2.40 L Hgb (12.0 - 16.0 G/DL) 6.9 *L 6.1 *L Hct (37 - 47 %) 21.7 L 19.1 *L MCV (81.0 - 99.0 FL) 81.5 79.7 L MCH (27.0 - 31.0 PG) 26.0 L 25.6 L RDW (11.5 - 14.5 %) 19.5 H 19.3 H Plt Count (130 - 400 /CUMM) 169 203 MPV (7.4 - 10.4 FL) 9.0 8.2 Gran % (42.2 - 75.2 %) 62.7 65.2 Lymphocytes % (20.5 - 51.1 %) 25.0 23.8 Monocytes % (1.7 - 9.3 %) 8.6 8.4 Eosinophils % (0 - 5 %) 3.2 2.1 Basophils % (0.0 - 2.0 %) 0.5 0.5 Absolute Granulocytes (1.4 - 6.5 /CUMM) 4.4 4.9 Absolute Lymphocytes (1.2 - 3.4 /CUMM) 1.8 1.8 Absolute Monocytes (0.10 - 0.60 /CUMM) 0.6 0.6 Absolute Eosinophils (0.0 - 0.7 /CUMM) 0.2 0.2 Absolute Basophils (0.0 - 0.2 /CUMM) 0 0 PUBS MCHC (33.0 - 37.0 G/DL) 31.9 L 32.1 L Toxicology Digoxin (0.8 - 2.0 ng/mL) 0.9 Diagnostic Data EKG Results AF 86 BPM, non specific ST abnormalities CXR Results No CHF or infiltrate Assessment/Plan Assessment/Plan 86-year-old female with past medical history of atrial fibrillation on xarelto for years, moderate aortic stenosis, hypertension, hyperlipidemia, TIA, hypothyroidism, diabetes mellitus, gout, osteoarthritis, colon cancer status post resection and chemotherapy admitted with upper GI bleed requiring transfusion. She is s/p endoscopy. No source of bleeding found. Plan: stop Xarelto for now continue pre-admission cardiac medications patient being considered for pill camera capsule will keep her of anticoagulation for 1-2 weeks if blood count stable as outpatient I will start her on Eliquis 2.5 mg bid which caused less GI bleed than Warfarin in [place] study f/u with me in 1-2 weeks with CBC Consult Acknowledgment - Thank you for your consult request.
--- NOTE | 2017-03-27 11:00 | NUR ---
BACK FROM GI SUITE, S/P ENDOSCOPY. PATIENT ALERT ORIENTED X3. NO COMPLAINTS. FAMILY AT BEDSIDE. VSS. CALL MAZARIEGOS IN REACH.
[2017-03-27 14:23] VITALS: BP 130/80
[2017-03-27 15:19] VITALS: BP 120/80
--- NOTE | 2017-03-27 19:01 | Patient Discharge Instructions ---
Discharge Instructions General Discharge Information You were seen/treated for: GI bleed You had these procedures: Endoscopy Watch for these problems: any sudden black stools, blood in stools needs immediate medical attention worsening shortness of breath, chest pain, lightheadedness and dizziness needs immediate medical attention Special Instructions: Your medication XARELTO IS ON HOLD. Please visit Dr arenas to restart it. He plans to restart it in 10-14 days. Please follow up with your PCP Dr. Michael in a week Please follow up with your oncologist in a week Please follow up with in a week. Pillcam study can be done as an outpatient. Diet Recommended Diet: Heart Healthy Activity Full Activity/No Limits: Yes Activity Self Limited: Yes Acute Coronary Syndrome Inclusion Criteria At DC or during hospital stay patient has or had the following: ACS DIAGNOSIS No Discharge Core Measures Meds if any: Prescribed or Continued at Discharge Meds if any: NOT Prescribed or Continued at Discharge Congestive Heart Failure Inclusion Criteria At DC or during hospital stay patient has or had the following: CHF DIAGNOSIS No Discharge Core Measures Meds if any: Prescribed or Continued at Discharge Meds if any: NOT Prescribed or Continued at Discharge Cerebrovascular accident Inclusion Criteria At DC or during hospital stay patient has or had the following: CVA/TIA Diagnosis No Discharge Core Measures Meds if any: Prescribed or Continued at Discharge Meds if any: NOT Prescribed or Continued at Discharge Venous thromboembolism Inclusion Criteria VTE Diagnosis No VTE Type NONE VTE Confirmed by (Test) NONE Discharge Core Measures - Per Current guidelines, there needs to be overlap - treatment for the first 5 days of Warfarin therapy. - If discharged on Warfarin prior to 5 days of - overlap therapy, the patient will need to be - assessed for post discharge needs including - *Post discharge parental anticoagulation - *Warfarin and/or parental anticoagulation education - *Follow up date to check INR post discharge At least 5 days overlap therapy as Inpatient No Meds if any: Prescribed or Continued at Discharge Note: Overlap Therapy is Warfarin and Anticoagulant Meds if any: NOT Prescribed or Continued at Discharge
[2017-03-27 19:11] LABS: ABSOLUTE BASOPHIL COUNT 0.1 /CUMM (0.0-0.2); ABSOLUTE EOSINOPHIL COUNT 0.2 /CUMM (0.0-0.7); ABSOLUTE GRANULOCYTE CT 5.3 /CUMM (1.4-6.5); ABSOLUTE LYMPH COUNT 1.9 /CUMM (1.2-3.4); ABSOLUTE MONOCYTE COUNT 0.6 /CUMM (0.10-0.60); BASOPHIL % 0.7 % (0.0-2.0); EOSINOPHIL % 2.6 % (0-5); GRANULOCYTE % 65.6 % (42.2-75.2); HEMATOCRIT 25.6 % (37-47); MEAN CORPUSCULAR HGB 26.8 PG (27.0-31.0); MEAN CORPUSCULAR HGB CONC 32.4 G/DL (33.0-37.0); MEAN CORPUSCULAR VOLUME 82.8 FL (81.0-99.0); MEAN PLATELET VOLUME 9.2 FL (7.4-10.4); PLATELET COUNT 194 /CUMM (130-400); RBC DISTRIBUTION WIDTH 18.5 % (11.5-14.5); WHITE BLOOD CELL COUNT 8.1 /CUMM (4.8-10.8)
[2017-03-27 22:26] VITALS: BP 128/78
[2017-03-28 06:00] VITALS: BP 128/64
[2017-03-28 08:23] LABS: ABSOLUTE BASOPHIL COUNT 0 /CUMM (0.0-0.2); ABSOLUTE EOSINOPHIL COUNT 0.2 /CUMM (0.0-0.7); ABSOLUTE GRANULOCYTE CT 5.6 /CUMM (1.4-6.5); ABSOLUTE LYMPH COUNT 1.4 /CUMM (1.2-3.4); ABSOLUTE MONOCYTE COUNT 0.5 /CUMM (0.10-0.60); BASOPHIL % 0.5 % (0.0-2.0); GRANULOCYTE % 71.9 % (42.2-75.2); HEMATOCRIT 24.3 % (37-47); MEAN CORPUSCULAR HGB 26.8 PG (27.0-31.0); MEAN CORPUSCULAR HGB CONC 32.6 G/DL (33.0-37.0); MEAN CORPUSCULAR VOLUME 82.1 FL (81.0-99.0); MEAN PLATELET VOLUME 9.1 FL (7.4-10.4); PLATELET COUNT 166 /CUMM (130-400); RBC DISTRIBUTION WIDTH 18.4 % (11.5-14.5); RED BLOOD CELL CT 2.96 /CUMM (4.20-5.40); WHITE BLOOD CELL COUNT 7.8 /CUMM (4.8-10.8)
--- NOTE | 2017-03-28 08:40 | PN- Housestaff ---
KOBI AVALOS,PERRY 03/28/17 0840: Subjective Follow-up For: GI bleeding Subjective: Patient examined and followed up today. She was comfortable, not in distress, did not offer any complaints, vitals have been stable overnight. She was using additional oxygen via nasal cannula at the time of examination. Review of Systems Constitutional: Reports: see HPI. Objective Last 24 Hrs of Vital Signs/I&O Vital Signs Date Time Temp Pulse Resp B/P B/P Pulse O2 O2 Flow FiO2 Mean Ox Delivery Rate 03/28 1600 98 Nasal 1.0L Cannula 03/28 1543 98.1 71 20 110/70 98 03/28 1025 88 128/64 03/28 1025 88 128/64 03/28 1024 88 128/64 03/28 0600 98.2 88 18 128/64 93 Room Air 03/28 0000 97 Nasal 1.0L Cannula 03/27 2226 98.2 97 20 128/78 97 Intake & Output 03/28 1600 03/28 0800 03/28 0000 Intake Total 700 250 Output Total Balance 700 250 Intake, IV 10 Intake, Oral 700 240 Number 0 Bowel Movements Physical Exam General Appearance: Alert, Oriented X3, Cooperative, No Acute Distress Other Physical Findings: Patient not in distress, examination no change from yesterday. Current Medications: Current Medications Sig/Darrell Start time Last Medication Dose Route Stop Time Status Admin Alprazolam 0.5 MG DAILY NEEDED PRN 03/27 0045 AC 03/27 PO 04/03 0044 2237 Amlodipine Besylate 5 MG DAILY 03/27 1000 AC 03/28 PO 1025 Atorvastatin Calcium 20 MG DAILY 03/27 1000 AC 03/28 PO 1024 Benzocaine/Menthol 1 JEFF Q2P PRN 03/28 1730 AC PO Cholecalciferol 1,000 IU DAILY 03/27 1000 AC 03/28 PO 1025 Colchicine 300 MCG BID 03/27 1000 AC 03/28 PO 1025 Digoxin 0.125 MG QPM 03/27 2200 AC 03/27 PO 2104 Docusate Sodium 100 MG DAILY NEEDED PRN 03/28 1700 AC PO Ferrous Sulfate 325 MG BID 03/27 2200 AC 03/28 PO 1024 Furosemide 40 MG DAILY 03/28 1000 AC 03/28 PO 1024 Gabapentin 300 MG DAILY 03/27 1000 AC 03/28 PO 1025 Insulin Aspart 0 TIDAC 03/27 1200 AC 03/28 SC 1714 Insulin Detemir 40 UNITS BID 03/27 2200 AC 03/28 SC 1024 Levothyroxine Sodium 0.125 MG DAILY AC 03/27 0700 AC 03/28 PO 0608 Losartan Potassium 50 MG DAILY 03/27 1000 AC 03/28 PO 1024 Metoprolol Succinate 25 MG DAILY 03/27 1000 AC 03/28 PO 1025 Omeprazole 40 MG DAILY AC PRN 03/28 0700 AC PO Oxybutynin Chloride 5 MG DAILY 03/27 1000 AC 03/28 PO 1025 Polyethylene Glycol 17 GM DAILY 03/28 1648 AC PO Senna/Docusate Sodium 2 TAB DAILY 03/29 1000 AC PO Last 24 Hrs of Lab/Sanjeev Results Last 24 Hrs of Labs/Mics: Laboratory Tests 03/28/17 1820: CBC w Diff NO MAN DIFF REQ, RBC 3.15 L, MCV 81.8, MCH 26.6 L, RDW 18.6 H, MPV 9.0, Gran % 79.5 H, Lymphocytes % 11.2 L, Monocytes % 6.8, Eosinophils % 2.1, Basophils % 0.4, Absolute Granulocytes 7.3 H, Absolute Lymphocytes 1.0 L, Absolute Monocytes 0.6, Absolute Eosinophils 0.2, Absolute Basophils 0, PUBS MCHC 32.5 L 03/28/17 0705: Anion Gap 8, Estimated GFR > 60, BUN/Creatinine Ratio 23.8, Cortisol AM Sample 8.3, CBC w Diff NO MAN DIFF REQ, RBC 2.96 L, MCV 82.1, MCH 26.8 L, RDW 18.4 H , MPV 9.1, Gran % 71.9, Lymphocytes % 18.2 L, Monocytes % 6.4, Eosinophils % 3.0, Basophils % 0.5, Absolute Granulocytes 5.6, Absolute Lymphocytes 1.4, Absolute Monocytes 0.5, Absolute Eosinophils 0.2, Absolute Basophils 0, PUBS MCHC 32.6 L Assessment/Plan Assessment: 86-year-old female with past medical history of atrial fibrillation on xarelto for years, moderate aortic stenosis, hypertension, hyperlipidemia, TIA, hypothyroidism, diabetes mellitus, gout, osteoarthritis, colon cancer status post resection and chemotherapy, presented for shortness of breath on exertion and black stool. Stool guaiac was positive, and H&H was 6. 1/19.1. Patient was admitted to general medicine status post 2 units of packed red blood cell transfusion for further workup of anemia, pending gastroenterology and cardiology consultation, as we are holding Xarelto. Upper GI bleed --> Melena --> symtomatic anemia--> s/p 2 Units PRBC. * H&H was 6.1/19.1 at admission, previously Hb is 8.9. after transfusion of 2 units -- 8.3/25.6 * held Xarelto for next 2 weeks * Underwent endoscopy which reveled no acute bleed but antral gastritis, a benign appearing duodenal nodule (removed). * There is no absolute CI for anticoagulation as per GI. * Avoid NSAIDS, follow up pathology results. * Pillcam study as an outpatient. * Advanced diet, restarted lasix after orthostatic vitals ae negative. * Avoid NSAIDs * Monitor H&H closely * This morning H&H was 7.9/24.3, which was below 8 thus a repeat H&H done at 1820 hrs. showed H&H to be 8.4/25.8. Thus will not repeat blood transfusion today. Atrial fibrillation on Xarelto * Hold xarelto - consider starting eliquis 2.5mg BID as out patient. * agrees with holding it for 1-2 days and restarting Moderate to severe aortic stenosis * Watch out for fluid overloaded Hyponatremia Sodium was 129 on admission, is better already, today at 134. Anxiety Continue on 0.5 mg daily by mouth when necessary Hyperlipidemia Continue on Lipitor 20 mg daily Gout Continue on colchicine 300 MCG twice a day by mouth #Diabetic neuropathy Continue on gabapentin 300 mg daily #History of atrial fibrillation Continue digoxin 0.125 mg at bedtime Will hold Xarelto for now given acute blood loss anemia Cardiology consult in a.m. with Dr. Ferreira #Insulin-dependent diabetes mellitus Continuing insulin scale as before Will hold Januvia while in the hospital #Urinary incontinence Continue on Vesicare 5 mg daily #Hypothyroidism Continue on levothyroxine 125 MCG daily IVF: none Diet: NPO DVT ppx: alps. Hold xarelto pending GI eval DNR/DNI Problem List: 1. Acute GI bleeding Pain Ratin Pain Location: - Pain Goal: Pain 4 or less Pain Plan: prn Tomorrow's Labs & Rationales: CBC, BEP SOLANKY MD,[facility] 03/28/17 1240: Attending MD Review Statement Attending Statement Attending MD Statement: examined this patient, discuss w/resident/PA/[employer]UMNI RELATIONS OFFICER, agreed w/resident/PA/ALUMNI RELATIONS OFFICER, discussed with family, reviewed EMR data (avail), discussed with nursing, discussed with case mgmt, reviewed images, amended to note Attending Assessment/Plan: Patient sitting comfortably in bed. She has not had bowel movements since admission, but has been passing gas. No abdominal pain, nausea, vomiting. Her hemoglobin is 7.9 today which is dropped from 8.3. Her Coumadin is on hold as per cardiology. Recommendations: 1. Recheck CBC today evening, transfuse third unit if she drops her hemoglobin/ hematocrit. 2. Start her on a bowel regimen. 3. Continue PPI 4. If her CBC is stable tonight and she doesn't need any transfusion she can be discharged home tomorrow.
[2017-03-28 15:43] VITALS: BP 110/70
[2017-03-28 19:08] LABS: ABSOLUTE BASOPHIL COUNT 0 /CUMM (0.0-0.2); ABSOLUTE EOSINOPHIL COUNT 0.2 /CUMM (0.0-0.7); ABSOLUTE GRANULOCYTE CT 7.3 /CUMM (1.4-6.5); ABSOLUTE MONOCYTE COUNT 0.6 /CUMM (0.10-0.60); BASOPHIL % 0.4 % (0.0-2.0); EOSINOPHIL % 2.1 % (0-5); GRANULOCYTE % 79.5 % (42.2-75.2); HEMATOCRIT 25.8 % (37-47); MEAN CORPUSCULAR HGB 26.6 PG (27.0-31.0); MEAN CORPUSCULAR HGB CONC 32.5 G/DL (33.0-37.0); MEAN CORPUSCULAR VOLUME 81.8 FL (81.0-99.0); PLATELET COUNT 212 /CUMM (130-400); RBC DISTRIBUTION WIDTH 18.6 % (11.5-14.5); RED BLOOD CELL CT 3.15 /CUMM (4.20-5.40); WHITE BLOOD CELL COUNT 9.2 /CUMM (4.8-10.8)
[2017-03-28 21:50] VITALS: BP 136/54
[2017-03-29 06:30] VITALS: BP 144/60
--- NOTE | 2017-03-29 08:45 | PN- Housestaff ---
KOBI AVALOS,PERRY 03/29/17 0845: Subjective Follow-up For: GI bleeding Subjective: I followed up and examined the patient today. She was comfortable, not in distress, did not offer any complaints, vitals have been stable, no issues otherwise. Review of Systems Constitutional: Reports: no symptoms. Objective Last 24 Hrs of Vital Signs/I&O Vital Signs Date Time Temp Pulse Resp B/P B/P Pulse O2 O2 Flow FiO2 Mean Ox Delivery Rate 03/29 1138 98 144/60 03/29 1138 98 144/60 03/29 1136 144/60 03/29 0630 98.9 98 20 144/60 93 Room Air / 2150 99.5 79 20 136/54 94 Room Air / 2117 79 136/54 Intake & Output 03/29 1600 03/29 0800 03/29 0000 Intake Total 400 100 200 Output Total Balance 400 100 200 Intake, Oral 400 100 200 Physical Exam General Appearance: Alert, Oriented X3, Cooperative, No Acute Distress Other Physical Findings: Patient not in distress, examination no change from yesterday. Current Medications: Current Medications Sig/Darrell Start time Last Medication Dose Route Stop Time Status Admin Alprazolam 0.5 MG DAILY NEEDED PRN 03/27 0045 DCD 06 PO 04/03 0044 2237 Amlodipine Besylate 5 MG DAILY 03/27 1000 DCD 06/ PO 1138 Atorvastatin Calcium 20 MG DAILY 03/27 1000 DCD 06/04 PO 1138 Benzocaine/Menthol 1 JEFF Q2P PRN 03/28 1730 DCD PO Cholecalciferol 1,000 IU DAILY 03/27 1000 DCD 06 PO 1138 Colchicine 300 MCG BID 03/27 1000 DCD 06/04 PO 1139 Digoxin 0.125 MG QPM 03/27 2200 DCD 06 PO 2117 Docusate Sodium 100 MG DAILY NEEDED PRN 03/28 1700 DCD PO Ferrous Sulfate 325 MG BID 03/27 2200 DCD 06/ PO 1137 Furosemide 40 MG DAILY 03/28 1000 DCD 06/04 PO 1138 Gabapentin 300 MG DAILY 03/27 1000 DCD 06/04 PO 1138 Insulin Aspart 0 TIDAC 06 1200 DCD 03/28 SC 1714 Insulin Detemir 40 UNITS BID 03/27 2200 DCD 03/29 SC 1139 Levothyroxine Sodium 0.125 MG DAILY AC 03/27 0700 DCD 03/29 PO 0618 Losartan Potassium 50 MG DAILY 03/27 1000 DCD 03/29 PO 1136 Metoprolol Succinate 25 MG DAILY 03/27 1000 DCD 03/29 PO 1138 Omeprazole 40 MG DAILY AC PRN 03/28 0700 DCD PO Oxybutynin Chloride 5 MG DAILY 03/27 1000 DCD 03/29 PO 1136 Polyethylene Glycol 17 GM DAILY 03/28 1648 DCD 03/29 PO 1139 Senna/Docusate Sodium 2 TAB DAILY 03/29 1000 DCD 03/29 PO 1138 Last 24 Hrs of Lab/Sanjeev Results Last 24 Hrs of Labs/Mics: Laboratory Tests 03/29/17 0605: Anion Gap 10, Estimated GFR > 60, BUN/Creatinine Ratio 18.8, CBC w Diff NO MAN DIFF REQ, RBC 3.10 L, MCV 82.3, MCH 26.6 L, RDW 18.5 H, MPV 8.8, Gran % 73.6, Lymphocytes % 13.8 L, Monocytes % 10.4 H, Eosinophils % 1.9, Basophils % 0.3, Absolute Granulocytes 6.1, Absolute Lymphocytes 1.1 L, Absolute Monocytes 0.9 H, Absolute Eosinophils 0.2, Absolute Basophils 0, PUBS MCHC 32.4 L 03/28/17 1820: CBC w Diff NO MAN DIFF REQ, RBC 3.15 L, MCV 81.8, MCH 26.6 L, RDW 18.6 H, MPV 9.0, Gran % 79.5 H, Lymphocytes % 11.2 L, Monocytes % 6.8, Eosinophils % 2.1, Basophils % 0.4, Absolute Granulocytes 7.3 H, Absolute Lymphocytes 1.0 L, Absolute Monocytes 0.6, Absolute Eosinophils 0.2, Absolute Basophils 0, PUBS MCHC 32.5 L Assessment/Plan Assessment: 86-year-old female with past medical history of atrial fibrillation on xarelto for years, moderate aortic stenosis, hypertension, hyperlipidemia, TIA, hypothyroidism, diabetes mellitus, gout, osteoarthritis, colon cancer status post resection and chemotherapy, presented for shortness of breath on exertion and black stool. Stool guaiac was positive, and H&H was 6. 1/19.1. Patient was admitted to general medicine status post 2 units of packed red blood cell transfusion for further workup of anemia, pending gastroenterology and cardiology consultation, as we are holding Xarelto. Upper GI bleed --> Melena --> symtomatic anemia--> s/p 2 Units PRBC. * H&H was 6.1/19.1 at admission, previously Hb is 8.9. after transfusion of 2 units -- 8.3/25.6 * Patient's H&H is 8.3/25.5 today. Hemoglobin level has remained stable after transfusion. Patient is asymptomatic currently. Patient can be safely sent home, where she has her who can take care of her. She however has to follow-up with cardiology, GI, and her primary care physician. She has been explained clearly about the plan and agrees to it. * held Xarelto for next 2 weeks according to cardiology consult. He plans to restart patient on Xarelto probably after 2 weeks in the outpatient clinic setting. * Underwent endoscopy which reveled no acute bleed but antral gastritis, a benign appearing duodenal nodule (removed). * There is no absolute CI for anticoagulation as per GI. * Avoid NSAIDS, follow up pathology results. * Pillcam study as an outpatient. Atrial fibrillation on Xarelto * Hold xarelto - consider starting eliquis 2.5mg BID as out patient. * Dr. Ferguson agrees with holding it for 1-2 weeks and restarting Moderate to severe aortic stenosis * Watch out for fluid overloaded Hyponatremia Sodium was 129 on admission, is better already, today at 134. Anxiety Continue on 0.5 mg daily by mouth when necessary Hyperlipidemia Continue on Lipitor 20 mg daily Gout Continue on colchicine 300 MCG twice a day by mouth #Diabetic neuropathy Continue on gabapentin 300 mg daily #History of atrial fibrillation Continue digoxin 0.125 mg at bedtime Will hold Xarelto for now given acute blood loss anemia Cardiology consult in a.m. with Dr. Ferreira #Insulin-dependent diabetes mellitus Continuing insulin scale as before Will hold Januvia while in the hospital #Urinary incontinence Continue on Vesicare 5 mg daily #Hypothyroidism Continue on levothyroxine 125 MCG daily IVF: none Diet: NPO DVT ppx: alps. Hold xarelto pending GI eval DNR/DNI Problem List: 1. Symptomatic anemia Pain Ratin Pain Location: - Pain Goal: Pain 4 or less Pain Plan: prn Tomorrow's Labs & Rationales: - GURJIT AVALOS,[facility] 03/29/17 1125: Attending MD Review Statement Attending Statement Attending MD Statement: examined this patient, discuss w/resident/PA/TAKER OFF HEMP FIBER, agreed w/resident/PA/TAKER OFF HEMP FIBER, discussed with family, reviewed EMR data (avail), discussed with nursing, discussed with case mgmt, reviewed images, amended to note Attending Assessment/Plan: Patient sitting comfortably in bed. Does not offer any complaints. Her hemoglobin and hematocrit has been stable for more than 24 hours. Vitals are stable. She can be discharged home today with instructions to follow up with GI as an outpatient for a pill cam. Xarelto is on hold as per Dr. Ferguson, further need for anticoagulation will be addressed by Dr. Ferguson as an outpatient.
[2017-03-29 08:52] LABS: ABSOLUTE BASOPHIL COUNT 0 /CUMM (0.0-0.2); ABSOLUTE EOSINOPHIL COUNT 0.2 /CUMM (0.0-0.7); ABSOLUTE GRANULOCYTE CT 6.1 /CUMM (1.4-6.5); ABSOLUTE LYMPH COUNT 1.1 /CUMM (1.2-3.4); ABSOLUTE MONOCYTE COUNT 0.9 /CUMM (0.10-0.60); BASOPHIL % 0.3 % (0.0-2.0); EOSINOPHIL % 1.9 % (0-5); GRANULOCYTE % 73.6 % (42.2-75.2); HEMATOCRIT 25.5 % (37-47); MEAN CORPUSCULAR HGB 26.6 PG (27.0-31.0); MEAN CORPUSCULAR HGB CONC 32.4 G/DL (33.0-37.0); MEAN CORPUSCULAR VOLUME 82.3 FL (81.0-99.0); MEAN PLATELET VOLUME 8.8 FL (7.4-10.4); PLATELET COUNT 188 /CUMM (130-400); RBC DISTRIBUTION WIDTH 18.5 % (11.5-14.5); WHITE BLOOD CELL COUNT 8.3 /CUMM (4.8-10.8)
[2017-03-29] MEDS ORDERED: FERROUS SULFAT325 M2 PO (08:59)
[2017-03-29] MEDS ORDERED: DOCUSATE SODIU100 M3 PO (08:59)
[2017-03-29] MEDS ORDERED: SENNA PLUS TAB1 EACH PO (08:59)
[2017-03-29] MEDS ORDERED: MIRALAX119 GM PO (08:59)
[2017-03-29] MEDS ORDERED: OMEPRAZOLE20 M2 PO (08:59)
[2017-03-29 11:38] VITALS: BP 144/60
--- NOTE | 2017-03-30 07:59 | Discharge Summary ---
See Addendum Visit Information Visit Dates Admission Date: 03/26/17 Discharge Date: 03/29/17 Hospital Course Course Attending Physician: IMELDA NELSON M.D Primary Care Physician: SHAUN AVALOS,XIOMARA Lacy Consulting Request: 1 Consulting Specialty: Cardiology Consulting Physician: Dr. Phyllis ahmadi Reason for Consult: Anticoagulation in the setting of bleed Consulting Request: 2 Consulting Specialty: Gastroenterology Consulting Physician: Dr. Demar Davis Reason for Consult: Upper GI bleed Hospital Course: 86-year-old female with past medical history of atrial fibrillation on xarelto for years, moderate aortic stenosis, hypertension, hyperlipidemia, TIA, hypothyroidism, diabetes mellitus, gout, osteoarthritis, colon cancer status post resection and chemotherapy, presented for shortness of breath on exertion and black stool. Stool guaiac was positive, and H&H was 6. 1/19.1. Patient was admitted to general medicine status post 1 units of packed red blood cell transfusion for further workup of anemia Symptomatic anemia in the setting of melena while on xarelto H&H was 6.1/19.1 at admission, previously Hb is 8.9. After 2 units PRBC transfusion Hb remained stable at 8.3/25. 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 As per GI stand point of view no contraindications to restart anticoagulation. However held xarelto for the next 2 weeks as per cardiac recommendations. Plan to restart as outpatient. Patient is advised to avoid NSAIDS, follow up with GI for pill cam study. she was discharged home as her can take care of her. Atrial fibrillation on Xarelto Xarelto held and planning to restart eliquis 2.5mg BID as outpatient as per after 2 weeks. Continue digoxin 0.125 at bedtime. Moderate to severe aortic stenosis Hyponatremia : Sodium was 129 on admission, resolved --> 134 at discharge. Anxiety: Continue xanax 0.5 mg daily by mouth when necessary Hyperlipidemia: Lipitor 20 mg daily Gout:colchicine 300 MCG twice a day by mouth Diabetic neuropathy: gabapentin 300 mg daily Urinary incontinence: Vesicare 5 mg daily Hypothyroidism: levothyroxine 125 MCG daily Insulin dependent diabetesmellitus DVT ppx: alps. Hold xarelto pending GI eval DNR/DNI Complications: none Allergies: Coded Allergies: Sulfa (Sulfonamide Antibiotics) (Intermediate, RASH 03/26/17) adhesive tape (PAPER TAPE OK PER PT 03/26/17) Significant Procedures: Chest X ray - on march 26 2017 IMPRESSION: Interval removal of a previously identified right chest wall Port-A-Cath. Stable cardiomegaly. No acute pulmonary process. Endoscopy Procedure Mental Status: alert/oriented Heart/Lung Eval Prior to Sedation: within normal limits Candidate for Sedation? Yes Procedure Date: 03/27/17 Procedure Type: EGD w/biopsy Crusher Assembler: Delia Benz MD ASA Classification: III Indications: Melena, anemia. Instrument: diagnostic gastroscope Meds Received: MAC Patient's Tolerance: good Complications: none Extent Reached: second part of duodenum Procedure: After getting written informed consent the patient was placed in the left lateral decubitus position with pulse oximetry, cardiac monitoring, and supplemental oxygen given. A bite block was inserted and IV sedation was given until the desired effect was achieved. A high definition upper Olympus endoscope was then inserted into the mouth and advanced to the second portion of the duodenum with little difficulty. Retroflexed views and photodocumentation was obtained. Findings: Esophagus: The esophageal mucosa was grossly normal in appearance and is a normal-appearing Z line at 44 cm from the incisors. Stomach: The gastric mucosa was diffusely atrophic in appearance, but there were no ulcers, erosions, or masses appreciated. Distention and peristalsis of the stomach appeared normal. Retroflexed views were normal did not reveal significant hiatal hernia. There was bile appreciated throughout the stomach. Duodenum: There was a 3 mm benign-appearing nodule within the duodenal bulb which was biopsied and essentially removed with cold biopsy forceps and was sent to pathology for further evaluation. The duodenal sweep and folds are grossly normal in appearance. The villi were normal and there were no AVMs appreciated. There was bile appreciated throughout to the second portion of the duodenum. Impression: 1. Atrophic gastritis. 2. Benign-appearing duodenal bulb nodule status post removal via cold biopsy forceps. 3. No active bleeding or upper GI source of anemia appreciated. Recommendations: 1. Her diet should be advanced as tolerated. 2. There are no absolute GI contraindications to resuming her anticoagulation if medically indicated, but would recommend holding it for the next 72-96 hours if no objections from cardiology. 3. She should avoid NSAIDs. 4. She should follow up the pathology results me as an outpatient. 5. Notify GI for signs of overt GI bleeding. 6. Follow CBCs and transfuse as needed to keep her hemoglobin greater than 8 or as per cardiology recommendations. 7. My office will arrange for an outpatient small bowel PillCam to assess for small bowel source of anemia. 8. D/c IV protonix and would only use a ppi as needed for dyspeptic symptoms or heartburn or woud put her on it for GI prophylaxis if she is going to be started on a baby ASA while her xarelto is being held. CC: SHAUN AVALOS,XIOMARA Lacy; YONI ARENAS MD DICTATED BY: DELIA BENZ MD DATE/TIME DICTATED:03/27/17849 OUTBOARD TECHNICIAN:MONIKA DATE/TIME TRANSCRIBED:03/27/17849 REPORT NUMBER:[id number] CONFIDENTIAL, DO NOT COPY WITHOUT APPROPRIATE AUTHORIZATION. Pertinent Lab Results: as above Disposition Summary Disposition Principal Diagnosis: Symptomatic anemia secondary to upper GI bleed Additional Diagnosis: Atrial fibrillation on Xarelto Moderate to severe aortic stenosis Hyponatremia Discharge Disposition: home or self care Discharge Instructions General Discharge Information Code Status: Do Not Resucitate/Intubat Patient's Diet: Heart healthy diet Patient's Activity: Acitivity as tolerated Follow-Up Instructions/Appts: Your medication XARELTO IS ON HOLD. Please visit Dr arenas to restart it. He plans to restart it in 10-14 days. Please follow up with your PCP Dr. Michael in a week Please follow up with your oncologist in a week Please follow up with in a week. Pillcam study can be done as an outpatient. Medications at Discharge Discharge Medications: Stop taking the following medications: Rivaroxaban (Xarelto) 15 MG TABLET ORAL DAILY Continue taking these medications: Irbesartan (Avapro) 300 MG TABLET 1 Tablet ORAL DAILY Comments: NOT GIVEN IN HOSPITAL Alprazolam (Xanax) 0.5 MG TABLET 1 Tablet ORAL QDAILY as needed for ANXIETY Comments: Last Taken: 03/27/17 Time: 10:00 PM Atorvastatin Calcium (Lipitor) 20 MG TABLET 1 Tablet ORAL DAILY Comments: Last Taken: 03/29/17 Time: 11:30 AM Digoxin (Digoxin) 125 MCG TABLET 1 Tablet ORAL Every night Comments: Last Taken: 03/28/17 Time: 9:15 PM Furosemide (Furosemide) 40 MG TABLET 1 Tablet ORAL DAILY Comments: Last Taken: 03/29/17 Time: 11:30 AM Sitagliptin Phosphate (Januvia) 100 MG TABLET 1 Tablet ORAL DAILY Comments: NOT GIVEN IN HOSPITAL Solifenacin Succinate (Vesicare) 5 MG TABLET 1 Tablet ORAL DAILY Comments: NOT GIVEN IN HOSPITAL DITROPAN GIVEN Levothyroxine Sodium (Synthroid) 125 MCG TABLET 1 Tablet ORAL DAILY Comments: Last Taken: 03/29/17 Time: 6:00 AM Multivitamin (Multi-Day Vitamins) 1 EACH TABLET 1 Tablet ORAL DAILY Comments: NOT GIVEN IN HOSPITAL Cranberry Fruit Concentrate (Cranberry) 450 MG CAPSULE 1 Capsule ORAL DAILY Days = 60 Comments: NOT GIVEN IN HOSPITAL Potassium Chloride (Potassium Chloride) 20 MEQ TABLET.ER 1 Tablet ORAL DAILY Comments: NOT TAKEN IN HOSPITAL Cholecalciferol (Vitamin D3) (Vitamin D) 1,000 UNIT TABLET 1 Tablet ORAL DAILY Comments: NOT GIVEN IN HOSPITAL Metoprolol Succ XL (Toprol XL) 25 MG TAB 25 Milligram ORAL DAILY Comments: Last Taken: 03/29/17 Time: 11:30 AM Insulin Detemir (Levemir) 100 UNIT/ML VIAL 40 Unit Inject into fatty tissue TWICE DAILY Comments: Last Taken: 03/29/17 Time: 11:30 AM Gabapentin (Gabapentin) 300 MG CAPSULE 1 Capsule ORAL DAILY Days = 30 Comments: Last Taken: 03/29/17 TiME: 11:30 AM Colchicine (Colchicine) 0.6 MG TABLET 300 Microgram ORAL TWICE DAILY Qty = 30 Comments: Last Taken: 03/29/17 Time: 11:30 AM Amlodipine Besylate (Amlodipine Besylate) 5 MG TABLET 1 Tablet ORAL DAILY Qty = 90 Comments: Last Taken: 03/29/17 Time: 11:30 AM Start taking the following new medications: Ferrous Sulfate (Ferrous Sulfate) 325 MG (65 MG IRON) TABLET.DR 325 Milligram ORAL TWICE DAILY Qty = 60 No Refills Comments: Last Taken: 03/29/17 Time: 11:30 AM Docusate Sodium (Docusate Sodium) 100 MG CAPSULE 100 Milligram ORAL DAILY NEEDED as needed for CONSTIPATION Qty = 13 No Refills Comments: NOT TAKEN IN HOSPITAL Polyethylene Glycol 3350 (Miralax) 17 GRAM/DOSE POWDER 17 Gram ORAL DAILY as needed for CONSTIPATION Qty = 30 No Refills Comments: Last Taken: 03/29/17 Time: 11:30 AM Sennosides/Docusate Sodium (Senna Plus Tablet) 8.6 MG-50 MG TABLET 2 Tablet ORAL DAILY Qty = 30 No Refills Comments: Last Taken: 03/29/17 Time: 11:30 AM Omeprazole (Omeprazole) 20 MG CAPSULE.DR 40 Milligram ORAL DAILY BEFORE BREAKFAST as needed for DYSPEPSIA Qty = 30 No Refills Comments: NOT TAKEN IN HOSPITAL Copies To: SHAUN AVALOS,XIOMARA Lacy; PHYLLIS AVALOS,YONI; DEMAR AVALOS,DELIA Attending MD Review Statement Documenting Attending: IMELDA NELSON M.D
== END 2017-03-29 12:50 | DRG 378 ==
LOC: ERH 19:24 → ERHI 21:01 → 2NA 21:01 → ENRESERV 03-27 00:02 → 2NA 03-27 02:37
PROVIDERS: Emergency Medicine; Internal Medicine; Internal Medicine Infectious Disease; Student in an Organized Health Care Education/Training Program; ADMIT Internal Medicine
PROC: 0DB98ZX Excision of Duodenum, Via Natural or Artificial Opening Endoscopic, Diagnostic (ICD-10-PCS; principal; 2017-03-27)
PROC: 30233N1 Transfusion of Nonautologous Red Blood Cells into Peripheral Vein, Percutaneous Approach (ICD-10-PCS; 2017-03-27)
DX: K92.2 Gastrointestinal hemorrhage, unspecified (principal); E11.42 Type 2 diabetes mellitus with diabetic polyneuropathy; I48.91 Unspecified atrial fibrillation; E87.1 Hypo-osmolality and hyponatremia; I35.0 Nonrheumatic aortic (valve) stenosis; D62 Acute posthemorrhagic anemia; Z79.01 Long term (current) use of anticoagulants; I10 Essential (primary) hypertension; E78.5 Hyperlipidemia, unspecified; Z86.73 Personal history of transient ischemic attack (TIA), and cerebral infarction without residual deficits; E03.9 Hypothyroidism, unspecified; M10.9 Gout, unspecified; M19.90 Unspecified osteoarthritis, unspecified site; Z85.038 Personal history of other malignant neoplasm of large intestine; F41.9 Anxiety disorder, unspecified; Z79.4 Long term (current) use of insulin; Z66 Do not resuscitate
CPT/HCPCS: 2NAP; ERO; 36415; 81001; 82436; 86902; 86920; 86922; 88305; 93005; 93010; 96374; 99291; J1815; P9016

== ENCOUNTER 2017-05-12 15:34 | Observation (INO) | payer OTHER, MEDICARE ==
[~2017-05-12] VITALS: Ht 167.6 cm; Wt 68.1 kg
[~2017-05-12 15:34] MED LIST changes: +DOCUSATE SODIU100 M3 PO; +ELIQUIS2.5 M1 PO; +FERROUS SULFAT325 M2 PO; +MIRALAX119 GM PO; +SENNA PLUS TAB1 EACH PO
--- NOTE | 2017-05-12 15:43 | NUR ---
PT TO ED FOR "RECTAL SPOTTING" REPORTING SHE NOTICED "MEDIUM RED BLOOD" NOTED ON PERIPAD. DENIES HX OF HEMMORHOIDS. PT REPORTING HX OF COLON CA, STOPPED CHEMO LAST YEAR, WAS SEEING DR YO. DENIES ABD PAIN, NAUSEA, VOMITING. REPORTING "I CALLED MY DOCTOR AND THEY TOLD ME TO COME IN AND IT WOULD ALL BE SETTLED".
--- NOTE | 2017-05-12 16:13 | ED GENERAL ADULT ---
History of Present Illness General Chief Complaint: General Adult Stated Complaint: RECTAL SPOTTING Source: patient Exam Limitations: no limitations Vital Signs & Intake/Output Vital Signs & Intake/Output Vital Signs Date Time Temp Pulse Resp B/P B/P Pulse O2 O2 Flow FiO2 Mean Ox Delivery Rate 05/12 1544 98.1 102 18 174/74 100 Room Air Allergies Coded Allergies: Sulfa (Sulfonamide Antibiotics) (Intermediate, RASH 03/26/17) adhesive tape (PAPER TAPE OK PER PT 03/26/17) Reconcile Medications Alprazolam (Xanax) 0.5 MG TABLET 1 TAB PO QDAILY PRN ANXIETY (Reported) Amlodipine Besylate 10 MG TABLET 1 TAB PO DAILY BP (Reported) Apixaban (Eliquis) 2.5 MG TABLET 1 TAB PO BID BLOOD THINNER (Reported) Atorvastatin Calcium (Lipitor) 20 MG TABLET 1 TAB PO DAILY CHOLESTEROL ( Reported) Cholecalciferol (Vitamin D3) (Vitamin D) 1,000 UNIT TABLET 1 TAB PO DAILY SUPPLEMENT (Reported) Colchicine 0.6 MG TABLET 300 MCG PO BID PSEUDOGOUT Cranberry Fruit Concentrate (Cranberry) 450 MG CAPSULE 1 CAP PO DAILY SUPPLEMENT (Reported) Digoxin 125 MCG TABLET 1 TAB PO QPM HEART (Reported) Furosemide 40 MG TABLET 1 TAB PO DAILY DIURETIC (Reported) Gabapentin 300 MG CAPSULE 1 CAP PO DAILY NEUROPATHY Insulin Detemir (Levemir) 100 UNIT/ML VIAL 40 UNIT SC BID DM (Reported) Irbesartan (Avapro) 300 MG TABLET 1 TAB PO DAILY BP (Reported) Levothyroxine Sodium (Synthroid) 125 MCG TABLET 1 TAB PO DAILY AC THYROID ( Reported) Multivitamin (Multi-Day Vitamins) 1 EACH TABLET 1 TAB PO DAILY SUPPLEMENT ( Reported) Potassium Chloride 20 MEQ TABLET.ER 1 TAB PO DAILY SUPPLEMENT (Reported) Sitagliptin Phosphate (Januvia) 100 MG TABLET 1 TAB PO DAILY DM (Reported) Solifenacin Succinate (Vesicare) 5 MG TABLET 1 TAB PO DAILY BLADDER (Reported ) Triage Note: PT TO ED FOR "RECTAL SPOTTING" REPORTING SHE NOTICED "MEDIUM RED BLOOD". PT REPORTING HX OF COLON CA, STOPPED CHEMO "LAST YEAR". DENIES ABD PAIN, NAUSEA, VOMITING. REPORTING "I CALL MY DOCTOR AND THEY TOLD ME TO COME IN AND IT WOULD ALL BE SETTLED". Triage Nurses Notes Reviewed? yes Onset: Abrupt Duration: day(s): Timing: recent history HPI: 05/12/17 7:30 PM 86-year-old female presents to the emergency department for ongoing rectal bleeding. According to the patient her colorectal surgeon spoke with her today and referred her back to the emergency department to facilitate colonoscopy. She says she continues to feel weak and dizzy, and is having ongoing bleeding. No abdominal pain. The onset of the symptoms were abrupt, the duration was over the past 48 hours, the severity was significant as her symptoms required her to come to the emergency department for care. Past History Travel History Traveled to [place] past 21 day No Medical History Any Pertinent Medical History? see below for history Neurological: peripheral neuropathy, TIA EENT: NONE Cardiovascular: AFIB, CHF, hypertension, hyperlipidemia Respiratory: NONE Gastrointestinal: NONE Hepatic: NONE Renal: NONE Musculoskeletal: gout, osteoarthritis Psychiatric: anxiety Endocrine: diabetes, hypothyroidism, vitamin D deficiency Blood Disorders: NONE Cancer(s): colon/rectal cancer SKIP TRACER/Reproductive: NONE Other Medical Hx: Gout Rheumatoid arthritis History of MRSA: No History of VRE: No History of CDIFF: No Surgical History Surgical History: cholecystectomy, colon resection (right hemicolectomy), c- section, hysterectomy, diagnostic laparoscopy, PERNELL Psychosocial History Who do you live with Spouse Services at Home None What is your primary language Macanese Tobacco Use: Never used ETOH Use: denies use Illicit Drug Use: denies illicit drug use Family History Family History, If Any: FATHER FH: heart disease MOTHER FH: diabetes mellitus Hx Contributory? No Review of Systems Review of Systems Constitutional: Reports: no symptoms. EENTM: Reports: no symptoms. Respiratory: Reports: no symptoms. Cardiovascular: Reports: no symptoms. GI: Reports: bloody stool. Genitourinary: Reports: no symptoms. Musculoskeletal: Reports: no symptoms. Skin: Reports: no symptoms. Neurological/Psychological: Reports: no symptoms. Hematologic/Endocrine: Reports: bleeding. Immunologic/Allergic: Reports: no symptoms. All Other Systems: Reviewed and Negative Physical Exam Physical Exam General Appearance: alert, awake, anxious, moderate distress Head: atraumatic, normal appearance Eyes: Bilateral: normal appearance, PERRL, EOMI. Ears, Nose, Throat: normal pharynx, normal ENT inspection, hearing grossly normal Neck: normal inspection, supple Respiratory: normal breath sounds, chest non-tender, no respiratory distress Cardiovascular: irregularly irregular Peripheral Pulses: 4+ radial (R), 4+ radial (L) Gastrointestinal: soft, non-tender Rectal: heme positive stool Extremities: normal inspection, no edema Neurologic/Psych: no motor/sensory deficits, awake, alert, oriented x 3 Skin: pallor Core Measures ACS in differential dx? No CVA/TIA Diagnosis: No Severe Sepsis Present: No Septic Shock Present: No Progress Differential Diagnoses I considered the following diagnoses in my evaluation of the patient: [ Diverticulosis, hemorrhagic polyp, coagulopathy, upper GI bleed,] Plan of Care: Orders Procedure Date/time Status Full Liquid Diet 05/[address] in observation 05/12 1938 Active TROPONIN LEVEL 05/12 1646 Complete PROTHROMBIN TIME 05/12 1646 Complete COMPREHENSIVE METABOLIC PANEL 05/12 1646 Complete CBC WITHOUT DIFFERENTIAL 05/12 1646 Complete EKG 05/12 1646 Active Laboratory Tests 05/12/17 1720: Anion Gap 10, Estimated GFR > 60, BUN/Creatinine Ratio 18.8, Glucose 183 H, Calcium 8.9, Total Bilirubin 1.0, AST 29, ALT 37, Alkaline Phosphatase 57, Troponin I < 0.01, Total Protein 6.1 L, Albumin 3.5, Globulin 2.6, Albumin/ Globulin Ratio 1.3, PT 14.7 H, INR 1.40 H, CBC w Diff NO MAN DIFF REQ, RBC 3.04 L, MCV 76.3 L, MCH 25.6 L, RDW 20.9 H, MPV 8.8, Gran % 76.4 H, Lymphocytes % 14.4 L, Monocytes % 6.6, Eosinophils % 2.0, Basophils % 0.6, Absolute Granulocytes 8.2 H, Absolute Lymphocytes 1.5, Absolute Monocytes 0.7 H, Absolute Eosinophils 0.2, Absolute Basophils 0.1, PUBS MCHC 33.5 Initial ED EKG: AFIB Departure Departure Disposition: STILL A PATIENT Condition: Stable Clinical Impression Primary Impression: GI bleed Secondary Impressions: Hyponatremia Referrals: SHAUN AVALOS,XIOMARA Lacy (PCP/Family) Departure Forms: Customer Survey General Discharge Information Observation Note Spoke With: FAROOQ CARO MD Physician Advisor Notified: SOHAN GUAN DO Place Patient In: Non-ED OBS Care Area Rationale for Observation: My rational for observation is as follows [the patient needs inpatient observation for IV fluids, serial hematocrits, inpatient endoscopy, she failed outpatient therapy and is continuing to have bleeding and feeling weak, IV fluids with normal saline to correct hyponatremia, medical consultation]. Critical Care Note Critical Care Note Critical Care Time: non-applicable
--- NOTE | 2017-05-12 16:17 | NUR ---
TO ROOM 8, PT REPORTS HERE ALL DAY YESTERDAY FOR TRANSFUSION, TODAY NOTED CANT BLOOD WITH BM, UNSURE IF PUSHING OR NOT DENIES, DIZZYNESS NO SOB NO CO PAIN NO BLOSSOM BLOOD.
--- NOTE | 2017-05-12 16:21 | NUR ---
AWAITS PROVIDER EVAL
--- NOTE | 2017-05-12 16:56 | NUR ---
PER DR GUAN PT WAS HERE YESTERDAY AND SHOULD HAVE BEEN ADMITTED PER PMD, PT NOW PRESENTS FOR ADMISSION FRO BOWEL PREP FOR COLONSCOPY TOMORROW, PT WITHOTU CO.NO PAIN NO ACTIVE RECTAL BLEEDING
[2017-05-12 17:35] LABS: ABSOLUTE BASOPHIL COUNT 0.1 /CUMM (0.0-0.2); ABSOLUTE EOSINOPHIL COUNT 0.2 /CUMM (0.0-0.7); ABSOLUTE GRANULOCYTE CT 8.2 /CUMM (1.4-6.5); ABSOLUTE LYMPH COUNT 1.5 /CUMM (1.2-3.4); ABSOLUTE MONOCYTE COUNT 0.7 /CUMM (0.10-0.60); BASOPHIL % 0.6 % (0.0-2.0); GRANULOCYTE % 76.4 % (42.2-75.2); HEMATOCRIT 23.2 % (37-47); MEAN CORPUSCULAR HGB 25.6 PG (27.0-31.0); MEAN CORPUSCULAR HGB CONC 33.5 G/DL (33.0-37.0); MEAN CORPUSCULAR VOLUME 76.3 FL (81.0-99.0); MEAN PLATELET VOLUME 8.8 FL (7.4-10.4); RBC DISTRIBUTION WIDTH 20.9 % (11.5-14.5); RED BLOOD CELL CT 3.04 /CUMM (4.20-5.40); WHITE BLOOD CELL COUNT 10.7 /CUMM (4.8-10.8)
[2017-05-12 17:38] LABS: PLATELET COUNT 233 /CUMM (130-400)
--- NOTE | 2017-05-12 17:40 | NUR ---
PT DIFF ACCESS 2NDARY TO HEMATOMA FORMATION UPON IV INSERTION. #20 JELCO ESTABLISHED TO LH
[2017-05-12 17:41] LABS: PT 14.7 SEC (9.4-12.5)
--- NOTE | 2017-05-12 18:31 | NUR ---
DAUGHTER QUESTIONING WHEN PT WILL GET A ROOM UPSTAIRS, DAUGHTER AND PT AWARE THAT PT HAS NOT BEEN BOOKED OR ACCEPTED BY HOSPITALIST FOR ADMISSION SO A BED CANNOT BE GIVEN. MD AWARE PT HAS NO ORDERS FOR ADMISSION
--- NOTE | 2017-05-12 18:52 | NUR ---
DAUGHTER TO HOLLI, CONCERNED THAT PT HAS NOT HAD ANY OF SCHEDULED MEDS IN 24 HRS AND ALSO WANTS TO KNOW IF PT CAN EAT, PER DR GUAN' OVEN TENDER BAGELS WHO DISCUSSED WITH FAMILY, SHE WILL LET MD KNOW AND WHEN HE HAS A MOMENT WILL ADDRESS.
--- NOTE | 2017-05-12 19:18 | NUR ---
ICE CHIPS GAVE TO PT PER DR GUAN'S INSOLE LIP TURNER
--- NOTE | 2017-05-12 19:19 | NUR ---
THIS RN NOW ASSUMING CARE OF PT. PT RESTING ON STRETCHER. PT DENIES ANY COMPLAINTS AT THIS TIME. FAMILY AT BEDSIDE. WILL CONTINUE TO MONITOR.
--- NOTE | 2017-05-12 21:06 | NUR ---
PT CONTINUES TO REST ON STRETCHER. PT DENIES COMPLAINTS AT THIS TIME.
--- NOTE | 2017-05-12 21:28 | History & Physical ---
ELKIN DELGADO PA-C 05/12/172126: General Information and HPI MD Statement: I have seen and personally examined LARS FENG and documented this H&P. The patient is a 86 year old F who presented with a patient stated chief complaint of [gi bleed]. Source of Information: patient, old records, PCP Exam Limitations: no limitations History of Present Illness: 86-year-old female presents the the emergency room at the request of her colorectal surgeon, Dr Jha, for GI bleed. Past medical history of colon cancer, colon resection, GI bleed, multiple colonoscopies, A. fib, on ELIQUIS, diabetes, CHF and hypertension presents for evaluation of shortness of breath and weakness. Patient states the past week or so she has gradually become more short of breath, dyspneic on exertion and fatigue. She finds that she is short of breath when walking only short distances around the house. She occasionally notices some blood or dark or stool, she has a history of GI bleed as well. She had transfusions in March of this year for same. Symptoms are worse on exertion and improved with rest. She denies any chest pain or presyncopal symptoms. She was seen in the ER yesterday for same, it was noted that she had a low hematocrit to 21, she was given 2 units of blood and discharged home to follow- up with her doctor as outpatient. She had heme positive stool yesterday and per patient's report she was heme positive again today in the office and she was sent in for admission requiring colonoscopy. She denies any abdominal pain. She denies any melena or significant bright red blood per rectum or bloody bowel movements. Allergies/Medications Allergies: Coded Allergies: Sulfa (Sulfonamide Antibiotics) (Intermediate, RASH 03/26/17) adhesive tape (PAPER TAPE OK PER PT 03/26/17) Home Med list Alprazolam (Xanax) 0.5 MG TABLET 1 TAB PO QDAILY PRN ANXIETY (Reported) Amlodipine Besylate 10 MG TABLET 1 TAB PO DAILY BP (Reported) Apixaban (Eliquis) 2.5 MG TABLET 1 TAB PO BID BLOOD THINNER (Reported) Atorvastatin Calcium (Lipitor) 20 MG TABLET 1 TAB PO DAILY CHOLESTEROL ( Reported) Cholecalciferol (Vitamin D3) (Vitamin D) 1,000 UNIT TABLET 1 TAB PO DAILY SUPPLEMENT (Reported) Colchicine 0.6 MG TABLET 300 MCG PO BID PSEUDOGOUT Cranberry Fruit Concentrate (Cranberry) 450 MG CAPSULE 1 CAP PO DAILY SUPPLEMENT (Reported) Digoxin 125 MCG TABLET 1 TAB PO QPM HEART (Reported) Furosemide 40 MG TABLET 1 TAB PO DAILY DIURETIC (Reported) Gabapentin 300 MG CAPSULE 1 CAP PO DAILY NEUROPATHY Insulin Detemir (Levemir) 100 UNIT/ML VIAL 40 UNIT SC BID DM (Reported) Irbesartan (Avapro) 300 MG TABLET 1 TAB PO DAILY BP (Reported) Levothyroxine Sodium (Synthroid) 125 MCG TABLET 1 TAB PO DAILY AC THYROID ( Reported) Multivitamin (Multi-Day Vitamins) 1 EACH TABLET 1 TAB PO DAILY SUPPLEMENT ( Reported) Potassium Chloride 20 MEQ TABLET.ER 1 TAB PO DAILY SUPPLEMENT (Reported) Sitagliptin Phosphate (Januvia) 100 MG TABLET 1 TAB PO DAILY DM (Reported) Solifenacin Succinate (Vesicare) 5 MG TABLET 1 TAB PO DAILY BLADDER (Reported ) Past History Travel History Traveled to [place] past 21 day No Medical History Neurological: peripheral neuropathy, TIA EENT: NONE Cardiovascular: AFIB, CHF, hypertension, hyperlipidemia Respiratory: NONE Gastrointestinal: NONE Hepatic: NONE Renal: NONE Musculoskeletal: gout, osteoarthritis Psychiatric: anxiety Endocrine: diabetes, hypothyroidism, vitamin D deficiency Blood Disorders: NONE Cancer(s): colon/rectal cancer HAND GLUER AND SLICER/Reproductive: NONE Other Medical Hx: Gout Rheumatoid arthritis History of MRSA: No History of VRE: No History of CDIFF: No Surgical History Surgical History: cholecystectomy, colon resection (right hemicolectomy), c- section, hysterectomy, diagnostic laparoscopy, PERNELL Past Family/Social History Family History Relations & Conditions if any FATHER FH: heart disease MOTHER FH: diabetes mellitus Psychosocial History Who Do You Live With? spouse Services at Home: None ETOH Use: denies use Illicit Drug Use: denies illicit drug use Functional Ability ADLs Independent: dressing, eating, toileting, bathing. Ambulation: independent IADLs Independent: shopping, housework, finances, food prep, telephone, medication admin. Needs Assist: transportation. Review of Systems Review of Systems Constitutional: Reports: see HPI. EENTM: Denies: see HPI. Cardiovascular: Reports: see HPI. Respiratory: Reports: see HPI. GI: Reports: see HPI. Genitourinary: Reports: no symptoms. Musculoskeletal: Reports: no symptoms. Skin: Reports: no symptoms. Neurological/Psychological: Reports: no symptoms. Hematologic/Endocrine: Reports: see HPI. Immunologic/Allergic: Reports: no symptoms. All Other Systems: Reviewed and Negative Exam & Diagnostic Data Last 24 Hrs of Vital Signs/I&O Vital Signs Date Time Temp Pulse Resp B/P B/P Pulse O2 O2 Flow FiO2 Mean Ox Delivery Rate 05/12 2314 98.2 88 20 160/74 98 05/12 2250 Room Air 05/12 2229 97.3 77 18 136/63 95 Room Air 05/12 2116 97.1 81 18 154/67 95 Room Air 05/12 1544 98.1 102 18 174/74 100 Room Air Intake & Output 05/12 1600 05/12 0800 05/12 0000 Intake Total Output Total Balance Patient 165 lb Weight Weight Reported by Patient Measurement Method Physical Exam General Appearance Alert, Oriented X3, Cooperative, No Acute Distress Skin No Rashes, No Breakdown Skin Temp/Moisture Exam: Warm/Dry Sepsis Skin Exam (color): Normal for Ethnicity HEENT Atraumatic, PERRLA, EOMI, Mucous Membr. moist/pink Neck Supple, No JVD Cardiovascular irregularly irregular, heart rate in the 80s Lungs Clear to Auscultation, Normal Air Movement Abdomen Normal Bowel Sounds, Soft, No Tenderness, No Masses, well-healed surgical incisions Neurological Normal Speech, Strength at 5/5 X4 Ext, Normal Tone, Sensation Intact Extremities No Clubbing, No Cyanosis, No Edema, Normal Pulses, No Tenderness/ Swelling Last 24 Hrs of Labs/Sanjeev: Laboratory Tests 05/12/17 1720: Anion Gap 10, Estimated GFR > 60, BUN/Creatinine Ratio 18.8, Glucose 183 H, Calcium 8.9, Total Bilirubin 1.0, AST 29, ALT 37, Alkaline Phosphatase 57, Troponin I < 0.01, Total Protein 6.1 L, Albumin 3.5, Globulin 2.6, Albumin/ Globulin Ratio 1.3, PT 14.7 H, INR 1.40 H, CBC w Diff NO MAN DIFF REQ, RBC 3.04 L, MCV 76.3 L, MCH 25.6 L, RDW 20.9 H, MPV 8.8, Gran % 76.4 H, Lymphocytes % 14.4 L, Monocytes % 6.6, Eosinophils % 2.0, Basophils % 0.6, Absolute Granulocytes 8.2 H, Absolute Lymphocytes 1.5, Absolute Monocytes 0.7 H, Absolute Eosinophils 0.2, Absolute Basophils 0.1, PUBS MCHC 33.5 Diagnostic Data EKG Results atrial fibrillation, 70 beats per minutes, no ST or T-wave changes, no change from previous EKG Assessment/Plan Assessment: 86-year-old female on full dose anticoagulation with Eliquis with symptomatic anemia and heme positive stools. She will be placed in observation and colonoscopy likely to be performed on by Dr. Jha with whom the admission was discussed with. Clear liquid diet, GoLYTELY bowel prep tomorrow, follow labs, usual medication, follow blood sugar, continue anticoagulation as well per cardiology, transfuse as needed. Discussed with patient who understands and agrees with plan. As Ranked By This Provider Problem List: 1. GI bleed Core Measures/Miscellaneous Acute Coronary Syndrome ACS Diagnosis: No Cerebrovascular Accident CVA/TIA Diagnosis: No Congestive Heart Failure CHF Diagnosis: No VTE (View Protocol) VTE Risk Factors: Age > 40 No [facility] VTE prophylaxis d/t: No contraindications No VTE Pharm Prophylaxis d/t: No contraindications VTE Diagnosis: No VTE Type: NONE VTE Confirmed by (Test): NONE Sepsis (View Protocol) Severe Sepsis Present: No Septic Shock Septic Shock Present: No Miscellaneous Documentation Attending Case Discussed With: FAROOQ JHA MD Primary Care Physician: XIOMARA DUNN MD Patient sees these Specialists colorectal surgery Level of Patient Care: General Medicine FAROOQ JHA MD 05/13/17 0812: Attending MD Review Statement Attending Statement Attending MD Statement: examined this patient, discuss w/resident/PA/PROJECT ADMINISTRATIVE ASSISTANT, agreed w/resident/PA/PROJECT ADMINISTRATIVE ASSISTANT, discussed with family, reviewed EMR data (avail), discussed with case mgmt Attending Assessment/Plan: Patient is scheduled for colonoscopy on .
--- NOTE | 2017-05-12 22:28 | NUR ---
REPORT GIVEN TO ESHA POWELL.
--- NOTE | 2017-05-12 22:29 | NUR ---
PT AMBULATORY TO AND FROM RESTROOM.
--- NOTE | 2017-05-12 22:46 | NUR ---
PT ASSIGNED TO ROOM 210-02.
--- NOTE | 2017-05-12 23:13 | NUR ---
2250 PATIENT ARRIVED TO FLOOR. ALERT AND ORIENTED X 3. ON ROOM AIR. DENIES SHORTNESS OF BREATH DENIES CHEST PAIN. + PULSES. HX PERIPHERAL NEUROPATHY SKIN C/D/I. NO DISCOMFORT/DISTRESS NOTED BED LOW AND LOCKED. CALL LIGHT WITHIN REACH
[2017-05-12 23:14] VITALS: BP 160/74
--- NOTE | 2017-05-12 23:43 | Admission Core Measures ---
Admission Lab Results I reviewed the following labs: Laboratory Tests 05/12 1720 Chemistry Sodium (137 - 145 mmol/L) 126 L Potassium (3.5 - 5.1 mmol/L) 4.3 Chloride (98 - 107 mmol/L) 93 L Carbon Dioxide (22 - 30 mmol/L) 22 Anion Gap (5 - 16) 10 BUN (7 - 17 mg/dL) 15 Creatinine (0.5 - 1.0 mg/dL) 0.8 Estimated GFR (>60 ml/min) > 60 BUN/Creatinine Ratio (7 - 25 %) 18.8 Glucose (65 - 99 mg/dL) 183 H Calcium (8.4 - 10.2 mg/dL) 8.9 Total Bilirubin (0.2 - 1.3 mg/dL) 1.0 AST (14 - 36 U/L) 29 ALT (9 - 52 U/L) 37 Alkaline Phosphatase (<127 U/L) 57 Troponin I (< 0.11 ng/ml) < 0.01 Total Protein (6.3 - 8.2 g/dL) 6.1 L Albumin (3.5 - 5.0 g/dL) 3.5 Globulin (1.9 - 4.2 gm/dL) 2.6 Albumin/Globulin Ratio (1.1 - 2.2 %) 1.3 Coagulation PT (9.4 - 12.5 SEC) 14.7 H INR (0.90 - 1.19) 1.40 H Hematology CBC w Diff NO MAN DIFF REQ WBC (4.8 - 10.8 /CUMM) 10.7 RBC (4.20 - 5.40 /CUMM) 3.04 L Hgb (12.0 - 16.0 G/DL) 7.8 L Hct (37 - 47 %) 23.2 L MCV (81.0 - 99.0 FL) 76.3 L MCH (27.0 - 31.0 PG) 25.6 L RDW (11.5 - 14.5 %) 20.9 H Plt Count (130 - 400 /CUMM) 233 MPV (7.4 - 10.4 FL) 8.8 Gran % (42.2 - 75.2 %) 76.4 H Lymphocytes % (20.5 - 51.1 %) 14.4 L Monocytes % (1.7 - 9.3 %) 6.6 Eosinophils % (0 - 5 %) 2.0 Basophils % (0.0 - 2.0 %) 0.6 Absolute Granulocytes (1.4 - 6.5 /CUMM) 8.2 H Absolute Lymphocytes (1.2 - 3.4 /CUMM) 1.5 Absolute Monocytes (0.10 - 0.60 /CUMM) 0.7 H Absolute Eosinophils (0.0 - 0.7 /CUMM) 0.2 Absolute Basophils (0.0 - 0.2 /CUMM) 0.1 PUBS MCHC (33.0 - 37.0 G/DL) 33.5 Admission Meds I reviewed the following Meds: Current Medications Sig/Darrell Start time Last Medication Dose Stop Time Status Admin Acetaminophen 650 MG Q6PRN PRN 05/12 2200 AC (Tylenol) Alprazolam 0.5 MG DAILY PRN 05/12 221 AC (Xanax) 05/19 2214 Amlodipine Besylate 10 MG DAILY 05/13 1000 AC (Norvasc) Apixaban 2.5 MG BID 05/12 221 AC (Eliquis) Atorvastatin Calcium 20 MG 1700 05/13 1700 AC (Lipitor) Atorvastatin Calcium 20 MG DAILY 05/12 2005 CAN (Lipitor) Cholecalciferol 1,000 IU DAILY 05/13 1000 AC (Vitamin D) Cholecalciferol 1,000 IU DAILY 05/12 2005 CAN (Vitamin D) Colchicine 300 MCG BID 05/13 1000 AC (Colchicine 600MCG Tab) Colchicine 300 MCG BID 05/12 2200 CAN (Colchicine 600MCG Tab) Dextrose/Sodium 1,000 ML .Q20H 05/12 2200 AC Chloride (D5-Normal Saline) Digoxin 0.125 MG 1700 05/12 221 AC (Lanoxin) Digoxin 0.125 MG QPM 05/12 2200 CAN (Lanoxin) Furosemide 40 MG DAILY 05/13 1000 AC (Lasix) Gabapentin 300 MG DAILY 05/13 1000 AC (Neurontin) Gabapentin 300 MG DAILY 05/12 2006 CAN (Neurontin) Insulin Detemir 40 UNITS BID 05/12 2215 AC (Levemir) Insulin Detemir 40 UNITS BID 05/12 2200 CAN (Levemir) Insulin Human Regular 0 TIDAC/HS 05/13 0800 AC (NovoLIN R) Levothyroxine Sodium 0.125 MG DAILY AC 05/13 07 CAN (Synthroid) Levothyroxine Sodium 0.125 MG DAILY AC 05/13 07 AC (Synthroid) Losartan Potassium 100 MG DAILY 05/13 1000 AC (Cozaar) Multivitamins 1 TAB DAILY 05/13 1000 AC (Theragran Vitamins) Ondansetron HCl 4 MG Q8P PRN 05/120 AC (Zofran) Oxybutynin Chloride 2.5 MG BID 05/13 1000 AC (Ditropan 2.5MG Tab(1/2 of a 5mg tab)) Potassium Chloride 20 MEQ DAILY 05/13 1000 AC (K-Dur) Sitagliptin Phosphate 100 MG DAILY 05/13 1000 AC (JANUVIA) Sitagliptin Phosphate 100 MG DAILY 05/12 2009 CAN (JANUVIA) Acute Coronary Syndrome Inclusion Criteria ACS Diagnosis No Inpatient Core Measures LDL Reminder: If No, please order W/I first 24hr of stay Congestive Heart Failure Inclusion Criteria CHF Diagnosis No Cerebrovascular accident Inclusion Criteria CVA/TIA Diagnosis No Inpatient Core Measures Bedside Swallow Eval Reminder: If BSE failed, place ST order Antithrombotic Reminder: Order Antithrombotic Medication by end of day 2 Antithrombotic Reminder: Document Reason Antithrombotic Not ordered by end of day 2 AFIB/Flutter Reminder: If Present, add to problem list AFIB/Flutter Reminder: Order Anticoag Medication for pts with AFIB/Flutter Atherosclerosis Reminder: If Present, add to problem list LDL Reminder: If No, please order W/I first 24hr of stay PT Order Reminder: If No, please order Venous thromboembolism Inpatient Core Measures VTE Risk Factors: Age > 40 No [facility] VTE prophylaxis d/t No contraindications No VTE Pharm Prophylaxis d/t No contraindications Inclusion Criteria - Per Current guidelines, there needs to be overlap - treatment for the first 5 days of Warfarin therapy. - Parenteral Anticoagulation (IV or SC) needs to be - given along with Warfarin therapy. VTE Diagnosis No VTE Type NONE VTE Confirmed by (Test) NONE Problem List As ranked by this Provider includes Assessment & Plan 1. Symptomatic anemia 2. Acute GI bleeding HOME MEDS Home Med List Alprazolam (Xanax) 0.5 MG TABLET 1 TAB PO QDAILY PRN ANXIETY (Reported) Amlodipine Besylate 10 MG TABLET 1 TAB PO DAILY BP (Reported) Apixaban (Eliquis) 2.5 MG TABLET 1 TAB PO BID BLOOD THINNER (Reported) Atorvastatin Calcium (Lipitor) 20 MG TABLET 1 TAB PO DAILY CHOLESTEROL ( Reported) Cholecalciferol (Vitamin D3) (Vitamin D) 1,000 UNIT TABLET 1 TAB PO DAILY SUPPLEMENT (Reported) Colchicine 0.6 MG TABLET 300 MCG PO BID PSEUDOGOUT Cranberry Fruit Concentrate (Cranberry) 450 MG CAPSULE 1 CAP PO DAILY SUPPLEMENT (Reported) Digoxin 125 MCG TABLET 1 TAB PO QPM HEART (Reported) Furosemide 40 MG TABLET 1 TAB PO DAILY DIURETIC (Reported) Gabapentin 300 MG CAPSULE 1 CAP PO DAILY NEUROPATHY Insulin Detemir (Levemir) 100 UNIT/ML VIAL 40 UNIT SC BID DM (Reported) Irbesartan (Avapro) 300 MG TABLET 1 TAB PO DAILY BP (Reported) Levothyroxine Sodium (Synthroid) 125 MCG TABLET 1 TAB PO DAILY AC THYROID ( Reported) Multivitamin (Multi-Day Vitamins) 1 EACH TABLET 1 TAB PO DAILY SUPPLEMENT ( Reported) Potassium Chloride 20 MEQ TABLET.ER 1 TAB PO DAILY SUPPLEMENT (Reported) Sitagliptin Phosphate (Januvia) 100 MG TABLET 1 TAB PO DAILY DM (Reported) Solifenacin Succinate (Vesicare) 5 MG TABLET 1 TAB PO DAILY BLADDER (Reported )
--- NOTE | 2017-05-13 01:25 | NUR ---
JEANIE BRADY #[id number] AWARE OF NA.
--- NOTE | 2017-05-13 07:42 | PN- General Surgery ---
See Addendum Subjective Subjective: No complaints. Denies pain. Transfused 2u prbc for symptomatic blood loss related anemia. Currently tolerating clears. Anticipates GI prep today for colonoscopy tomorrow. Objective Vital Signs and I&Os Vital Signs Date Time Temp Pulse Resp B/P B/P Pulse O2 O2 Flow FiO2 Mean Ox Delivery Rate 05/13 0212 89 165/78 05/12 2314 98.2 88 20 160/74 98 05/12 2250 Room Air 05/12 2229 97.3 77 18 136/63 95 Room Air 05/12 2116 97.1 81 18 154/67 95 Room Air 05/12 1544 98.1 102 18 174/74 100 Room Air Intake & Output 05/13 0800 05/13 0000 05/12 1600 05/12 0800 05/12 0000 05/11 1600 Intake Total 520 0 Output Total Balance 520 0 Intake, IV 400 Intake, Oral 120 0 Patient 165 lb 165 lb Weight Weight Reported by Patient Measurement Method Physical Exam: General - alert & oriented x 3. comfortable. no acute distress. Lungs - clear bilaterally. no w/r/r. Cardiac - irreg. +systolic ejection murmur Abdomen - soft. nontender Extremities - warm bilaterally. no c/c/e. calves soft and nontender b/l. Current Medications: Current Medications Sig/Darrell Start time Last Medication Dose Route Stop Time Status Admin Acetaminophen 650 MG Q6PRN PRN 05/120 AC PO Alprazolam 0.5 MG DAILY PRN 05/12 221 AC PO 05/19 2214 Amlodipine Besylate 10 MG DAILY 05/13 1000 AC PO Apixaban 2.5 MG BID 05/12 2215 AC PO Atorvastatin Calcium 20 MG 05/13 1700 AC PO Atorvastatin Calcium 20 MG DAILY 05/12 2005 CAN PO Cholecalciferol 1,000 IU DAILY 05/13 1000 AC PO Cholecalciferol 1,000 IU DAILY 05/12 2005 CAN PO Colchicine 300 MCG BID 05/13 1000 AC PO Colchicine 300 MCG BID 05/12 2200 CAN PO Dextrose/Sodium 1,000 ML .Q20H 05/12 2200 DC 05/12 Chloride IV 2346 Digoxin 0.125 MG 1700 05/12 2215 AC 05/13 PO 0212 Digoxin 0.125 MG QPM 05/12 2200 CAN PO Furosemide 40 MG DAILY 05/13 1000 AC PO Gabapentin 300 MG DAILY 05/13 1000 AC PO Gabapentin 300 MG DAILY 05/12 2006 CAN PO Insulin Detemir 40 UNITS BID 05/12 2215 DC SC Insulin Detemir 40 UNITS BID 05/12 2200 CAN SC Insulin Human Regular 0 Q6 05/13 1200 AC SC Insulin Human Regular 0 TIDAC/HS 05/13 0800 CAN SC Levothyroxine Sodium 0.125 MG DAILY AC 05/13 0700 CAN PO Levothyroxine Sodium 0.125 MG DAILY AC 05/13 0700 AC 05/13 PO 0621 Losartan Potassium 100 MG DAILY 05/13 1000 AC PO Multivitamins 1 TAB DAILY 05/13 1000 AC PO Ondansetron HCl 4 MG Q8P PRN 05/12 2200 AC IV Oxybutynin Chloride 2.5 MG BID 05/13 1000 AC PO Polyethylene Glycol 1 GAL ONE TIME ONE 05/13 0745 DC PO 05/13 0746 Potassium Chloride 20 MEQ DAILY 05/13 1000 AC PO Potassium Chloride 20 MEQ Q20H 05/13 0745 AC Dextrose/Sodium 1,000 ML IV Chloride Sitagliptin Phosphate 100 MG DAILY 05/13 1000 CAN PO Sitagliptin Phosphate 100 MG DAILY 05/12 2009 CAN PO Sodium Chloride 1,000 ML BOLUS ONE 05/12 1700 DC IV 05/12 1859 Results Last 48 Hours of Labs: Laboratory Tests 05/12 1720 Chemistry Sodium (137 - 145 mmol/L) 126 L Potassium (3.5 - 5.1 mmol/L) 4.3 Chloride (98 - 107 mmol/L) 93 L Carbon Dioxide (22 - 30 mmol/L) 22 Anion Gap (5 - 16) 10 BUN (7 - 17 mg/dL) 15 Creatinine (0.5 - 1.0 mg/dL) 0.8 Estimated GFR (>60 ml/min) > 60 BUN/Creatinine Ratio (7 - 25 %) 18.8 Glucose (65 - 99 mg/dL) 183 H Calcium (8.4 - 10.2 mg/dL) 8.9 Total Bilirubin (0.2 - 1.3 mg/dL) 1.0 AST (14 - 36 U/L) 29 ALT (9 - 52 U/L) 37 Alkaline Phosphatase (<127 U/L) 57 Troponin I (< 0.11 ng/ml) < 0.01 Total Protein (6.3 - 8.2 g/dL) 6.1 L Albumin (3.5 - 5.0 g/dL) 3.5 Globulin (1.9 - 4.2 gm/dL) 2.6 Albumin/Globulin Ratio (1.1 - 2.2 %) 1.3 Coagulation PT (9.4 - 12.5 SEC) 14.7 H INR (0.90 - 1.19) 1.40 H Hematology CBC w Diff NO MAN DIFF REQ WBC (4.8 - 10.8 /CUMM) 10.7 RBC (4.20 - 5.40 /CUMM) 3.04 L Hgb (12.0 - 16.0 G/DL) 7.8 L Hct (37 - 47 %) 23.2 L MCV (81.0 - 99.0 FL) 76.3 L MCH (27.0 - 31.0 PG) 25.6 L RDW (11.5 - 14.5 %) 20.9 H Plt Count (130 - 400 /CUMM) 233 MPV (7.4 - 10.4 FL) 8.8 Gran % (42.2 - 75.2 %) 76.4 H Lymphocytes % (20.5 - 51.1 %) 14.4 L Monocytes % (1.7 - 9.3 %) 6.6 Eosinophils % (0 - 5 %) 2.0 Basophils % (0.0 - 2.0 %) 0.6 Absolute Granulocytes (1.4 - 6.5 /CUMM) 8.2 H Absolute Lymphocytes (1.2 - 3.4 /CUMM) 1.5 Absolute Monocytes (0.10 - 0.60 /CUMM) 0.7 H Absolute Eosinophils (0.0 - 0.7 /CUMM) 0.2 Absolute Basophils (0.0 - 0.2 /CUMM) 0.1 PUBS MCHC (33.0 - 37.0 G/DL) 33.5 Assessment/Plan Assessment/Plan This 86 year old female with hx afib on eliquis, iddm, htn, hld, hx chf, hx colon cancer s/p resection, presents with symptomatic anemia related to acute vs chronic blood loss from gi bleed, s/p transfusion 2u prbc with improvement tolerating clears. continue iv fluids @ 50/hr npo after midnight for colonscopy tomorrow golytely prep ordered, to start by 1400 today continue eliquis per f/u labs d/c levemir. accuchecks / ss coverage q6 hours ?hold [facility] hospitalist called to help co-manage d/w Core Measures/Miscellaneous Venous Thromboembolism VTE Risk Factors: Age > 40, Surgery VTE Contraindications: No Contraindications VTE Diagnosis: No VTE Type: NONE VTE Confirmed by (Test): NONE Beta Nidia Is Beta Nidia a Home Med? No Antibiotics Is Patient on Antibiotics? No
[2017-05-13 07:45] VITALS: BP 146/66
--- NOTE | 2017-05-13 08:41 | Cons- Cardiology ---
General Information and HPI Consulting Request Date of Consult: 05/13/17 Requested By: FAROOQ CARO MD Reason for Consult: AF, GI bleed on Eliquis Source of Information: patient Exam Limitations: no limitations History of Present Illness: I was asked by Dr. Castillo to evaluate patient for her AF and ongoing anticoagulation. 86-year-old female with past medical history of atrial fibrillation on xarelto, moderate to severe aortic stenosis, hypertension, hyperlipidemia, TIA, hypothyroidism, diabetes mellitus, gout, osteoarthritis, colon cancer status post resection and chemotherapy. She has h/o GI bleed due to colon cancer which resolved with cancer treatment and surgery. She was admitted with shortness of breath, anemia and quiack positive black stools last month. Dr. Benz did EGD and no source was found. We stopped Xarelto at that time. She was supposed to have outpatient colonscopy but she decided not to have ("I got scared"). Her blood count was stable as outpatient and after discussion with the patient we decided to start low dose Eliquis 2.5 mg bid. She started Eliquis 6 days ago. Over the past 10 days she has been experiencing increased dyspnea on exertion and fatigue. She presented to ED on April 11. She was seen in ER and was found to have severe anemia. She received 2 UPRBC and was sent home with continuation of Eliquis. Patient came back yesterday after she noticed fresh blood in stool. She is scheduled to have colonoscopy tomorrow. Allergies/Medications Allergies: Coded Allergies: Sulfa (Sulfonamide Antibiotics) (Intermediate, RASH 03/26/17) adhesive tape (PAPER TAPE OK PER PT 03/26/17) Home Med List: Alprazolam (Xanax) 0.5 MG TABLET 1 TAB PO QDAILY PRN ANXIETY (Reported) Amlodipine Besylate 10 MG TABLET 1 TAB PO DAILY BP (Reported) Apixaban (Eliquis) 2.5 MG TABLET 1 TAB PO BID BLOOD THINNER (Reported) Atorvastatin Calcium (Lipitor) 20 MG TABLET 1 TAB PO DAILY CHOLESTEROL ( Reported) Cholecalciferol (Vitamin D3) (Vitamin D) 1,000 UNIT TABLET 1 TAB PO DAILY SUPPLEMENT (Reported) Colchicine 0.6 MG TABLET 300 MCG PO BID PSEUDOGOUT Cranberry Fruit Concentrate (Cranberry) 450 MG CAPSULE 1 CAP PO DAILY SUPPLEMENT (Reported) Digoxin 125 MCG TABLET 1 TAB PO QPM HEART (Reported) Furosemide 40 MG TABLET 1 TAB PO DAILY DIURETIC (Reported) Gabapentin 300 MG CAPSULE 1 CAP PO DAILY NEUROPATHY Insulin Detemir (Levemir) 100 UNIT/ML VIAL 40 UNIT SC BID DM (Reported) Irbesartan (Avapro) 300 MG TABLET 1 TAB PO DAILY BP (Reported) Levothyroxine Sodium (Synthroid) 125 MCG TABLET 1 TAB PO DAILY AC THYROID ( Reported) Multivitamin (Multi-Day Vitamins) 1 EACH TABLET 1 TAB PO DAILY SUPPLEMENT ( Reported) Potassium Chloride 20 MEQ TABLET.ER 1 TAB PO DAILY SUPPLEMENT (Reported) Sitagliptin Phosphate (Januvia) 100 MG TABLET 1 TAB PO DAILY DM (Reported) Solifenacin Succinate (Vesicare) 5 MG TABLET 1 TAB PO DAILY BLADDER (Reported ) Current Medications: Current Medications Sig/Darrell Start time Last Medication Dose Route Stop Time Status Admin Acetaminophen 650 MG Q6PRN PRN 05/12 2200 AC PO Alprazolam 0.5 MG DAILY PRN 05/12 2215 AC PO 05/19 2214 Amlodipine Besylate 10 MG DAILY 05/13 1000 AC PO Apixaban 2.5 MG BID 05/12 2215 DC PO Atorvastatin Calcium 20 MG 1700 05/13 1700 AC PO Atorvastatin Calcium 20 MG DAILY 05/12 2005 CAN PO Cholecalciferol 1,000 IU DAILY 05/13 1000 AC PO Cholecalciferol 1,000 IU DAILY 05/12 2005 CAN PO Colchicine 300 MCG BID 05/13 1000 AC PO Colchicine 300 MCG BID 05/12 2200 CAN PO Dextrose/Sodium 1,000 ML .Q20H 05/12 2200 DC 05/12 Chloride IV 2346 Digoxin 0.125 MG 1700 05/12 2215 AC 05/13 PO 0212 Digoxin 0.125 MG QPM 05/12 2200 CAN PO Furosemide 40 MG DAILY 05/13 1000 AC PO Gabapentin 300 MG DAILY 05/13 1000 AC PO Gabapentin 300 MG DAILY 05/12 2006 CAN PO Insulin Detemir 40 UNITS BID 05/12 2215 DC SC Insulin Detemir 40 UNITS BID 05/12 2200 CAN SC Insulin Human Regular 0 Q6 05/13 1200 AC SC Insulin Human Regular 0 TIDAC/HS 05/13 0800 CAN SC Levothyroxine Sodium 0.125 MG DAILY AC 05/13 07 CAN PO Levothyroxine Sodium 0.125 MG DAILY AC 05/13 0700 AC 05/13 PO 0621 Losartan Potassium 100 MG DAILY 05/13 1000 AC PO Multivitamins 1 TAB DAILY 05/13 1000 AC PO Ondansetron HCl 4 MG Q8P PRN 05/12 2200 AC IV Oxybutynin Chloride 2.5 MG BID 05/13 1000 AC PO Polyethylene Glycol 1 GAL ONE TIME ONE 05/13 0745 DC PO 05/13 0746 Potassium Chloride 20 MEQ DAILY 05/13 1000 AC PO Potassium Chloride 20 MEQ Q20H 05/13 0745 AC Dextrose/Sodium 1,000 ML IV Chloride Sitagliptin Phosphate 100 MG DAILY 05/13 1000 CAN PO Sitagliptin Phosphate 100 MG DAILY 05/12 2009 CAN PO Sodium Chloride 1,000 ML BOLUS ONE 05/12 1700 DC IV 05/12 1859 Review of Systems Review of Systems Constitutional: Reports: weakness. Denies: no symptoms, see HPI, chills, diaphoresis, fever, malaise, unexplained weight loss. EENTM: Denies: no symptoms, see HPI, blurred vision, double vision, visual changes, eye pain, eye drainage, eye tearing, icterus, ear discharge, ear pain, ear redness, hearing changes, nasal congestion, epistaxis, nasal pain, throat pain, throat swelling, mouth pain, tooth pain. Cardiovascular: Denies: no symptoms, see HPI, chest pain, edema, orthopena, palpitations, peripheral edema, syncope. Respiratory: Reports: short of breath. Denies: no symptoms, see HPI, cough, hemoptysis, orthopnea, sputum production, stridor, wheezing. GI: Reports: bloody stool. Denies: no symptoms, see HPI, abdominal pain, bloating, constipation, diarrhea, distention, bowel incontinence, melena, nausea, changes in stool, vomiting, steatorrhea. Genitourinary: Denies: no symptoms, see HPI, discharge, dysuria, frequency, hematuria, hesitation, nocturia, pain, urgency. Musculoskeletal: Denies: no symptoms, see HPI, back pain, gout, joint pain, joint swelling, muscle pain, muscle stiffness, neck pain. Skin: Denies: no symptoms, see HPI, cysts, change in skin color, change in hair/nails, dryness, erythema, jaundice, lesions, lymphangitis, lumps, moles, rash. Neurological/Psychological: Denies: no symptoms, see HPI, anxiety, ataxia, cognitive dysfunction, confusion, depressed, dementia, emotional problems, headache, numbness, paresthesia, pre- existing deficit, petit mal seizures, tingling, tremors, tonic-clonic seizures, unable to move lower ext, unable to move upper ext, weakness, other. Hematologic/Endocrine: Denies: no symptoms, see HPI, bruising, bleeding, polyuria, polydipsia, other. Immunologic/Allergic: Denies: no symptoms, see HPI, splenectomy, HIV/AIDS, lymphadenopathy, other. 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 Home Who Do You Live With? spouse Services at Home: None Smoking Status: Never Smoked ETOH Use: denies use Illicit Drug Use: denies illicit drug use Functional Ability ADLs Independent: dressing, eating, toileting, bathing. Ambulation: independent IADLs Independent: shopping, housework, finances, food prep, telephone, medication admin. Needs Assist: transportation. Exam & Diagnostic Data Vital Signs and I&O Vital Signs Date Time Temp Pulse Resp B/P B/P Pulse O2 O2 Flow FiO2 Mean Ox Delivery Rate 05/13 0745 97.9 85 20 146/66 95 Room Air 05/13 0212 89 165/78 05/12 2314 98.2 88 20 160/74 98 05/12 2250 Room Air 05/12 2229 97.3 77 18 136/63 95 Room Air 05/12 2116 97.1 81 18 154/67 95 Room Air 05/12 1544 98.1 102 18 174/74 100 Room Air Intake & Output 05/13 1600 05/13 0800 05/13 0000 05/12 1600 05/12 0800 05/12 0000 Intake Total 520 0 Output Total Balance 520 0 Intake, IV 400 Intake, Oral 120 0 Patient 165 lb 165 lb Weight Weight Reported by Patient Measurement Method Physical Exam: No acute distress Skin-no rasch HEENT-PERRLa Neck-JVP normal, no bruits Lungs-few bibasilar crackles Heart S1S2 irregular, 2/6 KEDAR at the base\\ Abdomen-soft, not tender, not distended, BS+, no organomegaly Extremity-trace edema, 2+ pulses, no cyanosis Neuro-non focal, AAOx3 Labs/Sanjeev Results: Laboratory Tests 05/13 05/12 0751 1720 Chemistry Sodium (137 - 145 mmol/L) Pending 126 L Potassium (3.5 - 5.1 mmol/L) Pending 4.3 Chloride (98 - 107 mmol/L) Pending 93 L Carbon Dioxide (22 - 30 mmol/L) Pending 22 Anion Gap (5 - 16) Pending 10 BUN (7 - 17 mg/dL) Pending 15 Creatinine (0.5 - 1.0 mg/dL) Pending 0.8 Estimated GFR (>60 ml/min) > 60 BUN/Creatinine Ratio (7 - 25 %) Pending 18.8 Glucose (65 - 99 mg/dL) 183 H Calcium (8.4 - 10.2 mg/dL) 8.9 Total Bilirubin (0.2 - 1.3 mg/dL) 1.0 AST (14 - 36 U/L) 29 ALT (9 - 52 U/L) 37 Alkaline Phosphatase (<127 U/L) 57 Troponin I (< 0.11 ng/ml) < 0.01 Total Protein (6.3 - 8.2 g/dL) 6.1 L Albumin (3.5 - 5.0 g/dL) 3.5 Globulin (1.9 - 4.2 gm/dL) 2.6 Albumin/Globulin Ratio (1.1 - 2.2 %) 1.3 Coagulation PT (9.4 - 12.5 SEC) 14.7 H INR (0.90 - 1.19) 1.40 H Hematology CBC w Diff Pending NO MAN DIFF REQ WBC (4.8 - 10.8 /CUMM) Pending 10.7 RBC (4.20 - 5.40 /CUMM) Pending 3.04 L Hgb (12.0 - 16.0 G/DL) Pending 7.8 L Hct (37 - 47 %) Pending 23.2 L MCV (81.0 - 99.0 FL) Pending 76.3 L MCH (27.0 - 31.0 PG) Pending 25.6 L RDW (11.5 - 14.5 %) Pending 20.9 H Plt Count (130 - 400 /CUMM) Pending 233 MPV (7.4 - 10.4 FL) Pending 8.8 Gran % (42.2 - 75.2 %) 76.4 H Lymphocytes % (20.5 - 51.1 %) 14.4 L Monocytes % (1.7 - 9.3 %) 6.6 Eosinophils % (0 - 5 %) 2.0 Basophils % (0.0 - 2.0 %) 0.6 Absolute Granulocytes (1.4 - 6.5 /CUMM) 8.2 H Absolute Lymphocytes (1.2 - 3.4 /CUMM) 1.5 Absolute Monocytes (0.10 - 0.60 /CUMM) 0.7 H Absolute Eosinophils (0.0 - 0.7 /CUMM) 0.2 Absolute Basophils (0.0 - 0.2 /CUMM) 0.1 PUBS MCHC (33.0 - 37.0 G/DL) Pending 33.5 Diagnostic Data EKG Results AF non specific ST abnormalities, PVC unchange CXR-no CHF or infiltrate Assessment/Plan Assessment/Plan 1. Recurrent GI bleed in patient with h/o colon cancer. Unfortunately she develops BI bleed when we started again low dose anticoagulation with Eliuquis. 2. Hyponatremia-likely due to combination of losartan and lasix 3. HTN-controlled 4. Moderate to severe aortic stenosis. Currently without evidence of CHF Plan: -kepp off Eliquis prior to C scope. She took last dose yesterday morning. Eliquis half life is 12-16 hours in patients with normal renal function. She should be ready for tomorrow colonscopy and biopsy can be obtained if necessary -monitor Na -stay on Lasix and losartan for now, if sodium remains low, will stop losartan -watch for CHF iv view of her aortic stenosis and recent blood transfusion and fluids\\ -if she develops dyspnea or hypoxia, use iv Lasix -monitor I's and O's -will decide about restarting anticoagulation based on colonscopy results but given recurrent bleed we may need to hold it for now. Patient understands risks and benefits (risk of cardioembolism vs risk of bleeding). Copies To: SHAUN AVALOS,XIOMARA Crawford. Consult Acknowledgment - Thank you for your consult request.
[2017-05-13 09:13] LABS: ABSOLUTE BASOPHIL COUNT 0 /CUMM (0.0-0.2); ABSOLUTE EOSINOPHIL COUNT 0.2 /CUMM (0.0-0.7); ABSOLUTE GRANULOCYTE CT 4.6 /CUMM (1.4-6.5); ABSOLUTE LYMPH COUNT 1.1 /CUMM (1.2-3.4); ABSOLUTE MONOCYTE COUNT 0.7 /CUMM (0.10-0.60); BASOPHIL % 0.4 % (0.0-2.0); EOSINOPHIL % 3.4 % (0-5); GRANULOCYTE % 69.3 % (42.2-75.2); HEMATOCRIT 24.2 % (37-47); MEAN CORPUSCULAR HGB 25.3 PG (27.0-31.0); MEAN CORPUSCULAR HGB CONC 32.6 G/DL (33.0-37.0); MEAN CORPUSCULAR VOLUME 77.7 FL (81.0-99.0); MEAN PLATELET VOLUME 8.2 FL (7.4-10.4); PLATELET COUNT 241 /CUMM (130-400); RBC DISTRIBUTION WIDTH 20.7 % (11.5-14.5); RED BLOOD CELL CT 3.12 /CUMM (4.20-5.40); WHITE BLOOD CELL COUNT 6.6 /CUMM (4.8-10.8)
--- NOTE | 2017-05-13 10:32 | Cons- Medical ---
JACOB FROST MD 05/13/17 1032: General Information and HPI Consulting Request Date of Consult: 05/13/17 Requested By: FAROOQ CARO MD Reason for Consult: Management of co-morbidities Source of Information: patient Exam Limitations: no limitations History of Present Illness: 86-year-old female with past medical history of colon cancer s/p colon resection , GI bleed, multiple colonoscopies, A. fib, on ELIQUIS, diabetes, CHF and hypertension presents for evaluation of shortness of breath and fatigue on exertion and for evaluation for GI bleed. She had noticed blood in her massimo and ocassionally dark stools and has been treated for GI bleed in the past with blood transfusions. She was admitted for colonoscopy which is scheduled for the morning and was transfused 1 unit of blood. She denies any dizziness, shortness or breath, chest pain, abdominal pain or pre-syncope. Vitals are stable an dshe has no current complaints and denies any pain. No GI bleed since admission. She is sitting comfortably in bed and taking Golytely prep. Allergies/Medications Allergies: Coded Allergies: Sulfa (Sulfonamide Antibiotics) (Intermediate, RASH 03/26/17) adhesive tape (PAPER TAPE OK PER PT 03/26/17) Home Med List: Alprazolam (Xanax) 0.5 MG TABLET 1 TAB PO QDAILY PRN ANXIETY (Reported) Amlodipine Besylate 10 MG TABLET 1 TAB PO DAILY BP (Reported) Apixaban (Eliquis) 2.5 MG TABLET 1 TAB PO BID BLOOD THINNER (Reported) Atorvastatin Calcium (Lipitor) 20 MG TABLET 1 TAB PO DAILY CHOLESTEROL ( Reported) Cholecalciferol (Vitamin D3) (Vitamin D) 1,000 UNIT TABLET 1 TAB PO DAILY SUPPLEMENT (Reported) Colchicine 0.6 MG TABLET 300 MCG PO BID PSEUDOGOUT Cranberry Fruit Concentrate (Cranberry) 450 MG CAPSULE 1 CAP PO DAILY SUPPLEMENT (Reported) Digoxin 125 MCG TABLET 1 TAB PO QPM HEART (Reported) Furosemide 40 MG TABLET 1 TAB PO DAILY DIURETIC (Reported) Gabapentin 300 MG CAPSULE 1 CAP PO DAILY NEUROPATHY Insulin Detemir (Levemir) 100 UNIT/ML VIAL 40 UNIT SC BID DM (Reported) Irbesartan (Avapro) 300 MG TABLET 1 TAB PO DAILY BP (Reported) Levothyroxine Sodium (Synthroid) 125 MCG TABLET 1 TAB PO DAILY AC THYROID ( Reported) Multivitamin (Multi-Day Vitamins) 1 EACH TABLET 1 TAB PO DAILY SUPPLEMENT ( Reported) Potassium Chloride 20 MEQ TABLET.ER 1 TAB PO DAILY SUPPLEMENT (Reported) Sitagliptin Phosphate (Januvia) 100 MG TABLET 1 TAB PO DAILY DM (Reported) Solifenacin Succinate (Vesicare) 5 MG TABLET 1 TAB PO DAILY BLADDER (Reported ) Review of Systems Review of Systems Constitutional: Reports: no symptoms. GI: Reports: see HPI. 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 Home Who Do You Live With? spouse Services at Home: None Smoking Status: Never Smoked ETOH Use: denies use Illicit Drug Use: denies illicit drug use Functional Ability ADLs Independent: dressing, eating, toileting, bathing. Ambulation: independent IADLs Independent: shopping, housework, finances, food prep, telephone, medication admin. Needs Assist: transportation. Exam & Diagnostic Data Last 24 Hrs of Vital Signs/I&O Vital Signs Date Time Temp Pulse Resp B/P B/P Pulse O2 O2 Flow FiO2 Mean Ox Delivery Rate 05/13 1030 73 148/60 05/13 1029 73 148/60 05/13 0745 97.9 85 20 146/66 95 Room Air 05/13 0212 89 165/78 05/12 2314 98.2 88 20 160/74 98 05/12 2250 Room Air 05/12 2229 97.3 77 18 136/63 95 Room Air 05/12 2116 97.1 81 18 154/67 95 Room Air 05/12 1544 98.1 102 18 174/74 100 Room Air Intake & Output 05/13 1600 05/13 0800 05/13 0000 Intake Total 520 0 Output Total Balance 520 0 Intake, IV 400 Intake, Oral 120 0 Patient 165 lb 165 lb Weight Physical Exam General Appearance: well developed/nourished, no apparent distress, alert, awake , comfortable Eyes: Bilateral: PERRL, EOMI. Respiratory: normal breath sounds, lungs clear Cardiovascular: regular rate/rhythm Gastrointestinal: normal bowel sounds, soft, non-tender, no organomegaly Extremities: trace pedal edema bilaterally Last 24 Hrs of Labs/Sanjeev: Laboratory Tests 05/13/17 0751: Anion Gap 8, Estimated GFR > 60, BUN/Creatinine Ratio 15.0, CBC w Diff NO MAN DIFF REQ, RBC 3.12 L, MCV 77.7 L, MCH 25.3 L, RDW 20.7 H, MPV 8.2, Gran % 69.3, Lymphocytes % 16.9 L, Monocytes % 10.0 H, Eosinophils % 3.4, Basophils % 0.4, Absolute Granulocytes 4.6, Absolute Lymphocytes 1.1 L, Absolute Monocytes 0.7 H, Absolute Eosinophils 0.2, Absolute Basophils 0, PUBS MCHC 32.6 L 05/12/17 1720: Anion Gap 10, Estimated GFR > 60, BUN/Creatinine Ratio 18.8, Glucose 183 H, Calcium 8.9, Total Bilirubin 1.0, AST 29, ALT 37, Alkaline Phosphatase 57, Troponin I < 0.01, Total Protein 6.1 L, Albumin 3.5, Globulin 2.6, Albumin/ Globulin Ratio 1.3, PT 14.7 H, INR 1.40 H, CBC w Diff NO MAN DIFF REQ, RBC 3.04 L, MCV 76.3 L, MCH 25.6 L, RDW 20.9 H, MPV 8.8, Gran % 76.4 H, Lymphocytes % 14.4 L, Monocytes % 6.6, Eosinophils % 2.0, Basophils % 0.6, Absolute Granulocytes 8.2 H, Absolute Lymphocytes 1.5, Absolute Monocytes 0.7 H, Absolute Eosinophils 0.2, Absolute Basophils 0.1, PUBS MCHC 33.5 Assessment/Plan Assessment/Plan 86-year-old female with past medical history of colon cancer s/p colon resection , GI bleed, multiple colonoscopies, A. fib, on ELIQUIS, diabetes, hypothyroidism , pulm HTN, mod to severe aortic stenosis, CHF and hypertension presents for evaluation of shortness of breath and fatigue on exertion and for evaluation for GI bleed. Assessment 1. Symptomatic Anemia 2. GI bleed 3. Afib on eliquis 4. Insulin dependent diabetes 5. HTN 6. Hx of Colon cancer s/p resection Plan Continue current management and prep for colonoscopy per surgery Serial H&H Stable H&H post transfusion, would monitor; transfuse if H&H < 7 Continue Novolin SS, Check fingersticks Q6hrs while patient is NPO Continue to hold Eliquis for now per cardiology Gentle hydration with D5 1/2 NS while pt is NPO Resume all her impt home medications Alps for DVT ppx Thanks for asking us to consult, we will continue to follow Problem List: 1. Symptomatic anemia 2. Acute GI bleeding Consult Acknowledgment - Thank you for your consult request. IMELDA NELSON MD 05/13/17 1127: Assessment/Plan Consult Acknowledgment - Thank you for your consult request. Attending MD Review Statement Attending Statement Attending MD Statement: examined this patient, discuss w/resident/PA/CLINICAL CARE COORDINATOR, agreed w/resident/PA/CLINICAL CARE COORDINATOR, reviewed EMR data (avail), discussed with nursing, discussed with case mgmt, amended to note Attending Assessment/Plan: Patient seen and examined. Lying comfortably in bed and not in any acute distress. No events overnight. Denies any bloody bowel movements overnight. She is hemodynamically stable. Her hemoglobin level has been stable status post 1 unit of packed red blood cells on admission. She offers no complaints today. She is currently drinking her GoLYTELY in preparation for colonoscopy. Exam lungs are clear to auscultation bilaterally. Heart sounds are regular. Abdomen is soft and nontender with normal bowel sounds. She has no peripheral edema. Problems: 1. Acute on chronic anemia secondary to lower gastrointestinal bleeding. 2. Atrial fibrillation on anticoagulation Eliquis. 3. Moderate to severe aortic stenosis 4. Pulmonary hypertension 5. Insulin-dependent diabetes mellitus. 6. Hypothyroidism 7. History of colon cancer status post resection and chemotherapy. Plan: -Due to her Multiple comorbidities I would recommend transferring the patient to the general medical service unless otherwise recommended by the surgical team. -Colonoscopy and other management for her lower gastrointestinal will be directed by the surgery service. -She status post 1 unit of PRBC and her hemoglobin has improved from 6.7 and stable at 7.8/7.9. -Hold off on further blood transfusion unless her hemoglobin level trends below 7. -Patient is nothing by mouth since admission, the patient on IV dextrose infusion she has not been started back on long-acting insulin. Her glucose levels have been in the low 100s. At this point recommend placing patient on nothing by mouth sliding scale coverage. We will assess her insulin requirement and then make a determination about resuming her long-acting regimen. -Continue to hold her anticoagulation as recommended by the cardiology service. - Hydrate gently with D5 half and is while nothing by mouth at 60 mL an hour to avoid volume overload. -Ensure DVT prophylaxis at all times with bilateral compression device.
[2017-05-13 16:06] VITALS: BP 134/69
[2017-05-13 20:47] LABS: ABSOLUTE BASOPHIL COUNT 0 /CUMM (0.0-0.2); ABSOLUTE EOSINOPHIL COUNT 0.2 /CUMM (0.0-0.7); ABSOLUTE GRANULOCYTE CT 4.3 /CUMM (1.4-6.5); ABSOLUTE LYMPH COUNT 1.4 /CUMM (1.2-3.4); ABSOLUTE MONOCYTE COUNT 0.6 /CUMM (0.10-0.60); BASOPHIL % 0.3 % (0.0-2.0); EOSINOPHIL % 3.2 % (0-5); GRANULOCYTE % 66.2 % (42.2-75.2); HEMATOCRIT 28.9 % (37-47); MEAN CORPUSCULAR HGB 25.5 PG (27.0-31.0); MEAN CORPUSCULAR HGB CONC 32.4 G/DL (33.0-37.0); MEAN CORPUSCULAR VOLUME 78.8 FL (81.0-99.0); MEAN PLATELET VOLUME 8.1 FL (7.4-10.4); PLATELET COUNT 263 /CUMM (130-400); RBC DISTRIBUTION WIDTH 20.1 % (11.5-14.5); RED BLOOD CELL CT 3.66 /CUMM (4.20-5.40); WHITE BLOOD CELL COUNT 6.6 /CUMM (4.8-10.8)
[2017-05-13 23:37] VITALS: BP 142/68
[2017-05-14 05:56] LABS: ABSOLUTE BASOPHIL COUNT 0 /CUMM (0.0-0.2); ABSOLUTE EOSINOPHIL COUNT 0.2 /CUMM (0.0-0.7); ABSOLUTE GRANULOCYTE CT 4.4 /CUMM (1.4-6.5); ABSOLUTE LYMPH COUNT 1.2 /CUMM (1.2-3.4); ABSOLUTE MONOCYTE COUNT 0.6 /CUMM (0.10-0.60); BASOPHIL % 0.4 % (0.0-2.0); EOSINOPHIL % 3.5 % (0-5); GRANULOCYTE % 69.1 % (42.2-75.2); HEMATOCRIT 27.5 % (37-47); MEAN CORPUSCULAR HGB 25.6 PG (27.0-31.0); MEAN CORPUSCULAR HGB CONC 32.7 G/DL (33.0-37.0); MEAN CORPUSCULAR VOLUME 78.3 FL (81.0-99.0); MEAN PLATELET VOLUME 7.9 FL (7.4-10.4); PLATELET COUNT 254 /CUMM (130-400); RED BLOOD CELL CT 3.52 /CUMM (4.20-5.40); WHITE BLOOD CELL COUNT 6.4 /CUMM (4.8-10.8)
[2017-05-14 08:03] VITALS: BP 148/66
--- NOTE | 2017-05-14 08:12 | PN- Cardiology ---
Subjective Subjective: Patient feels good, no CP or SOB. She was prepped yesterday, still with red blood present. Objective Vital Signs and I&Os Vital Signs Date Time Temp Pulse Resp B/P B/P Pulse O2 O2 Flow FiO2 Mean Ox Delivery Rate 05/13 2337 98.9 72 20 142/68 95 05/13 1629 90 134/69 05/13 1606 97.3 90 18 134/69 94 Room Air 05/13 1441 Room Air Room Air 05/13 1030 73 148/60 05/13 1029 73 148/60 Intake & Output 05/14 1600 05/14 0800 05/14 0000 05/13 1600 05/13 0800 05/13 0000 Intake Total 4200 950 520 0 Output Total 3000 900 Balance 1200 50 520 0 Intake, IV 400 650 400 Intake, Oral 3800 300 120 0 Number 1102 0 Bowel Movements Output, Stool 400 Output, Urine 2600 900 Patient 165 lb 165 lb Weight Physical Exam: Neck-JVP normal, no bruit\ Lungs-few bibasilar crackles unchanged Heart S1S2 irregular, 2/6 KEDAR at the base Abd-soft, not tender, not distended, BS+, no organomegaly Extr-no edema, 2+ pulses Neuro-non focal AAOx3 Current Medications: Current Medications Sig/Darrell Start time Last Medication Dose Route Stop Time Status Admin Acetaminophen 650 MG Q6PRN PRN 05/12 2200 AC PO Alprazolam 0.5 MG DAILY PRN 05/125 AC PO 05/19 221 Amlodipine Besylate 10 MG DAILY 05/13 1000 AC 05/13 PO 1030 Atorvastatin Calcium 20 MG 1700 05/13 1700 AC 05/13 PO 1629 Cholecalciferol 1,000 IU DAILY 05/13 1000 AC 05/13 PO 1031 Colchicine 300 MCG BID 05/13 1000 AC 05/13 PO 2101 Digoxin 0.125 MG 1700 05/12 2215 AC 05/13 PO 1629 Furosemide 40 MG DAILY 05/13 1000 AC 05/13 PO 1030 Gabapentin 300 MG DAILY 05/13 1000 AC 05/13 PO 1030 Insulin Human Regular 0 Q6 05/13 1200 AC 05/14 SC 0654 Levothyroxine Sodium 0.125 MG DAILY AC 05/13 0700 AC 05/14 PO 0654 Losartan Potassium 100 MG DAILY 05/13 1000 AC 05/13 PO 1029 Multivitamins 1 TAB DAILY 05/13 1000 AC 05/13 PO 1031 Ondansetron HCl 4 MG Q8P PRN 05/12 2200 AC IV Oxybutynin Chloride 2.5 MG BID 05/13 1000 AC 05/13 PO 2101 Patient Medication 1 ED .STK-MED ONE 05/13 1401 MD Teaching ED 05/13 1402 Potassium Chloride 20 MEQ DAILY 05/13 1000 AC 05/13 PO 1030 Potassium Chloride 20 MEQ Q20H 05/13 0745 AC 05/13 Dextrose/Sodium 1,000 ML IV 1232 Chloride Results Last 48 Hrs of Labs/Mics: Laboratory Tests 05/14/17 0500: Anion Gap 10, Estimated GFR > 60, BUN/Creatinine Ratio 10.0, Glucose 145 H, Magnesium 1.9, CBC w Diff NO MAN DIFF REQ, RBC 3.52 L, MCV 78.3 L, MCH 25.6 L , RDW 20.0 H, MPV 7.9, Gran % 69.1, Lymphocytes % 18.1 L, Monocytes % 8.9, Eosinophils % 3.5, Basophils % 0.4, Absolute Granulocytes 4.4, Absolute Lymphocytes 1.2, Absolute Monocytes 0.6, Absolute Eosinophils 0.2, Absolute Basophils 0, PUBS MCHC 32.7 L 05/13/171999: CBC w Diff NO MAN DIFF REQ, RBC 3.66 L, MCV 78.8 L, MCH 25.5 L, RDW 20.1 H, MPV 8.1, Gran % 66.2, Lymphocytes % 20.7, Monocytes % 9.6 H, Eosinophils % 3.2, Basophils % 0.3, Absolute Granulocytes 4.3, Absolute Lymphocytes 1.4, Absolute Monocytes 0.6, Absolute Eosinophils 0.2, Absolute Basophils 0, PUBS MCHC 32.4 L 05/13/17 0751: Anion Gap 8, Estimated GFR > 60, BUN/Creatinine Ratio 15.0, CBC w Diff NO MAN DIFF REQ, RBC 3.12 L, MCV 77.7 L, MCH 25.3 L, RDW 20.7 H, MPV 8.2, Gran % 69.3, Lymphocytes % 16.9 L, Monocytes % 10.0 H, Eosinophils % 3.4, Basophils % 0.4, Absolute Granulocytes 4.6, Absolute Lymphocytes 1.1 L, Absolute Monocytes 0.7 H, Absolute Eosinophils 0.2, Absolute Basophils 0, PUBS MCHC 32.6 L 05/12/17 1720: Anion Gap 10, Estimated GFR > 60, BUN/Creatinine Ratio 18.8, Glucose 183 H, Calcium 8.9, Total Bilirubin 1.0, AST 29, ALT 37, Alkaline Phosphatase 57, Troponin I < 0.01, Total Protein 6.1 L, Albumin 3.5, Globulin 2.6, Albumin/ Globulin Ratio 1.3, PT 14.7 H, INR 1.40 H, CBC w Diff NO MAN DIFF REQ, RBC 3.04 L, MCV 76.3 L, MCH 25.6 L, RDW 20.9 H, MPV 8.8, Gran % 76.4 H, Lymphocytes % 14.4 L, Monocytes % 6.6, Eosinophils % 2.0, Basophils % 0.6, Absolute Granulocytes 8.2 H, Absolute Lymphocytes 1.5, Absolute Monocytes 0.7 H, Absolute Eosinophils 0.2, Absolute Basophils 0.1, PUBS MCHC 33.5 Assessment/Plan Assessment/Plan 1. Recurrent GI bleed in patient with h/o colon cancer. Unfortunately she develops BI bleed when we started again low dose anticoagulation with Eliuquis, currently off Eliquis for 48hours. Still a lot of blood during prep yesterday 2. Hyponatremia-likely due to combination of losartan and lasix, now improved 3. HTN-controlled 4. Moderate to severe aortic stenosis. Currently without evidence of CHF Plan: -kepp off Eliquis prior to C scope -monitor Na -stay on Lasix and losartan -if she develops dyspnea or hypoxia, use iv Lasix -monitor I's and O's -will decide about restarting anticoagulation based on colonscopy results but given recurrent bleed we may need to hold it for now. Patient understands risks and benefits (risk of cardioembolism vs risk of bleeding). Continue telemetry? Not applicable
--- NOTE | 2017-05-14 08:23 | PN- Gen Med ---
Assessment/Plan Problem List: 1. Rectal bleeding
--- NOTE | 2017-05-14 10:24 | PN- Att Addend ---
Attending Addendum Attending Brief Note Patient seen and examined. Lying comfortably in bed IN any acute distress. Issues overnight. She completed Hyalgan GoLYTELY regimen. She reports loose bowel movements that this and brought him occasion. Denies abdominal pain. Denies nausea or vomiting. She's afebrile and hemodynamically stable. Sodium level is improved to normal limits and her hemoglobin level has tremendous was only slightly compared to yesterday. She is scheduled to undergo colonoscopy today. Her blood glucose levels were up to 250 yesterday evening but down to the high 100s so for today. Recommendations: Following colonoscopy today begin patient on the clear liquid diet. -Lungs her liquid diet is started, begin her on half the dose of her home insulin regimen. -We'll plan to advance the diet tomorrow as well as her insulin regimen. -If her hemoglobin level stay stable overnight she may be discharged home tomorrow morning. -Further recommendations regarding long-term anticoagulation will be determined after reviewing the colonoscopy findings.
--- NOTE | 2017-05-14 13:00 | NUR ---
1230 PT OFF FLOOR VIA STRETCHER FOR COLONOSCOPY PROCEDURE. A+O X3, ON RA, NO S/O DISTRESS, DENIES PAIN.
--- NOTE | 2017-05-14 14:56 | Operative Report ---
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 She had extended right hemicolectomy and was started on adjuvant chemotherapy that she could not tolerate. Patient had been on systemic anticoagulation due to A. fib and history of stroke. She presented with chronic anemia requiring multiple transfusions. Patient is scheduled for diagnostic colonoscopy to evaluate for possible recurrence. All risks, benefits , and alternatives to the procedure were explained to the patient in detail, and the patient expressed understanding and agreement with the same. Operative/Procedure Note Note: Extent of the exam: ileocolonic anastomosis Colon preparation: adequate Limitations: none The patient was brought to the endoscopy suite and placed in the left lateral decubitus position. All appropriate monitoring devices were connected, and supplementary oxygen was supplied via nasal cannula. Anesthesia was provided by the anesthesia team. On the digital rectal exam, patient had normal findings. A well lubricated colonoscope was inserted into the anus and advanced under direct visualization to the level of the ileocecal anastomosis. There was a friable mass at this level. It was biopsied with cold forceps. It was observed for hemostasis. The colonoscope was slowly withdrawn while carefully examining the color, texture, anatomy, and integrity of the mucosa from the cecum all way to the anal canal. The colonoscope was removed and the procedure was terminated. Findings: anastomotic mass suspicious for anastomotic recurrence, biopsies taken Discharge Disposition: back to the floor
[2017-05-14 15:30] VITALS: BP 204/70
--- NOTE | 2017-05-14 15:50 | NUR ---
1525 PATIENT ARRIVED TO THE FLOOR FROM HER COLONOSCOPY PROCEDURE, A+O X3, ON RA, NO S/ O DISTRESS, BP 204/70, HR 72, TEMP 98.8, RR 18, O2 94% ON RA. RESIDENT GWEN NOTIFIED OF BP. PO LASIX GIVEN WITH OTHER HELD MORNING MEDS. TO RECHECK PER RESIDENT
[2017-05-14 16:00] VITALS: BP 178/62
--- NOTE | 2017-05-14 16:03 | NUR ---
FOLLOW UP BLOOD PRESSURE 178/62. RESIDENT GWEN NOTIFIED.
--- NOTE | 2017-05-14 16:24 | PN-Observation ---
Observation Note Observation Note _ I have personally examined LARS FENG. her disposition is uncertain at this time. Before a determination can be made, she requires continued observation for the following reasons Lower GI bleed. Assessment/Plan Assessment: 86-year-old female with past medical history of colon cancer s/p colon resection , GI bleed, multiple colonoscopies, A. fib, on ELIQUIS, diabetes, CHF and hypertension presents for evaluation of shortness of breath and fatigue on exertion and for evaluation for GI bleed. She had noticed blood in her massimo and ocassionally dark stools and has been treated for GI bleed in the past with blood transfusions. She was admitted for colonoscopy which is scheduled for the morning and was transfused 1 unit of blood. She denied any dizziness, shortness or breath, chest pain, abdominal pain or pre-syncope. Scheduled colonoscopy today. Assessment 1. Symptomatic Anemia 2. GI bleed 3. Afib on eliquis 4. Insulin dependent diabetes 5. HTN 6. Hx of Colon cancer s/p resection Plan Continue obs, patient appears more tired and deconditioned. not medically stable for discharge, will benefit by having one more day obs. Awaiting colonoscopy results. H&H currently stable, will recheck in the morning before discharge transfuse if H&H < 7 Will advance diet to clear liquids Continue Novolin SS, Check fingersticks Q6hrs Will restart half dose LEVEMIR for now. Continue to hold Eliquis for now per cardiology Resume all her impt home medications Alps for DVT ppx Problem List: 1. Symptomatic anemia 2. Rectal bleeding Subjective Follow-up For: LOWER GI BLEED AACUTE ANEMIA Subjective: Seen and examined at bedside. She appears somewhat more tired compared to yesterday. No acute complaint of BRPR, chest pain/palpitation, increased sob, fever/chills,nausea or vomiting. Review of Systems Constitutional: Reports: no symptoms, see HPI. Objective Last 24 Hrs of Vital Signs/I&O Vital Signs Date Time Temp Pulse Resp B/P B/P Pulse O2 O2 Flow FiO2 Mean Ox Delivery Rate 05/14 1642 72 178/62 05/14 1600 178/62 05/14 1530 98.8 72 18 204/70 94 Room Air Room Air 05/14 0956 112 150/77 05/14 0951 112 150/77 05/14 0803 98.1 105 20 148/66 97 Room Air 05/13 2337 98.9 72 20 142/68 95 Intake & Output 05/14 1600 05/14 0800 05/14 0000 Intake Total 845 668 5133 Output Total 3000 Balance 899 490 1343 Intake, IV 300 400 400 Intake, Oral 120 3800 Number 3 1102 Bowel Movements Output, Stool 400 Output, Urine 2600 Physical Exam General Appearance: Alert, Oriented X3, Cooperative Other Physical Findings: General Appearance Alert, Oriented X3, Cooperative, No Acute Distress, but very appears tired. Skin No Rashes, No Breakdown Skin Temp/Moisture Exam: Warm/Dry Sepsis Skin Exam (color): Normal for Ethnicity HEENT Atraumatic, Mucous Membrane moist Neck Supple, No JVD Cardiovascular irregularly irregular, Lungs Clear to Auscultation, Normal Air Movement Abdomen Normal Bowel Sounds, Soft, No Tenderness, No Masses, Neurological Normal Speech,, Sensation Intact Extremities No Clubbing, No Cyanosis, No Edema, Normal Pulses, No Tenderness/ Swelling Current Medications: Current Medications Sig/Darrell Start time Last Medication Dose Route Stop Time Status Admin Acetaminophen 650 MG Q6PRN PRN 05/12 2200 AC PO Alprazolam 0.5 MG DAILY PRN 05/12 2215 AC PO 05/19 221 Amlodipine Besylate 10 MG DAILY 05/13 1000 AC 05/14 PO 0956 Atorvastatin Calcium 20 MG 1700 05/13 1700 AC 05/14 PO 1641 Chlorhexidine 1 GM .STK-MED ONE 05/14 1501 DC Gluconate TOP 05/14 1502 Cholecalciferol 1,000 IU DAILY 05/13 1000 AC 05/14 PO 1539 Colchicine 300 MCG BID 05/13 1000 AC 05/14 PO 0950 Digoxin 0.125 MG 1700 05/12 2215 AC 05/14 PO 1642 Furosemide 40 MG DAILY 05/13 1000 AC 05/14 PO 1538 Gabapentin 300 MG DAILY 05/13 1000 AC 05/14 PO 1539 Insulin Detemir 20 UNITS BID 05/14 2200 UNVr SC Insulin Human Regular 4 UNITS .STK-MED ONE 05/14 0653 DC IV 05/14 0654 Insulin Human Regular 2 UNITS .STK-MED ONE 05/14 0039 DC IV 05/14 0040 Insulin Human Regular 0 Q6 05/13 1200 AC 05/14 SC 1702 Levothyroxine Sodium 0.125 MG DAILY AC 05/13 0700 AC 05/14 PO 0654 Losartan Potassium 100 MG DAILY 05/13 1000 AC 05/14 PO 0951 Multivitamins 1 TAB DAILY 05/13 1000 AC 05/14 PO 1539 Ondansetron HCl 4 MG Q8P PRN 05/12 2200 AC IV Oxybutynin Chloride 2.5 MG BID 05/13 1000 AC 05/14 PO 0950 Potassium Chloride 20 MEQ DAILY 05/13 1000 AC 05/14 PO 1538 Potassium Chloride 20 MEQ Q20H 05/13 0745 AC 05/14 Dextrose/Sodium 1,000 ML IV 0950 Chloride Last 24 Hrs of Labs/Mics: Laboratory Tests 05/14/17 0500: Anion Gap 10, Estimated GFR > 60, BUN/Creatinine Ratio 10.0, Glucose 145 H, Magnesium 1.9, CBC w Diff NO MAN DIFF REQ, RBC 3.52 L, MCV 78.3 L, MCH 25.6 L , RDW 20.0 H, MPV 7.9, Gran % 69.1, Lymphocytes % 18.1 L, Monocytes % 8.9, Eosinophils % 3.5, Basophils % 0.4, Absolute Granulocytes 4.4, Absolute Lymphocytes 1.2, Absolute Monocytes 0.6, Absolute Eosinophils 0.2, Absolute Basophils 0, PUBS MCHC 32.7 L 05/13/171999: CBC w Diff NO MAN DIFF REQ, RBC 3.66 L, MCV 78.8 L, MCH 25.5 L, RDW 20.1 H, MPV 8.1, Gran % 66.2, Lymphocytes % 20.7, Monocytes % 9.6 H, Eosinophils % 3.2, Basophils % 0.3, Absolute Granulocytes 4.3, Absolute Lymphocytes 1.4, Absolute Monocytes 0.6, Absolute Eosinophils 0.2, Absolute Basophils 0, PUBS MCHC 32.4 L
[2017-05-14 19:15] VITALS: BP 152/60
[2017-05-14 22:32] VITALS: BP 110/50
[2017-05-15 06:44] VITALS: BP 160/70
--- NOTE | 2017-05-15 07:23 | Patient Discharge Instructions ---
Discharge Instructions General Discharge Information You were seen/treated for: Lower stomach bleed You had these procedures: Colonoscopy 1 unit of blood transfusion Watch for these problems: Rectal bleeding, blood on toilet paper, black tarry stools. Special Instructions: Please seek immediate medical attention if have new episodes of blood in your stool,rectal bleeding, or black tarry stool The initial finding of your colonoscopy suggest a possible recurrent mass, please follow up with Dr Jha within 1 week regarding the results of biopsy and plans for any possible srugical procedures Your Elliquis is being held due to increased risk of bleeding, please follow up with DR Orozco by 05/18/17 on when to restart Please follow up with your primary care physician within 1 week Diet Recommended Diet: Diabetic Acute Coronary Syndrome Inclusion Criteria At DC or during hospital stay patient has or had the following: Discharge Core Measures Meds if any: Prescribed or Continued at Discharge Meds if any: NOT Prescribed or Continued at Discharge Congestive Heart Failure Inclusion Criteria At DC or during hospital stay patient has or had the following: Discharge Core Measures Meds if any: Prescribed or Continued at Discharge Meds if any: NOT Prescribed or Continued at Discharge Cerebrovascular accident Inclusion Criteria At DC or during hospital stay patient has or had the following: CVA/TIA Diagnosis No Discharge Core Measures Meds if any: Prescribed or Continued at Discharge Meds if any: NOT Prescribed or Continued at Discharge Venous thromboembolism Discharge Core Measures - Per Current guidelines, there needs to be overlap - treatment for the first 5 days of Warfarin therapy. - If discharged on Warfarin prior to 5 days of - overlap therapy, the patient will need to be - assessed for post discharge needs including - *Post discharge parental anticoagulation - *Warfarin and/or parental anticoagulation education - *Follow up date to check INR post discharge Meds if any: Prescribed or Continued at Discharge Note: Overlap Therapy is Warfarin and Anticoagulant Meds if any: NOT Prescribed or Continued at Discharge
--- NOTE | 2017-05-15 07:26 | PN-Observation ---
ADALGISA AVALOS,[facility] 05/15/17 0724: Observation Note Observation Note _ I have personally examined LARS FENG. her disposition is uncertain at this time. Before a determination can be made, she requires continued observation for the following reasons LOWER GI bleed. Assessment/Plan Assessment: 86-year-old female with past medical history of colon cancer s/p colon resection , GI bleed, multiple colonoscopies, A. fib, on ELIQUIS, diabetes, CHF and hypertension presents for evaluation of shortness of breath and fatigue on exertion and for evaluation for GI bleed. She had noticed blood in her massimo and ocassionally dark stools and has been treated for GI bleed in the past with blood transfusions. She was admitted for colonoscopy which is scheduled for the morning and was transfused 1 unit of blood. She denied any dizziness, shortness or breath, chest pain, abdominal pain or pre-syncope. Scheduled colonoscopy today. Assessment 1. Symptomatic Anemia 2. GI bleed 3. Afib on eliquis 4. Insulin dependent diabetes 5. HTN 6. Hx of Colon cancer s/p resection Plan Pt is stable for discharge with no reported rectal bleeding or black tarry stool for the past 48 hrs, H/H has been stable. Dr Jha had an extensive discussion with patient about plan of care and possible surgical intervention pending biopsy results. It was communicated to medical team by Dr Jha that the colonoscopy showed a friable looking anastomitic mass which has high risk of bleeding and that can be worsened by Elliquis administration. Pt will be sent home with instruction to continue holding off Elliquis and sicuss with Dr Orozco on thursday (05/18/17) regarding risk/benefit of stroke prevention in afib patient vs increased bleeding risk in the setting of colonoscopy findings. Problem List: 1. GI bleed 2. Symptomatic anemia Subjective Subjective: Seen and examined at bedside. She appears more energetic compared to yesterday. O/n event of mild tachycardia is noted and elevated BP. LBM more than 24 hrs ago with no report of bleed. She denies any chest dane/palpitation,increased shortness of breath,fever/chills,abdominal pain or dysuria. Review of Systems Constitutional: Reports: see HPI. Objective Last 24 Hrs of Vital Signs/I&O Vital Signs Date Time Temp Pulse Resp B/P B/P Pulse O2 O2 Flow FiO2 Mean Ox Delivery Rate 05/15 1052 78 152/50 05/15 1052 78 152/50 05/15 0644 98.5 88 20 160/70 94 Room Air 05/14 2232 98.0 102 20 110/50 96 05/14 1915 152/60 Intake & Output 05/15 1600 05/15 0800 05/15 0000 Intake Total 720 640 970 Output Total 856 339 6991 Balance 370 240 -555 Intake, IV 400 250 Intake, Oral 720 240 720 Output, Urine 279 102 9856 Patient 68.067 kg 68.067 kg Weight Weight Chair scale Measurement Method Physical Exam General Appearance: Alert, Oriented X3, Cooperative, appears less sad and more energetic compared to yesterday Lymphatic: Axillary nl, Cervical nl Cardiovascular: Normal S1, Normal S2 Lungs: Clear to Auscultation, Normal Air Movement Abdomen: Normal Bowel Sounds, Soft, No Tenderness Extremities: No Clubbing, No Cyanosis, No Edema IMELDA NELSON MD 05/15/17 1304: Observation Note Observation Note _ I have personally examined LARS FENG. Patient will be discharged today. Assessment/Plan Assessment: Patient seen and examined. Lying comfortably in bed and not in acute distress. No events overnight. Colonoscopy was done yesterday and a minus which was friable was noted at the anastomosis site. This likely represents recurrence of her malignancy. Confirmation will be obtained after biopsy results are reviewed. This was explained to the patient in detail. She is obviously saddened by the report.Case was discussed in detail with her colorectal surgeon as well as the cardiology service. She is currently hemodynamically stable. Hemoglobin levels are essentially stable. No further reports of rectal bleeding. Recommendations: -Patient is medically stable to discharge home today. -She'll follow-up with the surgery service as an outpatient next week for biopsy results. Further management will be determined by the surgical service. -Due to the recurrent episodes of bleeding while on anticoagulation and now the diagnosis of a friable rectal mass, anticoagulation is being placed on hold. Patient is aware of the risks of this decision and she acknowledges them. Decision may be made at a later date to resume anticoagulation if the rectal lesion can be excised.
--- NOTE | 2017-05-15 09:31 | PN- General Surgery ---
Surgical Brief Attending Note Brief Attending Note: Pt remains HD stable, she is waiting for morning labs. No complaints. AVSS NAD, AAO x3 Abdomen: soft, NT, ND, no rebound/guarding A/P: A 86 year-old woman with history of proximal transverse colon CA s/p extended right colectomy had colonoscopy yesterday for rectal bleeding. A mass was found at the level of anastomosis and biopsied, suspicious for anastomotic recurrence - F/U with Dr. Son for met w/u, including CT and CEA - Will f/u as outpatient - Pt can be d/clive from surgical standpoint
[2017-05-15 10:37] LABS: ABSOLUTE BASOPHIL COUNT 0 /CUMM (0.0-0.2); ABSOLUTE EOSINOPHIL COUNT 0.2 /CUMM (0.0-0.7); ABSOLUTE GRANULOCYTE CT 4.7 /CUMM (1.4-6.5); ABSOLUTE LYMPH COUNT 1.1 /CUMM (1.2-3.4); ABSOLUTE MONOCYTE COUNT 0.5 /CUMM (0.10-0.60); BASOPHIL % 0.5 % (0.0-2.0); EOSINOPHIL % 3.2 % (0-5); GRANULOCYTE % 72.5 % (42.2-75.2); HEMATOCRIT 28.6 % (37-47); MEAN CORPUSCULAR HGB 25.1 PG (27.0-31.0); MEAN CORPUSCULAR HGB CONC 31.7 G/DL (33.0-37.0); MEAN CORPUSCULAR VOLUME 79.1 FL (81.0-99.0); MEAN PLATELET VOLUME 8.1 FL (7.4-10.4); PLATELET COUNT 273 /CUMM (130-400); RED BLOOD CELL CT 3.62 /CUMM (4.20-5.40); WHITE BLOOD CELL COUNT 6.5 /CUMM (4.8-10.8)
[2017-05-15 10:52] VITALS: BP 152/50
--- NOTE | 2017-05-15 12:00 | PN- Cardiology ---
Subjective Subjective: No complaints Objective Vital Signs and I&Os Vital Signs Date Time Temp Pulse Resp B/P B/P Pulse O2 O2 Flow FiO2 Mean Ox Delivery Rate 05/15 1052 78 152/50 05/15 1052 78 152/50 05/15 0644 98.5 88 20 160/70 94 Room Air 05/14 2232 98.0 102 20 110/50 96 05/14 1915 152/60 05/14 1642 72 178/62 05/14 1600 178/62 05/14 1530 98.8 72 18 204/70 94 Room Air Room Air Intake & Output 05/15 1600 05/15 0800 05/15 0000 05/14 1600 05/14 0800 05/14 0000 Intake Total 640 970 876 719 0467 Output Total 400 1525 3000 Balance 240 -555 649 141 5536 Intake, IV 400 250 300 400 400 Intake, Oral 240 259 690 5266 Number 3 1102 Bowel Movements Output, Stool 400 Output, Urine 400 1525 2600 Patient 150 lb Weight Weight Chair scale Measurement Method Physical Exam: Neck-JVP normal, no bruit Lungs-clear bilaterally-improved Heart S1S2 irregular 2/6 KEDAR Abdomen-soft, not tender, BS+, no organomegaly Extr-no edema, 2+ pulses neuro-non focal Current Medications: Current Medications Sig/Darrell Start time Last Medication Dose Route Stop Time Status Admin Acetaminophen 650 MG Q6PRN PRN 05/12 2200 AC PO Alprazolam 0.5 MG DAILY PRN 05/14 1730 AC PO 05/21 1729 Alprazolam 0.5 MG DAILY PRN 05/12 2215 AC PO 05/19 2214 Amlodipine Besylate 10 MG DAILY 05/13 1000 AC 05/15 PO 1052 Atorvastatin Calcium 20 MG 1700 05/13 1700 AC 05/14 PO 1641 Chlorhexidine 1 GM .STK-MED ONE 05/14 1501 DC Gluconate TOP 05/14 1502 Cholecalciferol 1,000 IU DAILY 05/13 1000 AC 05/15 PO 1053 Colchicine 300 MCG BID 05/13 1000 AC 05/15 PO 1053 Digoxin 0.125 MG 1700 05/12 2215 AC 05/14 PO 1642 Furosemide 40 MG DAILY 05/13 1000 AC 05/15 PO 1052 Gabapentin 300 MG DAILY 05/13 1000 AC 05/15 PO 1052 Insulin Detemir 20 UNITS BID 05/14 2200 AC 05/15 SC 1056 Insulin Human Regular 1 UNITS .STK-MED ONE 05/14 2356 DC IV 05/14 2357 Insulin Human Regular 8 UNITS .STK-MED ONE 05/14 1701 DC IV 05/14 1702 Insulin Human Regular 4 UNITS .STK-MED ONE 05/14 1208 DC IV 05/14 1209 Insulin Human Regular 0 Q6 05/13 1200 AC 05/15 SC 0614 Levothyroxine Sodium 0.125 MG DAILY AC 05/13 0700 AC 05/15 PO 0613 Losartan Potassium 100 MG DAILY 05/13 1000 AC 05/15 PO 1052 Multivitamins 1 TAB DAILY 05/13 1000 AC 05/15 PO 1053 Ondansetron HCl 4 MG Q8P PRN 05/12 2200 AC IV Oxybutynin Chloride 2.5 MG BID 05/13 1000 AC 05/15 PO 1052 Potassium Chloride 20 MEQ DAILY 05/13 1000 AC 05/15 PO 1052 Potassium Chloride 20 MEQ Q20H 05/13 0745 DC 05/14 Dextrose/Sodium 1,000 ML IV 0950 Chloride Results Last 48 Hrs of Labs/Mics: Laboratory Tests 05/15/17 0948: CBC w Diff NO MAN DIFF REQ, RBC 3.62 L, MCV 79.1 L, MCH 25.1 L, RDW 20.0 H, MPV 8.1, Gran % 72.5, Lymphocytes % 16.2 L, Monocytes % 7.6, Eosinophils % 3.2, Basophils % 0.5, Absolute Granulocytes 4.7, Absolute Lymphocytes 1.1 L, Absolute Monocytes 0.5, Absolute Eosinophils 0.2, Absolute Basophils 0, PUBS MCHC 31.7 L 05/14/17 0500: Anion Gap 10, Estimated GFR > 60, BUN/Creatinine Ratio 10.0, Glucose 145 H, Magnesium 1.9, CBC w Diff NO MAN DIFF REQ, RBC 3.52 L, MCV 78.3 L, MCH 25.6 L , RDW 20.0 H, MPV 7.9, Gran % 69.1, Lymphocytes % 18.1 L, Monocytes % 8.9, Eosinophils % 3.5, Basophils % 0.4, Absolute Granulocytes 4.4, Absolute Lymphocytes 1.2, Absolute Monocytes 0.6, Absolute Eosinophils 0.2, Absolute Basophils 0, PUBS MCHC 32.7 L 05/13/171999: CBC w Diff NO MAN DIFF REQ, RBC 3.66 L, MCV 78.8 L, MCH 25.5 L, RDW 20.1 H, MPV 8.1, Gran % 66.2, Lymphocytes % 20.7, Monocytes % 9.6 H, Eosinophils % 3.2, Basophils % 0.3, Absolute Granulocytes 4.3, Absolute Lymphocytes 1.4, Absolute Monocytes 0.6, Absolute Eosinophils 0.2, Absolute Basophils 0, PUBS MCHC 32.4 L Assessment/Plan Assessment/Plan 1. Recurrent GI bleed in patien. C scope revealed likely recurrence of colon cancer, biopsies pending. 2. Hyponatremia-resolved 3. HTN-BP elevated yesterday likely from C scope and stress 4. Moderate to severe aortic stenosis. Currently without evidence of CHF 5. Anemia-currently blood count stable Plan: -kepp off Eliquis for now until final determination about treatment by Dr. Son - continue current antihypertensive therapy -risks and benefits off anticoagulation discussed with patient, and son. Currently risk of recurrent bleed is higher than benefit. If she requires another surgery and cancer is resected we will consider restarting anticoagulation in the future -f/u Dr. Son -f/u with me in 4-6 weeks Continue telemetry? No
[2017-05-15 14:19] VITALS: BP 140/70
== END 2017-05-15 13:45 ==
LOC: ERH 15:34 → 2NB 19:38 → ERHI 19:38 → ENRESERV 21:58 → ENTRNSPT 22:30 → EDTRNSPTSTS 22:31 → 2NB 22:43 → CMPTRNSPT 22:59 → 2NB 05-14 10:12
PROVIDERS: Emergency Medicine; Internal Medicine; Physician Assistant; Physician Assistant Surgical; Student in an Organized Health Care Education/Training Program; ADMIT Surgery
DX: C18.0 Malignant neoplasm of cecum (principal); I48.91 Unspecified atrial fibrillation; Z79.01 Long term (current) use of anticoagulants; E11.9 Type 2 diabetes mellitus without complications; Z79.4 Long term (current) use of insulin; I11.0 Hypertensive heart disease with heart failure; I50.9 Heart failure, unspecified; M06.9 Rheumatoid arthritis, unspecified; D64.9 Anemia, unspecified; I35.0 Nonrheumatic aortic (valve) stenosis; E87.1 Hypo-osmolality and hyponatremia; E78.5 Hyperlipidemia, unspecified; M19.90 Unspecified osteoarthritis, unspecified site; E03.9 Hypothyroidism, unspecified; E55.9 Vitamin D deficiency, unspecified; I27.2 Other secondary pulmonary hypertension; Z85.038 Personal history of other malignant neoplasm of large intestine
CPT/HCPCS: 1255; 36415; 82436; 86902; 86920; 86922; 93005; 93010; 96374; G0378; J1815; J2405; J3490; J7042; P9016; S5012

== ENCOUNTER 2017-10-22 04:06 | Inpatient (IN) | payer OTHER, MEDICARE ==
[~2017-10-22] VITALS: Ht 167.6 cm; Wt 72.7 kg
[~2017-10-22 04:06] MED LIST changes: +BACLOFEN10 M1 PO; -MULTI-DAY VITA1 EACH PO; +MULTIVITAMINS1 EAC9
[2017-10-22 04:40] LABS: ABSOLUTE BASOPHIL COUNT 0 /CUMM (0.0-0.2); ABSOLUTE EOSINOPHIL COUNT 0 /CUMM (0.0-0.7); ABSOLUTE GRANULOCYTE CT 9.9 /CUMM (1.4-6.5); ABSOLUTE LYMPH COUNT 0.6 /CUMM (1.2-3.4); BASOPHIL % 0.2 % (0.0-2.0); EOSINOPHIL % 0.4 % (0-5); GRANULOCYTE % 86.2 % (42.2-75.2); HEMATOCRIT 28.9 % (37-47); MEAN CORPUSCULAR HGB 25.6 PG (27.0-31.0); MEAN CORPUSCULAR HGB CONC 32.2 G/DL (33.0-37.0); MEAN CORPUSCULAR VOLUME 79.4 FL (81.0-99.0); MEAN PLATELET VOLUME 8.4 FL (7.4-10.4); PLATELET COUNT 301 /CUMM (130-400); RBC DISTRIBUTION WIDTH 18.6 % (11.5-14.5); RED BLOOD CELL CT 3.63 /CUMM (4.20-5.40); WHITE BLOOD CELL COUNT 11.5 /CUMM (4.8-10.8)
--- NOTE | 2017-10-22 05:46 | ED GI/GU/ABDOMINAL COMPLAINT ---
See Addendum History of Present Illness General Chief Complaint: Abdominal Pain/Flank Pain Stated Complaint: BIBA FOR EVAL OF ABDOMINAL PAIN Source: patient Exam Limitations: no limitations Vital Signs & Intake/Output Vital Signs & Intake/Output Vital Signs Date Time Temp Pulse Resp B/P B/P Pulse O2 O2 Flow FiO2 Mean Ox Delivery Rate 10/22 0906 97.8 110 20 148/73 95 Room Air 10/22 0733 99.9 106 20 151/73 95 Room Air 10/22 0635 97.9 102 22 138/70 95 Room Air 10/22 0607 98.4 96 20 141/68 97 Room Air 10/22 0413 98.7 105 18 175/71 98 Room Air Allergies Coded Allergies: Sulfa (Sulfonamide Antibiotics) (Intermediate, RASH 03/26/17) adhesive tape (PAPER TAPE OK PER PT 03/26/17) Reconcile Medications Alprazolam (Xanax) 0.5 MG TABLET 1 TAB PO QDAILY PRN ANXIETY (Reported) Amlodipine Besylate 10 MG TABLET 1 TAB PO DAILY BP (Reported) Atorvastatin Calcium (Lipitor) 20 MG TABLET 1 TAB PO DAILY CHOLESTEROL ( Reported) Atorvastatin Calcium 20 MG TABLET 1 TAB PO DAILY HIGH CHOLESTROL (Reported) Baclofen 10 MG TABLET 1 TAB PO TIDPRN PRN muscle spasm/strain Cholecalciferol (Vitamin D3) (Vitamin D) 1,000 UNIT TABLET 1 TAB PO DAILY SUPPLEMENT (Reported) Colchicine 0.6 MG TABLET 300 MCG PO BID PSEUDOGOUT Cranberry Fruit Concentrate (Cranberry) 450 MG CAPSULE 1 CAP PO DAILY SUPPLEMENT (Reported) Digoxin 125 MCG TABLET 1 TAB PO QPM HEART (Reported) Furosemide 40 MG TABLET 1 TAB PO DAILY DIURETIC (Reported) Gabapentin 300 MG CAPSULE 1 CAP PO DAILY NEUROPATHY Insulin Detemir (Levemir) 100 UNIT/ML VIAL 40 UNIT SC BID DM (Reported) Irbesartan (Avapro) 300 MG TABLET 1 TAB PO DAILY BP (Reported) Levothyroxine Sodium (Synthroid) 125 MCG TABLET 1 TAB PO DAILY AC THYROID ( Reported) Multivitamin (Multi-Day Vitamins) 1 EACH TABLET 1 TAB PO DAILY SUPPLEMENT ( Reported) Potassium Chloride 20 MEQ TABLET.ER 1 TAB PO DAILY SUPPLEMENT (Reported) Sitagliptin Phosphate (Januvia) 100 MG TABLET 1 TAB PO DAILY DM (Reported) Solifenacin Succinate (Vesicare) 5 MG TABLET 1 TAB PO DAILY BLADDER (Reported ) Triage Note: SEE NURSES NOTES Triage Nurses Notes Reviewed? yes ? N Is pt currently ? No HPI: Patient presents for evaluation of an intermittent epigastric abdominal pain that began gradually about 2 weeks ago. Patient states she gets a spasm of pain every few minutes. It is a sharp stabbing pain that nothing seems to improve. She has had 2 loose bowel movements and some mild vomiting but otherwise denies dysuria fever or cold symptoms. There was no blood in the vomitus or the bowel movements. Patient does have a history of prior small bowel obstructions secondary to prior colon resection. Patient is currently being treated for colon cancer with chemotherapy. (Barbara AVALOS,Kade Crow) Past History Travel History Traveled to [place] past 21 day No Medical History Any Pertinent Medical History? see below for history Neurological: peripheral neuropathy, TIA EENT: NONE Cardiovascular: AFIB, CHF, hypertension, hyperlipidemia Respiratory: NONE Gastrointestinal: NONE Hepatic: NONE Renal: NONE Musculoskeletal: gout, osteoarthritis Psychiatric: anxiety Endocrine: diabetes, hypothyroidism, vitamin D deficiency Blood Disorders: NONE Cancer(s): colon/rectal cancer [employer]/Reproductive: NONE Other Medical Hx: Gout Rheumatoid arthritis History of MRSA: No History of VRE: No History of CDIFF: No Surgical History Surgical History: cholecystectomy, colon resection (right hemicolectomy), c- section, hysterectomy, diagnostic laparoscopy, PERNELL Psychosocial History Who do you live with Son Services at Home None What is your primary language Ghanaian Tobacco Use: Never used ETOH Use: denies use Illicit Drug Use: denies illicit drug use Family History Family History, If Any: FATHER FH: heart disease MOTHER FH: diabetes mellitus Hx Contributory? No (Barbara AVALOS,Kade Crow) Review of Systems Review of Systems Constitutional: Reports: no symptoms. EENTM: Reports: no symptoms. Respiratory: Reports: no symptoms. Cardiovascular: Reports: no symptoms. GI: Reports: see HPI. Genitourinary: Reports: no symptoms. Musculoskeletal: Reports: no symptoms. Skin: Reports: no symptoms. Neurological/Psychological: Reports: no symptoms. Hematologic/Endocrine: Reports: no symptoms. Immunologic/Allergic: Reports: no symptoms. All Other Systems: Reviewed and Negative (Barbara AVALOS,Kade Crow) Physical Exam Physical Exam Gastrointestinal: SEE BELOW Comments: Gen.: Well-nourished, well-developed, no acute respiratory distress. Head: Normocephalic, atraumatic. Eyes: Normal inspection bilaterally Ears: Normal inspection bilaterally Nose: Normal inspection Throat/mouth : Moist mucosa Neck: Supple, full range of motion, no goiter Heart: Regular rate and rhythm, no murmurs rubs or gallops Lungs: Clear to auscultation bilaterally with normal air entry Chest: Nontender Back: Normal range of motion Abdomen: Softly distended and tympanitic, normal bowel sounds Extremities: Normal range of motion grossly, equal radial pulses, no cyanosis clubbing or edema Neurologic: Cranial nerves grossly intact, speech is clear Skin: warm and dry Psychiatric: Calm, cooperative, no apparent delusions or hallucinations (Barbara AVALOS,Kade Crow) Core Measures ACS in differential dx? No Sepsis Present: No Sepsis Focused Exam Completed? No (Olegario FLORENCE,Kade Carrion) Progress Differential Diagnosis: COLITIS, OBSTRUCTION Plan of Care: Orders Procedure Date/time Status TROPONIN LEVEL 10/22 422 Complete COMPREHENSIVE METABOLIC PANEL 10/22 422 Complete CBC WITHOUT DIFFERENTIAL 10/22 422 Complete AMYLASE 10/22 422 Complete EKG 10/22 416 Active Laboratory Tests 10/22/17 0425: Anion Gap 15, Estimated GFR > 60, BUN/Creatinine Ratio 22.5, Glucose 242 H, Calcium 9.0, Total Bilirubin 0.6, AST 32, ALT 28, Alkaline Phosphatase 71, Troponin I 0.02, Total Protein 6.3, Albumin 3.2 L, Globulin 3.1, Albumin/ Globulin Ratio 1.0 L, Amylase < 30 L, CBC w Diff MAN DIFF ORDERED, RBC 3.63 L , MCV 79.4 L, MCH 25.6 L, RDW 18.6 H, MPV 8.4, Gran % 86.2 H, Lymphocytes % 4.8 L, Monocytes % 8.4, Eosinophils % 0.4, Basophils % 0.2, Absolute Granulocytes 9.9 H, Segmented Neutrophils 78 H, Band Neutrophils 4, Absolute Lymphocytes 0.6 L, Lymphocytes 8 L, Monocytes 10 H, Absolute Monocytes 1.0 H , Absolute Eosinophils 0, Absolute Basophils 0, Platelet Estimate ADEQUATE, Polychromasia 1+, Hypochromic-Microcytic 2+, Poikilocytosis 1+, Anisocytosis 1+, Microcytic Cells 1+, Elliptocytes 1+, PUBS MCHC 32.2 L Diagnostic Imaging: Discussed w/RAD: CT Scan. Radiology Impression: PATIENT: CORINA FENG PRESENT AGE: 87 PATIENT ACCOUNT NO: [id number] : 30 LOCATION: [facility] ORDERING PHYSICIAN: Kade Jimenez MD SERVICE DATE: 10/22/17 EXAM TYPE : CAT - CT ABD & PELVIS W IV CONTRAST EXAMINATION: CT ABDOMEN AND PELVIS WITH CONTRAST CLINICAL INFORMATION: Abdominal pain with vomiting and history of colon resection. COMPARISON: Abdominal CT May 27, 2017. PET/CT June 16, 2017. TECHNIQUE: Multidetector volumetric imaging was performed of the abdomen and pelvis following IV administration of 94 mL of Optiray 320 intravenous contrast. Sagittal and coronal reformatted images were obtained on the technologist's workstation. FINDINGS: Patient is status post partial colectomy. Significantly dilated fluid-filled loops of bowel are seen throughout the entire abdomen to the level of the enterocolonic anastomosis at the level of the splenic flexure. The colon is nearly completely decompressed. Progressive abnormal soft tissue with associated architectural distortion and tethering involving an enteroenteric anastomosis within the right mid abdomen on image 45 of series 2.. There are new soft tissue masses within the right lower quadrant mesentery inseparable from adjacent bowel loops. There are also 2 large soft tissue masses along the right external iliac chain and within the right lower quadrant mesentery on image 70 of series 2 measuring up to 4 cm in size each. Mesenteric lymphadenopathy has progressed as has bulky retroperitoneal and bilateral iliac chain lymphadenopathy. Progressive retrocrural lymphadenopathy. Increase in size of mesenteric metastatic deposits along the posterior aspect of the right lobe of the liver and within the right lower quadrant mesentery and anterior to the rectum inseparable from large bowel in this location. The lung bases are clear. Heart remains significantly enlarged. No definite focal hepatic lesions. The gallbladder is surgically absent. The spleen is unremarkable. There is a stable appearing 1.2 cm right adrenal nodule. The kidneys exhibit symmetric nephrograms without evidence of hydronephrosis or nephrolithiasis. Bilateral renal cysts. There are no acute osseous abnormalities. Stable appearing compression deformities at the T12 and L1 levels. No significant soft tissue abnormality. IMPRESSION: - Bowel obstruction with significantly dilated fluid-filled loops of bowel throughout the entire abdomen to the level of an enterocolonic anastomosis at the splenic flexure with relatively decompressed large bowel. - Progressive abnormal soft tissue with associated architectural distortion and tethering involving an enteroenteric anastomosis within the right mid abdomen. - Increase in size of mesenteric metastatic deposits along the posterior aspect of the right lobe of the liver and within the right lower quadrant mesentery and anterior to the rectum inseparable from the sigmoid colon which is severely narrowed by adjacent metastatic disease. - Progressive metastatic disease with worsening mesenteric, retroperitoneal, retrocrural, and iliac chain lymphadenopathy. DICTATED BY: Kade Woods MD DATE/TIME DICTATED:10/22/17639 INSIDE ACCOUNT REPRESENTATIVE:ALEX DATE/TIME TRANSCRIBED:10/22/17639 CONFIDENTIAL, DO NOT COPY WITHOUT APPROPRIATE AUTHORIZATION. <Electronically signed in Other Vendor System> SIGNED BY: Kade Woods MD 10/22/1758 Initial ED EKG: none Comments: 10/22/2017 7:46:43 AM patient's case discussed with Porfirio Roberts MD who will be in to see the patient shortly. Of note I have updated the Corina on her CAT scan report already. She is feeling better after morphine and Zofran. (Barbara AVALOS,Kade Crow) Departure Departure Referrals: Alec AVALOS,Jatinder Lacy (PCP/Family) Departure Forms: Customer Survey General Discharge Information (Barbara AVALOS,Kade Crow) Departure Disposition: STILL A PATIENT Condition: Stable Clinical Impression Primary Impression: Bowel obstruction Comments 10/22/17 9 AM The patient was signed out to me at [address] Jimenez. She is 87-year-old female with a history of metastatic carcinoma and bowel obstruction. She presented with abdominal distention and vomiting. She also has significant abdominal pain. She is receiving IV morphine. She is pending surgical evaluation by Porfirio Roberts MD. She has received IV fluids. Admission Note Spoke With: Marbella Jha MD Documentation of Exam: Documentation of any treatments & extenuating circumstances including Concerns Regarding Discharge (functional status, medication knowledge or non-compliance, living conditions, etc.) that warrant an admission rather than observation: [I spoke with who accepted the patient for admission. She needs IV fluids, surgical consultation, IV pain medication] (Kade Melvin DO
[2017-10-22] MEDS ORDERED: ATORVASTATIN CA20 M1 PO (05:49)
--- NOTE | 2017-10-22 06:58 | CT SCAN REPORT ---
EXAMINATION: CT ABDOMEN AND PELVIS WITH CONTRAST CLINICAL INFORMATION: Abdominal pain with vomiting and history of colon resection. COMPARISON: Abdominal CT May 27, 2017. PET/CT June 16, 2017. TECHNIQUE: Multidetector volumetric imaging was performed of the abdomen and pelvis following IV administration of 94 mL of Optiray 320 intravenous contrast. Sagittal and coronal reformatted images were obtained on the technologist's workstation. FINDINGS: Patient is status post partial colectomy. Significantly dilated fluid-filled loops of bowel are seen throughout the entire abdomen to the level of the enterocolonic anastomosis at the level of the splenic flexure. The colon is nearly completely decompressed. Progressive abnormal soft tissue with associated architectural distortion and tethering involving an enteroenteric anastomosis within the right mid abdomen on image 45 of series 2.. There are new soft tissue masses within the right lower quadrant mesentery inseparable from adjacent bowel loops. There are also 2 large soft tissue masses along the right external iliac chain and within the right lower quadrant mesentery on image 70 of series 2 measuring up to 4 cm in size each. Mesenteric lymphadenopathy has progressed as has bulky retroperitoneal and bilateral iliac chain lymphadenopathy. Progressive retrocrural lymphadenopathy. Increase in size of mesenteric metastatic deposits along the posterior aspect of the right lobe of the liver and within the right lower quadrant mesentery and anterior to the rectum inseparable from large bowel in this location. The lung bases are clear. Heart remains significantly enlarged. No definite focal hepatic lesions. The gallbladder is surgically absent. The spleen is unremarkable. There is a stable appearing 1.2 cm right adrenal nodule. The kidneys exhibit symmetric nephrograms without evidence of hydronephrosis or nephrolithiasis. Bilateral renal cysts. There are no acute osseous abnormalities. Stable appearing compression deformities at the T12 and L1 levels. No significant soft tissue abnormality. IMPRESSION: - Bowel obstruction with significantly dilated fluid-filled loops of bowel throughout the entire abdomen to the level of an enterocolonic anastomosis at the splenic flexure with relatively decompressed large bowel. - Progressive abnormal soft tissue with associated architectural distortion and tethering involving an enteroenteric anastomosis within the right mid abdomen. - Increase in size of mesenteric metastatic deposits along the posterior aspect of the right lobe of the liver and within the right lower quadrant mesentery and anterior to the rectum inseparable from the sigmoid colon which is severely narrowed by adjacent metastatic disease. - Progressive metastatic disease with worsening mesenteric, retroperitoneal, retrocrural, and iliac chain lymphadenopathy.
--- NOTE | 2017-10-22 12:07 | Cons- Medical ---
Valentina Menon 10/22/17 1146: General Information and HPI Consulting Request Date of Consult: 10/22/17 Requested By: Dr Abhijeet AVALOS Reason for Consult: hx of afib Source of Information: patient, family Exam Limitations: no limitations History of Present Illness: Patient is a 87-year-old with a past medical history significant for atrial fibrillation(not on anticoagulation due to GI bleed) , CHF, hypertension, hyperlipidemia, peripheral neuropathy, TIA, gout/osteoarthritis, history of diabetes, hypothyroidism, hx of colon cancer status post right hemicolectomy presented to the ED with a chief complaints of abdominal discomfort. Patient has been having abdominal pain for the last 2 weeks now. Described the pain as epigastric, intermittent colicky in character getting worse associated with some nausea and nonbloody diarrhea. Denies any fever or chills. Today the pain got worse , was having pressure- like /sharp pain every few minutes without any alleviating factors, that made her come to the ED for further assessment. In the ED patient was having 10 on 10 abdominal discomfort, CAT scan of the abdomen revealed small bowel obstruction with significantly dilated fluid-filled loops of bowel throughout the entire abdomen to the level of an enterocolonic anastomosis at the splenic flexure with relatively decompressed large bowel. Patient does have a history of prior small bowel obstruction secondary to prior colon resection. Since then chemotherapy is on hold, follows up with Dr. Son as an outpatient Other review of system was negative of chest discomfort/trouble breathing palpitations. Allergies/Medications Allergies: Coded Allergies: Sulfa (Sulfonamide Antibiotics) (Intermediate, RASH 03/26/17) adhesive tape (PAPER TAPE OK PER PT 03/26/17) Home Med List: Alprazolam (Xanax) 0.5 MG TABLET 1 TAB PO QDAILY PRN ANXIETY (Reported) Amlodipine Besylate 10 MG TABLET 1 TAB PO DAILY BP (Reported) Atorvastatin Calcium (Lipitor) 20 MG TABLET 1 TAB PO DAILY CHOLESTEROL ( Reported) Atorvastatin Calcium 20 MG TABLET 1 TAB PO DAILY HIGH CHOLESTROL (Reported) Baclofen 10 MG TABLET 1 TAB PO TIDPRN PRN muscle spasm/strain Cholecalciferol (Vitamin D3) (Vitamin D) 1,000 UNIT TABLET 1 TAB PO DAILY SUPPLEMENT (Reported) Colchicine 0.6 MG TABLET 300 MCG PO BID PSEUDOGOUT Cranberry Fruit Concentrate (Cranberry) 450 MG CAPSULE 1 CAP PO DAILY SUPPLEMENT (Reported) Digoxin 125 MCG TABLET 1 TAB PO QPM HEART (Reported) Furosemide 40 MG TABLET 1 TAB PO DAILY DIURETIC (Reported) Gabapentin 300 MG CAPSULE 1 CAP PO DAILY NEUROPATHY Insulin Detemir (Levemir) 100 UNIT/ML VIAL 40 UNIT SC BID DM (Reported) Irbesartan (Avapro) 300 MG TABLET 1 TAB PO DAILY BP (Reported) Levothyroxine Sodium (Synthroid) 125 MCG TABLET 1 TAB PO DAILY AC THYROID ( Reported) Multivitamin (Multi-Day Vitamins) 1 EACH TABLET 1 TAB PO DAILY SUPPLEMENT ( Reported) Potassium Chloride 20 MEQ TABLET.ER 1 TAB PO DAILY SUPPLEMENT (Reported) Sitagliptin Phosphate (Januvia) 100 MG TABLET 1 TAB PO DAILY DM (Reported) Solifenacin Succinate (Vesicare) 5 MG TABLET 1 TAB PO DAILY BLADDER (Reported ) Review of Systems Review of Systems Constitutional: Denies: diaphoresis, fever, malaise. EENTM: Denies: blurred vision, double vision, visual changes. Cardiovascular: Denies: chest pain, edema, orthopena. Respiratory: Denies: cough, hemoptysis, orthopnea. GI: Reports: abdominal pain, diarrhea, nausea. Genitourinary: Denies: discharge, dysuria, frequency. Musculoskeletal: Denies: back pain, gout. Skin: Denies: cysts, change in skin color, change in hair/nails. 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 spouse Services at Home: None ETOH Use: denies use Illicit Drug Use: denies illicit drug use Functional Ability ADLs Independent: dressing, eating, toileting, bathing. Ambulation: independent IADLs Independent: shopping, housework, finances, food prep, telephone, medication admin. Needs Assist: transportation. Exam & Diagnostic Data Last 24 Hrs of Vital Signs/I&O Vital Signs Date Time Temp Pulse Resp B/P B/P Pulse O2 O2 Flow FiO2 Mean Ox Delivery Rate 10/22 1130 139 20 180/74 94 Nasal 2.0L Cannula 10/22 1105 97.5 138 20 167/79 10/22 1037 94 Nasal 2.0L Cannula 10/22 1036 97.5 138 20 167/79 88 Room Air 10/22 0906 97.8 110 20 148/73 95 Room Air 10/22 0733 99.9 106 20 151/73 95 Room Air 10/22 0635 97.9 102 22 138/70 95 Room Air 10/22 0607 98.4 96 20 141/68 97 Room Air 10/22 0413 98.7 105 18 175/71 98 Room Air Intake & Output 10/22 1600 10/22 0800 10/22 0000 Intake Total 0 Output Total 60 Balance -60 Intake, Oral 0 Output, 60 Emesis Patient 162 lb Weight Physical Exam General Appearance: well developed/nourished, no apparent distress Head: atraumatic, normal appearance Neck: normal inspection, supple Respiratory: normal breath sounds, chest non-tender Cardiovascular: regular rate/rhythm, edema Gastrointestinal: guarding, tenderness Last 24 Hrs of Labs/Sanjeev: Laboratory Tests 10/23/17 0615: Anion Gap 12, Estimated GFR 52 L, BUN/Creatinine Ratio 33.0 H, CBC w Diff NO MAN DIFF REQ, RBC 3.13 L, MCV 79.5 L, MCH 25.5 L, RDW 18.6 H, MPV 8.8, Gran % 73.5, Lymphocytes % 8.8 L, Monocytes % 17.7 H, Eosinophils % 0, Basophils % 0, Absolute Granulocytes 7.2 H, Absolute Lymphocytes 0.9 L, Absolute Monocytes 1.7 H, Absolute Eosinophils 0, Absolute Basophils 0, PUBS MCHC 32.1 L 10/22/17 1249: TSH 2.260 Assessment/Plan Assessment/Plan Patient is a 87-year-old with a past medical history significant for atrial fibrillation(not on anticoagulation due to GI bleed) , CHF, hypertension, hyperlipidemia, peripheral neuropathy, TIA, gout/osteoarthritis, history of diabetes, hypothyroidism, hx of colon cancer status post right hemicolectomy presented to the ED with a chief complaints of abdominal discomfort. In the ED patient was having 10 on 10 abdominal discomfort, CAT scan of the abdomen revealed small bowel obstruction with significantly dilated fluid-filled loops of bowel throughout the entire abdomen to the level of an enterocolonic anastomosis at the splenic flexure with relatively decompressed large bowel. Problem list: 1. Small bowel obstruction likely in the setting of prior colon surgeries 2. History of atrial fibrillation(not on anticoagulation due to GI bleed) 3. History of CHF 4. History of hypertension 5. History of hypothyroidism 6. History of diabetes 7. History of colon cancer status post right hemicolectomy Plan 1. Small bowel obstruction likely in the setting of prior colon surgeries * Continue recommendations as per surgical team * Nothing by mouth for now, * Change all medications to IV * Adequate pain control. 2. History of atrial fibrillation(not on anticoagulation due to GI bleed) * Patient has been started on IV Cardizem drip(target heart rate <110) * Dr. Ferguson has been informed to call in and continue to follow his recommendations regarding further treatment. 3. History of CHF * Change lasix to iv (40 mg daily) 4. History of hypertension * labetalol IV pushes 5 mg as needed for BP >160/90. 5. History of hypothyroidism. * Change by mouth levothyroxin to IV (PO 125 MCG to 63 IV mcg). 6. History of diabetes * Npo insulin sliding scale. * FSS every 6 hrs. 7. History of colon cancer status post right hemicolectomy * Chemotherapy on hold Consult Acknowledgment - Thank you for your consult request. [facility]64: Assessment/Plan Consult Acknowledgment - Thank you for your consult request. Attending MD Review Statement Attending Statement Attending MD Statement: examined this patient, discuss w/resident/PA/MULTIFOCAL LENS ASSEMBLER, agreed w/resident/PA/MULTIFOCAL LENS ASSEMBLER, reviewed EMR data (avail)
--- NOTE | 2017-10-22 13:15 | History & Physical Pre-Op ---
General Information and HPI MD Statement: I have seen and personally examined CORINA FENG and documented this H&P. The patient is a 87 year old F who presented with a patient stated chief complaint of [abdominal pain, nausea]. Source of Information: patient, family Exam Limitations: no limitations History of Present Illness: Corina is a pleasant 87 year old female who was brought in by ambulance with complaints of abdominal pain. She states that the pain began approximately 2 weeks ago and was intermittent in nature. Over the past two days, she admits to dietary changes to include more processed foods and an increase in activity level as she visited a local casino. This am she began to have more consistent abdominal pain with distension and one episode of bilious emesis. She did have two small loose bowel movements. Her past medical history is significant for atrial fibrillation, hypertension, diabetes, hyperlipidemia, hypothyroid, pseudogout, and bladder issues. She is presently under treatment for recurrent colon cancer. Her surgical history is signficant for cholecystectomy, hysterectomy, c section, right hemicolectomy and diagnostic laparoscopies with lysis of adhesions. Allergies/Medications Allergies: Coded Allergies: Sulfa (Sulfonamide Antibiotics) (Intermediate, RASH 03/26/17) adhesive tape (PAPER TAPE OK PER PT 03/26/17) Home Med list Alprazolam (Xanax) 0.5 MG TABLET 1 TAB PO QDAILY PRN ANXIETY (Reported) Amlodipine Besylate 10 MG TABLET 1 TAB PO DAILY BP (Reported) Atorvastatin Calcium (Lipitor) 20 MG TABLET 1 TAB PO DAILY CHOLESTEROL ( Reported) Atorvastatin Calcium 20 MG TABLET 1 TAB PO DAILY HIGH CHOLESTROL (Reported) Baclofen 10 MG TABLET 1 TAB PO TIDPRN PRN muscle spasm/strain Cholecalciferol (Vitamin D3) (Vitamin D) 1,000 UNIT TABLET 1 TAB PO DAILY SUPPLEMENT (Reported) Colchicine 0.6 MG TABLET 300 MCG PO BID PSEUDOGOUT Cranberry Fruit Concentrate (Cranberry) 450 MG CAPSULE 1 CAP PO DAILY SUPPLEMENT (Reported) Digoxin 125 MCG TABLET 1 TAB PO QPM HEART (Reported) Furosemide 40 MG TABLET 1 TAB PO DAILY DIURETIC (Reported) Gabapentin 300 MG CAPSULE 1 CAP PO DAILY NEUROPATHY Insulin Detemir (Levemir) 100 UNIT/ML VIAL 40 UNIT SC BID DM (Reported) Irbesartan (Avapro) 300 MG TABLET 1 TAB PO DAILY BP (Reported) Levothyroxine Sodium (Synthroid) 125 MCG TABLET 1 TAB PO DAILY AC THYROID ( Reported) Multivitamin (Multi-Day Vitamins) 1 EACH TABLET 1 TAB PO DAILY SUPPLEMENT ( Reported) Potassium Chloride 20 MEQ TABLET.ER 1 TAB PO DAILY SUPPLEMENT (Reported) Sitagliptin Phosphate (Januvia) 100 MG TABLET 1 TAB PO DAILY DM (Reported) Solifenacin Succinate (Vesicare) 5 MG TABLET 1 TAB PO DAILY BLADDER (Reported ) Past History Medical History Neurological: peripheral neuropathy, TIA EENT: NONE Cardiovascular: AFIB, CHF, hypertension, hyperlipidemia Respiratory: NONE Gastrointestinal: NONE Hepatic: NONE Renal: NONE Musculoskeletal: gout, osteoarthritis Psychiatric: anxiety Endocrine: diabetes, hypothyroidism, vitamin D deficiency Blood Disorders: NONE Cancer(s): colon/rectal cancer 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 spouse Services at Home None ETOH Use: denies use Illicit Drug Use: denies illicit drug use Functional Ability ADLs Independent: dressing, eating, toileting, bathing. Ambulation: independent IADLs Independent: shopping, housework, finances, food prep, telephone, medication admin. Needs Assist: transportation. Review of Systems Review of Systems Constitutional: Reports: malaise. EENTM: Reports: no symptoms. Cardiovascular: Reports: no symptoms. Respiratory: Reports: no symptoms. GI: Reports: see HPI, abdominal pain, bloating, distention, nausea, vomiting. Genitourinary: Reports: no symptoms. Musculoskeletal: Reports: no symptoms. Skin: Reports: no symptoms. Neurological/Psychological: Reports: no symptoms. Hematologic/Endocrine: Reports: no symptoms. Immunologic/Allergic: Reports: no symptoms. Post Menopausal: Yes Exam & Diagnostic Data Last 24 Hrs of Vital Signs/I&O Vital Signs Date Time Temp Pulse Resp B/P B/P Pulse O2 O2 Flow FiO2 Mean Ox Delivery Rate 10/22 1259 98.6 136 20 170/82 96 Nasal 2.0L Cannula 10/22 1130 139 20 180/74 94 Nasal 2.0L Cannula 10/22 1105 97.5 138 20 167/79 10/22 1037 94 Nasal 2.0L Cannula 10/22 1036 97.5 138 20 167/79 88 Room Air 10/22 0906 97.8 110 20 148/73 95 Room Air 10/22 0733 99.9 106 20 151/73 95 Room Air 10/22 0635 97.9 102 22 138/70 95 Room Air 10/22 0607 98.4 96 20 141/68 97 Room Air 10/22 0413 98.7 105 18 175/71 98 Room Air Intake & Output 10/22 1600 10/22 0800 10/22 0000 Intake Total 0 Output Total 400 60 Balance -400 -60 Intake, Oral 0 Output, 60 Emesis Output, 400 Gastric Drainage Patient 162 lb Weight Physical Exam: General: Alert and oriented x3, no acute distress Cardiac: Irregularly irregular Pulm: Nonlabored respiratory effort Abdomen: Softly distended, +bs, generalized tenderness Extremities: Moves all extremities, distal sensation intact. Skin warm and well perfused. DP pulses palpable bilaterally. Calves soft and non-tender bilaterally. Last 24 Hrs of Labs/Sanjeev: Laboratory Tests 10/22/17 1249: TSH Pending 10/22/17 0425: Anion Gap 15, Estimated GFR > 60, BUN/Creatinine Ratio 22.5, Glucose 242 H, Calcium 9.0, Total Bilirubin 0.6, AST 32, ALT 28, Alkaline Phosphatase 71, Troponin I 0.02, Total Protein 6.3, Albumin 3.2 L, Globulin 3.1, Albumin/ Globulin Ratio 1.0 L, Amylase < 30 L, CBC w Diff MAN DIFF ORDERED, RBC 3.63 L , MCV 79.4 L, MCH 25.6 L, RDW 18.6 H, MPV 8.4, Gran % 86.2 H, Lymphocytes % 4.8 L, Monocytes % 8.4, Eosinophils % 0.4, Basophils % 0.2, Absolute Granulocytes 9.9 H, Segmented Neutrophils 78 H, Band Neutrophils 4, Absolute Lymphocytes 0.6 L, Lymphocytes 8 L, Monocytes 10 H, Absolute Monocytes 1.0 H , Absolute Eosinophils 0, Absolute Basophils 0, Platelet Estimate ADEQUATE, Polychromasia 1+, Hypochromic-Microcytic 2+, Poikilocytosis 1+, Anisocytosis 1+, Microcytic Cells 1+, Elliptocytes 1+, PUBS MCHC 32.2 L Assessment/Plan Assessment/Plan: This is an 87 year old female who is presently under treatment for recurrent colon ca who presented to ER today with c/o abdominal pain. Imaging obtained is consistent with a small bowel obstruction. Report is as follows: - Bowel obstruction with significantly dilated fluid-filled loops of bowel throughout the entire abdomen to the level of an enterocolonic anastomosis at the splenic flexure with relatively decompressed large bowel. - Progressive abnormal soft tissue with associated architectural distortion and tethering involving an enteroenteric anastomosis within the right mid abdomen. - Increase in size of mesenteric metastatic deposits along the posterior aspect of the right lobe of the liver and within the right lower quadrant mesentery and anterior to the rectum inseparable from the sigmoid colon which is severely narrowed by adjacent metastatic disease. - Progressive metastatic disease with worsening mesenteric, retroperitoneal, retrocrural, and iliac chain lymphadenopathy. Plan: Small bowel obstruction -Admit to general surgical service -Consults: Cardiology, patient sees Dr. Ferguson, recommendations made for [facility] Medicine: Dr. Lange to see patient, follow up labs (tsh) Oncology: Dr. Son to be made aware that patient here, appreciate recommendations -Per Dr. Jha, npo ngt now Dr. Jha will review imaging and discuss further plan of care with patient -Convert medications to iv -IV hydration: 1/2 NS at 100/hr Atrial fibrillation: Cardizem drip to start now at 5/hr, advance per protocol. Will discuss with Dr. Jha As Ranked By This Provider Problem List: 1. Bowel obstruction
--- NOTE | 2017-10-22 13:22 | RADIOLOGY REPORT ---
EXAMINATION: XR PORTABLE CHEST CLINICAL INFORMATION: Status post NG tube insertion COMPARISON: Chest x-ray 10/08/2017 TECHNIQUE: Portable AP portable semiupright view of the chest was obtained. FINDINGS: This film is underpenetrated. There is an NG tube over the mediastinum. The tip is difficult to visualize but appears to extend below the diaphragm. There is cardiomegaly and a tortuous aorta. This is unchanged. Pulmonary vascularity is within normal limits. There is some mild interstitial thickening bilaterally with some probable focal atelectasis in the right midlung zone and left lower lobe. There is no pleural effusion or pneumothorax. IMPRESSION: NG tube tip is not well visualized but it likely extends below the diaphragm. Cardiomegaly and mild interstitial prominence is similar in appearance to the previous examination
[2017-10-22 13:56] VITALS: BP 184/80
[2017-10-22 22:43] VITALS: BP 130/42
[2017-10-23 07:25] VITALS: BP 130/50
--- NOTE | 2017-10-23 07:25 | Cons- Cardiology ---
General Information and HPI Consulting Request Date of Consult: 10/23/17 Requested By: Marbella Jha MD Reason for Consult: Rapid atrial fibrillation Source of Information: patient Exam Limitations: no limitations History of Present Illness: I was asked by Dr. Parikh to evaluate patient for rapid atrial fibrillation. 86-year-old female with past medical history of atrial fibrillation, moderate to severe aortic stenosis, hypertension, hyperlipidemia, TIA, hypothyroidism, diabetes mellitus, gout, osteoarthritis, colon cancer status post resection and chemotherapy, GI bleed, recurrence of cancer with metastases currently on chemotherapy every other week by Dr. Son. She is not anticoagulated due to recurrent GI bleed. Patient was admitted yesterday for worsening of abdominal pain, nausea, vomiting. Found to have bowel obstruction. She was in rapid AF in ER and we started her on iv diltiazem. She does not report any chest pain, palpitations or dyspnea. She received morphine last night and NGT placed. Abdominal pain now improved. Allergies/Medications Allergies: Coded Allergies: Sulfa (Sulfonamide Antibiotics) (Intermediate, RASH 03/26/17) adhesive tape (PAPER TAPE OK PER PT 03/26/17) Home Med List: Alprazolam (Xanax) 0.5 MG TABLET 1 TAB PO QDAILY PRN ANXIETY (Reported) Amlodipine Besylate 10 MG TABLET 1 TAB PO DAILY BP (Reported) Atorvastatin Calcium (Lipitor) 20 MG TABLET 1 TAB PO DAILY CHOLESTEROL ( Reported) Atorvastatin Calcium 20 MG TABLET 1 TAB PO DAILY HIGH CHOLESTROL (Reported) Baclofen 10 MG TABLET 1 TAB PO TIDPRN PRN muscle spasm/strain Cholecalciferol (Vitamin D3) (Vitamin D) 1,000 UNIT TABLET 1 TAB PO DAILY SUPPLEMENT (Reported) Colchicine 0.6 MG TABLET 300 MCG PO BID PSEUDOGOUT Cranberry Fruit Concentrate (Cranberry) 450 MG CAPSULE 1 CAP PO DAILY SUPPLEMENT (Reported) Digoxin 125 MCG TABLET 1 TAB PO QPM HEART (Reported) Furosemide 40 MG TABLET 1 TAB PO DAILY DIURETIC (Reported) Gabapentin 300 MG CAPSULE 1 CAP PO DAILY NEUROPATHY Insulin Detemir (Levemir) 100 UNIT/ML VIAL 40 UNIT SC BID DM (Reported) Irbesartan (Avapro) 300 MG TABLET 1 TAB PO DAILY BP (Reported) Levothyroxine Sodium (Synthroid) 125 MCG TABLET 1 TAB PO DAILY AC THYROID ( Reported) Multivitamin (Multi-Day Vitamins) 1 EACH TABLET 1 TAB PO DAILY SUPPLEMENT ( Reported) Potassium Chloride 20 MEQ TABLET.ER 1 TAB PO DAILY SUPPLEMENT (Reported) Sitagliptin Phosphate (Januvia) 100 MG TABLET 1 TAB PO DAILY DM (Reported) Solifenacin Succinate (Vesicare) 5 MG TABLET 1 TAB PO DAILY BLADDER (Reported ) Current Medications: Current Medications Sig/Darrell Start time Last Medication Dose Route Stop Time Status Admin Acetaminophen 1,000 MG Q6P PRN 10/22 1415 AC N/A 1 UNIT IV Dextrose/Sodium 1,000 ML Q13H 10/22 1515 AC 10/23 Chloride IV 0529 Digoxin 125 MCG DAILY 10/23 1000 AC IV Diltiazem HCl 125 MG Q24H 10/23 0330 AC 10/23 Sodium Chloride 100 ML IV 0340 Diltiazem HCl 125 MG Q24H 10/22 1200 DC 10/22 Sodium Chloride 100 ML IV 10/23 0329 1250 Diltiazem HCl 0 .STK-MED ONE 10/22 1105 DC .ROUTE Diltiazem HCl 5 MG ONCE ONE 10/22 1100 DC 10/22 IV PUSH 10/22 1101 1105 Influenza Virus 0.5 ML ONCE ONE 10/22 1445 DC Vaccine IM 10/22 1446 Insulin Human Regular 0 Q6 10/22 1800 AC 10/23 SC 0612 Labetalol HCl 5 MG DAILY NEEDED PRN 10/22 1515 AC IV Levothyroxine Sodium 62.5 MCG DAILY 10/23 1000 AC IV Morphine Sulfate 1 MG Q2P PRN 10/22 1415 AC IV Morphine Sulfate 2 MG Q2P PRN 10/22 1415 AC IV Morphine Sulfate 0 .STK-MED ONE 10/22 0905 DC .ROUTE Morphine Sulfate 2 MG ONCE ONE 10/22 0900 DC 10/22 IV 10/22 0901 0905 Morphine Sulfate 4 MG ONCE ONE 10/22 0815 DC 10/22 IV 10/22 0816 0807 Morphine Sulfate 0 .STK-MED ONE 10/22 0806 DC .ROUTE Ondansetron HCl 4 MG Q8P PRN 10/22 1415 AC IV Pantoprazole Sodium 40 MG DAILY 10/23 1000 AC IV Sodium Chloride 1,000 ML Q13H 10/22 1415 DC IV Sucralfate 1 GM BID 10/23 0257 AC 10/23 PO 0344 Review of Systems Review of Systems Constitutional: Reports: weakness. Denies: no symptoms, see HPI, chills, diaphoresis, fever, malaise, unexplained weight loss. EENTM: Denies: no symptoms, see HPI, blurred vision, double vision, visual changes, eye pain, eye drainage, eye tearing, icterus, ear discharge, ear pain, ear redness, hearing changes, nasal congestion, epistaxis, nasal pain, throat pain, throat swelling, mouth pain, tooth pain. Cardiovascular: Denies: no symptoms, see HPI, chest pain, edema, orthopena, palpitations, peripheral edema, syncope. Respiratory: Denies: no symptoms, see HPI, cough, hemoptysis, orthopnea, short of breath, sputum production, stridor, wheezing. GI: Reports: abdominal pain, distention, nausea. Denies: no symptoms, see HPI, bloating, constipation, diarrhea, bowel incontinence, melena, bloody stool, changes in stool, vomiting, steatorrhea. Genitourinary: Denies: no symptoms, see HPI, discharge, dysuria, frequency, hematuria, hesitation, nocturia, pain, urgency. Musculoskeletal: Denies: no symptoms, see HPI, back pain, gout, joint pain, joint swelling, muscle pain, muscle stiffness, neck pain. Skin: Denies: no symptoms, see HPI, cysts, change in skin color, change in hair/nails, dryness, erythema, jaundice, lesions, lymphangitis, lumps, moles, rash. Neurological/Psychological: Denies: no symptoms, see HPI, anxiety, ataxia, cognitive dysfunction, confusion, depressed, dementia, emotional problems, headache, numbness, paresthesia, pre- existing deficit, petit mal seizures, tingling, tremors, tonic-clonic seizures, unable to move lower ext, unable to move upper ext, weakness, other. Hematologic/Endocrine: Denies: no symptoms, see HPI, bruising, bleeding, polyuria, polydipsia, other. Immunologic/Allergic: Denies: no symptoms, see HPI, splenectomy, HIV/AIDS, lymphadenopathy, other. 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 Home Who Do You Live With? spouse Services at Home: None Smoking Status: Never Smoked ETOH Use: denies use Illicit Drug Use: denies illicit drug use Functional Ability ADLs Independent: dressing, eating, toileting, bathing. Ambulation: independent IADLs Independent: shopping, housework, finances, food prep, telephone, medication admin. Needs Assist: transportation. Exam & Diagnostic Data Vital Signs and I&O Vital Signs Date Time Temp Pulse Resp B/P B/P Pulse O2 O2 Flow FiO2 Mean Ox Delivery Rate 10/23 0020 99.7 10/23 0000 Nasal 2.0L Cannula 10/22 2243 100.0 110 16 130/42 94 Nasal 2.0L Cannula 10/22 1356 98.0 147 20 184/80 97 Nasal 2.0L Cannula 10/22 1259 98.6 136 20 170/82 96 Nasal 2.0L Cannula 10/22 1130 139 20 180/74 94 Nasal 2.0L Cannula 10/22 1105 97.5 138 20 167/79 10/22 1037 94 Nasal 2.0L Cannula 10/22 1036 97.5 138 20 167/79 88 Room Air 10/22 0906 97.8 110 20 148/73 95 Room Air 10/22 0733 99.9 106 20 151/73 95 Room Air Intake & Output 10/23 0800 10/23 0000 10/22 1600 10/22 0800 10/22 0000 10/21 1600 Intake Total 710 680 0 Output Total 280 410 400 60 Balance 430 270 -400 -60 Intake, IV 640 680 Intake, Oral 0 0 0 Intake, Other 70 Output, 60 Emesis Output, 280 410 400 Gastric Drainage Patient 160 lb 162 lb Weight Weight Reported by Patient Measurement Method Physical Exam: No acute respiratory distress Skin-no rash HEENT-PERRLA Neck-JVP normal Lungs few left base crackles, right is clear Heart S1, diminished S2, irregular, 3/6 late peaking KEDAR at the base Abdomen-soft, not distended, mild diffuse tenderness, BS are sluggish, no masses , no organomegaly Extr-no edema, 2+ pulses, no cyanosis Neuro-non focal Vascular-bilateral carotid bruits (likely referred from ) Labs/Sanjeev Results: Laboratory Tests 10/23 10/22 10/22 0615 1249 0425 Chemistry Sodium (137 - 145 mmol/L) Pending 133 L Potassium (3.5 - 5.1 mmol/L) Pending 4.7 Chloride (98 - 107 mmol/L) Pending 96 L Carbon Dioxide (22 - 30 mmol/L) Pending 22 Anion Gap (5 - 16) Pending 15 BUN (7 - 17 mg/dL) Pending 18 H Creatinine (0.5 - 1.0 mg/dL) Pending 0.8 Estimated GFR (>60 ml/min) > 60 BUN/Creatinine Ratio (7 - 25 %) Pending 22.5 Glucose (65 - 99 mg/dL) 242 H Calcium (8.4 - 10.2 mg/dL) 9.0 Total Bilirubin (0.2 - 1.3 mg/dL) 0.6 AST (14 - 36 U/L) 32 ALT (9 - 52 U/L) 28 Alkaline Phosphatase (<127 U/L) 71 Troponin I (< 0.11 ng/ml) 0.02 Total Protein (6.3 - 8.2 g/dL) 6.3 Albumin (3.5 - 5.0 g/dL) 3.2 L Globulin (1.9 - 4.2 gm/dL) 3.1 Albumin/Globulin Ratio (1.1 - 2.2 %) 1.0 L Amylase (30 - 110 U/L) < 30 L TSH (0.270 - 4.200 uIU/mL) 2.260 Hematology CBC w Diff Pending MAN DIFF ORDERED WBC (4.8 - 10.8 /CUMM) Pending 11.5 H RBC (4.20 - 5.40 /CUMM) Pending 3.63 L Hgb (12.0 - 16.0 G/DL) Pending 9.3 L Hct (37 - 47 %) Pending 28.9 L MCV (81.0 - 99.0 FL) Pending 79.4 L MCH (27.0 - 31.0 PG) Pending 25.6 L RDW (11.5 - 14.5 %) Pending 18.6 H Plt Count (130 - 400 /CUMM) Pending 301 MPV (7.4 - 10.4 FL) Pending 8.4 Gran % (42.2 - 75.2 %) 86.2 H Lymphocytes % (20.5 - 51.1 %) 4.8 L Monocytes % (1.7 - 9.3 %) 8.4 Eosinophils % (0 - 5 %) 0.4 Basophils % (0.0 - 2.0 %) 0.2 Absolute Granulocytes (1.4 - 6.5 /CUMM) 9.9 H Segmented Neutrophils (42.2 - 75.2 %) 78 H Band Neutrophils (0.0 - 5.0 %) 4 Absolute Lymphocytes (1.2 - 3.4 /CUMM) 0.6 L Lymphocytes (20.5 - 51.1 %) 8 L Monocytes (1.7 - 9.3 %) 10 H Absolute Monocytes (0.10 - 0.60 /CUMM) 1.0 H Absolute Eosinophils (0.0 - 0.7 /CUMM) 0 Absolute Basophils (0.0 - 0.2 /CUMM) 0 Platelet Estimate (ADEQUATE) ADEQUATE Polychromasia 1+ Hypochromic-Microcytic 2+ Poikilocytosis 1+ Anisocytosis 1+ Microcytic Cells 1+ Elliptocytes 1+ PUBS MCHC (33.0 - 37.0 G/DL) Pending 32.2 L Diagnostic Data EKG Results AF with faster VR 115 bpm, diffuse non specific ST abnormalities CXR Results No acute changes, cardiomegaly Other Results Abdominal CT scan-dilated bowel loops, progression of metastatic disease Assessment/Plan Assessment/Plan 86-year-old female with past medical history of atrial fibrillation on xarelto, moderate to severe aortic stenosis, hypertension, hyperlipidemia, TIA, hypothyroidism, diabetes mellitus, gout, osteoarthritis, colon cancer status post resection and chemotherapy, h/o GI bleed presents with acute bowel obstruction/ileus due to metastatic colon cancer. Overnight clinically improved with NGT. Atrial fibrillation with faster rate due to acute stress. HTN-BP is mildly elevated. I would not be very agressive controlling BP due to her . She previously developed hypotension when she presented with bowel obstruction. Acceptable SBP 130-150. Moderate to severe aortic stenosis-watch for symptoms of heart failure Plan: continue iv cardizem 5 mg/hr ok to use labetalol if SBP above 160 once able to take oral medications she can be changed back to digoxin and she also takes metoprolol 25mg qd (not on her list) continue gentle iv fluids while NPO Consult Acknowledgment - Thank you for your consult request.
[2017-10-23 08:34] LABS: ABSOLUTE BASOPHIL COUNT 0 /CUMM (0.0-0.2); ABSOLUTE EOSINOPHIL COUNT 0 /CUMM (0.0-0.7); ABSOLUTE GRANULOCYTE CT 7.2 /CUMM (1.4-6.5); ABSOLUTE LYMPH COUNT 0.9 /CUMM (1.2-3.4); ABSOLUTE MONOCYTE COUNT 1.7 /CUMM (0.10-0.60); BASOPHIL % 0 % (0.0-2.0); EOSINOPHIL % 0 % (0-5); GRANULOCYTE % 73.5 % (42.2-75.2); HEMATOCRIT 24.9 % (37-47); MEAN CORPUSCULAR HGB 25.5 PG (27.0-31.0); MEAN CORPUSCULAR HGB CONC 32.1 G/DL (33.0-37.0); MEAN CORPUSCULAR VOLUME 79.5 FL (81.0-99.0); MEAN PLATELET VOLUME 8.8 FL (7.4-10.4); PLATELET COUNT 266 /CUMM (130-400); RBC DISTRIBUTION WIDTH 18.6 % (11.5-14.5); RED BLOOD CELL CT 3.13 /CUMM (4.20-5.40); WHITE BLOOD CELL COUNT 9.8 /CUMM (4.8-10.8)
--- NOTE | 2017-10-23 09:02 | PN- Medicine Consult ---
Valentina Menon 10/23/17 0857: Assessment/Plan Assessment/Plan Assessment: Patient is a 87-year-old with a past medical history significant for atrial fibrillation(not on anticoagulation due to GI bleed) , CHF, hypertension, hyperlipidemia, peripheral neuropathy, TIA, gout/osteoarthritis, history of diabetes, hypothyroidism, hx of colon cancer status post right hemicolectomy presented to the ED with a chief complaints of abdominal discomfort. In the ED patient was having 10 on 10 abdominal discomfort, CAT scan of the abdomen revealed small bowel obstruction with significantly dilated fluid-filled loops of bowel throughout the entire abdomen to the level of an enterocolonic anastomosis at the splenic flexure with relatively decompressed large bowel. Plan: Problem list: 1. Small bowel obstruction likely in the setting of prior colon surgeries 2. History of atrial fibrillation(not on anticoagulation due to GI bleed) 3. History of CHF 4. History of hypertension 5. History of hypothyroidism 6. History of diabetes 7. History of colon cancer status post right hemicolectomy Plan 1. Small bowel obstruction likely in the setting of prior colon surgeries * Continue recommendations as per surgical team * Nothing by mouth for now, * All medications have been changed to IV . * Adequate pain control. 2. History of atrial fibrillation(not on anticoagulation due to GI bleed) * Patient has been started on IV Cardizem drip(target heart rate <110) * Continue to follow Dr. Ferguson recommendations. * Once stable for oral intake switch IV digoxin to oral and restart by mouth metoprolol. 3. History of CHF * Continue lasix to iv (40 mg daily) 4. History of hypertension * labetalol IV pushes 5 mg as needed for BP >160/90. 5. History of hypothyroidism. * Continue by mouth levothyroxin to IV (PO 125 MCG to 63 IV mcg). 6. History of diabetes * Npo insulin sliding scale with D5 half normal saline * FSS every 6 hrs. 7. History of colon cancer status post right hemicolectomy * Chemotherapy on hold Problem List: 1. Bowel obstruction Subjective Subjective: Patient is seen and examined this morning, seems better than yesterday. Still reports abdominal discomfort. Denies any nausea vomiting. Vitals are stable. Denies any shortness of breath and trouble breathing palpitations. Review of Systems Constitutional: Denies: chills, diaphoresis, fever, malaise. EENTM: Denies: double vision. Cardiovascular: Denies: chest pain, edema, orthopena. Respiratory: Denies: cough. Gastrointestinal: Reports: abdominal pain, distention. Genitourinary: Denies: discharge, dysuria, frequency. Musculoskeletal: Denies: back pain, gout, joint pain. Objective Last 24 Hrs of Vital Signs/I&O Vital Signs Date Time Temp Pulse Resp B/P B/P Pulse O2 O2 Flow FiO2 Mean Ox Delivery Rate 10/23 0725 99.7 115 16 130/50 91 Nasal Cannula 10/23 0020 99.7 10/23 0000 Nasal 2.0L Cannula 10/22 2243 100.0 110 16 130/42 94 Nasal 2.0L Cannula 10/22 1356 98.0 147 20 184/80 97 Nasal 2.0L Cannula 10/22 1259 98.6 136 20 170/82 96 Nasal 2.0L Cannula 10/22 1130 139 20 180/74 94 Nasal 2.0L Cannula 10/22 1105 97.5 138 20 167/79 10/22 1037 94 Nasal 2.0L Cannula 10/22 1036 97.5 138 20 167/79 88 Room Air 10/22 0906 97.8 110 20 148/73 95 Room Air Intake & Output 10/23 1600 10/23 0800 10/23 0000 Intake Total 710 680 Output Total 280 410 Balance 430 270 Intake, IV 640 680 Intake, Oral 0 0 Intake, Other 70 Output, 280 410 Gastric Drainage Physical Exam General Appearance: well developed/nourished, no apparent distress Head: atraumatic, normal appearance Cardiovascular: regular rate/rhythm, edema Respiratory: normal breath sounds, chest non-tender Abdomen: normal bowel sounds, soft, non-tender Current Medications: Current Medications Sig/Darrell Start time Last Medication Dose Route Stop Time Status Admin Acetaminophen 1,000 MG Q6P PRN 10/22 1415 AC N/A 1 UNIT IV Dextrose/Sodium 1,000 ML Q13H 10/22 1515 AC 10/23 Chloride IV 0529 Digoxin 125 MCG DAILY 10/23 1000 AC IV Diltiazem HCl 125 MG Q24H 10/23 0330 AC 10/23 Sodium Chloride 100 ML IV 0340 Diltiazem HCl 125 MG Q24H 10/22 1200 DC 10/22 Sodium Chloride 100 ML IV 10/23 0329 1250 Diltiazem HCl 0 .STK-MED ONE 10/22 1105 DC .ROUTE Diltiazem HCl 5 MG ONCE ONE 10/22 1100 DC 10/22 IV PUSH 10/22 1101 1105 Influenza Virus 0.5 ML ONCE ONE 10/22 1445 DC Vaccine IM 10/22 1446 Insulin Human Regular 0 Q6 10/22 1800 AC 10/23 SC 0612 Labetalol HCl 5 MG DAILY NEEDED PRN 10/22 1515 AC IV Levothyroxine Sodium 62.5 MCG DAILY 10/23 1000 AC IV Morphine Sulfate 1 MG Q2P PRN 10/22 1415 AC IV Morphine Sulfate 2 MG Q2P PRN 10/22 1415 AC IV Morphine Sulfate 0 .STK-MED ONE 10/22 0905 DC .ROUTE Morphine Sulfate 2 MG ONCE ONE 10/22 0900 DC 10/22 IV 10/22 0901 0905 Ondansetron HCl 4 MG Q8P PRN 10/22 1415 AC IV Pantoprazole Sodium 40 MG DAILY 10/23 1000 AC IV Sodium Chloride 1,000 ML Q13H 10/22 1415 DC IV Sucralfate 1 GM BID 10/23 0257 AC 10/23 PO 0344 Results Last 24 Hrs Lab/Sanjeev Results: Laboratory Tests 10/23/17 0615: Sodium Pending, Potassium Pending, Chloride Pending, Carbon Dioxide Pending, Anion Gap Pending, BUN Pending, Creatinine Pending, BUN/Creatinine Ratio Pending , CBC w Diff NO MAN DIFF REQ, RBC 3.13 L, MCV 79.5 L, MCH 25.5 L, RDW 18.6 H , MPV 8.8, Gran % 73.5, Lymphocytes % 8.8 L, Monocytes % 17.7 H, Eosinophils % 0, Basophils % 0, Absolute Granulocytes 7.2 H, Absolute Lymphocytes 0.9 L, Absolute Monocytes 1.7 H, Absolute Eosinophils 0, Absolute Basophils 0, PUBS MCHC 32.1 L 10/22/17 1249: TSH 2.260 Shan Lange MD 10/23/17 1237: Attending MD Review Statement Attending Sign Off Attending Cosign Statement: I have: examined this patient, reviewed aval EMR data, discussd w/resident/PA/ COST RECORDER, agreed w/resident/PA/COST RECORDER. Other Findings: 87F PMH atrial fibrillation(not on anticoagulation due to GI bleed) , CHF, hypertension, hyperlipidemia, peripheral neuropathy, TIA, gout/osteoarthritis, history of diabetes, hypothyroidism, hx of colon cancer status post right hemicolectomy admitted to surgical service for small bowel obstruction requiring NG tube decompression, with medicine consulted for management of chronic conditions as well as rapid atrial fibrillation present on admission. Agree with resident recommendations. Will continue Cardizem drip, Labetalol pushes for hypertension, management of diabetes while NPO. See resident recommendations for full details.
--- NOTE | 2017-10-23 10:36 | PN- General Surgery ---
See Addendum Subjective Subjective: No bowel function, still with NG tube. Objective Vital Signs and I&Os Vital Signs Date Time Temp Pulse Resp B/P B/P Pulse O2 O2 Flow FiO2 Mean Ox Delivery Rate 10/23 0725 99.7 115 16 130/50 91 Nasal Cannula 10/23 0020 99.7 10/23 0000 Nasal 2.0L Cannula 10/22 2243 100.0 110 16 130/42 94 Nasal 2.0L Cannula 10/22 1356 98.0 147 20 184/80 97 Nasal 2.0L Cannula 10/22 1259 98.6 136 20 170/82 96 Nasal 2.0L Cannula 10/22 1130 139 20 180/74 94 Nasal 2.0L Cannula 10/22 1105 97.5 138 20 167/79 10/22 1037 94 Nasal 2.0L Cannula 10/22 1036 97.5 138 20 167/79 88 Room Air Intake & Output 10/23 1600 10/23 0800 10/23 0000 10/22 1600 10/22 0800 10/22 0000 Intake Total 710 680 0 Output Total 280 410 400 60 Balance 430 270 -400 -60 Intake, IV 640 680 Intake, Oral 0 0 0 Intake, Other 70 Output, 60 Emesis Output, 280 410 400 Gastric Drainage Patient 160 lb 162 lb Weight Weight Reported by Patient Measurement Method Physical Exam: pt examined by Dr Camp Well-developed well-nourished no apparent distress. HEENT: Atraumatic, extraocular motion intact,ng-tube in place, appears mildly dry Neck: Supple, no lymphadenopathy Respiratory: No respiratory distress Abdomen: Mildly distended, nontender Extremities: No edema, no calf pain Neuro: Alert and oriented x3 Psych: Mood affect normal, normal memory normal judgment. Skin: Warm and dry, no rash on exposed skin Results Last 48 Hours of Labs: Laboratory Tests 10/23 10/22 0615 1249 Chemistry Sodium (137 - 145 mmol/L) 136 L Potassium (3.5 - 5.1 mmol/L) 4.3 Chloride (98 - 107 mmol/L) 100 Carbon Dioxide (22 - 30 mmol/L) 24 Anion Gap (5 - 16) 12 BUN (7 - 17 mg/dL) 33 H Creatinine (0.5 - 1.0 mg/dL) 1.0 Estimated GFR (>60 ml/min) 52 L BUN/Creatinine Ratio (7 - 25 %) 33.0 H TSH (0.270 - 4.200 uIU/mL) 2.260 Hematology CBC w Diff NO MAN DIFF REQ WBC (4.8 - 10.8 /CUMM) 9.8 RBC (4.20 - 5.40 /CUMM) 3.13 L Hgb (12.0 - 16.0 G/DL) 8.0 L Hct (37 - 47 %) 24.9 L MCV (81.0 - 99.0 FL) 79.5 L MCH (27.0 - 31.0 PG) 25.5 L RDW (11.5 - 14.5 %) 18.6 H Plt Count (130 - 400 /CUMM) 266 MPV (7.4 - 10.4 FL) 8.8 Gran % (42.2 - 75.2 %) 73.5 Lymphocytes % (20.5 - 51.1 %) 8.8 L Monocytes % (1.7 - 9.3 %) 17.7 H Eosinophils % (0 - 5 %) 0 Basophils % (0.0 - 2.0 %) 0 Absolute Granulocytes (1.4 - 6.5 /CUMM) 7.2 H Absolute Lymphocytes (1.2 - 3.4 /CUMM) 0.9 L Absolute Monocytes (0.10 - 0.60 /CUMM) 1.7 H Absolute Eosinophils (0.0 - 0.7 /CUMM) 0 Absolute Basophils (0.0 - 0.2 /CUMM) 0 PUBS MCHC (33.0 - 37.0 G/DL) 32.1 L 10/22 0425 Chemistry Sodium (137 - 145 mmol/L) 133 L Potassium (3.5 - 5.1 mmol/L) 4.7 Chloride (98 - 107 mmol/L) 96 L Carbon Dioxide (22 - 30 mmol/L) 22 Anion Gap (5 - 16) 15 BUN (7 - 17 mg/dL) 18 H Creatinine (0.5 - 1.0 mg/dL) 0.8 Estimated GFR (>60 ml/min) > 60 BUN/Creatinine Ratio (7 - 25 %) 22.5 Glucose (65 - 99 mg/dL) 242 H Calcium (8.4 - 10.2 mg/dL) 9.0 Total Bilirubin (0.2 - 1.3 mg/dL) 0.6 AST (14 - 36 U/L) 32 ALT (9 - 52 U/L) 28 Alkaline Phosphatase (<127 U/L) 71 Troponin I (< 0.11 ng/ml) 0.02 Total Protein (6.3 - 8.2 g/dL) 6.3 Albumin (3.5 - 5.0 g/dL) 3.2 L Globulin (1.9 - 4.2 gm/dL) 3.1 Albumin/Globulin Ratio (1.1 - 2.2 %) 1.0 L Amylase (30 - 110 U/L) < 30 L Hematology CBC w Diff MAN DIFF ORDERED WBC (4.8 - 10.8 /CUMM) 11.5 H RBC (4.20 - 5.40 /CUMM) 3.63 L Hgb (12.0 - 16.0 G/DL) 9.3 L Hct (37 - 47 %) 28.9 L MCV (81.0 - 99.0 FL) 79.4 L MCH (27.0 - 31.0 PG) 25.6 L RDW (11.5 - 14.5 %) 18.6 H Plt Count (130 - 400 /CUMM) 301 MPV (7.4 - 10.4 FL) 8.4 Gran % (42.2 - 75.2 %) 86.2 H Lymphocytes % (20.5 - 51.1 %) 4.8 L Monocytes % (1.7 - 9.3 %) 8.4 Eosinophils % (0 - 5 %) 0.4 Basophils % (0.0 - 2.0 %) 0.2 Absolute Granulocytes (1.4 - 6.5 /CUMM) 9.9 H Segmented Neutrophils (42.2 - 75.2 %) 78 H Band Neutrophils (0.0 - 5.0 %) 4 Absolute Lymphocytes (1.2 - 3.4 /CUMM) 0.6 L Lymphocytes (20.5 - 51.1 %) 8 L Monocytes (1.7 - 9.3 %) 10 H Absolute Monocytes (0.10 - 0.60 /CUMM) 1.0 H Absolute Eosinophils (0.0 - 0.7 /CUMM) 0 Absolute Basophils (0.0 - 0.2 /CUMM) 0 Platelet Estimate (ADEQUATE) ADEQUATE Polychromasia 1+ Hypochromic-Microcytic 2+ Poikilocytosis 1+ Anisocytosis 1+ Microcytic Cells 1+ Elliptocytes 1+ PUBS MCHC (33.0 - 37.0 G/DL) 32.2 L Assessment/Plan Assessment/Plan Small bowel obstruction from anastomotic lesion Continue NG tube Ice chips IV fluids await return of bowel function Appreciate cardiology input and medical input Core Measures Venous Thromboembolism VTE Risk Factors Cancer/chemo/othr therapy No Mechanical VTE Prophylaxis d/t N/A MechProphylax Ordered No VTE Pharm Prophylaxis d/t NA PharmProphylax ordered
[2017-10-23 13:11] VITALS: BP 120/52
[2017-10-23 22:22] VITALS: BP 110/50
[2017-10-24 06:55] VITALS: BP 140/60
--- NOTE | 2017-10-24 07:53 | PN- Cardiology ---
Subjective Subjective: No chest pain or SOB. Mild abdominal pain. She reports passing little gas last night Objective Vital Signs and I&Os Vital Signs Date Time Temp Pulse Resp B/P B/P Pulse O2 O2 Flow FiO2 Mean Ox Delivery Rate 10/24 0655 97.5 88 20 140/60 91 Nasal 2.0L Cannula 10/24 0000 Nasal 2.0L Cannula 10/23 2222 97.7 106 16 110/50 93 Nasal 2.0L Cannula 10/23 1311 99.6 85 16 120/52 94 Nasal 2.0L Cannula 10/23 1045 115 130/50 10/23 0900 Nasal 2.0L Cannula Intake & Output 10/24 0800 10/24 0000 10/23 1600 10/23 0810/23 0000 10/22 1600 Intake Total 640 640 600 710 680 Output Total 500 450 250 280 410 400 Balance 140 190 350 430 270 -400 Intake, IV 640 640 600 640 680 Intake, Oral 0 0 0 0 0 Intake, Other 70 Number 0 0 Bowel Movements Output, 150 50 250 280 410 400 Gastric Drainage Output, Urine 350 400 Patient 160 lb Weight Weight Reported by Patient Measurement Method Physical Exam: HEENT-PERRLA Neck-JVP normal Lungs-few right base crackles, left is clear Heart-S1S2 irregular, 2/6 KEDAR at the base Abdomen-soft, mildly distended with tenderness on palpation, BS- no organomegaly Extr-trace edema, 2+pulses Neuro-non focal Current Medications: Current Medications Sig/Darrell Start time Last Medication Dose Route Stop Time Status Admin Acetaminophen 1,000 MG Q6P PRN 10/22 1415 AC N/A 1 UNIT IV Dextrose/Sodium 1,000 ML Q13H 10/22 1515 AC 10/23 Chloride IV 1755 Digoxin 125 MCG DAILY 10/23 1000 AC 10/23 IV 1045 Diltiazem HCl 125 MG Q24H 10/23 0330 AC 10/24 Sodium Chloride 100 ML IV 0412 Famotidine 20 MG BID 10/23 1046 AC 10/23 IV 2310 Insulin Human Regular 4 UNITS .STK-MED ONE 10/23 2313 DC IV 10/23 2314 Insulin Human Regular 6 UNITS .STK-MED ONE 10/23 1750 DC IV 10/23 1751 Insulin Human Regular 6 UNITS .STK-MED ONE 10/23 1301 DC IV 10/23 1302 Insulin Human Regular 0 Q6 10/22 1800 AC 10/24 SC 0527 Labetalol HCl 5 MG DAILY NEEDED PRN 10/22 1515 AC IV Levothyroxine Sodium 62.5 MCG DAILY 10/23 1000 AC 10/23 IV 1045 Morphine Sulfate 1 MG Q2P PRN 10/22 1415 AC IV Morphine Sulfate 2 MG Q2P PRN 10/22 1415 AC IV Ondansetron HCl 4 MG Q8P PRN 10/22 1415 AC IV Pantoprazole Sodium 40 MG DAILY 10/23 1000 DC IV Sucralfate 1 GM BID 10/23 0257 AC 10/23 PO 0344 Results Last 48 Hrs of Labs/Mics: Laboratory Tests 10/23/17 0615: Anion Gap 12, Estimated GFR 52 L, BUN/Creatinine Ratio 33.0 H, CBC w Diff NO MAN DIFF REQ, RBC 3.13 L, MCV 79.5 L, MCH 25.5 L, RDW 18.6 H, MPV 8.8, Gran % 73.5, Lymphocytes % 8.8 L, Monocytes % 17.7 H, Eosinophils % 0, Basophils % 0, Absolute Granulocytes 7.2 H, Absolute Lymphocytes 0.9 L, Absolute Monocytes 1.7 H, Absolute Eosinophils 0, Absolute Basophils 0, PUBS MCHC 32.1 L 10/22/17 1249: TSH 2.260 Assessment/Plan Assessment/Plan 86-year-old female with past medical history of atrial fibrillation on xarelto, moderate to severe aortic stenosis, hypertension, hyperlipidemia, TIA, hypothyroidism, diabetes mellitus, gout, osteoarthritis, colon cancer status post resection and chemotherapy, h/o GI bleed presents with acute bowel obstruction/ileus due to metastatic colon cancer. Atrial fibrillation well controlled with iv cardizem HTN-BP is stable. Moderate to severe aortic stenosis-no clinical symptoms of CHF Plan: continue iv cardizem 5 mg/hr once able to take oral medications she can be changed back to digoxin and she also takes metoprolol 25mg qd (not on her list) continue gentle iv fluids while NPO she may need TPN as per surgery Continue telemetry? Yes
--- NOTE | 2017-10-24 09:41 | PN- Att Addend ---
Attending Addendum Attending Brief Note Ms. Mosley was seen and evaluated. Chart reviewed. Briefly, she is an 87-year- old with a past medical history significant for atrial fibrillation(not on anticoagulation due to GI bleed) , CHF, hypertension, hyperlipidemia, peripheral neuropathy, TIA, gout/osteoarthritis, history of diabetes, hypothyroidism, hx of colon cancer status post right hemicolectomy presented to the ED with a chief complaints of abdominal discomfort. In the ED patient was having 10 on 10 abdominal discomfort, CAT scan of the abdomen revealed small bowel obstruction with significantly dilated fluid-filled loops of bowel throughout the entire abdomen to the level of an enterocolonic anastomosis at the splenic flexure with relatively decompressed large bowel. Medicine Team consulted to manage chronic conditiosn. Pt has also been evalauted by Cards Vital Signs Date Time Temp Pulse Resp B/P B/P Pulse O2 O2 Flow FiO2 Mean Ox Delivery Rate 10/24 0916 72 140/60 10/24 0800 91 Nasal 2.0L Cannula 10/24 0655 97.5 88 20 140/60 91 Nasal 2.0L Cannula 10/24 0000 Nasal 2.0L Cannula 10/23 2222 97.7 106 16 110/50 93 Nasal 2.0L Cannula 10/23 1311 99.6 85 16 120/52 94 Nasal 2.0L Cannula 10/23 1045 115 130/50 Intake & Output 10/24 1600 10/24 0800 10/24 0000 Intake Total 640 640 Output Total 500 450 Balance 140 190 Intake, IV 640 640 Intake, Oral 0 0 Number 0 0 Bowel Movements Output, 150 50 Gastric Drainage Output, Urine 350 400 GEN: Awake and alert HEENT: moist mucosa HEART: s1,s2 ABD: TTP, no bowel sounds Labs/Diagnostics: reviewed A/P: -- rate controlled afib. Cont Cardizem drip, f/u Cards recommendations -- labetolol for uncontrolled BP -- NPO -- cont to monitor glucose and titrate sliding scale -- rest of the plan as per surgical team
--- NOTE | 2017-10-24 11:31 | PN- General Surgery ---
See Addendum Subjective Subjective: Feeling better today, in better spirits, less abdominal pain and distention + small flatus last evening, none today Objective Vital Signs and I&Os Vital Signs Date Time Temp Pulse Resp B/P B/P Pulse O2 O2 Flow FiO2 Mean Ox Delivery Rate 10/24 0916 72 140/60 10/24 0800 91 Nasal 2.0L Cannula 10/24 0655 97.5 88 20 140/60 91 Nasal 2.0L Cannula 10/24 0000 Nasal 2.0L Cannula 10/23 2222 97.7 106 16 110/50 93 Nasal 2.0L Cannula 10/23 1311 99.6 85 16 120/52 94 Nasal 2.0L Cannula Intake & Output 10/24 1600 10/24 0810/24 0000 10/23 1600 10/23 0000 Intake Total 640 640 600 710 680 Output Total 500 450 250 280 410 Balance 140 190 350 430 270 Intake, IV 640 640 600 640 680 Intake, Oral 0 0 0 0 0 Intake, Other 70 Number 0 0 Bowel Movements Output, 150 50 250 280 410 Gastric Drainage Output, Urine 350 400 Physical Exam: Well-developed well-nourished no apparent distress. HEENT: Atraumatic, extraocular motion intact Neck: Supple, no lymphadenopathy Respiratory: No respiratory distress Abdomen: Mild distention, less so than yesterday, minimal abdominal tenderness central region. Pharynx faint bowel sounds Extremities: No edema, no calf pain Neuro: Alert and oriented x3 Psych: Mood affect normal, normal memory normal judgment. Skin: Warm and dry, no rash on exposed skin Results Last 48 Hours of Labs: Laboratory Tests 10/23 10/22 0615 1249 Chemistry Sodium (137 - 145 mmol/L) 136 L Potassium (3.5 - 5.1 mmol/L) 4.3 Chloride (98 - 107 mmol/L) 100 Carbon Dioxide (22 - 30 mmol/L) 24 Anion Gap (5 - 16) 12 BUN (7 - 17 mg/dL) 33 H Creatinine (0.5 - 1.0 mg/dL) 1.0 Estimated GFR (>60 ml/min) 52 L BUN/Creatinine Ratio (7 - 25 %) 33.0 H TSH (0.270 - 4.200 uIU/mL) 2.260 Hematology CBC w Diff NO MAN DIFF REQ WBC (4.8 - 10.8 /CUMM) 9.8 RBC (4.20 - 5.40 /CUMM) 3.13 L Hgb (12.0 - 16.0 G/DL) 8.0 L Hct (37 - 47 %) 24.9 L MCV (81.0 - 99.0 FL) 79.5 L MCH (27.0 - 31.0 PG) 25.5 L RDW (11.5 - 14.5 %) 18.6 H Plt Count (130 - 400 /CUMM) 266 MPV (7.4 - 10.4 FL) 8.8 Gran % (42.2 - 75.2 %) 73.5 Lymphocytes % (20.5 - 51.1 %) 8.8 L Monocytes % (1.7 - 9.3 %) 17.7 H Eosinophils % (0 - 5 %) 0 Basophils % (0.0 - 2.0 %) 0 Absolute Granulocytes (1.4 - 6.5 /CUMM) 7.2 H Absolute Lymphocytes (1.2 - 3.4 /CUMM) 0.9 L Absolute Monocytes (0.10 - 0.60 /CUMM) 1.7 H Absolute Eosinophils (0.0 - 0.7 /CUMM) 0 Absolute Basophils (0.0 - 0.2 /CUMM) 0 PUBS MCHC (33.0 - 37.0 G/DL) 32.1 L Assessment/Plan Assessment/Plan Small bowel obstruction secondary to anastomotic lesion Clinically appears better today, still with good amount NG tube output, had small amount of flatus last evening Recommend continuing course, NG tube, IV fluids, ice chips Out of bed, ambulate ad phillip. may need abdominal series and possible SBFT in 1-2 days if she does not continue to improve. consider TPN at that point. Core Measures Venous Thromboembolism VTE Risk Factors Cancer/chemo/othr therapy No Mechanical VTE Prophylaxis d/t N/A MechProphylax Ordered No VTE Pharm Prophylaxis d/t NA PharmProphylax ordered
[2017-10-24 14:06] VITALS: BP 136/60
[2017-10-24 22:22] VITALS: BP 128/62
[2017-10-25 06:44] VITALS: BP 144/50
[2017-10-25 08:40] LABS: ABSOLUTE BASOPHIL COUNT 0 /CUMM (0.0-0.2); ABSOLUTE EOSINOPHIL COUNT 0.1 /CUMM (0.0-0.7); ABSOLUTE GRANULOCYTE CT 4.9 /CUMM (1.4-6.5); ABSOLUTE MONOCYTE COUNT 0.6 /CUMM (0.10-0.60); BASOPHIL % 0.2 % (0.0-2.0); EOSINOPHIL % 1.4 % (0-5); GRANULOCYTE % 74.2 % (42.2-75.2); HEMATOCRIT 25.3 % (37-47); MEAN CORPUSCULAR HGB 25.6 PG (27.0-31.0); MEAN CORPUSCULAR HGB CONC 32.4 G/DL (33.0-37.0); MEAN CORPUSCULAR VOLUME 79.2 FL (81.0-99.0); MEAN PLATELET VOLUME 8.6 FL (7.4-10.4); PLATELET COUNT 224 /CUMM (130-400); RBC DISTRIBUTION WIDTH 18.3 % (11.5-14.5); WHITE BLOOD CELL COUNT 6.6 /CUMM (4.8-10.8)
--- NOTE | 2017-10-25 09:48 | PN- Att Addend ---
Attending Addendum Attending Brief Note Ms. Moreland was seen and evalauted. Chart reviewed. Reports passing flatus. Less abd pain today Vital Signs Date Time Temp Pulse Resp B/P B/P Pulse O2 O2 Flow FiO2 Mean Ox Delivery Rate 10/25 0644 98.1 78 24 144/50 95 Nasal 2.0L Cannula 10/25 0000 92 Nasal 2.0L Cannula 10/24 2222 98.8 98 20 128/62 92 Nasal Cannula 10/24 1600 92 Nasal 2.0L Cannula 10/24 1406 98.1 60 20 136/60 92 Nasal 2.0L Cannula Intake & Output 10/25 1600 10/25 0800 10/25 0000 Intake Total 640 1100 Output Total 700 290 Balance -60 810 Intake, IV 640 680 Intake, Oral 0 420 Number 0 0 Bowel Movements Output, 200 40 Gastric Drainage Output, Urine 500 250 Patient 72.575 kg Weight GEN: pleasant, awake and alert HEENT: moist mucosa HEART: s1,s2, +KEDAR ABD: soft, no bowel sounds Labs/Diagnostics: reviewed Laboratory Tests 10/25/17 0700: Anion Gap 6, Estimated GFR > 60, BUN/Creatinine Ratio 20.0, Magnesium 2.0, CBC w Diff NO MAN DIFF REQ, RBC 3.20 L, MCV 79.2 L, MCH 25.6 L, RDW 18.3 H, MPV 8.6, Gran % 74.2, Lymphocytes % 14.8 L, Monocytes % 9.4 H, Eosinophils % 1.4, Basophils % 0.2, Absolute Granulocytes 4.9, Absolute Lymphocytes 1.0 L, Absolute Monocytes 0.6, Absolute Eosinophils 0.1, Absolute Basophils 0, PUBS MCHC 32.4 L A/P: -- rate controlled afib. Cont Cardizem drip, f/u Cards recommendations -- replete lytes as needed -- labetolol for uncontrolled BP -- NPO -- cont to monitor glucose and titrate sliding scale -- rest of the plan as per surgical team
--- NOTE | 2017-10-25 10:23 | PN- General Surgery ---
See Addendum Subjective Subjective: still with abdominal pain, better at rest, same on palpation. denies n/v, no cp /sob/palps. no flatus, no bm. +oob yesterday Objective Vital Signs and I&Os Vital Signs Date Time Temp Pulse Resp B/P B/P Pulse O2 O2 Flow FiO2 Mean Ox Delivery Rate 10/25 0644 98.1 78 24 144/50 95 Nasal 2.0L Cannula 10/25 0000 92 Nasal 2.0L Cannula 10/24 2222 98.8 98 20 128/62 92 Nasal Cannula 10/24 1600 92 Nasal 2.0L Cannula 10/24 1406 98.1 60 20 136/60 92 Nasal 2.0L Cannula Intake & Output 10/25 1600 10/25 0800 10/25 0000 10/24 1600 10/24 0800 10/24 0000 Intake Total 640 1100 820 640 640 Output Total 700 290 550 500 450 Balance -60 810 270 140 190 Intake, IV 640 680 640 640 640 Intake, Oral 0 420 180 0 0 Number 0 0 0 0 0 Bowel Movements Output, 200 40 150 150 50 Gastric Drainage Output, Urine 500 250 400 350 400 Patient 160 lb Weight NGT: 100 since 6am (taking some ice chips) Physical Exam: gen- nad card- s1s2, irreg irreg, +murmur pulm- ctab abd- quiet bs w ngt clamped, clear-bilious ng output in canister, ttp suprapublic/bl lower abd, no r/g Results Last 48 Hours of Labs: Laboratory Tests 10/25 0700 Chemistry Sodium (137 - 145 mmol/L) 138 Potassium (3.5 - 5.1 mmol/L) 3.7 Chloride (98 - 107 mmol/L) 105 Carbon Dioxide (22 - 30 mmol/L) 26 Anion Gap (5 - 16) 6 BUN (7 - 17 mg/dL) 14 Creatinine (0.5 - 1.0 mg/dL) 0.7 Estimated GFR (>60 ml/min) > 60 BUN/Creatinine Ratio (7 - 25 %) 20.0 Magnesium (1.6 - 2.3 mg/dL) 2.0 Hematology CBC w Diff NO MAN DIFF REQ WBC (4.8 - 10.8 /CUMM) 6.6 RBC (4.20 - 5.40 /CUMM) 3.20 L Hgb (12.0 - 16.0 G/DL) 8.2 L Hct (37 - 47 %) 25.3 L MCV (81.0 - 99.0 FL) 79.2 L MCH (27.0 - 31.0 PG) 25.6 L RDW (11.5 - 14.5 %) 18.3 H Plt Count (130 - 400 /CUMM) 224 MPV (7.4 - 10.4 FL) 8.6 Gran % (42.2 - 75.2 %) 74.2 Lymphocytes % (20.5 - 51.1 %) 14.8 L Monocytes % (1.7 - 9.3 %) 9.4 H Eosinophils % (0 - 5 %) 1.4 Basophils % (0.0 - 2.0 %) 0.2 Absolute Granulocytes (1.4 - 6.5 /CUMM) 4.9 Absolute Lymphocytes (1.2 - 3.4 /CUMM) 1.0 L Absolute Monocytes (0.10 - 0.60 /CUMM) 0.6 Absolute Eosinophils (0.0 - 0.7 /CUMM) 0.1 Absolute Basophils (0.0 - 0.2 /CUMM) 0 PUBS MCHC (33.0 - 37.0 G/DL) 32.4 L Assessment/Plan Assessment/Plan A- HD2 with SBO- await return of bowel fxn, and afib- now rate controlled on cardizem gtt and dig. P- cont NGT, NPO, IVF I&Os OOB, ambulate appreciate medicine, cards input- continue cardizem gtt, tele, cardiac meds pepcid bid (not protonix) per attending will continue conservative mgmt will dw attending Core Measures Venous Thromboembolism VTE Risk Factors Cancer/chemo/othr therapy No Mechanical VTE Prophylaxis d/t N/A MechProphylax Ordered No VTE Pharm Prophylaxis d/t NA PharmProphylax ordered
[2017-10-25 14:42] VITALS: BP 130/68
[2017-10-25 23:45] VITALS: BP 138/60
[2017-10-26 06:00] VITALS: BP 166/60
--- NOTE | 2017-10-26 09:20 | PN- Att Addend ---
Attending Addendum Attending Brief Note Ms. Moreland was seen and evalauted. Chart reviewed. Denies any CP, SOB, or abd pain. Reports passing flatus Vital Signs Date Time Temp Pulse Resp B/P B/P Pulse O2 O2 Flow FiO2 Mean Ox Delivery Rate 10/26 0902 81 166/60 10/26 0600 98.5 81 18 166/60 94 10/26 0000 Nasal 2.0L Cannula 10/25 2345 98.8 101 22 138/60 93 Nasal Cannula 10/25 1600 Nasal 2.0L Cannula 10/25 1442 98.0 99 24 130/68 95 Nasal Cannula 10/25 1018 82 132/60 Intake & Output 10/26 1600 10/26 0800 10/26 0000 Intake Total 640 300 Output Total 775 975 Balance -135 -675 Intake, IV 640 Intake, Oral 300 Output, 225 325 Gastric Drainage Output, Urine 550 650 GEN: AAOx3 HEENT: sl dry mucosa, NGT in place LUNGS: CTA HEART: KEDAR ABD: soft, mild TTP, No BS Laboratory Tests 10/26/17 0700: Anion Gap 8, Estimated GFR > 60, BUN/Creatinine Ratio 15.0, Phosphorus 3.2, Magnesium 1.9 A/p -- rate controlled afib. On Cardizem drip, f/u Cards recommendations -- replete K and monitor -- titrate labetolol as BP high -- NPO -- cont to monitor glucose and titrate sliding scale -- rest of the plan as per surgical team
[2017-10-26 15:31] VITALS: BP 110/60; BP 138/62
--- NOTE | 2017-10-26 18:40 | PN- General Surgery ---
Subjective Subjective: no major issues overinight +flatus, no bm no abdominal jpain at this time conts with ngt bilious output Objective Vital Signs and I&Os Vital Signs Date Time Temp Pulse Resp B/P B/P Pulse O2 O2 Flow FiO2 Mean Ox Delivery Rate 10/26 1531 98.0 78 20 110/60 95 Room Air 10/26 0902 81 166/60 10/26 0900 Nasal Cannula 10/26 0600 98.5 81 18 166/60 94 10/26 0000 Nasal 2.0L Cannula 10/25 2345 98.8 101 22 138/60 93 Nasal Cannula Intake & Output 10/26 1600 10/26 0800 10/26 0000 10/25 1600 10/25 0800 10/25 0000 Intake Total 600 640 300 660 680 6441 Output Total 250 775 975 750 700 290 Balance 350 -135 -675 -120 -60 810 Intake, IV 600 640 600 640 680 Intake, Oral 0 300 30 0 420 Number 0 0 Bowel Movements Output, 250 225 325 300 200 40 Gastric Drainage Output, Urine 550 650 450 500 250 Patient 160 lb Weight Physical Exam: cv: rrr(rate controlled on cardizem gtt) lungs: clear abd: mild tenderness to palp no guarding ext: warm, distal cms intact Assessment/Plan Assessment/Plan sbo, with anatomotic lesion on ct scan no major complaints now less distention plan cont npo/ngt f/ fwith surgical attending Core Measures Venous Thromboembolism VTE Risk Factors Cancer/chemo/othr therapy No Mechanical VTE Prophylaxis d/t N/A MechProphylax Ordered No VTE Pharm Prophylaxis d/t NA PharmProphylax ordered
[2017-10-26 22:28] VITALS: BP 150/50
[2017-10-27 07:01] VITALS: BP 120/50
--- NOTE | 2017-10-27 07:35 | PN- Cardiology ---
Subjective Subjective: No CP, SOB or abdominal pain Objective Vital Signs and I&Os Vital Signs Date Time Temp Pulse Resp B/P B/P Pulse O2 O2 Flow FiO2 Mean Ox Delivery Rate 10/27 0701 98.1 68 20 120/50 94 Room Air 10/26 2228 98.1 74 20 150/50 94 Room Air 10/26 1531 98.0 78 20 110/60 95 Room Air 10/26 0902 81 166/60 10/26 0900 Nasal Cannula Intake & Output 10/27 0000 10/26 1600 10/26 0000 10/25 1600 Intake Total 640 710 600 640 300 630 Output Total 520 250 250 775 975 750 Balance 120 460 350 -135 -675 -120 Intake, IV 640 640 600 640 600 Intake, Oral 0 0 0 300 30 Intake, Other 70 Number 0 Bowel Movements Output, 120 100 250 225 325 300 Gastric Drainage Output, Urine 400 150 550 650 450 Physical Exam: HEENT-PERRLA Neck-JVP normal Lungs-clear bilaterally Heart s1S1 irregular, 2/6 KEDAR Abdomen-soft,less distended with mild tenderness, BS+, no organomegaly Extr-no edema, 2+ pulses neuro-non focal Assessment/Plan Assessment/Plan 86-year-old female with past medical history of atrial fibrillation on xarelto, moderate to severe aortic stenosis, hypertension, hyperlipidemia, TIA, hypothyroidism, diabetes mellitus, gout, osteoarthritis, colon cancer status post resection and chemotherapy, h/o GI bleed presents with acute bowel obstruction/ileus due to metastatic colon cancer. Atrial fibrillation well controlled with iv cardizem and iv digoxin HTN-BP is stable. Moderate to severe aortic stenosis-no clinical symptoms of CHF Plan: continue iv cardizem 5 mg/hr once able to take oral medications she can be changed back to digoxin and she also takes metoprolol 25mg qd replete K+, keep potassium 4.0-5.0 check digoxin level Continue telemetry? Yes
--- NOTE | 2017-10-27 07:44 | PN- Medicine Consult ---
Assessment/Plan Assessment/Plan Assessment: Patient is a 87-year-old with a past medical history significant for atrial fibrillation(not on anticoagulation due to GI bleed) , CHF, hypertension, hyperlipidemia, peripheral neuropathy, TIA, gout/osteoarthritis, history of diabetes, hypothyroidism, hx of colon cancer status post right hemicolectomy presented to the ED with a chief complaints of abdominal discomfort. In the ED patient was having 10 on 10 abdominal discomfort, CAT scan of the abdomen revealed small bowel obstruction with significantly dilated fluid-filled loops of bowel throughout the entire abdomen to the level of an enterocolonic anastomosis at the splenic flexure with relatively decompressed large bowel. Plan: Problem list: 1. Small bowel obstruction likely in the setting of prior colon surgeries 2. History of atrial fibrillation(not on anticoagulation due to GI bleed). 3. Hypokalemia 4.. History of CHF 5. History of hypertension 6. History of hypothyroidism 7. History of diabetes 8. History of colon cancer status post right hemicolectomy Plan 1. Small bowel obstruction likely in the setting of prior colon surgeries * Continue recommendations as per surgical team * Nothing by mouth for now, * All medications have been changed to IV . * Adequate pain control. 2. History of atrial fibrillation(not on anticoagulation due to GI bleed) * Patient has been started on IV Cardizem drip(target heart rate <110) * Continue to follow Dr. Ferguson recommendations. * Once stable for oral intake switch IV digoxin to oral and restart by mouth metoprolol. 3. Hypokalemia * Repeat and replete the electrolytes. 4. History of CHF * Continue lasix to iv (40 mg daily) 5.. History of hypertension * labetalol IV pushes 5 mg as needed for BP >160/90. 6. History of hypothyroidism. * Continue by mouth levothyroxin to IV (PO 125 MCG to 63 IV mcg). 7. History of diabetes * Npo insulin sliding scale with D5 half normal saline * FSS every 6 hrs. 8. History of colon cancer status post right hemicolectomy * Chemotherapy on hold Problem List: 1. Bowel obstruction Subjective Subjective: Pt is seen and examined today. Vitals are stable, heart rate is < 110.She denies any SOB , chest pain/palpitations. Still NPO, abdominal pain is controlled with current pain regimen. Pt passed gas this morning,positive bowel sounds on exam, no bowel movement yet. Review of Systems Constitutional: Denies: diaphoresis, fever, malaise. Cardiovascular: Denies: edema, orthopena, palpitations. Respiratory: Denies: hemoptysis, orthopnea, short of breath. Gastrointestinal: Denies: constipation. Genitourinary: Denies: dysuria, frequency, hematuria. Musculoskeletal: Denies: gout, joint pain, joint swelling. Skin: Denies: cysts, change in skin color, change in hair/nails. Objective Last 24 Hrs of Vital Signs/I&O Vital Signs Date Time Temp Pulse Resp B/P B/P Pulse O2 O2 Flow FiO2 Mean Ox Delivery Rate 10/27 0701 98.1 68 20 120/50 94 Room Air 10/26 2228 98.1 74 20 150/50 94 Room Air 10/26 1531 98.0 78 20 110/60 95 Room Air 10/26 0902 81 166/60 10/26 0900 Nasal Cannula Intake & Output 10/27 0800 10/27 0000 10/26 1600 Intake Total 640 710 600 Output Total 520 250 250 Balance 120 460 350 Intake, IV 640 640 600 Intake, Oral 0 0 0 Intake, Other 70 Number 0 Bowel Movements Output, 120 100 250 Gastric Drainage Output, Urine 400 150 Physical Exam General Appearance: well developed/nourished Head: atraumatic, normal appearance Ears, Nose, Throat: normal pharynx, normal ENT inspection Neck: normal inspection, supple Cardiovascular: regular rate/rhythm, edema Respiratory: normal breath sounds, chest non-tender Abdomen: normal bowel sounds, soft, non-tender Rectal: normal exam, normal rectal tone Back: normal inspection, normal range of motion, vertebral tenderness Extremities: normal inspection, normal capillary refill Current Medications: Current Medications Sig/Darrell Start time Last Medication Dose Route Stop Time Status Admin Acetaminophen 1,000 MG Q6P PRN 10/22 1415 AC N/A 1 UNIT IV Dextrose/Sodium 1,000 ML Q13H 10/22 1515 DC 10/26 Chloride IV 1135 Digoxin 0.125 MG DAILY 10/25 1000 AC 10/26 IV 0902 Diltiazem HCl 125 MG Q24H 10/23 0330 AC 10/27 Sodium Chloride 100 ML IV 0521 Famotidine 20 MG BID 10/23 1046 AC 10/26 IV 2027 Heparin Sodium 5,000 UNIT Q8 12/31 1400 AC 10/27 (Porcine) SC 0522 Insulin Human Regular 2 UNITS .STK-MED ONE 10/26 2324 DC IV 10/26 2325 Insulin Human Regular 4 UNITS .STK-MED ONE 10/26 1715 DC IV 10/26 1716 Insulin Human Regular 6 UNITS .STK-MED ONE 10/26 1210 DC IV 10/26 1211 Insulin Human Regular 0 Q6 10/22 1800 AC 10/27 SC 0523 Labetalol HCl 5 MG DAILY NEEDED PRN 10/22 1515 AC IV Levothyroxine Sodium 62.5 MCG DAILY 10/23 1000 AC 10/26 IV 1135 Morphine Sulfate 1 MG Q2P PRN 10/22 1415 AC IV Morphine Sulfate 2 MG Q2P PRN 10/22 1415 AC IV Ondansetron HCl 4 MG Q8P PRN 10/22 1415 AC IV Potassium Chloride 40 MEQ Q13H 10/26 1545 AC 10/26 Dextrose/Sodium 1,000 ML IV 1733 Chloride Potassium Chloride 10 MEQ Q1H 10/26 1545 DC 10/26 IV 10/26 1646 1900 Sodium Chloride 2 SPRAY Q4P PRN 10/26 2330 AC SELAM Sucralfate 1 GM BID 10/23 0257 10/26 PO 2026 Results Last 24 Hrs Lab/Sanjeev Results: .
--- NOTE | 2017-10-27 09:27 | PN- General Surgery ---
See Addendum Subjective Subjective: Patient passed a large amount of flatus this am, no bm. Denies nausea and vomitting. Continues to have bilious output from ngt. Has been tolerating ice chips. Denies chest pain, shortness of breath and difficulty breathing. Spoke with covering surgeon over the weekend regarding colostomy. Is anticipating further discussion with Dr. Jha and Dr. Son regarding plan of care. Objective Vital Signs and I&Os Vital Signs Date Time Temp Pulse Resp B/P B/P Pulse O2 O2 Flow FiO2 Mean Ox Delivery Rate 10/27 0701 98.1 68 20 120/50 94 Room Air 10/26 2228 98.1 74 20 150/50 94 Room Air 10/26 1531 98.0 78 20 110/60 95 Room Air Intake & Output 10/27 1600 10/27 0800 10/27 0000 10/26 1600 10/26 0800 10/26 0000 Intake Total 640 710 600 640 300 Output Total 520 250 250 775 975 Balance 120 460 350 -135 -675 Intake, IV 640 640 600 640 Intake, Oral 0 0 0 300 Intake, Other 70 Number 0 Bowel Movements Output, 120 100 250 225 325 Gastric Drainage Output, Urine 400 150 550 650 Physical Exam: General: Alert and oriented x3, no acute distress Cardiac: s1s2, irregular rhythm Pulm: CTA bilaterally, non-labored respiratory effort Abdomen: Firmess palpated right side, tender, otherwise soft. +bs Extremities: Moves all extremities, distal sensation intact, skin warm and well perfused, dp pulses palpable bilaterally, bilateral calves soft and non-tender Assessment/Plan Assessment/Plan This is an 87 year old female with a sbo related to anastomotic recurrence, colon ca. now HD 5, awaiting bowel function. -Continue cardizem gtt per Dr. Ferguson, rate controlled on 5 mg/hr -Continue iv dig, follow up levels -Follow up K+, repleted yesterday, will keep level between 4.0-5.0 -Continue ice chips and ngt to suction, had increasing bilious output while being examined this am, will consider clamping trial this afternoon -Continue iv fluids as is -Will plan on futher discussion with Dr. Son and Dr. Jha regarding possible surgical intervention, decompressive colostomy, later this week Core Measures Venous Thromboembolism VTE Risk Factors Cancer/chemo/othr therapy No Mechanical VTE Prophylaxis d/t N/A MechProphylax Ordered No VTE Pharm Prophylaxis d/t NA PharmProphylax ordered
[2017-10-27 10:46] LABS: ABSOLUTE BASOPHIL COUNT 0 /CUMM (0.0-0.2); ABSOLUTE EOSINOPHIL COUNT 0.1 /CUMM (0.0-0.7); ABSOLUTE LYMPH COUNT 0.9 /CUMM (1.2-3.4); ABSOLUTE MONOCYTE COUNT 0.6 /CUMM (0.10-0.60); BASOPHIL % 0.1 % (0.0-2.0); EOSINOPHIL % 1.8 % (0-5); GRANULOCYTE % 71.6 % (42.2-75.2); MEAN CORPUSCULAR HGB 24.7 PG (27.0-31.0); MEAN CORPUSCULAR HGB CONC 32.2 G/DL (33.0-37.0); MEAN CORPUSCULAR VOLUME 76.9 FL (81.0-99.0); MEAN PLATELET VOLUME 8.1 FL (7.4-10.4); PLATELET COUNT 272 /CUMM (130-400); RBC DISTRIBUTION WIDTH 18.6 % (11.5-14.5); RED BLOOD CELL CT 3.63 /CUMM (4.20-5.40); WHITE BLOOD CELL COUNT 5.6 /CUMM (4.8-10.8)
[2017-10-27 17:23] VITALS: BP 110/60
[2017-10-27 22:45] VITALS: BP 108/62
[2017-10-28 07:13] VITALS: BP 154/60
--- NOTE | 2017-10-28 07:15 | Cons- Oncology ---
General Information and HPI Consulting Request Date of Consult: 10/28/17 Requested By: Marbella Jha MD History of Present Illness: 87-year-old woman well known to me with recurrent colon cancer. Patient was initially diagnosed with stage III colon cancer and was intolerant of 5-FU based chemotherapy. Within the last 6 months, the patient was diagnosed with recurrent disease-anastomotic recurrence and pathologic lymphadenopathy. She was begun on vectibix. She is now admitted with small bowel obstruction. She denies significant abdominal pain or current nausea and vomiting. She Did pass a bowel movement last night despite being nothing by mouth. Allergies/Medications Allergies: Coded Allergies: Sulfa (Sulfonamide Antibiotics) (Intermediate, RASH 03/26/17) adhesive tape (PAPER TAPE OK PER PT 03/26/17) Home Med List: Alprazolam (Xanax) 0.5 MG TABLET 1 TAB PO QDAILY PRN ANXIETY (Reported) Amlodipine Besylate 10 MG TABLET 1 TAB PO DAILY BP (Reported) Atorvastatin Calcium (Lipitor) 20 MG TABLET 1 TAB PO DAILY CHOLESTEROL ( Reported) Atorvastatin Calcium 20 MG TABLET 1 TAB PO DAILY HIGH CHOLESTROL (Reported) Baclofen 10 MG TABLET 1 TAB PO TIDPRN PRN muscle spasm/strain Cholecalciferol (Vitamin D3) (Vitamin D) 1,000 UNIT TABLET 1 TAB PO DAILY SUPPLEMENT (Reported) Colchicine 0.6 MG TABLET 300 MCG PO BID PSEUDOGOUT Cranberry Fruit Concentrate (Cranberry) 450 MG CAPSULE 1 CAP PO DAILY SUPPLEMENT (Reported) Digoxin 125 MCG TABLET 1 TAB PO QPM HEART (Reported) Furosemide 40 MG TABLET 1 TAB PO DAILY DIURETIC (Reported) Gabapentin 300 MG CAPSULE 1 CAP PO DAILY NEUROPATHY Insulin Detemir (Levemir) 100 UNIT/ML VIAL 40 UNIT SC BID DM (Reported) Irbesartan (Avapro) 300 MG TABLET 1 TAB PO DAILY BP (Reported) Levothyroxine Sodium (Synthroid) 125 MCG TABLET 1 TAB PO DAILY AC THYROID ( Reported) Multivitamin (Multi-Day Vitamins) 1 EACH TABLET 1 TAB PO DAILY SUPPLEMENT ( Reported) Potassium Chloride 20 MEQ TABLET.ER 1 TAB PO DAILY SUPPLEMENT (Reported) Sitagliptin Phosphate (Januvia) 100 MG TABLET 1 TAB PO DAILY DM (Reported) Solifenacin Succinate (Vesicare) 5 MG TABLET 1 TAB PO DAILY BLADDER (Reported ) Current Medications: Current Medications Sig/Darrell Start time Last Medication Dose Route Stop Time Status Admin Acetaminophen 1,000 MG Q6P PRN 10/22 1415 AC N/A 1 UNIT IV Digoxin 0.125 MG DAILY 10/25 1000 AC 10/27 IV 0958 Diltiazem HCl 125 MG Q24H 10/23 0330 AC 10/28 Sodium Chloride 100 ML IV 0612 Famotidine 20 MG BID 10/23 1046 AC 10/27 IV 205 Heparin Sodium 5,000 UNIT Q8 10/25 1400 AC 10/28 (Porcine) SC 0608 Insulin Human Regular 4 UNITS .STK-MED ONE 10/27 1814 DC IV 10/27 1815 Insulin Human Regular 6 UNITS .STK-MED ONE 10/27 1237 DC IV 10/27 1238 Insulin Human Regular 0 Q6 10/22 1800 AC 10/28 SC 0607 Labetalol HCl 5 MG DAILY NEEDED PRN 10/22 1515 AC IV Levothyroxine Sodium 62.5 MCG DAILY 10/23 1000 AC 10/27 IV 1047 Morphine Sulfate 1 MG Q2P PRN 10/22 1415 AC IV Morphine Sulfate 2 MG Q2P PRN 10/22 1415 AC IV Ondansetron HCl 4 MG Q8P PRN 10/22 1415 AC IV Potassium Chloride 10 MEQ Q1H 10/27 1115 DC 10/27 IV 10/27 1116 1256 Potassium Chloride 40 MEQ Q13H 10/26 1545 AC 10/28 Dextrose/Sodium 1,000 ML IV 0015 Chloride Sodium Chloride 2 SPRAY Q4P PRN 10/26 2330 AC SELAM Sucralfate 1 GM BID 10/23 0257 AC 10/27 PO 2051 Review of Systems Review of Systems: Patient denies headaches or dizziness. Patient denies shortness of breath cough chest pain or hemoptysis. Patient denies dysuria hematuria. 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 Home Who Do You Live With? spouse Services at Home: None Smoking Status: Never Smoked ETOH Use: denies use Illicit Drug Use: denies illicit drug use Functional Ability ADLs Independent: dressing, eating, toileting, bathing. Ambulation: independent IADLs Independent: shopping, housework, finances, food prep, telephone, medication admin. Needs Assist: transportation. Exam & Diagnostic Data Vital Signs and I&O Vital Signs Date Time Temp Pulse Resp B/P B/P Pulse O2 O2 Flow FiO2 Mean Ox Delivery Rate 10/27 2245 98.3 87 24 108/62 93 Room Air 10/27 1723 98.6 96 24 110/60 94 Room Air 10/27 0958 68 120/50 Intake & Output 10/28 0800 10/28 0000 10/27 1600 Intake Total 1010 130 Output Total 650 550 Balance 360 -420 Intake, IV 640 Intake, Oral 300 50 Intake, Other 70 80 Number 8 Bowel Movements Output, 350 250 Gastric Drainage Output, Urine 300 300 Patient 160 lb Weight Gen.: in NAD, NG tube ENT: Sclera anicteric Chest: Normal respiratory effort, clear breath sounds Cor: RRR, no extra sounds Abdomen: Soft, bowel sounds diminished, no tenderness, no rebound Extremities: Without clubbing, cyanosis, or asymmetric edema Neurology: Alert and oriented 3, no gross deficit Skin: No rashes Last 48 Hours of Lab Results: Laboratory Tests 10/28 10/27 0616 1030 Chemistry Sodium (137 - 145 mmol/L) Pending 134 L Potassium (3.5 - 5.1 mmol/L) Pending 3.8 Chloride (98 - 107 mmol/L) Pending 104 Carbon Dioxide (22 - 30 mmol/L) Pending 24 Anion Gap (5 - 16) Pending 6 BUN (7 - 17 mg/dL) Pending 8 Creatinine (0.5 - 1.0 mg/dL) Pending 0.6 Estimated GFR (>60 ml/min) > 60 BUN/Creatinine Ratio (7 - 25 %) Pending 13.3 Calcium Pending Phosphorus Pending Magnesium Pending Hematology CBC w Diff Pending NO MAN DIFF REQ WBC (4.8 - 10.8 /CUMM) Pending 5.6 RBC (4.20 - 5.40 /CUMM) Pending 3.63 L Hgb (12.0 - 16.0 G/DL) Pending 9.0 L Hct (37 - 47 %) Pending 28.0 L MCV (81.0 - 99.0 FL) Pending 76.9 L MCH (27.0 - 31.0 PG) Pending 24.7 L RDW (11.5 - 14.5 %) Pending 18.6 H Plt Count (130 - 400 /CUMM) Pending 272 MPV (7.4 - 10.4 FL) Pending 8.1 Gran % (42.2 - 75.2 %) 71.6 Lymphocytes % (20.5 - 51.1 %) 16.6 L Monocytes % (1.7 - 9.3 %) 9.9 H Eosinophils % (0 - 5 %) 1.8 Basophils % (0.0 - 2.0 %) 0.1 Absolute Granulocytes (1.4 - 6.5 /CUMM) 4.0 Absolute Lymphocytes (1.2 - 3.4 /CUMM) 0.9 L Absolute Monocytes (0.10 - 0.60 /CUMM) 0.6 Absolute Eosinophils (0.0 - 0.7 /CUMM) 0.1 Absolute Basophils (0.0 - 0.2 /CUMM) 0 PUBS MCHC (33.0 - 37.0 G/DL) Pending 32.2 L Toxicology Digoxin (0.8 - 2.0 ng/mL) 0.6 L Imaging/Other Studies: CT-abdomen pelvis-small bowel obstruction, increasing lymphadenopathy Assessment/Plan Assessment: 1. Small bowel obstruction-to suggest progressive cancer. Patient is currently being treated with conservative measures. The Decision will need to be made regarding surgical intervention. Third line chemotherapy is not a good option to reliably control this situation, therefore, surgery me may be the best form of palliation. Recommend- As per surgery Consideration of third line chemotherapy to be made if obstruction can be alleviated 2. Microcytic anemia Recommend- Please check iron, iron-binding capacity, ferritin I have discussed this with the patient. Recommendations: .. Consult Acknowledgment - Thank you for your consult request.
--- NOTE | 2017-10-28 07:35 | PN- Cardiology ---
Subjective Subjective: Patient feels good, no chest pain, palpitations, SOB or abdominal pain. She passes gas. Objective Vital Signs and I&Os Vital Signs Date Time Temp Pulse Resp B/P B/P Pulse O2 O2 Flow FiO2 Mean Ox Delivery Rate 10/28 0713 98.0 80 20 154/60 96 Room Air 10/27 2245 98.3 87 24 108/62 93 Room Air 10/27 1723 98.6 96 24 110/60 94 Room Air 10/27 0958 68 120/50 Intake & Output 10/28 0810/28 0000 10/27 1600 10/27 0810/27 0000 10/26 1600 Intake Total 1010 130 640 710 600 Output Total 650 550 520 250 250 Balance 360 -420 120 460 350 Intake, IV 640 640 640 600 Intake, Oral 300 50 0 0 0 Intake, Other 70 80 70 Number 8 0 Bowel Movements Output, 350 250 120 100 250 Gastric Drainage Output, Urine 300 300 400 150 Patient 160 lb Weight Physical Exam: HEENT-PERRLA Neck-JVP normal Lungs-clear bilaterally Heart-S1S2, irregular, 2/6 KEDAR at the base Abdomen-soft,not tender, BS+, no organomegaly Extr-no edema, 2+ pulses Neuro-non focal Current Medications: Current Medications Sig/Darrell Start time Last Medication Dose Route Stop Time Status Admin Acetaminophen 1,000 MG Q6P PRN 10/22 1415 AC N/A 1 UNIT IV Digoxin 0.125 MG DAILY 10/25 1000 AC 10/27 IV 0958 Diltiazem HCl 125 MG Q24H 10/23 0330 AC 10/28 Sodium Chloride 100 ML IV 0612 Famotidine 20 MG BID 10/23 1046 AC 10/27 IV 2053 Heparin Sodium 5,000 UNIT Q8 10/25 1400 AC 10/28 (Porcine) [place] 0608 Insulin Human Regular 4 UNITS .STK-MED ONE 10/27 1814 DC IV 10/27 1815 Insulin Human Regular 6 UNITS .STK-MED ONE 10/27 1237 DC IV 10/27 1238 Insulin Human Regular 0 Q6 10/22 1800 AC 10/28 [place] 0607 Labetalol HCl 5 MG DAILY NEEDED PRN 10/22 1515 IV Levothyroxine Sodium 62.5 MCG DAILY 10/23 1000 AC 10/27 IV 1047 Morphine Sulfate 1 MG Q2P PRN 10/22 1415 AC IV Morphine Sulfate 2 MG Q2P PRN 10/22 1415 AC IV Ondansetron HCl 4 MG Q8P PRN 10/22 1415 AC IV Potassium Chloride 10 MEQ Q1H 10/27 1115 DC 10/27 IV 10/27 1116 1256 Potassium Chloride 40 MEQ Q13H 10/26 1545 AC 10/28 Dextrose/Sodium 1,000 ML IV 0015 Chloride Sodium Chloride 2 SPRAY Q4P PRN 10/26 2330 AC SELAM Sucralfate 1 GM BID 10/23 025 AC 10/27 PO 2051 Results Last 48 Hrs of Labs/Mics: Laboratory Tests 10/28/17 0616: Sodium Pending, Potassium Pending, Chloride Pending, Carbon Dioxide Pending, Anion Gap Pending, BUN Pending, Creatinine Pending, BUN/Creatinine Ratio Pending , Calcium Pending, Phosphorus Pending, Magnesium Pending, CBC w Diff Pending, WBC Pending, RBC Pending, Hgb Pending, Hct Pending, MCV Pending, MCH Pending, RDW Pending, Plt Count Pending, MPV Pending, PUBS MCHC Pending 10/27/17 1030: Anion Gap 6, Estimated GFR > 60, BUN/Creatinine Ratio 13.3, CBC w Diff NO MAN DIFF REQ, RBC 3.63 L, MCV 76.9 L, MCH 24.7 L, RDW 18.6 H, MPV 8.1, Gran % 71.6, Lymphocytes % 16.6 L, Monocytes % 9.9 H, Eosinophils % 1.8, Basophils % 0.1, Absolute Granulocytes 4.0, Absolute Lymphocytes 0.9 L, Absolute Monocytes 0.6, Absolute Eosinophils 0.1, Absolute Basophils 0, PUBS MCHC 32.2 L, Digoxin 0.6 L Assessment/Plan Assessment/Plan 86-year-old female with past medical history of atrial fibrillation on xarelto, moderate to severe aortic stenosis, hypertension, hyperlipidemia, TIA, hypothyroidism, diabetes mellitus, gout, osteoarthritis, colon cancer status post resection and chemotherapy, h/o GI bleed presents with acute bowel obstruction/ileus due to metastatic colon cancer. Seen by oncology, primary surgery. Consideration for diverting stoma. Atrial fibrillation well controlled with iv cardizem and iv digoxin (dig level normal/low) HTN-BP is stable. Moderate to severe aortic stenosis-no clinical symptoms of CHF Plan: Patient is well compensated from cardiac standpoint at this time. AF is controlled, no symptoms of heart failure. She is cleared for abdominal surgery with moderate risk. She expressed wish to proceed with surgery if necessary. continue iv cardizem 5 mg/hr and iv digoxin pre and postoperatively need to watch for heart failure symptoms post op try to avoid significant volume administration during surgery tely/ICU monitoring after surgery replete K+, keep potassium 4.0-5.0 Continue telemetry? Yes
--- NOTE | 2017-10-28 07:57 | PN- General Surgery ---
See Addendum Subjective Subjective: Denies abdominal pain, no n/v. taking ice chips for comfort w NGT. No cp/palps /sob. had loose bms overnight. aware of possibility of surgery- wants more details about recommendations. Objective Vital Signs and I&Os Vital Signs Date Time Temp Pulse Resp B/P B/P Pulse O2 O2 Flow FiO2 Mean Ox Delivery Rate 10/28 0713 98.0 80 20 154/60 96 Room Air 10/27 2245 98.3 87 24 108/62 93 Room Air 10/27 1723 98.6 96 24 110/60 94 Room Air 10/27 0958 68 120/50 Intake & Output 10/28 0800 10/28 0000 10/27 1600 10/27 0800 10/27 0000 10/26 1600 Intake Total 1010 130 640 710 600 Output Total 650 550 520 250 250 Balance 360 -420 120 460 350 Intake, IV 640 640 640 600 Intake, Oral 300 50 0 0 0 Intake, Other 70 80 70 Number 8 0 Bowel Movements Output, 350 250 120 100 250 Gastric Drainage Output, Urine 300 300 400 150 Patient 160 lb Weight Physical Exam: gen- nad card- s1s2 irreg irreg pulm- ctab abd- nt, soft, quiet bs, ngt in place- draining clear-bilious ext- calves soft nt Assessment/Plan Assessment/Plan A- HD6 with SBO related to recurrent colon ca tumor burden, currently stable and comfortable, though requests more information from re: surgical plan. P- -fu sbft -cont ngt, ice chips for comfort -continue current meds -oob as tolerated, hep sq , alps -am labs pdg, will keep K 4-5 per cards recs - labs ordered per onc -appreciate onc, card, medicine input - will dw attending Core Measures Venous Thromboembolism VTE Risk Factors Cancer/chemo/othr therapy No Mechanical VTE Prophylaxis d/t N/A MechProphylax Ordered No VTE Pharm Prophylaxis d/t NA PharmProphylax ordered
[2017-10-28 08:05] LABS: ABSOLUTE BASOPHIL COUNT 0 /CUMM (0.0-0.2); ABSOLUTE EOSINOPHIL COUNT 0.1 /CUMM (0.0-0.7); ABSOLUTE GRANULOCYTE CT 4.9 /CUMM (1.4-6.5); ABSOLUTE MONOCYTE COUNT 0.7 /CUMM (0.10-0.60); BASOPHIL % 0.5 % (0.0-2.0); EOSINOPHIL % 0.9 % (0-5); GRANULOCYTE % 73.3 % (42.2-75.2); HEMATOCRIT 27.5 % (37-47); MEAN CORPUSCULAR HGB 24.5 PG (27.0-31.0); MEAN CORPUSCULAR VOLUME 76.6 FL (81.0-99.0); MEAN PLATELET VOLUME 8.7 FL (7.4-10.4); PLATELET COUNT 286 /CUMM (130-400); RBC DISTRIBUTION WIDTH 19.6 % (11.5-14.5); WHITE BLOOD CELL COUNT 6.7 /CUMM (4.8-10.8)
--- NOTE | 2017-10-28 08:51 | RADIOLOGY REPORT ---
EXAMINATIONS: FLUOROSCOPIC SMALL BOWEL FOLLOW THROUGH CLINICAL INFORMATION: 87-year-old female with history of colon cancer status post resection with small bowel obstruction at the ileocolic anastomosis. COMPARISON: CT abdomen and pelvis 10/22/2017 TECHNIQUE: Overhead images were obtained for the small bowel study. Total transit time for the barium to reach the terminal ileum took greater than 3 hours. Fluoroscopic Time/Dosage: Fluoroscopic Time: 7 minutes and 15 seconds Number of images: 11 FINDINGS: Gastrografin was administered to the patient's indwelling nasogastric tube. The stomach and duodenum appear unremarkable. Small bowel loops are not dilated. There is delayed transit of contrast through the small bowel. However, contrast did reach the colon. No mass, or gross constricting annular lesions were seen. IMPRESSION: No high-grade small bowel obstruction. Contrast progressed into the colon. A residual partial small bowel obstruction cannot be excluded.
[2017-10-28 14:50] VITALS: BP 112/52
--- NOTE | 2017-10-28 16:01 | PN- Medicine Consult ---
Assessment/Plan Assessment/Plan Assessment: Patient is a 87-year-old with a past medical history significant for atrial fibrillation(not on anticoagulation due to GI bleed) , CHF, hypertension, hyperlipidemia, peripheral neuropathy, TIA, gout/osteoarthritis, history of diabetes, hypothyroidism, hx of colon cancer status post right hemicolectomy presented to the ED with a chief complaints of abdominal discomfort. In the ED patient was having 10 on 10 abdominal discomfort, CAT scan of the abdomen revealed small bowel obstruction with significantly dilated fluid-filled loops of bowel throughout the entire abdomen to the level of an enterocolonic anastomosis at the splenic flexure with relatively decompressed large bowel. Plan: Problem list: 1. Small bowel obstruction likely in the setting of prior colon surgeries 2. History of atrial fibrillation(not on anticoagulation due to GI bleed). 3. Hypokalemia 4.. History of CHF 5. History of hypertension 6. History of hypothyroidism 7. History of diabetes 8. History of colon cancer status post right hemicolectomy Plan 1. Small bowel obstruction likely in the setting of prior colon surgeries * Continue recommendations as per surgical team * Nothing by mouth for now, * All medications have been changed to IV . * Adequate pain control. 2. History of atrial fibrillation(not on anticoagulation due to GI bleed) * Patient has been started on IV Cardizem drip(target heart rate <110) * Continue to follow Dr. Ferguson recommendations. * Once stable for oral intake switch IV digoxin to oral and restart by mouth metoprolol. 3. Hypokalemia * Repeat and replete the electrolytes. 4. History of CHF * Continue lasix to iv (40 mg daily) 5.. History of hypertension * labetalol IV pushes 5 mg as needed for BP >160/90. 6. History of hypothyroidism. * Continue by mouth levothyroxin to IV (PO 125 MCG to 63 IV mcg). 7. History of diabetes * Npo insulin sliding scale with D5 half normal saline * FSS every 6 hrs. 8. History of colon cancer status post right hemicolectomy * Chemotherapy on hold
--- NOTE | 2017-10-28 16:02 | Event Note ---
Event Note Event Note: Appreciate the medicine consult on this interesting patient but as cardiology and oncology are also following and managing most of pt's co-morbid medical conditions, at this time we recommend following their direction and we will respectfully sign off. Please don't hesitate to reach out for a re-consult if we can provide any further input in this patient's management. Attending is aware and in agreement of this decision.
[2017-10-28 22:22] VITALS: BP 118/66
[2017-10-29 06:59] VITALS: BP 160/60
--- NOTE | 2017-10-29 10:27 | PN- General Surgery ---
See Addendum Subjective Subjective: Patient states she feel well. She states she is tolerating clears, without any nausea or vomiting. She continues to pass flatus, no further BMs since yesterday , which she described as loose. She reports ambulating in the love once with her daughter yesterday. She offers no other complaints. Objective Vital Signs and I&Os Vital Signs Date Time Temp Pulse Resp B/P B/P Pulse O2 O2 Flow FiO2 Mean Ox Delivery Rate 10/29 0914 63 160/60 10/29 0659 98.1 63 20 160/60 95 Room Air 10/28 2222 97.5 78 20 118/66 95 10/28 1450 97.6 72 20 112/52 100 Room Air 10/28 1012 98.0 80 20 154/60 Intake & Output 10/29 1600 10/29 0800 10/29 0000 10/28 1600 10/28 0800 10/28 0000 Intake Total 640 3362 736 2904 Output Total 300 200 800 650 Balance 340 940 -160 360 Intake, IV 640 640 640 640 Intake, Oral 500 0 300 Intake, Other 70 Number 3 8 Bowel Movements Output, 300 350 Gastric Drainage Output, Urine 300 200 500 300 Physical Exam: Gen: Resting comfortably in bed awake an alert in NAD Cardiac: S1S2 noted Lungs: CTAB Abd: Soft, mildly distended with a well healed midline incision, faint bowel sounds and nontender to palpation Ext: No edema or calf tenderness B/L Current Medications: Current Medications Sig/Darrell Start time Last Medication Dose Route Stop Time Status Admin Acetaminophen 1,000 MG Q6P PRN 10/22 1415 AC N/A 1 UNIT IV Digoxin 0.125 MG DAILY 10/25 1000 AC 10/29 IV 0914 Diltiazem HCl 125 MG Q24H 10/23 0330 AC 10/29 Sodium Chloride 100 ML IV 0227 Famotidine 20 MG BID 10/23 1046 AC 10/29 IV 0913 Heparin Sodium 5,000 UNIT Q8 10/25 1400 AC 10/29 (Porcine) SC 0531 Insulin Aspart 0 TIDAC 10/29 0800 AC 10/29 SC 0855 Insulin Aspart 0 AT BEDTIME 10/28 2200 AC SC Insulin Human Regular 6 UNITS .STK-MED ONE 10/28 1201 DC IV 10/28 1202 Insulin Human Regular 0 Q6 10/22 1800 DC 10/28 SC 1204 Labetalol HCl 5 MG DAILY NEEDED PRN 10/22 1515 AC IV Levothyroxine Sodium 62.5 MCG DAILY 10/23 1000 AC 10/28 IV 1104 Morphine Sulfate 1 MG Q2P PRN 10/22 1415 AC IV Morphine Sulfate 2 MG Q2P PRN 10/22 1415 AC IV Ondansetron HCl 4 MG Q8P PRN 10/22 1415 AC IV Potassium Chloride 40 MEQ Q13H 10/26 1545 AC 10/29 Dextrose/Sodium 1,000 ML IV 0229 Chloride Sodium Chloride 2 SPRAY Q4P PRN 10/26 2330 AC SELAM Sucralfate 1 GM BID 10/23 0257 AC 10/29 PO 0913 Results Last 48 Hours of Labs: Laboratory Tests 10/29 10/28 10/28 0635 0751 0616 Chemistry Sodium (137 - 145 mmol/L) 142 Potassium (3.5 - 5.1 mmol/L) 4.0 Chloride (98 - 107 mmol/L) 110 H Carbon Dioxide (22 - 30 mmol/L) 23 Anion Gap (5 - 16) 9 BUN (7 - 17 mg/dL) 8 Creatinine (0.5 - 1.0 mg/dL) 0.7 Estimated GFR (>60 ml/min) > 60 BUN/Creatinine Ratio (7 - 25 %) 11.4 Calcium (8.4 - 10.2 mg/dL) 8.9 Phosphorus (2.5 - 4.5 mg/dL) 3.0 3.5 Magnesium (1.6 - 2.3 mg/dL) 1.8 2.0 Iron (37 - 170 ug/dL) 19 L TIBC (265 - 497 ug/dL) 320 Ferritin (11.1 - 264 ng/mL) Cancelled 32.1 Hematology CBC w Diff NO MAN DIFF REQ WBC (4.8 - 10.8 /CUMM) 6.7 RBC (4.20 - 5.40 /CUMM) 3.60 L Hgb (12.0 - 16.0 G/DL) 8.8 L Hct (37 - 47 %) 27.5 L MCV (81.0 - 99.0 FL) 76.6 L MCH (27.0 - 31.0 PG) 24.5 L RDW (11.5 - 14.5 %) 19.6 H Plt Count (130 - 400 /CUMM) 286 MPV (7.4 - 10.4 FL) 8.7 Gran % (42.2 - 75.2 %) 73.3 Lymphocytes % (20.5 - 51.1 %) 14.5 L Monocytes % (1.7 - 9.3 %) 10.8 H Eosinophils % (0 - 5 %) 0.9 Basophils % (0.0 - 2.0 %) 0.5 Absolute Granulocytes (1.4 - 6.5 /CUMM) 4.9 Absolute Lymphocytes (1.2 - 3.4 /CUMM) 1.0 L Absolute Monocytes (0.10 - 0.60 /CUMM) 0.7 H Absolute Eosinophils (0.0 - 0.7 /CUMM) 0.1 Absolute Basophils (0.0 - 0.2 /CUMM) 0 PUBS MCHC (33.0 - 37.0 G/DL) 32.0 L 01/02 1030 Chemistry Sodium (137 - 145 mmol/L) 134 L Potassium (3.5 - 5.1 mmol/L) 3.8 Chloride (98 - 107 mmol/L) 104 Carbon Dioxide (22 - 30 mmol/L) 24 Anion Gap (5 - 16) 6 BUN (7 - 17 mg/dL) 8 Creatinine (0.5 - 1.0 mg/dL) 0.6 Estimated GFR (>60 ml/min) > 60 BUN/Creatinine Ratio (7 - 25 %) 13.3 Hematology CBC w Diff NO MAN DIFF REQ WBC (4.8 - 10.8 /CUMM) 5.6 RBC (4.20 - 5.40 /CUMM) 3.63 L Hgb (12.0 - 16.0 G/DL) 9.0 L Hct (37 - 47 %) 28.0 L MCV (81.0 - 99.0 FL) 76.9 L MCH (27.0 - 31.0 PG) 24.7 L RDW (11.5 - 14.5 %) 18.6 H Plt Count (130 - 400 /CUMM) 272 MPV (7.4 - 10.4 FL) 8.1 Gran % (42.2 - 75.2 %) 71.6 Lymphocytes % (20.5 - 51.1 %) 16.6 L Monocytes % (1.7 - 9.3 %) 9.9 H Eosinophils % (0 - 5 %) 1.8 Basophils % (0.0 - 2.0 %) 0.1 Absolute Granulocytes (1.4 - 6.5 /CUMM) 4.0 Absolute Lymphocytes (1.2 - 3.4 /CUMM) 0.9 L Absolute Monocytes (0.10 - 0.60 /CUMM) 0.6 Absolute Eosinophils (0.0 - 0.7 /CUMM) 0.1 Absolute Basophils (0.0 - 0.2 /CUMM) 0 PUBS MCHC (33.0 - 37.0 G/DL) 32.2 L Toxicology Digoxin (0.8 - 2.0 ng/mL) 0.6 L Assessment/Plan Assessment/Plan This is an 87 year-old female, HD 7 with a history of recurrent colon cancer admitted with SBO likely secondary to adhesions verses tumor with return of bowel function. SBFT revealed no evidence of obstruction Cont conservative management Cont clears, advance as tolerated Cont pain regimen Cont cardizem gtt, IV digoxin Cont GI/DVT ppx - pepcid, alps, hsq Encourage ambulation May be candidate for 3rd line chemo if sbo resolves per onc May require surgery as palliative care if sbo sx return Cleared from cardiac standpoint as a moderate risk Appreciate onc, cardiology, medicine involvement Will d/w Dr. Martin Core Measures Venous Thromboembolism VTE Risk Factors Cancer/chemo/othr therapy No Mechanical VTE Prophylaxis d/t N/A MechProphylax Ordered No VTE Pharm Prophylaxis d/t NA PharmProphylax ordered
[2017-10-29 15:11] VITALS: BP 110/60
[2017-10-29 22:52] VITALS: BP 168/68
[2017-10-30 06:37] VITALS: BP 180/70
--- NOTE | 2017-10-30 07:29 | PN- Cardiology ---
Subjective Subjective: No chest pain or dyspnea or abdominal pain. She passes gas. Objective Vital Signs and I&Os Vital Signs Date Time Temp Pulse Resp B/P B/P Pulse O2 O2 Flow FiO2 Mean Ox Delivery Rate 10/30 0637 98.2 76 20 180/70 95 Room Air 10/29 2252 98.4 85 18 168/68 95 Room Air 10/29 1511 97.5 58 20 110/60 96 Room Air 10/29 0914 63 160/60 Intake & Output 10/30 0810/30 0000 10/29 1600 10/29 0800 10/29 0000 10/28 1600 Intake Total 951 024 2675 Output Total 600 600 300 200 Balance -600 100 -600 340 940 Intake, IV 640 640 Intake, Oral 100 500 Number 2 Bowel Movements Output, Urine 600 600 300 200 Physical Exam: HEENT-PERRLA [id number] normal, bilateral bruits Lungs-clear bilaterally Heart-S1S2 irregular, 2/6 KEDAR at the base Abdomen-soft, not tender, BS+,no organomegaly Extr-no edema, 2+ pulses, no cyanosis Neuro-non focal Assessment/Plan Assessment/Plan 86-year-old female with past medical history of atrial fibrillation on xarelto, moderate to severe aortic stenosis, hypertension, hyperlipidemia, TIA, hypothyroidism, diabetes mellitus, gout, osteoarthritis, colon cancer status post resection and chemotherapy, h/o GI bleed presents with acute bowel obstruction/ileus due to metastatic colon cancer. Abdomen improved, plan is to start clear liquids today. Atrial fibrillation with slower rate yesterday (cardizem decreased to 2.5 mg/hr) HTN-BP is stable Moderate to severe aortic stenosis-no clinical symptoms of CHF Plan: continue cardizem 2.5 mg/hr stop digoxin if HR below 60 bpm, stop cardizem drip once able to tolerate medications, change cardizem to metoprolol succinate 25 mg qd will add digoxin later based on heart rate Continue telemetry? Yes
[2017-10-30 08:55] VITALS: BP 144/66
--- NOTE | 2017-10-30 12:33 | PN- General Surgery ---
Surgical Brief Attending Note Brief Attending Note: Pt seen and examined. She is tolerating clears, positive flatus/BM. She denies N/V. AVSS NAD, AAO x3 Abdomen: soft, NT, ND, no reboundg/guarding A/P: A 87 year-old woman with metastatic colon CA with resolving SBO - Cardiology, Medicine, and Oncology inputs are appreciated - Advance diet as tolerated - OOB/Ambulate - D/C planning as long as pt tolerates low residue diet
[2017-10-30 15:01] VITALS: BP 160/60
[2017-10-30 22:34] VITALS: BP 140/70
[2017-10-31] MEDS ORDERED: METOPROLOL SUCC25 M1 PO (07:16)
[2017-10-31 07:45] VITALS: BP 188/60
--- NOTE | 2017-10-31 08:23 | PN- General Surgery ---
See Addendum Subjective Subjective: Pt has no major complaints this morning. She denies pain and is passing flatus/ having BM's. She is looking forward to a low residue diet this morning. I was called this morning by RN with reports of increased BP 190/72. AM BP meds were given early. Metoprolol will be started and Cardizem stopped on hour after given. Objective Vital Signs and I&Os Vital Signs Date Time Temp Pulse Resp B/P B/P Pulse O2 O2 Flow FiO2 Mean Ox Delivery Rate 10/31 0745 98.1 87 20 188/60 95 10/31 0715 71 190/72 10/31 0000 Room Air 10/30 2234 98.4 58 20 140/70 97 10/30 1501 98.0 98 18 160/60 97 Room Air 10/30 0855 144/66 Intake & Output 10/31 1600 10/31 0800 10/31 0000 10/30 1600 10/30 0800 10/30 0000 Intake Total 220 140 850 100 Output Total 400 600 Balance 220 140 -400 250 100 Intake, IV 20 20 750 Intake, Oral 200 120 100 100 Number 2 Bowel Movements Output, Urine 400 600 Physical Exam: Gen.: Patient is awake and alert. No acute distress. She is sitting at the edge of the bed ready breakfast. Cardiac: Irregular with a notable systolic murmur. Pulmonary: Lungs are clear bilaterally. Abdomen: Soft and still mildly distended particularly in the lower abdomen. Abdomen is nontender otherwise and hypoactive bowel sounds are heard. Extremities: No significant edema or Tenderness. Assessment/Plan Assessment/Plan This is an 87 year-old female, HD 8 with a history of recurrent colon cancer admitted with SBO likely secondary to adhesions verses tumor with return of bowel function. SBFT revealed no evidence of obstruction -Advance diet to low residue this morning. -As per cardiology, digoxin was stopped yesterday. Metoprolol was started this morning and -Cardizem drip is expected to stop one hour after administration of metoprolol. -Cont GI/DVT ppx - pepcid, alps, hsq -Discharge planning soon. In for follow-up with oncology as an outpatient to determine the next treatment stopped. Per Dr. Son, third line chemotherapy may be an option now that SBO has resolved. -Encourage ambulation. Will obtain PT consult for discharge recommendations. At this point, the plan is for discharge to home unless PT feels otherwise based on their assessment. Core Measures Venous Thromboembolism VTE Risk Factors Cancer/chemo/othr therapy No Mechanical VTE Prophylaxis d/t N/A MechProphylax Ordered No VTE Pharm Prophylaxis d/t NA PharmProphylax ordered
--- NOTE | 2017-10-31 14:10 | PN- Cardiology ---
Subjective Subjective: Feels good, tolerates solid food. No CP or dyspnea Objective Vital Signs and I&Os Vital Signs Date Time Temp Pulse Resp B/P B/P Pulse O2 O2 Flow FiO2 Mean Ox Delivery Rate 10/31 0745 98.1 87 20 188/60 95 10/31 0715 71 190/72 10/31 0000 Room Air 10/30 2234 98.4 58 20 140/70 97 10/30 1501 98.0 98 18 160/60 97 Room Air Intake & Output 10/31 1600 10/31 0810/31 0000 10/30 1600 10/30 0000 Intake Total 220 140 850 100 Output Total 400 600 Balance 220 140 -400 250 100 Intake, IV 20 20 750 Intake, Oral 200 120 100 100 Number 2 Bowel Movements Output, Urine 400 600 Physical Exam: HEENT-PERRLA Neck-JVP nl, bilateral bruits Lungs-clear bilaterally Heart S1S2 irregular, 2/6 KEDAR at the base Abdomen-soft,not tender, BS+, no organomegaly Extr-no edema, 2+ pulses Neuro-non focal Current Medications: Current Medications Sig/Darrell Start time Last Medication Dose Route Stop Time Status Admin Acetaminophen 1,000 MG Q6P PRN 10/22 1415 AC N/A 1 UNIT IV Diltiazem HCl 125 MG Q24H 10/23 0330 DC 10/30 Sodium Chloride 100 ML IV 10/31 0830 0750 Famotidine 20 MG BID 10/23 1046 DC 10/30 IV 2254 Heparin Sodium 5,000 UNIT Q8 10/30 0600 AC 10/31 (Porcine) SC 1259 Insulin Aspart 0 TIDAC 10/29 0800 AC 10/31 SC 1201 Insulin Aspart 0 AT BEDTIME 10/28 2200 AC SC Labetalol HCl 5 MG DAILY NEEDED PRN 10/22 1515 AC IV Levothyroxine Sodium 0.125 MG DAILY AC 10/31 1000 AC 10/31 PO 1201 Levothyroxine Sodium 62.5 MCG DAILY 10/23 1000 DC 10/30 IV 1007 Metoprolol Succinate 25 MG DAILY 10/31 1000 AC 10/31 PO 0715 Morphine Sulfate 1 MG Q2P PRN 10/22 1415 AC IV Morphine Sulfate 2 MG Q2P PRN 10/22 1415 AC IV Ondansetron HCl 4 MG Q8P PRN 10/22 1415 AC IV Sodium Chloride 2 SPRAY Q4P PRN 10/26 2330 AC SELAM Assessment/Plan Assessment/Plan 86-year-old female with past medical history of atrial fibrillation on xarelto, moderate to severe aortic stenosis, hypertension, hyperlipidemia, TIA, hypothyroidism, diabetes mellitus, gout, osteoarthritis, colon cancer status post resection and chemotherapy, h/o GI bleed presents with acute bowel obstruction/ileus due to metastatic colon cancer. Abdomen improved, diet advanced today to solids. Atrial fibrillation-rate controlled, off cardizem HTN-BP elevated Moderate to severe aortic stenosis-no clinical symptoms of CHF Patient was at home taking furosemide 40 mg qd, irbesartan 300 mg qd, amlodipine 10 mg qd, metoprolol 25 mgqd, digoxin 0.125 mg qd. Plan: Increase metoprolol succinate to 50 mg po qd restart lasix at lower dose 20 mg qd restart losartan 100 mg po qd tomorrow (irbesartan 300 mg qd for home) keep off amlodipine and digoxin for now Continue telemetry? Yes
[2017-10-31 15:43] VITALS: BP 137/60
--- NOTE | 2017-10-31 20:52 | Patient Discharge Instructions ---
Discharge Instructions General Discharge Information You were seen/treated for: Small bowel obstruction You had these procedures: Conservative management with bowel rest, IV fluids, serial abdominal exams, and nasogastric tube decompression Watch for these problems: Nausea, vomiting, increased abdominal pain, fever, severe constipation Diet Continue normal diet: Yes Activity Full Activity/No Limits: No Activity Self Limited: Yes Other activity limits: Avoid strenuous activity to promote healing. Acute Coronary Syndrome Inclusion Criteria At DC or during hospital stay patient has or had the following: ACS DIAGNOSIS No Discharge Core Measures Meds if any: Prescribed or Continued at Discharge Meds if any: NOT Prescribed or Continued at Discharge Congestive Heart Failure Inclusion Criteria At DC or during hospital stay patient has or had the following: CHF DIAGNOSIS No Discharge Core Measures Meds if any: Prescribed or Continued at Discharge Meds if any: NOT Prescribed or Continued at Discharge Cerebrovascular accident Inclusion Criteria At DC or during hospital stay patient has or had the following: CVA/TIA Diagnosis No Discharge Core Measures Meds if any: Prescribed or Continued at Discharge Meds if any: NOT Prescribed or Continued at Discharge Venous thromboembolism Inclusion Criteria VTE Diagnosis No VTE Type NONE VTE Confirmed by (Test) NONE Discharge Core Measures - Per Current guidelines, there needs to be overlap - treatment for the first 5 days of Warfarin therapy. - If discharged on Warfarin prior to 5 days of - overlap therapy, the patient will need to be - assessed for post discharge needs including - *Post discharge parental anticoagulation - *Warfarin and/or parental anticoagulation education - *Follow up date to check INR post discharge At least 5 days overlap therapy as Inpatient No Meds if any: Prescribed or Continued at Discharge Note: Overlap Therapy is Warfarin and Anticoagulant Meds if any: NOT Prescribed or Continued at Discharge
[2017-10-31 22:00] VITALS: BP 178/62
[2017-11-01 07:06] VITALS: BP 130/64
--- NOTE | 2017-11-01 07:23 | PN- General Surgery ---
See Addendum Subjective Subjective: Awake, alert No complaints overnight Tolerated LRD without any nausea or pain +BM without pain voiding spontaneously Wants to go home Objective Vital Signs and I&Os Vital Signs Date Time Temp Pulse Resp B/P B/P Pulse O2 O2 Flow FiO2 Mean Ox Delivery Rate 11/01 705 97.6 88 20 130/64 96 Room Air 10/31 2200 98.7 102 18 178/62 96 Room Air 10/31 1543 97.7 72 20 137/60 95 10/31 0745 98.1 87 20 188/60 95 Intake & Output 11/01 0811/01 0000 10/31 1600 10/31 0800 10/31 0000 10/30 1600 Intake Total 70 200 500 220 140 Output Total 400 Balance 70 200 500 220 140 -400 Intake, IV 10 20 20 Intake, Oral 60 200 500 200 120 Number 1 1 2 Bowel Movements Output, Urine 400 Physical Exam: VSS a fib - HR 107 max, chronic on meds SBP up to 170 at times - meds being managed by cardiology General: alert and oriented times three Chest: irreg/irreg, clear anteriorly bilaterally Abd: soft, nontender throughout, nondistended, good bs Ext: warm, no edema Assessment/Plan Assessment/Plan 87yo female with sbo- now resolved, with recurrent colon ca, htn, a fib - not on anticoagulation due to GI bleed/colon cancer sbo resolved - plan to dc today on lrd with follow up with oncology cleared by PT for discharge Heart meds being changed/managed by cardiology - Pt sees Dr Ferguson Follow up with dc plan for medication dosing and follow up with Dr Ferguson Core Measures Venous Thromboembolism VTE Risk Factors Cancer/chemo/othr therapy No Mechanical VTE Prophylaxis d/t N/A MechProphylax Ordered No VTE Pharm Prophylaxis d/t NA PharmProphylax ordered
[2017-11-01 09:17] VITALS: BP 136/64
[2017-11-01] MEDS ORDERED: LASIX40 M1 PO (13:11)
--- NOTE | 2017-11-01 13:52 | Surgical Discharge Summary ---
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 Home Who Do You Live With? Spouse Services at Home: None What is Your Primary Language? Ukrainian ETOH Use: denies use Review of Systems: See H and P Hospital Course Course Attending Physician: Marbella Jha MD Primary Care Physician: Jatinder Michael MD Hospital Course: Pt with recurrent colon cancer was admitted with a bowel obstruction and noted increased in size of mesenteric mets. She was seen by the medical service, cardiology-Dr Ferguson, and Oncology - Dr Son. She was treated conservatively with hydration and NGT decompression. By 2017 she was passing flatus. On 10/28 she had a BM and her NGT was removed. She had a small bowel follow through which revealed no evidence of obstruction. On 10/29 she had an episode of bradycardia to 58 bpm. She has known chronic a fib. She was being followed by Cardiology and some medication changes were recommended at that time. She remained asymptomatic and her heart rate spontaneously returned into the 70's. She was advanced to a low residue diet and was able to tolerate that on 10/31. At that time it was felt by oncology that chemotherapy may now be an option as her sbo resolved. On 11/01 she continued to tolerate a low residue diet, her bowels were moving, she was ambulating without difficulty and she denied any further abdominal pain or nausea. Her medications were reviewed with cardiology and she was instructed to hold her amlodipine and digoxin, continue her labetelol at 50mg po daily, continue her irbesartan at 300mg po daily and decrease her lasix to 20mg po daily until follow up with Dr Ferguson in 10 days. She will be reevaluated at that time. Continue potassium supplements at current dose as her potassium is on the low side. Instructions were given regarding followo up with cardiology, pcp, surgery and oncology. Allergies: Coded Allergies: Sulfa (Sulfonamide Antibiotics) (Intermediate, RASH 03/26/17) adhesive tape (PAPER TAPE OK PER PT 03/26/17) Disposition Summary Disposition Principal Diagnosis: sbo Additional Diagnosis: recurrent colono cancer, a fib Discharge Disposition: home or self care Discharge Instructions General Discharge Information Code Status: Full Code Patient's Diet: low residue Patient's Activity: as tolerated Follow-Up Instructions/Appts: Call for an appointment to be seen by surgery, oncology, cardiology, pcp Medications at Discharge Discharge Medications: Stop taking the following medications: Digoxin (Digoxin) 125 MCG TABLET ORAL Every night Amlodipine Besylate (Amlodipine Besylate) 10 MG TABLET ORAL DAILY Continue taking these medications: Irbesartan (Avapro) 300 MG TABLET 1 Tablet ORAL DAILY Comments: NOT GIVEN IN HOSPITAL [place] GIVEN 05/15/17 AT 1050 Alprazolam (Xanax) 0.5 MG TABLET 1 Tablet ORAL QDAILY as needed for ANXIETY Comments: Last Taken: 03/27/17 Time: 10:00 PM Atorvastatin Calcium (Lipitor) 20 MG TABLET 1 Tablet ORAL DAILY Comments: Last Taken: 05/14/17 Time: 440 PM Sitagliptin Phosphate (Januvia) 100 MG TABLET 1 Tablet ORAL DAILY Comments: NOT GIVEN IN HOSPITAL Solifenacin Succinate (Vesicare) 5 MG TABLET 1 Tablet ORAL DAILY Comments: NOT GIVEN IN HOSPITAL DITROPAN GIVEN Levothyroxine Sodium (Synthroid) 125 MCG TABLET 1 Tablet ORAL DAILY BEFORE BREAKFAST Comments: Last Taken: 11/01/17 Time: 600 AM Multivitamin (Multi-Day Vitamins) 1 EACH TABLET 1 Tablet ORAL DAILY Comments: Last Taken: 05/15/17 Time: 1050 AM Cranberry Fruit Concentrate (Cranberry) 450 MG CAPSULE 1 Capsule ORAL DAILY Days = 60 Comments: NOT GIVEN IN HOSPITAL Potassium Chloride (Potassium Chloride) 20 MEQ TABLET.ER 1 Tablet ORAL DAILY Comments: Last Taken: 05/15/17 Time: 1050 AM Cholecalciferol (Vitamin D3) (Vitamin D) 1,000 UNIT TABLET 1 Tablet ORAL DAILY Comments: Last Taken: 05/15/17 Time: 1050 AM Insulin Detemir (Levemir) 100 UNIT/ML VIAL 40 Unit Inject into fatty tissue TWICE DAILY Comments: 20 UNITS GIVEN IN HOSPITAL Last Taken: 05/15/17 Time: 1050 AM Gabapentin (Gabapentin) 300 MG CAPSULE 1 Capsule ORAL DAILY Days = 30 Comments: Last Taken: 05/15/17 Time: 1050 AM Colchicine (Colchicine) 0.6 MG TABLET 300 Microgram ORAL TWICE DAILY Qty = 30 Comments: Last Taken: 05/15/17 Time: 1050 AM Baclofen (Baclofen) 10 MG TABLET 1 Tablet ORAL THREE TIMES A DAY NEEDED as needed for muscle spasm/strain Qty = 30 Metoprolol Succinate (Metoprolol Succinate) 25 MG TAB 2 Tablet ORAL DAILY Qty = 90 Furosemide (Lasix) 40 MG TABLET 0.5 Tablet ORAL DAILY Instructions: Note that dosage has changed from 40mg daily to 20mg daily. Take one half of a tablet daily until follow up with Dr Ferguson in 10 days. Copies To: Adelaida AVALOS,[place]; Johan Ferguson MD; Marbella Jha MD
== END 2017-11-01 16:15 | disposition home health service (06) | DRG 389 ==
LOC: ERH 04:06 → 1NO 10:09 → ERHI 10:09 → EDBEDREQ 11:58 → ENRESERV 12:08 → ENTRNSPT 13:07 → EDTRNSPT 13:17 → EDTRNSPTSTS 13:17 → 1NO 13:23 → CMPTRNSPT 13:27 → 1NO 10-25 11:40 → ENPENDDIS 11-01 13:16 → ENTRNSPT 11-01 15:42 → CMPTRNSPT 11-01 16:08 → 1NO 11-01 16:15
PROVIDERS: Emergency Medicine; Nurse Practitioner; Physician Assistant Surgical
PROC: BD16YZZ Fluoroscopy of Upper GI and Small Bowel using Other Contrast (ICD-10-PCS; principal; 2017-10-27)
DX: K56.609 Unspecified intestinal obstruction, unspecified as to partial versus complete obstruction (principal); C18.9 Malignant neoplasm of colon, unspecified; E11.42 Type 2 diabetes mellitus with diabetic polyneuropathy; I48.2 Chronic atrial fibrillation; I50.9 Heart failure, unspecified; I11.0 Hypertensive heart disease with heart failure; Z79.4 Long term (current) use of insulin; Z86.73 Personal history of transient ischemic attack (TIA), and cerebral infarction without residual deficits; M10.9 Gout, unspecified; M19.90 Unspecified osteoarthritis, unspecified site; F41.9 Anxiety disorder, unspecified; E55.9 Vitamin D deficiency, unspecified; M06.9 Rheumatoid arthritis, unspecified; I35.0 Nonrheumatic aortic (valve) stenosis
CPT/HCPCS: 1NP; 36415; 74177; 74245; 82436; 86902; 86920; 86922; 93005; 93010; 96361; 96374; 96375; 96376; 97161-GP; 99291; J1160; J1644; J1815; J2405; J3490; J7040; J7042

== ENCOUNTER 2017-11-04 17:35 | Inpatient (IN) | payer OTHER, MEDICARE ==
[~2017-11-04] VITALS: Ht 167.6 cm; Wt 73.3 kg
[~2017-11-04 17:35] MED LIST changes: +ATORVASTATIN CA20 M1 PO; +LASIX40 M1 PO; +METOPROLOL SUCC25 M1 PO
--- NOTE | 2017-11-04 17:46 | ED GI/GU/ABDOMINAL COMPLAINT ---
History of Present Illness General Chief Complaint: General Adult Stated Complaint: PAIN AT SURGICAL SITE Source: patient, family Exam Limitations: no limitations Allergies Coded Allergies: Sulfa (Sulfonamide Antibiotics) (Intermediate, RASH 03/26/17) adhesive tape (PAPER TAPE OK PER PT 03/26/17) Triage Note: PT TO ER SENT IN BY DR. SOLIS/VANIA FOR R/O SBO. HX OF COLON CA WITH RESECTION, NOW WITH TUMOR AT ANASTAMOSIS. DENIES N/V/D. LNBM TODAY Triage Nurses Notes Reviewed? yes ? n Is pt currently ? No Onset: Abrupt Duration: hour(s): Timing: multiple episodes today Quality/Severity: moderate Severity Numbers: 8 HPI: 87-year-old female with past medical history of atrial fibrillation, hypertension, hyperlipidemia, hypothyroidism, pseudogout, colonic cancer with metastasis status post hemicolectomy came to [facility] with complaints of lower abdominal pain of 8 x 10 in severity since today morning. Patient called Dr. Parikh who advised her to go to [facility] for further evaluation. She denies nausea, vomiting, abdominal pain, chest pain, chest pressure, weakness, dizziness, loss of consciousness,. She has loose stools, brown in color for the past 2 weeks. She didn't notice any blood in urine/stool. Patient was recently admitted in [facility] 2 weeks ago for small bowel obstruction and was managed conservatively with decompression and fluids. Patient improved on conservative management and was discharged 11/01/17. Patient was advised to follow-up with the tattoo designer and colorectal surgeon. She has been eating and drinking well for the past 2 days. She takes her medications regularly. At baseline she uses cane at home. (Alona AVALOS,[facility]) Vital Signs & Intake/Output Vital Signs & Intake/Output Vital Signs Date Time Temp Pulse Resp B/P B/P Pulse O2 O2 Flow FiO2 Mean Ox Delivery Rate 11/04 2218 97.6 68 16 132/68 95 Room Air 11/04 2038 97.2 74 18 130/65 96 Room Air 11/04 1740 96.5 98 18 148/78 93 Room Air ED Intake and Output 11/05 0000 11/04 1200 Intake Total 750 Output Total 750 Balance 0 Intake, Other 750 Output, 750 Gastric Drainage Patient 161 lb Weight Reconcile Medications Alprazolam (Xanax) 0.5 MG TABLET 1 TAB PO PRN ANXIETY (Reported) Atorvastatin Calcium (Lipitor) 20 MG TABLET 1 TAB PO DAILY CHOLESTEROL ( Reported) Baclofen 10 MG TABLET 1 TAB PO TIDPRN PRN muscle spasm/strain Cholecalciferol (Vitamin D3) (Vitamin D) 1,000 UNIT TABLET 1 TAB PO DAILY SUPPLEMENT (Reported) Colchicine 0.6 MG TABLET 300 MCG PO BID PSEUDOGOUT Cranberry Fruit Concentrate (Cranberry) 450 MG CAPSULE 1 CAP PO DAILY SUPPLEMENT (Reported) Furosemide (Lasix) 40 MG TABLET 0.5 TAB PO DAILY heart (Reported) Note that dosage has changed from 40mg daily to 20mg daily. Take one half of a tablet daily until follow up with Dr Ferguson in 10 days. Gabapentin 300 MG CAPSULE 1 CAP PO DAILY NEUROPATHY Insulin Detemir (Levemir) 100 UNIT/ML VIAL 40 UNIT SC BID DM (Reported) Irbesartan (Avapro) 300 MG TABLET 1 TAB PO DAILY BP (Reported) Levothyroxine Sodium (Synthroid) 125 MCG TABLET 1 TAB PO DAILY AC THYROID ( Reported) Metoprolol Succinate (Unknown Strength) TAB (Unknown Dose) PO DAILY AFIB ( Reported) Potassium Chloride 20 MEQ TABLET.ER 1 TAB PO DAILY SUPPLEMENT (Reported) Sitagliptin Phosphate (Januvia) 100 MG TABLET 1 TAB PO DAILY DM (Reported) Solifenacin Succinate (Vesicare) 5 MG TABLET 1 TAB PO DAILY BLADDER (Reported ) (Felicitas AVALOS,[facility]) Past History Travel History Traveled to [place] past 21 day No Medical History Any Pertinent Medical History? 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 Yes (Zoraida Sage MD) Review of Systems Review of Systems Constitutional: Reports: no symptoms. EENTM: Reports: no symptoms. Respiratory: Reports: no symptoms. Cardiovascular: Reports: no symptoms. GI: Reports: no symptoms. Genitourinary: Reports: no symptoms. Musculoskeletal: Reports: no symptoms. Skin: Reports: no symptoms. Neurological/Psychological: Reports: no symptoms. Hematologic/Endocrine: Reports: no symptoms. Immunologic/Allergic: Reports: no symptoms. (Zoraida Sage MD) Physical Exam Physical Exam General Appearance: well developed/nourished, no apparent distress, alert, awake , mild distress Head: atraumatic, normal appearance Ears, Nose, Throat, Mouth: hearing grossly normal, moist mucous membrane Neck: normal inspection, supple, full range of motion Respiratory: normal breath sounds, chest non-tender, no respiratory distress Cardiovascular: edema, systolic murmur, irregularly irregular Peripheral Pulses: 4+ radial (R), 4+ radial (L) Gastrointestinal: normal bowel sounds, distention, mass Core Measures ACS in differential dx? No Sepsis Present: No Sepsis Focused Exam Completed? Yes (Alona AVALOS,Zoraida) Progress Differential Diagnosis: bowel obstruction, colon cancer Plan of Care: Orders Procedure Date/time Status Admit to inpatient 11/048 Active Admit to inpatient 11/04 234 Active Patient Data 11/04 234 Active NGT 11/04 173 Active URINALYSIS 11/04 1736 Active PARTIAL THROMBOPLASTIN TIME 11/04 1736 Complete PROTHROMBIN TIME 11/04 173 Complete LACTIC ACID 11/04 1736 Complete COMPREHENSIVE METABOLIC PANEL 11/04 1736 Complete CBC WITHOUT DIFFERENTIAL 11/04 1736 Complete EKG 11/04 1736 Active TYPE & SCREEN (NOT X-MATCH) 11/04 173 Active Laboratory Tests 11/04/17 2037: Lactic Acid Cancelled 11/04/17 1820: Anion Gap 13, Estimated GFR > 60, BUN/Creatinine Ratio 18.8, Glucose 158 H, Lactic Acid 1.9, Calcium 9.1, Total Bilirubin 0.4, AST 29, ALT 36, Alkaline Phosphatase 67, Total Protein 6.2 L, Albumin 3.3 L, Globulin 2.9, Albumin/ Globulin Ratio 1.1, PT 12.1, INR 1.15, APTT 29, CBC w Diff MAN DIFF ORDERED, RBC 3.79 L, MCV 74.9 L, MCH 23.5 L, RDW 21.2 H, MPV 8.4, Gran % 89.8 H, Lymphocytes % 4.7 L, Monocytes % 4.9, Eosinophils % 0.5, Basophils % 0.1, Absolute Granulocytes 12.2 H, Segmented Neutrophils 83 H, Band Neutrophils 3, Absolute Lymphocytes 0.6 L, Lymphocytes 6 L, Monocytes 6, Absolute Monocytes 0.7 H, Eosinophils 1, Absolute Eosinophils 0.1, Basophils 1, Absolute Basophils 0, Nucleated RBCs 1 H, Platelet Estimate ADEQUATE, Polychromasia 2+, Hypochromic-Microcytic 2+, Basophilic Stippling 1+, Anisocytosis 1+, Microcytic Cells 1+, PUBS MCHC 31.[address] JHA IN THE ED. IF CT SHOWS NO SURGICAL ISSUE PATIENT WILL NEED MEDICAL ADMISSION, ONCOLOGY INPUT AND PAIN MANAGEMENT. (Janiya Polk MD) Diagnostic Imaging: Discussed w/RAD: CT Scan. 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 Small amount of abdominal and pelvic free fluid. Enteric tube in place. Bibasilar atelectasis. Stable cardiomegaly. Retroperitoneal and retrocrural lymphadenopathy. The patient has a reported history of colonic cancer. The appearance is suspicious for metastatic disease. (Naman Singh MD) Departure Departure Condition: Stable Referrals: Jatinder Michael MD. (PCP/Family) Departure Forms: Customer Survey General Discharge Information (Zoraida Sage MD) Departure Disposition: STILL A PATIENT Resident Co-Sign Statement Statement: ED Attending supervision documentation- [X] I saw and evaluated the patient. I have also reviewed all the pertinent lab results and diagnostic results. I agree with the findings and the plan of care as documented in the Resident's documentation. [X] I have reviewed the ED Record and agree with the Resident's documentation. [] Additions or exceptions (if any) to the Resident's note and plan are summarized below: [] (Janiya Polk MD) Departure Time of Disposition: 5 Clinical Impression Primary Impression: SBO (small bowel obstruction) Secondary Impressions: Abdominal pain Admission Note Spoke With: Marbella Jha MD Documentation of Exam: Documentation of any treatments & extenuating circumstances including Concerns Regarding Discharge (functional status, medication knowledge or non-compliance, living conditions, etc.) that warrant an admission rather than observation: NGT NPO IV fluid IV analgesia IV antiemetic serial lab exam medication adjustment surgical management oncology evaluation continuing care discharge planning (Samantha AVALOS,Naman)
[2017-11-04 18:47] LABS: PT 12.1 SEC (9.4-12.5); PTT 29 SEC (25-37)
[2017-11-04 18:51] LABS: ABSOLUTE BASOPHIL COUNT 0 /CUMM (0.0-0.2); ABSOLUTE EOSINOPHIL COUNT 0.1 /CUMM (0.0-0.7); ABSOLUTE GRANULOCYTE CT 12.2 /CUMM (1.4-6.5); ABSOLUTE LYMPH COUNT 0.6 /CUMM (1.2-3.4); ABSOLUTE MONOCYTE COUNT 0.7 /CUMM (0.10-0.60); BASOPHIL % 0.1 % (0.0-2.0); EOSINOPHIL % 0.5 % (0-5); GRANULOCYTE % 89.8 % (42.2-75.2); HEMATOCRIT 28.4 % (37-47); MEAN CORPUSCULAR HGB 23.5 PG (27.0-31.0); MEAN CORPUSCULAR HGB CONC 31.4 G/DL (33.0-37.0); MEAN CORPUSCULAR VOLUME 74.9 FL (81.0-99.0); MEAN PLATELET VOLUME 8.4 FL (7.4-10.4); PLATELET COUNT 365 /CUMM (130-400); RBC DISTRIBUTION WIDTH 21.2 % (11.5-14.5); RED BLOOD CELL CT 3.79 /CUMM (4.20-5.40); WHITE BLOOD CELL COUNT 13.6 /CUMM (4.8-10.8)
--- NOTE | 2017-11-04 19:51 | RADIOLOGY REPORT ---
EXAMINATION: CHEST 1 VIEW CLINICAL INFORMATION: Enteric tube placement. COMPARISON: 10/22/2017. TECHNIQUE: An AP view of the chest is provided. FINDINGS: The cardiac silhouette is enlarged, but stable. A right-sided port is in place. The tip terminates near the right atrium. An enteric tube is in place. The tip terminates within the left upper quadrant, likely within the stomach. There are neither pleural effusions nor pneumothoraces. There are no consolidations. The osseous structures are stable. IMPRESSION: Enteric tube and right port in place. Stable cardiomegaly. No consolidations.
--- NOTE | 2017-11-04 22:31 | CT SCAN REPORT ---
EXAMINATION: CT ABDOMEN AND PELVIS WITH CONTRAST CLINICAL INFORMATION: Abdominal distention. COMPARISON: 10/22/2017. TECHNIQUE: Contiguous axial thin section helical images of the abdomen and pelvis were performed following the administration of 95 mL of intravenous Optiray 320. The data set was reformatted in the coronal and sagittal planes and reviewed on an independent workstation. DLP: 848 mGy-cm. FINDINGS: There is mild dependent bibasilar atelectasis. The visualized lung bases are otherwise clear. The heart is enlarged, but stable. There is no pericardial effusion. And enteric tube is in place. The tip terminates within the stomach. The liver is of normal size and attenuation without focal lesions nor intrahepatic biliary ductal dilation. There is mild periportal edema. There is a small amount of free fluid inferior to the right lobe of the liver. The patient is status post cholecystectomy. Surgical clips are present. The spleen, pancreas, adrenal glands are unremarkable. Both kidneys are of normal size and attenuation without hydronephrosis or nephrolithiasis. Following the administration of IV contrast, prompt symmetric nephrograms are displayed. There is no abdominal free fluid. There are scattered retroperitoneal lymph nodes. The largest is within a left location inferior to the aortic bifurcation measuring approximately 2.5 x 3.4 cm on image [id number]. There are enlarged retrocrural lymph nodes. There are dilated loops of small bowel throughout the abdomen. This extends to the terminal ileum. Surgical chain sutures are present at this location. There is a partial colonic resection. There is a small amount of pelvic free fluid. The urinary bladder is unremarkable. There is neither pelvic nor inguinal lymphadenopathy. Bone windows: Neither sclerotic nor lytic bone lesions are identified. There are wedge-shaped compression fractures present at T12 and L1. There are unchanged from prior exam. 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 Small amount of abdominal and pelvic free fluid. Enteric tube in place. Bibasilar atelectasis. Stable cardiomegaly. Retroperitoneal and retrocrural lymphadenopathy. The patient has a reported history of colonic cancer. The appearance is suspicious for metastatic disease.
--- NOTE | 2017-11-05 00:36 | Admission Core Measures ---
Acute Coronary Syndrome (CM) ACS Core Measures Acute Coronary Syndrome Diagnosis No Congestive Heart Failure (NEW) CHF Core Measures Congestive Heart Failure Diagnosis No Cerebrovascular Accident (NEW) CVA Core Measures CVA/TIA Diagnosis No Venous Thromboembolism VTE Core Reagan (View Protocol) VTE Risk Factors Age>40 No Mechanical VTE Prophylaxis d/t N/A MechProphylax Ordered No VTE Pharm Prophylaxis d/t NA PharmProphylax ordered Problem List As ranked by this Provider includes Assessment & Plan 1. Small bowel obstruction HOME MEDS Home Med List Alprazolam (Xanax) 0.5 MG TABLET 1 TAB PO PRN ANXIETY (Reported) Atorvastatin Calcium (Lipitor) 20 MG TABLET 1 TAB PO DAILY CHOLESTEROL ( Reported) Baclofen 10 MG TABLET 1 TAB PO TIDPRN PRN muscle spasm/strain Cholecalciferol (Vitamin D3) (Vitamin D) 1,000 UNIT TABLET 1 TAB PO DAILY SUPPLEMENT (Reported) Colchicine 0.6 MG TABLET 300 MCG PO BID PSEUDOGOUT Cranberry Fruit Concentrate (Cranberry) 450 MG CAPSULE 1 CAP PO DAILY SUPPLEMENT (Reported) Furosemide (Lasix) 40 MG TABLET 0.5 TAB PO DAILY heart (Reported) Gabapentin 300 MG CAPSULE 1 CAP PO DAILY NEUROPATHY Insulin Detemir (Levemir) 100 UNIT/ML VIAL 40 UNIT SC BID DM (Reported) Irbesartan (Avapro) 300 MG TABLET 1 TAB PO DAILY BP (Reported) Levothyroxine Sodium (Synthroid) 125 MCG TABLET 1 TAB PO DAILY AC THYROID ( Reported) Metoprolol Succinate (Unknown Strength) TAB (Unknown Dose) PO DAILY AFIB ( Reported) Potassium Chloride 20 MEQ TABLET.ER 1 TAB PO DAILY SUPPLEMENT (Reported) Sitagliptin Phosphate (Januvia) 100 MG TABLET 1 TAB PO DAILY DM (Reported) Solifenacin Succinate (Vesicare) 5 MG TABLET 1 TAB PO DAILY BLADDER (Reported ) Discontinued Medications Amlodipine Besylate 10 MG TABLET 1 TAB PO DAILY BP (Reported) Discontinued reason: Per Doctor Decision Digoxin 125 MCG TABLET 1 TAB PO QPM HEART (Reported) Discontinued reason: Per Doctor Decision
--- NOTE | 2017-11-05 00:54 | History & Physical ---
Brett Dickens 11/05/17 0041: General Information and HPI MD Statement: I have seen and personally examined LARS FENG and documented this H&P. The patient is a 87 year old F who presented with a patient stated chief complaint of [abdominal pain, nausea, vomiting]. Source of Information: patient Exam Limitations: no limitations History of Present Illness: Ms. Feng is a 7-year-old female who is known to the surgical service under the care of Dr Castillo for metastatic colorectal ca, atrial fibrillation, hypertension, diabetes, hyperlipidemia, hypothyroid, pseudogout, and bladder issues. Presents with 2 week history of worsening abdominal pain and now nausea and vomiting. CAT scan of abdomen today demonstrates small bowel obstruction. She has a known metastasis at her surgical anastomosis. Due to the obstructive nature of this lesion and the poor prognosis of her metastatic disease Dr. Castillo feels that the patient would benefit from a palliative procedure relieving her of this obstruction. She has no other complaints at this time. Allergies/Medications Allergies: Coded Allergies: Sulfa (Sulfonamide Antibiotics) (Intermediate, RASH 03/26/17) adhesive tape (PAPER TAPE OK PER PT 03/26/17) Home Med list Alprazolam (Xanax) 0.5 MG TABLET 1 TAB PO PRN ANXIETY (Reported) Atorvastatin Calcium (Lipitor) 20 MG TABLET 1 TAB PO DAILY CHOLESTEROL ( Reported) Baclofen 10 MG TABLET 1 TAB PO TIDPRN PRN muscle spasm/strain Cholecalciferol (Vitamin D3) (Vitamin D) 1,000 UNIT TABLET 1 TAB PO DAILY SUPPLEMENT (Reported) Colchicine 0.6 MG TABLET 300 MCG PO BID PSEUDOGOUT Cranberry Fruit Concentrate (Cranberry) 450 MG CAPSULE 1 CAP PO DAILY SUPPLEMENT (Reported) Furosemide (Lasix) 40 MG TABLET 0.5 TAB PO DAILY heart (Reported) Note that dosage has changed from 40mg daily to 20mg daily. Take one half of a tablet daily until follow up with Dr Ferguson in 10 days. Gabapentin 300 MG CAPSULE 1 CAP PO DAILY NEUROPATHY Insulin Detemir (Levemir) 100 UNIT/ML VIAL 40 UNIT SC BID DM (Reported) Irbesartan (Avapro) 300 MG TABLET 1 TAB PO DAILY BP (Reported) Levothyroxine Sodium (Synthroid) 125 MCG TABLET 1 TAB PO DAILY AC THYROID ( Reported) Metoprolol Succinate (Unknown Strength) TAB (Unknown Dose) PO DAILY AFIB ( Reported) Potassium Chloride 20 MEQ TABLET.ER 1 TAB PO DAILY SUPPLEMENT (Reported) Sitagliptin Phosphate (Januvia) 100 MG TABLET 1 TAB PO DAILY DM (Reported) Solifenacin Succinate (Vesicare) 5 MG TABLET 1 TAB PO DAILY BLADDER (Reported ) Past History Travel History Traveled to [place] past 21 day No Medical History Neurological: peripheral neuropathy, TIA EENT: NONE Cardiovascular: AFIB, CHF, hypertension, hyperlipidemia Respiratory: NONE Gastrointestinal: NONE Hepatic: NONE Renal: NONE Musculoskeletal: gout, osteoarthritis Psychiatric: anxiety Endocrine: diabetes, hypothyroidism, vitamin D deficiency Blood Disorders: NONE Cancer(s): colon/rectal cancer 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 Home Who Do You Live With? spouse Services at Home: None Functional Ability ADLs Independent: dressing, eating, toileting, bathing. Ambulation: independent IADLs Independent: shopping, housework, finances, food prep, telephone, medication admin. Needs Assist: transportation. Review of Systems Review of Systems Constitutional: Denies: no symptoms, see HPI, chills, diaphoresis, fever, malaise, weakness, unexplained weight loss. Exam & Diagnostic Data Last 24 Hrs of Vital Signs/I&O Vital Signs Date Time Temp Pulse Resp B/P B/P Pulse O2 O2 Flow FiO2 Mean Ox Delivery Rate 11/05 0024 97.5 72 16 141/81 96 Room Air 11/049 97.6 68 16 132/68 95 Room Air 11/04 2038 97.2 74 18 130/65 96 Room Air 11/04 1740 96.5 98 18 148/78 93 Room Air Intake & Output 11/05 0800 11/05 0000 11/04 1600 Intake Total 750 Output Total 750 Balance 0 Intake, Other 750 Output, 750 Gastric Drainage Patient 161 lb Weight Physical Exam General Appearance Alert, Cooperative Skin Temp/Moisture Exam: Warm/Dry HEENT PERRLA Cardiovascular Regular Rate, Normal S1, Normal S2 Lungs Clear to Auscultation, Normal Air Movement Abdomen diffusely tender to palpation, active bowel sounds, distention noted, no evidence of peritonitis Neurological Normal Speech, Strength at 5/5 X4 Ext Extremities No Tenderness/Swelling Last 24 Hrs of Labs/Sanjeev: Laboratory Tests 11/04/172036: Lactic Acid Cancelled 11/04/17 1820: Anion Gap 13, Estimated GFR > 60, BUN/Creatinine Ratio 18.8, Glucose 158 H, Lactic Acid 1.9, Calcium 9.1, Total Bilirubin 0.4, AST 29, ALT 36, Alkaline Phosphatase 67, Total Protein 6.2 L, Albumin 3.3 L, Globulin 2.9, Albumin/ Globulin Ratio 1.1, PT 12.1, INR 1.15, APTT 29, CBC w Diff MAN DIFF ORDERED, RBC 3.79 L, MCV 74.9 L, MCH 23.5 L, RDW 21.2 H, MPV 8.4, Gran % 89.8 H, Lymphocytes % 4.7 L, Monocytes % 4.9, Eosinophils % 0.5, Basophils % 0.1, Absolute Granulocytes 12.2 H, Segmented Neutrophils 83 H, Band Neutrophils 3, Absolute Lymphocytes 0.6 L, Lymphocytes 6 L, Monocytes 6, Absolute Monocytes 0.7 H, Eosinophils 1, Absolute Eosinophils 0.1, Basophils 1, Absolute Basophils 0, Nucleated RBCs 1 H, Platelet Estimate ADEQUATE, Polychromasia 2+, Hypochromic-Microcytic 2+, Basophilic Stippling 1+, Anisocytosis 1+, Microcytic Cells 1+, PUBS MCHC 31.4 L Diagnostic Data Other Results SERVICE DATE: 11/04/17 EXAM TYPE: CAT - CT ABD & PELVIS W ORAL & IV CO EXAMINATION: CT ABDOMEN AND PELVIS WITH CONTRAST CLINICAL INFORMATION: Abdominal distention. COMPARISON: 10/22/2017. TECHNIQUE: Contiguous axial thin section helical images of the abdomen and pelvis were performed following the administration of 95 mL of intravenous Optiray 320. The data set was reformatted in the coronal and sagittal planes and reviewed on an independent workstation. DLP: 848 mGy-cm. FINDINGS: There is mild dependent bibasilar atelectasis. The visualized lung bases are otherwise clear. The heart is enlarged, but stable. There is no pericardial effusion. And enteric tube is in place. The tip terminates within the stomach. The liver is of normal size and attenuation without focal lesions nor intrahepatic biliary ductal dilation. There is mild periportal edema. There is a small amount of free fluid inferior to the right lobe of the liver. The patient is status post cholecystectomy. Surgical clips are present. The spleen, pancreas, adrenal glands are unremarkable. Both kidneys are of normal size and attenuation without hydronephrosis or nephrolithiasis. Following the administration of IV contrast, prompt symmetric nephrograms are displayed. There is no abdominal free fluid. There are scattered retroperitoneal lymph nodes. The largest is within a left location inferior to the aortic bifurcation measuring approximately 2.5 x 3.4 cm on image [id number]. There are enlarged retrocrural lymph nodes. There are dilated loops of small bowel throughout the abdomen. This extends to the terminal ileum. Surgical chain sutures are present at this location. There is a partial colonic resection. There is a small amount of pelvic free fluid. The urinary bladder is unremarkable. There is neither pelvic nor inguinal lymphadenopathy. Bone windows: Neither sclerotic nor lytic bone lesions are identified. There are wedge-shaped compression fractures present at T12 and L1. There are unchanged from prior exam. IMPRESSION: Multiple dilated loops of small bowel likely manufacturers service representative of a distal small bowel obstruction. Small amount of abdominal and pelvic free fluid. Enteric tube in place. Bibasilar atelectasis. Stable cardiomegaly. Retroperitoneal and retrocrural lymphadenopathy. The patient has a reported history of colonic cancer. The appearance is suspicious for metastatic disease. DICTATED BY: Samson Portillo MD DATE/TIME DICTATED:11/04/172217 NEUROLOGY DIRECTOR:ALEX DATE/TIME TRANSCRIBED:11/04/172217 Assessment/Plan Assessment: Small bowel obstruction secondary to anastomotic lesion. This is known to Dr Sanchez and feels that due to the nature of this presentation this obstruction cannot be resolved without surgical intervention. For this reason the patient will be admitted to the surgical service, medical and cardiac consultation and clearance will be done, we will initiate PICC line in a.m. as this patient will be without nutrition for at least a week status post surgery. Plan NG tube/nothing by mouth IV fluids Resume home meds Consult medicine and cardiology for surgical clearance As Ranked By This Provider Problem List: 1. Small bowel obstruction Core Measures/Misc (07/12) Acute Coronary Syndrome ACS Diagnosis: No Congestive Heart Failure Congestive Heart Failure Diagnosis No Cerebrovascular Accident CVA/TIA Diagnosis: No VTE (View Protocol) VTE Risk Factors Age>40 No Mechanical VTE Prophylaxis d/t N/A MechProphylax Ordered No VTE Pharm Prophylaxis d/t NA PharmProphylax ordered Sepsis (View protocol) Sepsis Present: No Marbella Jha MD 11/05/17 0957: Attending MD Review Statement Attending Statement Attending MD Statement: examined this patient, discuss w/resident/PA/ANNUAL GIVING OFFICER, agreed w/resident/PA/ANNUAL GIVING OFFICER, discussed with family, reviewed EMR data (avail), discussed with nursing, reviewed images Attending Assessment/Plan: Pt is well known to me. She has anastomotic recurrence of colon CA, currently undergoing chemotherapy with Dr. Son. She presents with recurrent SBO of unclear etiology, adhesions vs. anastomotic obstruction vs. small bowel met deposits. After a discussion with patient and family and review of the imaging, I feel that the best way to provide patient with palliation is to proceed with surgery. Pt is scheduled for OR on 11/06/17.
--- NOTE | 2017-11-05 14:04 | Cons- Medical ---
Jean Marie AVALOS,Win 11/05/17 1403: General Information and HPI Consulting Request Requested By: Marbella Jha MD Source of Information: patient, old records History of Present Illness: This is an 87-year-old female, well known to medical service as we consulted on her last , with a PMH of AFIB not on AC , CHF, HTN, HLD, peripheral neuropathy, TIA, gout/osteoarthritis, DM, hypothyroidism, hx of colon cancer status post right hemicolectomy who presented to the ED with CC abdominal pain. She was admitted on Oct 24 for similar complaint and at that time CAT scan showed "small bowel obstruction with significantly dilated fluid-filled loops of bowel throughout the entire abdomen to the level of an enterocolonic anastomosis at the splenic flexure with relatively decompressed large bowel." She was on surgical service and was teated conservatively with NGT decompression with medicine, cardiology and oncology consulting. She was transitioned to regular diet and d/c home. Since going home she has continued to eat solid food and even had regular BM. However, yesterday her BM was more watery and her abdominal pain resumed. She states that the pain in epigastric to mid-abdominal and that it was "excruciating." No episodes of vomiting at home but in ED she had one episode of large volume emesis that was green tinged. CAT scan showing repeated SBO. Surgical service consulted and there is consensus that pt would benefit from palliative surgery to relieve obstruction. Medicine is consulted for management of her comorbid conditions. Allergies/Medications Allergies: Coded Allergies: Sulfa (Sulfonamide Antibiotics) (Intermediate, RASH 03/26/17) adhesive tape (PAPER TAPE OK PER PT 03/26/17) Home Med List: Alprazolam (Xanax) 0.5 MG TABLET 1 TAB PO PRN ANXIETY (Reported) Atorvastatin Calcium (Lipitor) 20 MG TABLET 1 TAB PO DAILY CHOLESTEROL ( Reported) Baclofen 10 MG TABLET 1 TAB PO TIDPRN PRN muscle spasm/strain Cholecalciferol (Vitamin D3) (Vitamin D) 1,000 UNIT TABLET 1 TAB PO DAILY SUPPLEMENT (Reported) Colchicine 0.6 MG TABLET 300 MCG PO BID PSEUDOGOUT Cranberry Fruit Concentrate (Cranberry) 450 MG CAPSULE 1 CAP PO DAILY SUPPLEMENT (Reported) Furosemide (Lasix) 40 MG TABLET 0.5 TAB PO DAILY heart (Reported) Note that dosage has changed from 40mg daily to 20mg daily. Take one half of a tablet daily until follow up with Dr Ferguson in 10 days. Gabapentin 300 MG CAPSULE 1 CAP PO DAILY NEUROPATHY Insulin Detemir (Levemir) 100 UNIT/ML VIAL 40 UNIT SC BID DM (Reported) Irbesartan (Avapro) 300 MG TABLET 1 TAB PO DAILY BP (Reported) Levothyroxine Sodium (Synthroid) 125 MCG TABLET 1 TAB PO DAILY AC THYROID ( Reported) Metoprolol Succinate (Unknown Strength) TAB (Unknown Dose) PO DAILY AFIB ( Reported) Potassium Chloride 20 MEQ TABLET.ER 1 TAB PO DAILY SUPPLEMENT (Reported) Sitagliptin Phosphate (Januvia) 100 MG TABLET 1 TAB PO DAILY DM (Reported) Solifenacin Succinate (Vesicare) 5 MG TABLET 1 TAB PO DAILY BLADDER (Reported ) Review of Systems Review of Systems Constitutional: Reports: weakness. Denies: chills, diaphoresis, fever. EENTM: Reports: no symptoms. Cardiovascular: Denies: chest pain, palpitations. Respiratory: Denies: cough, short of breath. GI: Reports: abdominal pain, bloating, constipation, distention, nausea, changes in stool, vomiting. Denies: melena. Genitourinary: Reports: no symptoms. Musculoskeletal: Reports: no symptoms. Skin: Reports: no symptoms. 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 Home Who Do You Live With? spouse Services at Home: None Smoking Status: Never Smoked Functional Ability ADLs Independent: dressing, eating, toileting, bathing. Ambulation: independent IADLs Independent: shopping, housework, finances, food prep, telephone, medication admin. Needs Assist: transportation. Exam & Diagnostic Data Last 24 Hrs of Vital Signs/I&O Vital Signs Date Time Temp Pulse Resp B/P B/P Pulse O2 O2 Flow FiO2 Mean Ox Delivery Rate 11/05 1357 98.6 64 18 138/76 92 Room Air 11/05 1230 98.1 124 18 135/71 11/05 1230 98.1 124 18 135/71 11/05 1100 97.0 72 22 132/70 96 Room Air 11/05 0620 98.1 124 18 135/71 95 Room Air 11/05 0024 97.5 72 16 141/81 96 Room Air 11/04 2219 97.6 68 16 132/68 95 Room Air 11/04 2039 97.2 74 18 130/65 96 Room Air 11/04 1740 96.5 98 18 148/78 93 Room Air Intake & Output 11/05 1600 11/05 0800 11/05 0000 Intake Total 1100 600 750 Output Total 1000 100 750 Balance 100 500 0 Intake, IV 1100 600 Intake, Other 750 Output, 1000 750 Gastric Drainage Output, Urine 100 Patient 73.028 kg 73.028 kg 73.028 kg Weight Weight Reported by Patient Measurement Method Physical Exam General Appearance: well developed/nourished, no apparent distress, alert, awake Head: normal appearance, NGT in place Eyes: Bilateral: normal appearance, PERRL, EOMI. Neck: normal inspection Respiratory: normal breath sounds, chest non-tender Cardiovascular: systolic murmur, irregularly irregular Gastrointestinal: the epigastric region is soft but rest of abdomen is firm. No rebound or guarding but tender to deep palpation in all four quadrants. No bowel sounds appreciated. Last 24 Hrs of Labs/Sanjeev: Laboratory Tests 11/05/17 0052: Urinalysis MOD H, Urine Color YEL, Urine Clarity CLEAR, Urine pH 6.5, Ur Specific Constable <= 1.005, Urine Protein TRACE H, Urine Ketones NEG, Urine Nitrite NEG, Urine Bilirubin NEG, Urine Urobilinogen 0.2, Ur Leukocyte Esterase NEG, Ur Microscopic SEDIMENT EXAMINED, Urine RBC RARE, Urine WBC 1-3 H, Ur Epithelial Cells RARE, Hyaline Casts RARE H, Urine Mucus MOD H, Urine Hemoglobin NEG, Urine Glucose NEG 11/04/172036: Lactic Acid Cancelled 11/04/17 1820: Anion Gap 13, Estimated GFR > 60, BUN/Creatinine Ratio 18.8, Glucose 158 H, Lactic Acid 1.9, Calcium 9.1, Total Bilirubin 0.4, AST 29, ALT 36, Alkaline Phosphatase 67, Total Protein 6.2 L, Albumin 3.3 L, Globulin 2.9, Albumin/ Globulin Ratio 1.1, PT 12.1, INR 1.15, APTT 29, CBC w Diff MAN DIFF ORDERED, RBC 3.79 L, MCV 74.9 L, MCH 23.5 L, RDW 21.2 H, MPV 8.4, Gran % 89.8 H, Lymphocytes % 4.7 L, Monocytes % 4.9, Eosinophils % 0.5, Basophils % 0.1, Absolute Granulocytes 12.2 H, Segmented Neutrophils 83 H, Band Neutrophils 3, Absolute Lymphocytes 0.6 L, Lymphocytes 6 L, Monocytes 6, Absolute Monocytes 0.7 H, Eosinophils 1, Absolute Eosinophils 0.1, Basophils 1, Absolute Basophils 0, Nucleated RBCs 1 H, Platelet Estimate ADEQUATE, Polychromasia 2+, Hypochromic-Microcytic 2+, Basophilic Stippling 1+, Anisocytosis 1+, Microcytic Cells 1+, PUBS MCHC 31.4 L Assessment/Plan Assessment/Plan This is an 87-year-old with PMH of atrial fibrillation not on AC , CHF, hypertension, hyperlipidemia, peripheral neuropathy, TIA, gout/osteoarthritis, diabetes, hypothyroidism, hx of colon cancer s/p right hemicolectomy, recently treated conservatively for SBO who presented to the ED with a chief complaints of abdominal discomfort and another SBO. Plan is for surgical management of obstruction and medicine is consulted for co-management of her co-morbid conditions. CAT scan shows IMPRESSION: Multiple dilated loops of small bowel likely tax compliance representative of a distal smallbowel obstruction. Small amount of abdominal and pelvic free fluid. Enteric tube in place. Bibasilar atelectasis. Stable cardiomegaly. Retroperitoneal and retrocrural lymphadenopathy. The patient has a reported history of colonic cancer. The appearance is suspicious for metastatic disease. PLAN: 1. Small bowel obstruction likely 2/2 colon ca and prev. abdominal surgeries: Symptom management with NGT, anti-nausea and anti-emetics on board per surgery recs. In terms of Cardiac clearance for planned small bowel resection cardiology is on board. From a medicine perspective RCRI is 1 giving her Class II risk (0.9 %) for perioperative cardiac events. Though not incorporated in RCRI, a previous admission for atrial fibrillation does increase post-op complications. * Continue recommendations as per surgical team * NPO * Will change all medications to IV * Adequate pain control * NGT in place 2. History of atrial fibrillation (not on anticoagulation due to GI bleed) * Patient has been been rate controlled. If necessary can start her on IV cardizem, which was done in previous admission when she had rapid afib. * Monitor on telemetry 3. History of CHF * She is on lasix 20 mg po at home. Will hold at this time given NPO and emesis. * Will re-eval tomorrow * Currently in 100cc IVF. Note lasix on hold Monitor for heart failure. 4. History of hypertension: During her last admission her medications were reviewed with cardiology and she was instructed to hold amlodipine and digoxin, and to continue her labetelol at 50mg po daily, continue her irbesartan at 300mg po daily and decrease her lasix to 20mg po daily until she saw with convenience store manager post-op. She has not seen Dr. Ferguson yet. * Will continue labetolol--> She is on PO 50mg daily and per pharmacy conversion to IV would be 5mg Q6, but pt started on 2.5mg q6 and this regimen seems to be controlling her BP well. As there is no IV ARB if her BP becomes an issue then we can increase her labetalol to the 5mg q6 dose. * HOLD Lasix 20mg * Hold irbesartan. * Cardiology on board. Will follow their recs 5. History of hypothyroidism. * Change by mouth levothyroxin to IV (PO 125 MCG to 63 IV mcg). 6. History of diabetes * Npo insulin sliding scale. * FSS every 6 hrs. 7. History of colon cancer status post right hemicolectomy: She sees Dr. Son. * If is not aware of plan for palliative surgery, he should be informed. NPO Problem List: 1. Bowel obstruction Consult Acknowledgment - Thank you for your consult request. Sylwia AVALOS,Rachael 11/05/17 1602: General Information and HPI Consulting Request Date of Consult: 11/05/17 Reason for Consult: Preop eval and optimization Assessment/Plan Consult Acknowledgment - Thank you for your consult request. Attending MD Review Statement Attending Statement Attending MD Statement: examined this patient, discuss w/resident/PA/MID LEVEL BUSINESS ANALYST, agreed w/resident/PA/MID LEVEL BUSINESS ANALYST, reviewed EMR data (avail), discussed with nursing Attending Assessment/Plan: Very complex 87-year-old female with multiple medical problems including diabetes on insulin, A. fib previously on anticoagulation, moderate to severe aortic stenosis on the most recent echo in January 2017 with elevated RV systolic pressure, pseudogout and hypertension. She has a history of colonic adenocarcinoma and has had a recurrence at the anastomotic site and is presenting with a distal small bowel obstruction. She had this small bowel obstruction before that was treated medically but this time surgery feels that palliative surgery would be indicated to help with the obstructive symptoms. At this time the active issues are the rapid A. fib and I think there rapid because she is not able to take anything by mouth, vomited her medications and has the SBO. She has a white count of 13,000 with no obvious source and the electrolytes checked yesterday were okay. I agree with the resident that at this time will have to give her IV beta blockers converting her usual by mouth dose to IV doses and if her pressure tolerates then I think we could even increase the metoprolol to 5mg every 6 or use a Cardizem drip. Obviously hold on the Lasix and give her IV fluids but given the moderate to severe left ear watch closely for CHF. Hold her long-acting insulin give her short acting and follow the sugars closely. Although her overall RCRI indexe is not high, given all of her comorbidities and specifically her rapid A. fib, moderate to severe and elevated RV systolic pressure- I definitely feel that we need cardiology's help. The surgical service has already called the cardiology consult and will recommend that she seen by the convenience store manager prior to the anticipated surgery.
[2017-11-05 15:34] VITALS: BP 130/64
--- NOTE | 2017-11-05 22:24 | Cons- Cardiology ---
General Information and HPI Consulting Request Date of Consult: 11/05/17 Requested By: Marbella Jha MD History of Present Illness: Corina is an 86 year old female with history of hypertension, dyslipidemia, diabetes and moderate to severe aortic stenosis. She also has a history of colon cancer status post resection with recurrence and metastases. Due to a recurrent GI bleed this patient was not placed on chronic anticoagulation. This patient has a bowel obstruction and anticipates surgery. This patient has no symptoms of chest discomfort, shortness of breath, lightheadedness or palpitations. She has no awareness of her atrial fibrillation. She has had severe but intermittent abdominal discomfort. Allergies/Medications Allergies: Coded Allergies: Sulfa (Sulfonamide Antibiotics) (Intermediate, RASH 03/26/17) adhesive tape (PAPER TAPE OK PER PT 03/26/17) Home Med List: Alprazolam (Xanax) 0.5 MG TABLET 1 TAB PO PRN ANXIETY (Reported) Atorvastatin Calcium (Lipitor) 20 MG TABLET 1 TAB PO DAILY CHOLESTEROL ( Reported) Baclofen 10 MG TABLET 1 TAB PO TIDPRN PRN muscle spasm/strain Cholecalciferol (Vitamin D3) (Vitamin D) 1,000 UNIT TABLET 1 TAB PO DAILY SUPPLEMENT (Reported) Colchicine 0.6 MG TABLET 300 MCG PO BID PSEUDOGOUT Cranberry Fruit Concentrate (Cranberry) 450 MG CAPSULE 1 CAP PO DAILY SUPPLEMENT (Reported) Furosemide (Lasix) 40 MG TABLET 0.5 TAB PO DAILY heart (Reported) Note that dosage has changed from 40mg daily to 20mg daily. Take one half of a tablet daily until follow up with Dr Ferguson in 10 days. Gabapentin 300 MG CAPSULE 1 CAP PO DAILY NEUROPATHY Insulin Detemir (Levemir) 100 UNIT/ML VIAL 40 UNIT SC BID DM (Reported) Irbesartan (Avapro) 300 MG TABLET 1 TAB PO DAILY BP (Reported) Levothyroxine Sodium (Synthroid) 125 MCG TABLET 1 TAB PO DAILY AC THYROID ( Reported) Metoprolol Succinate (Unknown Strength) TAB (Unknown Dose) PO DAILY AFIB ( Reported) Potassium Chloride 20 MEQ TABLET.ER 1 TAB PO DAILY SUPPLEMENT (Reported) Sitagliptin Phosphate (Januvia) 100 MG TABLET 1 TAB PO DAILY DM (Reported) Solifenacin Succinate (Vesicare) 5 MG TABLET 1 TAB PO DAILY BLADDER (Reported ) Past History Travel History Traveled to [place] past 21 day No Medical History Blood Transfusion Hx: No Neurological: TIA, PERINEURON EENT: NONE Cardiovascular: AFIB, CHF, hypertension, hyperlipidemia Respiratory: NONE Gastrointestinal: NONE Hepatic: NONE Renal: NONE Musculoskeletal: gout, osteoarthritis Psychiatric: anxiety Endocrine: diabetes, hypothyroidism, vitamin D deficiency Blood Disorders: NONE Cancer(s): colon/rectal cancer SKI BASE TRIMMER/Reproductive: NONE Other Medical Hx: Gout Rheumatoid arthritis Surgical History Surgical History: cholecystectomy, colon resection (right hemicolectomy), c- section, hysterectomy, diagnostic laparoscopy, PERNELL Family History Relations & Conditions If Any: FATHER FH: heart disease MOTHER FH: diabetes mellitus Psychosocial History Where Do You Live? Home Who Do You Live With? spouse Services at Home: None Smoking Status: Never Smoked Functional Ability ADLs Independent: dressing, eating, toileting, bathing. Ambulation: independent IADLs Independent: shopping, housework, finances, food prep, telephone, medication admin. Needs Assist: transportation. Exam & Diagnostic Data Vital Signs and I&O Vital Signs Date Time Temp Pulse Resp B/P B/P Pulse O2 O2 Flow FiO2 Mean Ox Delivery Rate 11/05 2020 122 11/05 1534 98.2 134 18 130/64 92 Nasal Cannula 11/05 1529 Room Air 11/05 1357 98.6 64 18 138/76 92 Room Air 11/05 1230 98.1 124 18 135/71 11/05 1230 98.1 124 18 135/71 11/05 1100 97.0 72 22 132/70 96 Room Air 11/05 0620 98.1 124 18 135/71 95 Room Air 11/05 0024 97.5 72 16 141/81 96 Room Air 11/04 2219 97.6 68 16 132/68 95 Room Air Intake & Output 11/05 1600 11/05 0800 11/05 0000 11/04 1600 11/04 0800 11/04 0000 Intake Total 1100 600 750 Output Total 1000 100 750 Balance 100 500 0 Intake, IV 1100 600 Intake, Other 750 Output, 1000 750 Gastric Drainage Output, Urine 100 Patient 162 lb 161 lb 161 lb Weight Weight Bed scale Reported by Patient Measurement Method Physical Exam: General: WD/WN female in NAD; alert and oriented x 3 HEENT: NC/AT, PERRL, EOMI Neck: no JVD, bilateral carotid bruits Heart: irregularlhy irregulr and tachycardic Lungs: clear bilaterally Abdomen: soft, NT, +ve bowel sounds Extremities: no edema Assessment/Plan Assessment/Plan * This patient does have moderate to severe aortic stenosis but she has a normal EF with no evidence of decompensated CHF and is without symptoms of myocardial ischemia. She is at mildly increased, but not prohibitive, risk for major abdominal surgery. * This patient has atrial fibrillation with increased heart rate. Begin IV Lopressor 5mg Q 6 hours or as necessary to control her heart rate. Anticoagulation will have to be deferred due to impending surgery. Consult Acknowledgment - Thank you for your consult request.
[2017-11-05 23:12] VITALS: BP 128/60
[2017-11-06 06:00] VITALS: BP 148/60
[2017-11-06 08:13] LABS: ABSOLUTE BASOPHIL COUNT 0 /CUMM (0.0-0.2); ABSOLUTE EOSINOPHIL COUNT 0 /CUMM (0.0-0.7); ABSOLUTE LYMPH COUNT 0.7 /CUMM (1.2-3.4); ABSOLUTE MONOCYTE COUNT 1.1 /CUMM (0.10-0.60); MEAN CORPUSCULAR HGB 23.7 PG (27.0-31.0); MEAN CORPUSCULAR HGB CONC 31.6 G/DL (33.0-37.0); MEAN CORPUSCULAR VOLUME 74.9 FL (81.0-99.0)
[2017-11-06 08:44] LABS: ABSOLUTE GRANULOCYTE CT 4.8 /CUMM (1.4-6.5); BASOPHIL % 0.3 % (0.0-2.0); EOSINOPHIL % 0.2 % (0-5); GRANULOCYTE % 72.2 % (42.2-75.2); HEMATOCRIT 26.1 % (37-47); MEAN PLATELET VOLUME 8.6 FL (7.4-10.4); PLATELET COUNT 340 /CUMM (130-400); RBC DISTRIBUTION WIDTH 20.9 % (11.5-14.5); RED BLOOD CELL CT 3.48 /CUMM (4.20-5.40)
[2017-11-06 09:12] LABS: WHITE BLOOD CELL COUNT 6.6 /CUMM (4.8-10.8)
--- NOTE | 2017-11-06 09:27 | PN- Medicine Consult ---
Jean Marie AVALOS,Win 11/06/17 0926: Assessment/Plan Assessment/Plan Assessment: ASSESSMENT: This is an 87-year-old with PMH of atrial fibrillation not on AC , CHF, hypertension, hyperlipidemia, peripheral neuropathy, TIA, gout/osteoarthritis, diabetes, hypothyroidism, hx of colon cancer s/p right hemicolectomy, recently treated conservatively for SBO who presented to the ED with a chief complaints of abdominal discomfort and found to have another SBO. Plan is for surgical management of obstruction and medicine is consulted for co-management of her co- morbid conditions. PLAN: 1. Small bowel obstruction likely 2/2 colon ca and prev. abdominal surgeries: Symptom management with NGT, anti-nausea and anti-emetics on board per surgery recs. In terms of Cardiac clearance for planned small bowel resection cardiology is on board. From a medicine perspective RCRI is 1 giving her Class II risk (0.9 %) for perioperative cardiac events. Cardiology is onboard and their recs are noted. * Continue recommendations as per surgical team * NPO * Will change all medications to IV * Adequate pain control * NGT in place * Appreciate cardiology recs 2. History of atrial fibrillation (not on anticoagulation due to GI bleed): Last night pt has rate in 130-140 and pt was started on IV cardizem. This AM she was only on 2.5 of IV cardizem and her rate was well controlled in the 90s. She is asymptomatic. * Continue 2.5 of IV cardizem as she is tolerating the regimen well * Monitor on telemetry 3. History of CHF: She is on lasix 20 mg po at home. Will hold at this time given NPO and emesis. However, note that she has been on 100cc/hr of IVF since yesterday. During sugery and post-op she is also likely to recieve large amounts of fluid. Will have to monitor her clinical status. * Currently in 100cc IVF. * Note lasix on hold. 4. History of hypertension: She is on PO Labetalol 50mg daily and per pharmacy conversion to IV would be 5mg Q6, but pt was started on 2.5mg q6. Yesterday she was started on a cardizem drip as she went into rapid afib. Her IV Labetalol was DC as she was started on Cardizem. * HOLD Lasix 20mg * HOLD Irbesartan. * Continue Cardizem. Okay with D/C labetalol and starting with Cardizem but after surgery will likely have to come up with an appropriate regimen. Will follow along. * Cardiology on board. Will follow their recs 5. History of hypothyroidism. * Change by mouth levothyroxin to IV (PO 125 MCG to 63 IV mcg). 6. History of diabetes: Her last BS at [phone]. * Npo insulin sliding scale * FSS every 6 hrs 7. History of colon cancer status post right hemicolectomy: * Dr. Son notified 8. Anemia: Pt has HB 8.3 today. Her baseline is around 9.0. Will have to monitor HB for intra-operative blood loss. * Goal in this patient is Hb of 8 * Type and cross * Transfuse as necessary for goal above FC NPO Plan: see above Problem List: 1. Bowel obstruction Subjective Subjective: Saw pt at bedside this AM. She was started on low dose cardizem drip for afib with rvr. She was well controlled when I was in room. No other acute overnight events. Pt states that she is nervous for surgery but other than that no other complaints. Abdominal pain well under control. She has NGT draining green secretion; about 250cc in cannister around 9:00 am. Review of Systems Constitutional: Denies: chills, fever, malaise. EENTM: Reports: no symptoms. Cardiovascular: Denies: chest pain, palpitations. Respiratory: Denies: cough, short of breath. Gastrointestinal: Reports: abdominal pain, bloating. Denies: diarrhea, bloody stool. Genitourinary: Reports: no symptoms. Musculoskeletal: Reports: no symptoms. Objective Last 24 Hrs of Vital Signs/I&O Vital Signs Date Time Temp Pulse Resp B/P B/P Pulse O2 O2 Flow FiO2 Mean Ox Delivery Rate 11/06 0600 98.1 87 20 148/60 97 11/05 2312 98.9 117 18 128/60 91 Nasal Cannula 01/11 2020 122 01/11 1534 98.2 134 18 130/64 92 Nasal Cannula 11/05 1529 Room Air 11/05 1357 98.6 64 18 138/76 92 Room Air 11/05 1230 98.1 124 18 135/71 11/05 1230 98.1 124 18 135/71 11/05 1100 97.0 72 22 132/70 96 Room Air Intake & Output 11/06 1600 11/06 0800 11/06 0000 Intake Total 0 400 Output Total 500 600 Balance -500 -200 Intake, IV 400 Intake, Oral 0 Number 1 Bowel Movements Output, 150 Gastric Drainage Output, Urine 350 600 Physical Exam General Appearance: well developed/nourished, no apparent distress, alert, awake Head: atraumatic, normal appearance Neck: normal inspection Cardiovascular: irregularly irregular Respiratory: normal breath sounds, chest non-tender Abdomen: soft, non-tender Current Medications: Current Medications Sig/Darrell Start time Last Medication Dose Route Stop Time Status Admin Atorvastatin Calcium 20 MG DAILY 11/05 1000 DC PO Diltiazem HCl 125 MG Q24H 11/06 0030 AC 11/06 Sodium Chloride 100 ML IV 0108 Furosemide 20 MG DAILY 11/05 1000 DC PO Heparin Sodium 0 .STK-MED ONE 11/05 1413 DC (Porcine) .ROUTE Heparin Sodium 5,000 UNIT Q8 11/05 0600 AC 11/05 (Porcine) SC 2154 Insulin Detemir 40 UNITS BID 11/05 1000 DC 11/05 SC 1046 Insulin Human Regular 6 UNITS .STK-MED ONE 11/06 0030 DC IV 11/06 0031 Insulin Human Regular 0 Q6 11/05 1200 AC 11/06 SC 0655 Levothyroxine Sodium 62.5 MCG DAILY 11/06 1000 AC 11/06 IV 0914 Levothyroxine Sodium 0.125 MG DAILY AC 11/05 0700 DC 11/05 PO 0640 Losartan Potassium 100 MG DAILY 11/05 1000 DC PO Melatonin 5 MG .STK-MED ONE 11/06 0031 DC PO 11/06 0032 Melatonin 5 MG ONCE ONE 11/05 2345 DC 11/06 PO 11/05 2346 0032 Metoprolol Succinate 25 MG DAILY 11/05 1000 DC PO Metoprolol Tartrate 2.5 MG Q6 11/06 1000 DC IV Metoprolol Tartrate 2.5 MG Q6 11/05 2014 DC 11/05 IV 2020 Morphine Sulfate 4 MG Q4-6 PRN PRN 11/05 003 AC 11/05 IV 0928 Ondansetron HCl 4 MG Q8P PRN 11/05 29 AC 11/05 IV 1023 Oxybutynin Chloride 5 MG DAILY 11/05 1000 DC PO Potassium Chloride 20 MEQ Q10H 11/05 1230 AC 11/05 Dextrose/Sodium 1,000 ML IV 2323 Chloride Potassium Chloride 20 MEQ SEE ADMIN CRITERIA 11/05 1215 CAN IV Potassium Chloride 20 MEQ DAILY 11/05 1000 DC PO Sitagliptin Phosphate 100 MG DAILY 11/05 1000 DC PO Sodium Chloride 1,000 ML .Q10H 11/05 0030 DC 11/05 IV 1213 Results Last 24 Hrs Lab/Sanjeev Results: Laboratory Tests 11/06/17 0623: Anion Gap 12, Estimated GFR > 60, BUN/Creatinine Ratio 28.8 H, Phosphorus 3.8, Magnesium 2.0, CBC w Diff NO MAN DIFF REQ, RBC 3.48 L, MCV 74.9 L, MCH 23.7 L , RDW 20.9 H, MPV 8.6, Gran % 72.2, Lymphocytes % 10.6 L, Monocytes % 16.7 H, Eosinophils % 0.2, Basophils % 0.3, Absolute Granulocytes 4.8, Absolute Lymphocytes 0.7 L, Absolute Monocytes 1.1 H, Absolute Eosinophils 0, Absolute Basophils 0, PUBS MCHC 31.6 L Sylwia AVALOS,Rachael 11/06/17 1416: Attending MD Review Statement Attending Sign Off Attending Cosign Statement: I have: examined this patient, reviewed [facility] EMR data, personally reviewd images, discussd w/resident/PA/AUTOMOTIVE COLLISION ESTIMATOR, discussed mgmt plan w/pt, agreed w/resident/ PA/AUTOMOTIVE COLLISION ESTIMATOR. Other Findings: Patient is scheduled to go to the OR today. She was started on IV Cardizem overnight for a rapid heart rate. She has underlying moderate to severe , chronic diastolic heart failure, A. fib not on anticoagulation and diabetes. She is here with an SBO with metastatic colon cancer. Will watch after the surgery. Will have to be careful with the amount of fluid she gets, given the Lasix on hold. Her arb is also on hold and she is on IV Cardizem alone and appreciate cardiology consult. Watch sugars, watch fluid status and watch heart rate closely postoperatively.
--- NOTE | 2017-11-06 13:11 | Operative Report ---
Operative/Inv Procedure Report Surgery Date: 11/06/17 Name of Procedure: 1. Diagnostic laparoscopy 2. Exploratory laparotomy 3. Enterocolonic anastomosis bypass 4. Enteroenteric bypass 5. Omental excisional biopsy 6. Abdominal wall excisional biopsy Pre-Operative Diagnosis: Metastatic colon cancer Post-Operative Diagnosis: Same Estimated Blood Loss: less than 50ml Surgeon/Recreation Worker: Marbella Jha MD Anesthesia: general endotracheal tube Urine Output: 290 ml Specimens: 1. Coloenteric staple line 2. Enteroenteric staple line 3. Omentum 4. Abdominal wall Complications: None Condition: Stable to recovery room Operative Indication: Patient is an 87 woman with history of proximal transverse colon cancer status post extended right colectomy. Patient was diagnosed with anastomotic recurrence approximately 6 months ago. Patient has metastatic disease and was admitted to the hospital with recurrent bowel obstruction likely due to the obstructive recurrence at the level of enterocolonic anastomosis. After discussion with the patient and her family, the decision was made to proceed with surgical intervention for palliation. All risks, benefits, and alternatives were explained to the patient in detail, and she expressed understanding and agreement with the same. Operative/Procedure Note Note: Patient was taken to the operating room and placed in supine position on the operating table. Gen. endotracheal anesthesia was established. Leach catheter was inserted. Perioperative antibiotics were given. Bilateral lower extremity SCDs were placed prior to the induction of general anesthesia. All appropriate pressure points were padded, and the patient was secured to the operating table. The abdomen was prepped and draped in the standard surgical fashion. The timeout was carried out. The abdomen was entered with a 5 mm trocar placed under direct visualization the left upper quadrant supple posteriorly. The abdomen was insufflated to 15 mmHg. 2 additional 5 mm trochars were placed, one in the left lower quadrant, the other suprapubically at the midline. The small bowel appeared to be grossly distended. Multiple abdominal wall masses were visualized. There were also multiple metastasis in the small bowel, including a large obstructing 1 at the enterocolonic anastomosis involving the bowel mesentery. At that point, the decision was made to proceed with the enterocolonic bypass of the anastomosis for palliation. The trochars were removed. The midline incision was made from slightly above the umbilicus to the previously made suprapubic trocar incision. The abdomen was entered. The wound protector was placed within the incision. The abdominal fluid was collected and sent to cytology. The enterocolonic anastomosis was created to bypass the previous anastomotic site. The disease- free distal ileum and transverse colon just distal to the anastomosis were stapled together using a linear COURTNEY stapler thus creating the common channel. The TA stapler was used to close the enterotomy and colotomy. The staple line was oversewn with multiple interrupted 3-0 Vicryl sutures. Operative further examination, there was a nearly obstructing short segment of small bowel at the level of distal jejunum/proximal ileum. The decision was made to bypass it in the similar fashion as the patient was at the risk of obstructing at that level. Once again, the common channel was created with the COURTNEY linear stapler and the enterotomies were closed with a TA stapler. The staple line was oversewn with multiple 3-0 Vicryl sutures. The omentum was placed over the bowel. The edge of the omentum had an easily palpable hard mass approximately 1.5 cm in diameter. The mass was excised and sent to pathology. While closing, the patient's anterior abdominal wall next to the incision also had a hard mass approximately 1.5 cm in size. It was also excised and sent to pathology. The fascia was closed with 2 running 0 looped PDS sutures. The incision was irrigated and closed with jaime. The trocar incisions were closed with subcuticular 4-0 Monocryl sutures. Sterile dressings were applied. The sponge and instrument counts were correct in the end of procedure. The patient was wakened up and taken to recovery room in stable condition. Findings: Metastatic colon cancer with multiple seedings of the abdominal wall, omentum, the mesentery, and small bowel Discharge Disposition: Critical Care Unit
[2017-11-06 16:00] VITALS: BP 126/70
--- NOTE | 2017-11-06 17:48 | PN- General Surgery ---
Subjective Subjective: Post op check. Patient resting comfortably. No c/o pain presently. Has ngt in place, no nausea reported. Leach catheter in place. No c/o chest pain, shortness of breath and difficulty breathing. Objective Vital Signs and I&Os Vital Signs Date Time Temp Pulse Resp B/P B/P Pulse O2 O2 Flow FiO2 Mean Ox Delivery Rate 11/06 06 98.1 87 20 148/60 97 11/05 2312 98.9 117 18 128/60 91 Nasal Cannula 11/05 2019 122 Intake & Output 11/06 1600 11/06 0811/06 0000 11/05 1600 11/05 0800 11/05 0000 Intake Total 0 400 1100 600 750 Output Total 851 195 5192 100 750 Balance -500 -200 100 500 0 Intake, IV 400 1100 600 Intake, Oral 0 Intake, Other 750 Number 1 Bowel Movements Output, 150 1000 750 Gastric Drainage Output, Urine 350 600 100 Patient 162 lb 161 lb 161 lb Weight Weight Bed scale Reported by Patient Measurement Method Physical Exam: General: Alert and oriented x3, no acute distress Cardiac: Murmur ausculated Pulm: C TA bilaterally Abdomen: Non-distended, li-incisional tenderness. No bowel sounds auscultated. Dressing dry and intact. Extremities: Moves all extremities, distal sensation intact. Skin warm and well perfused. DP pulses palpable bilaterally. Bilateral calves soft and non- tender. Assessment/Plan Assessment/Plan This is a 87 year old female POD 0 s/p palliative enterocolo-enteroenteric bypasses for recurrent colon ca, most recently at previous anastomosis with subsequent sbo. -Continue npo with ngt to suction -Continue IV hydration with d5 lr -Continue ancef/flagyl -IV morphine and offirmev for pain -Continue hep sub q for dvt ppx, mechanical dvt ppx alps Will dw Dr. Jha Core Measures Venous Thromboembolism VTE Risk Factors Age>40 No Mechanical VTE Prophylaxis d/t N/A MechProphylax Ordered No VTE Pharm Prophylaxis d/t NA PharmProphylax ordered
--- NOTE | 2017-11-06 20:27 | PN- Cardiology ---
Subjective Subjective: * Patient is doing well following surgery and denies chest discomfort, shortness of breath or lightheadedness. * atrial fibrillation with mildly increased heart rate * decreased H/H Objective Vital Signs and I&Os Vital Signs Date Time Temp Pulse Resp B/P B/P Pulse O2 O2 Flow FiO2 Mean Ox Delivery Rate 11/06 1600 Nasal 3.0L Cannula 11/06 1600 98.2 114 20 126/70 94 Nasal 3.0L Cannula 11/06 0600 98.1 87 20 148/60 97 11/05 2312 98.9 117 18 128/60 91 Nasal Cannula Intake & Output 11/06 1600 11/06 0800 11/06 0000 11/05 1600 11/05 0800 11/05 0000 Intake Total 0 400 1100 600 750 Output Total 511 684 9492 100 750 Balance -500 -200 100 500 0 Intake, IV 400 1100 600 Intake, Oral 0 Intake, Other 750 Number 1 Bowel Movements Output, 150 1000 750 Gastric Drainage Output, Urine 350 600 100 Patient 162 lb 161 lb 161 lb Weight Weight Bed scale Reported by Patient Measurement Method Physical Exam: General: WD/WN female in NAD; alert and oriented x 3 HEENT: NC/AT, PERRL, EOMI Neck: no JVD, bilateral carotid bruits Heart: irregularly irregular and tachycardic Lungs: clear bilaterally Abdomen: soft, NT, +ve bowel sounds Extremities: no edema Assessment/Plan Assessment/Plan * This patient does have moderate to severe aortic stenosis but she has a normal EF with no evidence of decompensated CHF and is without symptoms of myocardial ischemia. She has done well following surgery with no evidence of ischemia. * This patient has atrial fibrillation with increased heart rate. Continue IV Lopressor 5mg Q 6 hours or as necessary to control her heart rate. Anticoagulation can be restarted if okay with surgery. Continue telemetry? Yes
[2017-11-07] VITALS: BP 140/60
[2017-11-07 05:07] LABS: ABSOLUTE BASOPHIL COUNT 0 /CUMM (0.0-0.2); ABSOLUTE EOSINOPHIL COUNT 0 /CUMM (0.0-0.7); ABSOLUTE GRANULOCYTE CT 4.9 /CUMM (1.4-6.5); ABSOLUTE LYMPH COUNT 0.6 /CUMM (1.2-3.4); ABSOLUTE MONOCYTE COUNT 0.7 /CUMM (0.10-0.60); BASOPHIL % 0 % (0.0-2.0); EOSINOPHIL % 0 % (0-5); GRANULOCYTE % 80.1 % (42.2-75.2); HEMATOCRIT 25.1 % (37-47); MEAN CORPUSCULAR HGB CONC 30.7 G/DL (33.0-37.0); MEAN CORPUSCULAR VOLUME 75.1 FL (81.0-99.0); MEAN PLATELET VOLUME 8.7 FL (7.4-10.4); PLATELET COUNT 281 /CUMM (130-400); RBC DISTRIBUTION WIDTH 20.5 % (11.5-14.5); RED BLOOD CELL CT 3.35 /CUMM (4.20-5.40); WHITE BLOOD CELL COUNT 6.2 /CUMM (4.8-10.8)
--- NOTE | 2017-11-07 05:43 | PN- General Surgery ---
See Addendum Subjective Subjective: Patient seen and evaluated. No acute events overnight. Pt resting comfortably in bed. Remains HD stable and pain controlled. No c/o pain at this time. NGT in place, no n/v. Reports she is very "dry" and is eating/drinking a large amount of ice chips. Per nursing she has asked for several cups of ice and NGT output may be skewed off how much ice chips she ate. Leach is place. No c/o cp, sob or difficulty breathing. Objective Vital Signs and I&Os Vital Signs Date Time Temp Pulse Resp B/P B/P Pulse O2 O2 Flow FiO2 Mean Ox Delivery Rate 11/07 0400 95 Nasal 3.0L Cannula 11/07 0000 98.7 94 17 140/60 95 Nasal 3.0L Cannula 11/07 0000 95 Nasal 3.0L Cannula 11/06 2000 95 Nasal 3.0L Cannula 11/06 1600 Nasal 3.0L Cannula 11/06 1600 98.2 114 20 126/70 94 Nasal 3.0L Cannula 11/06 0600 98.1 87 20 148/60 97 Intake & Output 11/07 0800 11/07 0000 11/06 1600 11/06 0800 11/06 0000 11/05 1600 Intake Total 839.1 0 400 1100 Output Total 515 003 734 3819 Balance 324.1 -500 -200 100 Intake, IV 839.1 400 1100 Intake, Oral 0 Number 1 Bowel Movements Output, 196 326 8578 Gastric Drainage Output, Stool 0 Output, Urine 315 350 600 Patient 162 lb Weight Weight Bed scale Measurement Method Physical Exam: General: Elderly female laying comfortably in bed, answering questions without difficulty, NAD Cardiac: systolic ejection Murmur ausculated, regular irregular Pulm: C TA bilaterally in anterior/lateral mcclure Abdomen: Midline surgical wound covered with dressings that are c/d/i, MAGUI in place w/ sa discharge, bs hypoactive, li-incisional tenderness, no guarding Extremities: Moves all extremities, distal sensation intact. Skin warm and well perfused. DP pulses palpable bilaterally. Bilateral calves soft and non- tender. Current Medications: Current Medications Sig/Darrell Start time Last Medication Dose Route Stop Time Status Admin Acetaminophen 1,000 MG Q6H 11/06 2300 AC 11/07 N/A 1 UNIT IV 11/07 1114 0511 Acetaminophen 1,000 MG Q6H 11/06 1330 DC 11/06 N/A 1 UNIT IV 11/07 0744 1651 Cefazolin Sodium 2,000 MG Q8H 11/06 1800 DC 11/07 IV 11/07 0201 0141 Dextrose/Lactated 1,000 ML Q10H 11/06 1330 AC 11/07 Ringer's IV 0141 Diltiazem HCl 125 MG Q24H 11/06 1315 AC 11/06 Sodium Chloride 100 ML IV 1515 Diltiazem HCl 125 MG Q24H 11/06 0030 DC 11/06 Sodium Chloride 100 ML IV 0108 Fentanyl Citrate 200 MCG .STK-MED ONE 11/06 1004 DC IM 11/06 1005 Heparin Sodium 5,000 UNIT Q8 11/06 2200 AC 11/07 (Porcine) SC 0510 Heparin Sodium 5,000 UNIT Q8 11/05 0600 [place] 11/05 (Porcine) SC 2154 Hydromorphone HCl 2 MG .STK-MED ONE 11/06 1358 DC IM 11/06 1359 Hydromorphone HCl 2 MG .STK-MED ONE 11/06 1004 DC IM 11/06 1005 Insulin Human Regular 0 Q6 11/06 1800 11/07 MS 0513 Insulin Human Regular 4 UNITS .STK-MED ONE 11/06 1541 [facility] 11/06 1542 Insulin Human Regular 0 Q6 11/05 1200 [place] 11/06 MS 0655 Levothyroxine Sodium 62.5 MCG DAILY 11/07 1000 AC IV Levothyroxine Sodium 62.5 MCG DAILY 11/06 1000 [place] 11/06 IV 0914 Metronidazole 500 MG Q8H 11/06 1800 [place] 11/07 N/A 1 UNIT IV 11/07 0259 0142 Morphine Sulfate 2 MG Q4-6 PRN PRN 11/06 1330 AC IV Morphine Sulfate 4 MG Q4-6 PRN PRN 11/06 1330 AC IV Morphine Sulfate 6 MG Q4-6 PRN PRN 11/06 1330 AC IV Morphine Sulfate 4 MG Q4-6 PRN PRN 11/05 0030 [place] 11/05 IV 0928 Ondansetron HCl 4 MG Q8P PRN 11/06 1315 AC IV Ondansetron HCl 4 MG Q8P PRN 11/05 0030 [place] 11/05 IV 1023 Potassium Chloride 20 MEQ Q10H 11/05 1230 DC 11/05 Dextrose/Sodium 1,000 ML IV 2323 Chloride Results Last 48 Hours of Labs: Laboratory Tests 11/07 11/06 0400 0623 Chemistry Sodium (137 - 145 mmol/L) 144 141 Potassium (3.5 - 5.1 mmol/L) 4.7 5.0 Chloride (98 - 107 mmol/L) 105 102 Carbon Dioxide (22 - 30 mmol/L) 26 27 Anion Gap (5 - 16) 13 12 BUN (7 - 17 mg/dL) 22 H 23 H Creatinine (0.5 - 1.0 mg/dL) 0.8 0.8 Estimated GFR (>60 ml/min) > 60 > 60 BUN/Creatinine Ratio (7 - 25 %) 27.5 H 28.8 H Glucose (65 - 99 mg/dL) 205 H Phosphorus (2.5 - 4.5 mg/dL) 4.0 3.8 Magnesium (1.6 - 2.3 mg/dL) 2.0 2.0 Hematology CBC w Diff NO MAN DIFF REQ NO MAN DIFF REQ WBC (4.8 - 10.8 /CUMM) 6.2 6.6 RBC (4.20 - 5.40 /CUMM) 3.35 L 3.48 L Hgb (12.0 - 16.0 G/DL) 7.7 L 8.3 L Hct (37 - 47 %) 25.1 L 26.1 L MCV (81.0 - 99.0 FL) 75.1 L 74.9 L MCH (27.0 - 31.0 PG) 23.0 L 23.7 L RDW (11.5 - 14.5 %) 20.5 H 20.9 H Plt Count (130 - 400 /CUMM) 281 340 MPV (7.4 - 10.4 FL) 8.7 8.6 Gran % (42.2 - 75.2 %) 80.1 H 72.2 Lymphocytes % (20.5 - 51.1 %) 9.0 L 10.6 L Monocytes % (1.7 - 9.3 %) 10.9 H 16.7 H Eosinophils % (0 - 5 %) 0 0.2 Basophils % (0.0 - 2.0 %) 0 0.3 Absolute Granulocytes (1.4 - 6.5 /CUMM) 4.9 4.8 Absolute Lymphocytes (1.2 - 3.4 /CUMM) 0.6 L 0.7 L Absolute Monocytes (0.10 - 0.60 /CUMM) 0.7 H 1.1 H Absolute Eosinophils (0.0 - 0.7 /CUMM) 0 0 Absolute Basophils (0.0 - 0.2 /CUMM) 0 0 PUBS MCHC (33.0 - 37.0 G/DL) 30.7 L 31.6 L Assessment/Plan Assessment/Plan This is a 87 year old female POD 1 s/p palliative enterocolo-enteroenteric bypasses for recurrent obstructing colon ca, most recently at previous anastomosis with subsequent sbo. Patient has remaind HD stable and pain controlled. Reports she is passing gas -Slight drop in h&h (7.7/25.1 today, 8.3/26.1 yesterday) - likely dilutional - MAGUI output sa -Continue npo with ngt to suction. May attempt clamping trials today? -Continue IV hydration with d5 lr -Continue post-op ancef/flagyl -IV morphine and offirmev for pain -Continue hep sub q for dvt ppx, mechanical dvt ppx alps -still are bello clemens. Appreciate ongoing cardiology recomendations -Insulin sliding scale, cbgs Can likely be transfered out of ICU to floor today Will shauna Jha Core Measures Venous Thromboembolism VTE Risk Factors Age>40 No Mechanical VTE Prophylaxis d/t N/A MechProphylax Ordered No VTE Pharm Prophylaxis d/t NA PharmProphylax ordered
[2017-11-07 08:00] VITALS: BP 160/80
[2017-11-07 16:00] VITALS: BP 140/80
[2017-11-07 20:04] LABS: ABSOLUTE BASOPHIL COUNT 0 /CUMM (0.0-0.2); ABSOLUTE EOSINOPHIL COUNT 0 /CUMM (0.0-0.7); ABSOLUTE GRANULOCYTE CT 5.6 /CUMM (1.4-6.5); ABSOLUTE LYMPH COUNT 0.9 /CUMM (1.2-3.4); ABSOLUTE MONOCYTE COUNT 0.8 /CUMM (0.10-0.60); BASOPHIL % 0.2 % (0.0-2.0); EOSINOPHIL % 0.1 % (0-5); GRANULOCYTE % 77.2 % (42.2-75.2); HEMATOCRIT 26.3 % (37-47); MEAN CORPUSCULAR HGB 23.4 PG (27.0-31.0); MEAN CORPUSCULAR HGB CONC 31.3 G/DL (33.0-37.0); MEAN CORPUSCULAR VOLUME 74.7 FL (81.0-99.0); MEAN PLATELET VOLUME 8.6 FL (7.4-10.4); PLATELET COUNT 324 /CUMM (130-400); RBC DISTRIBUTION WIDTH 20.7 % (11.5-14.5); RED BLOOD CELL CT 3.52 /CUMM (4.20-5.40); WHITE BLOOD CELL COUNT 7.3 /CUMM (4.8-10.8)
--- NOTE | 2017-11-07 20:48 | PN- Medicine Consult ---
Assessment/Plan Assessment/Plan Assessment: ASSESSMENT: 87F PMH atrial fibrillation not on AC , CHF, hypertension, hyperlipidemia, peripheral neuropathy, TIA, gout/osteoarthritis, diabetes, hypothyroidism, hx of colon cancer s/p right hemicolectomy, recently treated conservatively for SBO who presented to the ED with a chief complaints of abdominal discomfort and found to have another SBO. Admitted to surgical service s/p palliative enterocolo-enteroenteric bypasses for recurrent obstructing colon ca, most recently at previous anastomosis with subsequent sbo, POD#2. PLAN: 1. Small bowel obstruction likely 2/2 colon ca and prev. abdominal surgeries: * Continue recommendations as per surgical team * NG in place and draining, NPO 2. History of atrial fibrillation (not on anticoagulation due to GI bleed): * Continue Cardizem drip until taking PO, follow cardiology recommendations 3. History of CHF: - Hold all home medications for now 4. History of hypertension: - May give Labetalol pushes if hypertensive 5. History of hypothyroidism. * Change by mouth levothyroxin to IV (PO 125 MCG to 63 IV mcg). 6. History of diabetes: * Npo insulin sliding scale * FSS every 6 hrs 7. History of colon cancer status post right hemicolectomy: * Dr. Son notified 8. Anemia: - Continue to monitor Plan: see above Subjective Subjective: Patient feels welll today. SHe denies abdominal pain and has no complaints. Review of Systems Constitutional: Reports: no symptoms. EENTM: Reports: no symptoms. Cardiovascular: Reports: no symptoms. Respiratory: Reports: no symptoms. Gastrointestinal: Reports: no symptoms. Genitourinary: Reports: no symptoms. Musculoskeletal: Reports: no symptoms. Skin: Reports: no symptoms. Neurological/Psychological: Reports: no symptoms. Hematologic/Endocrine: Reports: no symptoms. Immunologic/Allergic: Reports: no symptoms. Objective Last 24 Hrs of Vital Signs/I&O Vital Signs Date Time Temp Pulse Resp B/P B/P Pulse O2 O2 Flow FiO2 Mean Ox Delivery Rate 01/13 2000 95 Nasal 3.0L Cannula 11/07 1600 96 Nasal 3.0L Cannula 11/07 1600 98.0 80 18 140/80 96 Nasal 3.0L Cannula 11/07 1200 96 Nasal 3.0L Cannula 11/07 0800 97 Nasal 3.0L Cannula 11/07 0800 97.8 82 16 160/80 97 Nasal 3.0L Cannula 11/07 0400 95 Nasal 3.0L Cannula 11/07 0000 98.7 94 17 140/60 95 Nasal 3.0L Cannula 11/07 0000 95 Nasal 3.0L Cannula Intake & Output 11/07 1600 11/07 0800 11/07 0000 Intake Total 820 1108 839.1 Output Total 950 700 515 Balance -130 408 324.1 Intake, IV 820 1108 839.1 Intake, Oral 0 Output, 400 400 200 Gastric Drainage Output, Stool 0 Output, Urine 550 300 315 Physical Exam General Appearance: well developed/nourished, no apparent distress Head: atraumatic, normal appearance Ears, Nose, Throat: hearing grossly normal Neck: normal inspection, full range of motion Cardiovascular: regular rate/rhythm Respiratory: normal breath sounds Abdomen: soft, non-tender Back: normal inspection Extremities: normal inspection, normal range of motion, no edema Neurologic/Psychiatric: awake, alert, oriented x 3, normal mood/affect Skin: intact, normal color Current Medications: Current Medications Sig/Darrell Start time Last Medication Dose Route Stop Time Status Admin Acetaminophen 1,000 MG Q6H 11/06 2300 PR 11/07 N/A 1 UNIT IV 11/07 1114 1200 Cefazolin Sodium 2,000 MG Q8H 11/06 1800 DC 11/07 IV 11/07 0201 0141 Dextrose/Lactated 1,000 ML Q13H 11/07 2030 AC Ringer's IV Dextrose/Lactated 1,000 ML Q10H 11/06 1330 DC 11/07 Ringer's IV 2017 Diltiazem HCl 125 MG Q24H 11/06 1315 AC 11/07 Sodium Chloride 100 ML IV 1346 Heparin Sodium 5,000 UNIT Q8 11/06 2200 AC 11/07 (Porcine) SC 1347 Insulin Human Regular 6 UNITS .STK-MED ONE 11/07 0449 DC IV 11/07 0450 Insulin Human Regular 0 Q6 11/06 1800 AC 11/07 SC 1806 Levothyroxine Sodium 62.5 MCG DAILY 11/07 1000 AC 11/07 IV 1033 Metronidazole 500 MG Q8H 11/06 1800 DC 11/07 N/A 1 UNIT IV 11/07 0259 0142 Morphine Sulfate 2 MG Q4-6 PRN PRN 11/06 1330 AC IV Morphine Sulfate 4 MG Q4-6 PRN PRN 11/06 1330 AC IV Morphine Sulfate 6 MG Q4-6 PRN PRN 11/06 1330 AC 11/07 IV 0904 Ondansetron HCl 4 MG Q8P PRN 11/06 1315 AC IV Results Last 24 Hrs Lab/Sanjeev Results: Laboratory Tests 11/07/171948: CBC w Diff NO MAN DIFF REQ, RBC 3.52 L, MCV 74.7 L, MCH 23.4 L, RDW 20.7 H, MPV 8.6, Gran % 77.2 H, Lymphocytes % 11.8 L, Monocytes % 10.7 H, Eosinophils % 0.1, Basophils % 0.2, Absolute Granulocytes 5.6, Absolute Lymphocytes 0.9 L, Absolute Monocytes 0.8 H, Absolute Eosinophils 0, Absolute Basophils 0, PUBS MCHC 31.3 L 11/07/17 0400: Anion Gap 13, Estimated GFR > 60, BUN/Creatinine Ratio 27.5 H, Glucose 205 H, Phosphorus 4.0, Magnesium 2.0, CBC w Diff NO MAN DIFF REQ, RBC 3.35 L, MCV 75.1 L, MCH 23.0 L, RDW 20.5 H, MPV 8.7, Gran % 80.1 H, Lymphocytes % 9.0 L, Monocytes % 10.9 H, Eosinophils % 0, Basophils % 0, Absolute Granulocytes 4.9, Absolute Lymphocytes 0.6 L, Absolute Monocytes 0.7 H, Absolute Eosinophils 0, Absolute Basophils 0, PUBS MCHC 30.7 L
[2017-11-08] VITALS: BP 150/70
[2017-11-08 08:00] VITALS: BP 170/80
--- NOTE | 2017-11-08 08:19 | PN- General Surgery ---
See Addendum Subjective Subjective: NGT clamped overnight/ Barrios catheter dc'd. No nausea or vomitting post clamp, no c/o belching, hiccuping, or worsening abdominal pain or distension. +Flatus reported. No bm post op. Has been taking in ice chips. Has voided. No c/o chest pain, shortness of breath and difficulty breathing. Has yet to ambulate. Anticipates oob to chair this am. Objective Vital Signs and I&Os Vital Signs Date Time Temp Pulse Resp B/P B/P Pulse O2 O2 Flow FiO2 Mean Ox Delivery Rate 11/08 0400 95 Nasal 3.0L Cannula 11/08 0000 97 Nasal 3.0L Cannula 11/08 0000 98.2 101 13 150/70 97 Nasal 3.0L Cannula 11/07 2000 95 Nasal 3.0L Cannula 11/07 1600 96 Nasal 3.0L Cannula 11/07 1600 98.0 80 18 140/80 96 Nasal 3.0L Cannula 11/07 1200 96 Nasal 3.0L Cannula Intake & Output 11/08 1600 11/08 0800 11/08 0000 11/07 1600 11/07 0800 11/07 0000 Intake Total 447 147 704 1646 839.1 Output Total 0 530 950 700 515 Balance 447 113 -130 408 324.1 Intake, IV 447 367 853 4832 839.1 Intake, Oral 0 0 Intake, Other 0 Number 0 Bowel Movements Output, 400 400 200 Gastric Drainage Output, Stool 0 0 Output, Urine 0 530 550 300 315 Physical Exam: General: Alert and oriented x3, no acute distress Cardiac: Irregular, murmur ausculated Pulm: CTA bilaterally, non-labored respiratory effort Abdomen: Softly distended, minimal li-incisional tenderness. No guarding. Dressing midline dry and intact. No surrounding erythema. +bs auscuated. Extremities: Mild peripheral edema noted to bilateral upper and lower extremities, no pitting. Distal sensations intact. Pulses palpable. Skin warm and well perfused. Bilateral calves soft and non-tender. Assessment/Plan Assessment/Plan This is a 87 year-old woman POD #1 s/p enteroenteric and enterocolonic bypasses for obstructing metastatic recurrances -Continue strict I&O, voided this am post barrios, ?dc iv fluids when diet advanced -Keep on sips & chips, will consider advancing to clears today -NGT has been clamped x8 hours, pt tolerating, consider dc ngt later -PT for ambulation -Will transition to po cardizem pending diet advancement per cards -Will likely transfer to telemetry -Continued cardiology and medicine inputs are appreciated Will discuss with Dr. Jha Core Measures Venous Thromboembolism VTE Risk Factors Age>40 No Mechanical VTE Prophylaxis d/t N/A MechProphylax Ordered No VTE Pharm Prophylaxis d/t NA PharmProphylax ordered
--- NOTE | 2017-11-08 17:04 | PN- Medicine Consult ---
Assessment/Plan Assessment/Plan Assessment: ASSESSMENT: 87F PMH atrial fibrillation not on AC , CHF, hypertension, hyperlipidemia, peripheral neuropathy, TIA, gout/osteoarthritis, diabetes, hypothyroidism, hx of colon cancer s/p right hemicolectomy, recently treated conservatively for SBO who presented to the ED with a chief complaints of abdominal discomfort and found to have another SBO. Admitted to surgical service s/p palliative enterocolo-enteroenteric bypasses for recurrent obstructing colon ca, most recently at previous anastomosis with subsequent sbo, POD#2. PLAN: 1. Small bowel obstruction likely 2/2 colon ca and prev. abdominal surgeries: * Continue recommendations as per surgical team * NG in place and draining, NPO 2. History of atrial fibrillation (not on anticoagulation due to GI bleed): * Continue Cardizem drip until taking PO, follow cardiology recommendations 3. History of CHF: - Hold all home medications for now 4. History of hypertension: - May give Labetalol pushes if hypertensive 5. History of hypothyroidism. * Change by mouth levothyroxin to IV (PO 125 MCG to 63 IV mcg). 6. History of diabetes: * Npo insulin sliding scale * FSS every 6 hrs 7. History of colon cancer status post right hemicolectomy: * Dr. Son notified 8. Anemia: - Continue to monitor Plan: see above Subjective Subjective: No complaints, doing well. Review of Systems Constitutional: Reports: no symptoms. EENTM: Reports: no symptoms. Cardiovascular: Reports: no symptoms. Respiratory: Reports: no symptoms. Gastrointestinal: Reports: no symptoms. Genitourinary: Reports: no symptoms. Musculoskeletal: Reports: no symptoms. Skin: Reports: no symptoms. Neurological/Psychological: Reports: no symptoms. Hematologic/Endocrine: Reports: no symptoms. Immunologic/Allergic: Reports: no symptoms. Objective Last 24 Hrs of Vital Signs/I&O Vital Signs Date Time Temp Pulse Resp B/P B/P Pulse O2 O2 Flow FiO2 Mean Ox Delivery Rate 11/08 1215 100 153/73 11/08 0800 96 Nasal 3.0L Cannula 11/08 0800 97.0 80 20 170/80 96 Nasal 3.0L Cannula 11/08 0400 95 Nasal 3.0L Cannula 11/08 0000 97 Nasal 3.0L Cannula 11/08 0000 98.2 101 13 150/70 97 Nasal 3.0L Cannula 11/07 2000 95 Nasal 3.0L Cannula Intake & Output 11/08 1600 11/08 0800 11/08 0000 Intake Total 447 643 Output Total 0 530 Balance 447 113 Intake, IV 447 643 Intake, Oral 0 Intake, Other 0 Number 0 Bowel Movements Output, Stool 0 Output, Urine 0 530 Physical Exam General Appearance: no apparent distress Head: atraumatic, normal appearance Ears, Nose, Throat: hearing grossly normal Neck: normal inspection Cardiovascular: regular rate/rhythm Respiratory: normal breath sounds, chest non-tender, no respiratory distress Abdomen: soft, non-tender Back: normal inspection Extremities: normal range of motion Neurologic/Psychiatric: awake, alert, oriented x 3, normal mood/affect Skin: normal color Current Medications: Current Medications Sig/Darrell Start time Last Medication Dose Route Stop Time Status Admin Ampicillin Sodium/ 3,000 MG Q6 11/08 1200 AC 11/08 Sulbactam Sodium IV 1213 Sodium Chloride 100 ML Dextrose/Lactated 1,000 ML Q24H 11/08 1130 11/08 Ringer's IV 1214 Dextrose/Lactated 1,000 ML Q13H 11/07 2030 [place] 11/08 Ringer's IV 0234 Dextrose/Lactated 1,000 ML Q10H 11/06 1330 [place] 11/07 Ringer's IV 2017 Diltiazem HCl 125 MG Q24H 11/06 1315 DC 11/07 Sodium Chloride 100 ML IV 1346 Heparin Sodium 5,000 UNIT Q8 11/06 2200 11/08 (Porcine) SC 1400 Insulin Human Regular 5 UNITS .STK-MED ONE 11/08 0548 DC IV 11/08 0549 Insulin Human Regular 1 UNITS .STK-MED ONE 11/07 2332 DC IV 11/07 2333 Insulin Human Regular 4 UNITS .STK-MED ONE 11/07 1805 DC IV 11/07 1806 Insulin Human Regular 0 Q6 11/06 1800 11/08 SC 1241 Levothyroxine Sodium 0.125 MG DAILY AC 11/09 0700 AC PO Levothyroxine Sodium 62.5 MCG DAILY 11/07 1000 DC 11/08 IV 1216 Metoprolol Tartrate 12.5 MG BID 11/08 1103 AC 11/08 PO 1215 Morphine Sulfate 2 MG Q4-6 PRN PRN 11/06 1330 AC IV Morphine Sulfate 4 MG Q4-6 PRN PRN 11/06 1330 AC 11/07 IV 2129 Morphine Sulfate 6 MG Q4-6 PRN PRN 11/06 1330 AC 11/07 IV 0904 Ondansetron HCl 4 MG Q8P PRN 11/06 1315 AC IV Results Last 24 Hrs Lab/Sanjeev Results: Laboratory Tests 11/08/17 0410: Anion Gap 11, Estimated GFR > 60, BUN/Creatinine Ratio 24.3, Magnesium 2.1 11/07/171948: CBC w Diff NO MAN DIFF REQ, RBC 3.52 L, MCV 74.7 L, MCH 23.4 L, RDW 20.7 H, MPV 8.6, Gran % 77.2 H, Lymphocytes % 11.8 L, Monocytes % 10.7 H, Eosinophils % 0.1, Basophils % 0.2, Absolute Granulocytes 5.6, Absolute Lymphocytes 0.9 L, Absolute Monocytes 0.8 H, Absolute Eosinophils 0, Absolute Basophils 0, PUBS MCHC 31.3 L
[2017-11-08 22:13] VITALS: BP 140/70
[2017-11-09 06:20] VITALS: BP 142/70
--- NOTE | 2017-11-09 07:36 | PN- General Surgery ---
See Addendum Subjective Subjective: Patient states she feels well. She states her pain is well controlled. She reports toelrating clears without any nausea or vomiting. She reports passing flatus and states she had liquid stool on her pad this morning. She reports ambulating oob to chair yesterday. She offers no other complaints. Objective Vital Signs and I&Os Vital Signs Date Time Temp Pulse Resp B/P B/P Pulse O2 O2 Flow FiO2 Mean Ox Delivery Rate 11/09 06 98.8 75 20 142/70 99 Nasal 3.0L Cannula 11/09 0000 Nasal 3.0L Cannula 11/08 2213 98.3 99 20 140/70 97 Nasal Cannula 11/08 2113 92 140/70 11/08 1715 Nasal 3.0L Cannula 11/08 1215 100 153/73 11/08 0800 96 Nasal 3.0L Cannula 11/08 0800 97.0 80 20 170/80 96 Nasal 3.0L Cannula Intake & Output 11/09 0800 11/09 0000 11/08 1600 11/08 0800 11/08 0000 11/07 1600 Intake Total 110 900 447 643 820 Output Total 300 600 0 530 950 Balance -190 300 447 113 -130 Intake, IV 10 500 447 643 820 Intake, Oral 100 400 0 Intake, Other 0 Number 0 Bowel Movements Output, 400 Gastric Drainage Output, Stool 0 Output, Urine 300 600 0 530 550 Physical Exam: Gen: Resting comfortably awake lakhwinder lert in NAD, with 3L of O2 via nc Cardiac: S1S2, irregularly irregular Lungs: Good air entry CTAB Abdomen: Softly distended, midline dressing in place, lap sites with steris in place, healing well with no signs of infection, bowel sounds present, appropriately tender li-incicsionaly no reboundor guarding. Ext: No edema or calf tenderness b/l Current Medications: Current Medications Sig/Darrell Start time Last Medication Dose Route Stop Time Status Admin Ampicillin Sodium/ 3,000 MG Q6 11/08 1200 AC 11/09 Sulbactam Sodium IV 0626 Sodium Chloride 100 ML Dextrose/Lactated 1,000 ML Q24H 11/08 1130 AC 11/08 Ringer's IV 1214 Dextrose/Lactated 1,000 ML Q13H 11/07 2030 DC 11/08 Ringer's IV 0234 Diltiazem HCl 125 MG Q24H 11/06 1315 DC 11/07 Sodium Chloride 100 ML IV 1346 Heparin Sodium 5,000 UNIT Q8 11/06 2200 AC 11/09 (Porcine) SC 0625 Insulin Human Regular 0 TIDAC/HS 11/08 2100 AC SC Insulin Human Regular 0 Q6 11/06 1800 DC 11/08 SC 1838 Levothyroxine Sodium 0.125 MG DAILY AC 11/09 0700 AC 11/09 PO 0626 Levothyroxine Sodium 62.5 MCG DAILY 11/07 1000 DC 11/08 IV 1216 Melatonin 5 MG AT BEDTIME 11/09 0100 AC 11/09 PO 0101 Metoprolol Tartrate 12.5 MG BID 11/08 1103 AC 11/08 PO 2113 Morphine Sulfate 2 MG Q4-6 PRN PRN 11/06 1330 AC 11/08 IV 1839 Morphine Sulfate 4 MG Q4-6 PRN PRN 11/06 1330 AC 11/07 IV 2129 Morphine Sulfate 6 MG Q4-6 PRN PRN 11/06 1330 DC 11/07 IV 0904 Ondansetron HCl 4 MG Q8P PRN 11/06 1315 AC IV Results Last 48 Hours of Labs: Laboratory Tests 11/08 11/07 0410 1949 Chemistry Sodium (137 - 145 mmol/L) 144 Potassium (3.5 - 5.1 mmol/L) 4.1 Chloride (98 - 107 mmol/L) 104 Carbon Dioxide (22 - 30 mmol/L) 29 Anion Gap (5 - 16) 11 BUN (7 - 17 mg/dL) 17 Creatinine (0.5 - 1.0 mg/dL) 0.7 Estimated GFR (>60 ml/min) > 60 BUN/Creatinine Ratio (7 - 25 %) 24.3 Magnesium (1.6 - 2.3 mg/dL) 2.1 Hematology CBC w Diff NO MAN DIFF REQ WBC (4.8 - 10.8 /CUMM) 7.3 RBC (4.20 - 5.40 /CUMM) 3.52 L Hgb (12.0 - 16.0 G/DL) 8.2 L Hct (37 - 47 %) 26.3 L MCV (81.0 - 99.0 FL) 74.7 L MCH (27.0 - 31.0 PG) 23.4 L RDW (11.5 - 14.5 %) 20.7 H Plt Count (130 - 400 /CUMM) 324 MPV (7.4 - 10.4 FL) 8.6 Gran % (42.2 - 75.2 %) 77.2 H Lymphocytes % (20.5 - 51.1 %) 11.8 L Monocytes % (1.7 - 9.3 %) 10.7 H Eosinophils % (0 - 5 %) 0.1 Basophils % (0.0 - 2.0 %) 0.2 Absolute Granulocytes (1.4 - 6.5 /CUMM) 5.6 Absolute Lymphocytes (1.2 - 3.4 /CUMM) 0.9 L Absolute Monocytes (0.10 - 0.60 /CUMM) 0.8 H Absolute Eosinophils (0.0 - 0.7 /CUMM) 0 Absolute Basophils (0.0 - 0.2 /CUMM) 0 PUBS MCHC (33.0 - 37.0 G/DL) 31.3 L Assessment/Plan Assessment/Plan This is an 87 year-old woman POD 3 s/p enteroenteric and enterocolonic bypasses secondary to obstructing metastatic recurrances, with klebsiella UTI. Tolerating clears with return of bowel function Advance to fulls, keep IVF at 42 ml/hr Cont oob ambulation with PT juan alberto deconditioning Cont IV unasyn for UTI Transition home/pain meds to po DVT ppx - hsq Appreciate cardiology and medicine involvement D/w with Dr. Jha Core Measures Venous Thromboembolism VTE Risk Factors Age>40 No Mechanical VTE Prophylaxis d/t N/A MechProphylax Ordered No VTE Pharm Prophylaxis d/t NA PharmProphylax ordered
--- NOTE | 2017-11-09 10:22 | PN- Medicine Consult ---
Jean Marie AVALOS,Win 11/09/17 1021: Assessment/Plan Assessment/Plan Assessment: ASSESSMENT: 87F PMH atrial fibrillation not on AC , CHF, hypertension, hyperlipidemia, peripheral neuropathy, TIA, gout/osteoarthritis, diabetes, hypothyroidism, hx of colon cancer s/p right hemicolectomy, recently treated conservatively for SBO who presented to the ED with a chief complaints of abdominal discomfort and found to have another SBO. Admitted to surgical service s/p palliative enterocolo-enteroenteric bypasses for recurrent obstructing colon ca, most recently at previous anastomosis with subsequent sbo, POD#3. PLAN: 1. Small bowel obstruction likely 2/2 colon ca and prev. abdominal surgeries: * Continue recommendations as per surgical team * NGT removed * Pt was tolerating clears well, now she has advanced to full liquids per surgery * Still receiving IVF around 50cc/hr * Pt on 5000u Q8 for DVT ppx 2. History of atrial fibrillation (not on anticoagulation due to GI bleed): Pt on Metoprolol succinate 50mg daily at home. Was initially on Cardizem drip in hospital for rapid afib. Currently pt is on 12.5 PO Metoprolol Tartrate. Pt is adequately rate controlled with HR between 75-100 in last 24 hrs. * Continue current Metoprolol Tartrate regimen for today * Plan to change pt back to her home Metoprolol Succinate starting tomorrow. * Pt on sq DVT ppx, not on AC for Afib 3. History of CHF: Pt on lasix 20mg daily at home. * Hold lasix as this time 4. History of hypertension: BP range between 153/73-140/70 in last 24 hrs. Home regimen in Metop. Succinate 50mg daily and Irbesartan 300mg daily. Currently only on Metop tartrate 12.5 mg BID. * Con't Metoprolol tartrate today * Switch to her home dose Metoprolol Succinate tomorrow * Will re-evaluate Irbesartan based on BP tomorrow. 5. History of hypothyroidism. * Con't Synthroid .125 PO Daily 6. History of diabetes: Last FS [phone]. * Full liquid diet starting today per surgery * RISS * Currently on Novolin (NPO) sliding scale. Once she consistently tolerates PO diet can change her to the eating sliding scale. 7. History of colon cancer status post right hemicolectomy: * Dr. Son notified 8. Anemia: Last CBC on 11/07 shows HB 8.2 and HCT 26.3. * Continue to monitor 9. UTI: Pt was started on Unasyn on 11/08/2016 for treatment of UTI. Her Nov 06 culture shows greater than 100,000 CFU of Klebsiella Oxytoca resistant to Ampicillin and Cefazolin. However, her Nov 05 UA shows no nitrite or leukocyte esterase. She has 1-3 WBC. Pt is asymptomatic and denies any urinary symptoms and has remained afebrile. * From a medicine perspective would suggest no need for antibiotics as this most likely represents colonization. However, if wish to treat the culture then would do a total of 3 days of treatment for uncomplicated UTI. Plan: see above Problem List: 1. Bowel obstruction Subjective Subjective: Saw pt at beside this AM. She states that she fells well. No acute over night events. She is passing flatus and had one liquid bowel movement this AM. She is tolerating clear liquid diet, will advance to full liquid diet today per surgery. She was OOB to chair yesterday. Encourage PT. Review of Systems Constitutional: Reports: weakness. Denies: chills, diaphoresis, fever. EENTM: Reports: no symptoms. Cardiovascular: Denies: chest pain, orthopena, peripheral edema. Respiratory: Denies: cough, short of breath. Gastrointestinal: Reports: bloating, changes in stool. Denies: abdominal pain, diarrhea, nausea, vomiting. Genitourinary: Reports: no symptoms. Musculoskeletal: Reports: no symptoms. Objective Last 24 Hrs of Vital Signs/I&O Vital Signs Date Time Temp Pulse Resp B/P B/P Pulse O2 O2 Flow FiO2 Mean Ox Delivery Rate 11/09 06 98.8 75 20 142/70 99 Nasal 3.0L Cannula 11/09 0000 Nasal 3.0L Cannula 11/08 2212 98.3 99 20 140/70 97 Nasal Cannula 11/083 92 140/70 11/08 1715 Nasal 3.0L Cannula 11/08 1215 100 153/73 Intake & Output 11/09 1600 11/09 0800 11/09 0000 Intake Total 110 900 Output Total 300 600 Balance -190 300 Intake, IV 10 500 Intake, Oral 100 400 Output, Urine 300 600 Physical Exam General Appearance: no apparent distress, alert, awake, comfortable Head: atraumatic, normal appearance Ears, Nose, Throat: normal ENT inspection Neck: normal inspection, supple Cardiovascular: irregularly irregular Respiratory: chest non-tender, no respiratory distress Abdomen: normal bowel sounds, soft, HAS JAIME IN MIDLINE WITH NO BANDAGE COVERING. THE INCISION LOOKS CLEAN WITH SKIN APPROXIMATED TOGETHER. NO DRAINAGE. Back: normal inspection Current Medications: Current Medications Sig/Darrell Start time Last Medication Dose Route Stop Time Status Admin Acetaminophen 650 MG Q4P PRN 11/09 0800 AC PO Ampicillin Sodium/ 3,000 MG Q6 11/08 1200 AC 11/09 Sulbactam Sodium IV 0626 Sodium Chloride 100 ML Dextrose/Lactated 1,000 ML Q24H 11/08 1130 DC 11/08 Ringer's IV 1214 Dextrose/Lactated 1,000 ML Q13H 11/07 2030 DC 11/08 Ringer's IV 0234 Diltiazem HCl 125 MG Q24H 11/06 1315 DC 11/07 Sodium Chloride 100 ML IV 1346 Heparin Sodium 5,000 UNIT Q8 11/06 2200 AC 11/09 (Porcine) SC 0625 Insulin Human Regular 0 TIDAC/HS 11/08 2100 AC 11/09 SC 0800 Insulin Human Regular 0 Q6 11/06 1800 DC 11/08 SC 1838 Levothyroxine Sodium 0.125 MG DAILY AC 11/09 0700 AC 11/09 PO 0626 Levothyroxine Sodium 62.5 MCG DAILY 11/07 1000 DC 11/08 IV 1216 Melatonin 5 MG AT BEDTIME 11/09 0100 AC 11/09 PO 0101 Metoprolol Tartrate 12.5 MG BID 11/08 1103 AC 11/09 PO 1002 Morphine Sulfate 2 MG Q4-6 PRN PRN 11/06 1330 AC 11/08 IV 1839 Morphine Sulfate 4 MG Q4-6 PRN PRN 11/06 1330 DC 11/07 IV 2129 Morphine Sulfate 6 MG Q4-6 PRN PRN 11/06 1330 DC 11/07 IV 0904 Ondansetron HCl 4 MG Q8P PRN 11/06 1315 AC IV Oxycodone/ 1 TAB Q4P PRN 11/09 0800 AC Acetaminophen PO Oxycodone/ 2 TAB Q4P PRN 11/09 0800 AC Acetaminophen PO Results Last 24 Hrs Lab/Sanjeev Results: herber Ryan MD,Sarai 11/09/17 1240: Attending MD Review Statement Attending Sign Off Attending Cosign Statement: I have: examined this patient, reviewed [facility] EMR data, personally reviewd images, discussd w/resident/PA/MEDICAL TRANSLATOR, discussed mgmt plan w/heladio, discussed mgmt plan w/pt, agreed w/resident/PA/MEDICAL TRANSLATOR, amended to note. Other Findings: Patient seen and examined, overall doing better. Has been started on full liquid diet. Heart rate and blood pressure well controlled. Vital Signs Date Time Temp Pulse Resp B/P B/P Pulse O2 O2 Flow FiO2 Mean Ox Delivery Rate 11/09 0620 98.8 75 20 142/70 99 Nasal 3.0L Cannula 11/09 0000 Nasal 3.0L Cannula 11/08 2213 98.3 99 20 140/70 97 Nasal Cannula 11/08 2113 92 140/70 11/08 1715 Nasal 3.0L Cannula on exam; aox3, nad. cv; s1,s2, rrr resp; clear abd; soft, nt, bs+, + jaime n abd wall. ext; no edema. Assessment and recommendations: 87F with sig for PMH atrial fibrillation not on AC , CHF, hypertension, hyperlipidemia, peripheral neuropathy, TIA, gout/osteoarthritis, diabetes, hypothyroidism, hx of colon cancer s/p right hemicolectomy, recently treated conservatively for SBO. Admitted to surgical servicewith SBO, s/p palliative enterocolo-enteroenteric bypasses for recurrent obstructing colon ca, most recently at previous anastomosis with subsequent sbo, POD#3. Postop care per surgery. Patient takes long-acting beta herman at home which he can resume starting tomorrow at home dose. Slowly we will resume her ARB once her by mouth intake is adequate. Continue current pain regimen as this seems to be controlling her pain well. No indication to treat the benign looking urinalysis. But if antibiotics are used for postoperative intra-abdominal coverage, that will be up to surgery. DVT prophylaxis: Heparin subcutaneous. Thank you will follow.
[2017-11-09 15:24] VITALS: BP 134/80
[2017-11-09 21:54] VITALS: BP 164/68
[2017-11-10 06:37] VITALS: BP 138/68
--- NOTE | 2017-11-10 07:23 | PN- Cardiology ---
Subjective Subjective: Patient feels good, no significant abdominal pain, no SOB, CP or palpitations Objective Vital Signs and I&Os Vital Signs Date Time Temp Pulse Resp B/P B/P Pulse O2 O2 Flow FiO2 Mean Ox Delivery Rate 11/10 0637 98.2 79 20 138/68 94 Room Air 11/09 2250 Room Air 11/09 2158 95 164/68 11/09 2154 98.2 95 20 164/68 96 11/09 1600 Nasal 2.0L Cannula 11/09 1524 97.8 77 20 134/80 100 Nasal 3.0L Cannula Intake & Output 11/10 0800 11/10 0000 11/09 1600 11/09 0800 11/09 0000 11/08 1600 Intake Total 200 736 110 900 Output Total 300 600 Balance 200 736 -190 300 Intake, IV 336 10 500 Intake, Oral 200 400 100 400 Number 0 Bowel Movements Output, Urine 300 600 Physical Exam: HEENT-PERRLA Neck-JVP normal, bilateral bruits Lungs-clear bilaterally Heart-S1S2 irregular, 2/6 KEDAR at the base Abdomen-soft, not distended, BS+, mild tenderness on palpation Extr-no edema, 2+ pulses, no cyanosis Neuro-non focal Current Medications: Current Medications Sig/Darrell Start time Last Medication Dose Route Stop Time Status Admin Acetaminophen 650 MG Q4P PRN 11/09 0800 AC PO Ampicillin Sodium/ 3,000 MG Q6 11/08 1200 AC 11/10 Sulbactam Sodium IV 11/10 1300 0604 Sodium Chloride 100 ML Dextrose/Lactated 1,000 ML Q24H 11/08 1130 DC 11/08 Ringer's IV 1214 Heparin Sodium 5,000 UNIT Q8 11/06 2200 AC 11/10 (Porcine) SC 0555 Insulin Human Regular 4 UNITS .STK-MED ONE 11/09 1708 DC IV 11/09 1709 Insulin Human Regular 4 UNITS .STK-MED ONE 11/09 1234 DC IV 11/09 1235 Insulin Human Regular 0 TIDAC/HS 11/08 2100 AC 11/09 SC 1718 Levothyroxine Sodium 0.125 MG DAILY AC 11/09 0700 AC 11/10 PO 0555 Melatonin 5 MG AT BEDTIME 11/09 0100 AC 11/09 PO 2157 Metoprolol Tartrate 12.5 MG BID 11/08 1103 AC 01/15 PO 2158 Morphine Sulfate 2 MG Q4-6 PRN PRN 11/06 1330 AC 11/08 IV 1839 Morphine Sulfate 4 MG Q4-6 PRN PRN 11/06 1330 DC 11/07 IV 2129 Ondansetron HCl 4 MG Q8P PRN 11/06 1315 AC IV Oxycodone/ 1 TAB Q4P PRN 11/09 0800 AC Acetaminophen PO Oxycodone/ 2 TAB Q4P PRN 11/09 0800 AC Acetaminophen PO Assessment/Plan Assessment/Plan 86-year-old female with past medical history of atrial fibrillation on xarelto, moderate to severe aortic stenosis, hypertension, hyperlipidemia, TIA, hypothyroidism, diabetes mellitus, gout, osteoarthritis, colon cancer status post resection and chemotherapy, h/o GI bleed, recurrent SBO, s/p enterocolic/ entero-enteric bypass. Doing well postoperatively, no evidence of CHF, AF controlled. BP fluctuates but lower than last admission. Plan: change metoprolol tartarate to metoprolol succinate 50 mg po qd no anticoagulation monitor BP if BP above 140, will add losartan 50 mg qd. Continue telemetry? Yes
--- NOTE | 2017-11-10 08:44 | PN- General Surgery ---
Surgical Brief Attending Note Brief Attending Note: Pt doing well s/p entercolonic bypass of malignant colon obstruction Advace diet as tolerates to low fiber diet Ambulate Anticipate discharge in 1 - 2 days
--- NOTE | 2017-11-10 08:55 | PN- Medicine Consult ---
Jean Marie AVALOS,Win 11/10/17 0850: Assessment/Plan Assessment/Plan Assessment: ASSESSMENT: 87F PMH atrial fibrillation not on AC , CHF, hypertension, hyperlipidemia, peripheral neuropathy, TIA, gout/osteoarthritis, diabetes, hypothyroidism, hx of colon cancer s/p right hemicolectomy, recently treated conservatively for SBO who presented to the ED with a chief complaints of abdominal discomfort and found to have another SBO. Admitted to surgical service s/p palliative enterocolo-enteroenteric bypasses for recurrent obstructing colon ca, most recently at previous anastomosis with subsequent sbo, POD#4. PLAN: 1. Small bowel obstruction likely 2/2 colon ca and prev. abdominal surgeries: * Continue recommendations as per surgical team * Pt was tolerating clears well, now she has advanced to full liquids and will transition to low fiber diet as tolerated * Pt on Heparin 5000u Q8 for DVT ppx 2. History of atrial fibrillation (not on anticoagulation due to GI bleed): Pt on Metoprolol succinate 50mg daily at home. Was initially on Cardizem drip in hospital for rapid afib. * Switch to Metoprolol succinate 50 mg po qd per Cardiology * Pt on sq DVT ppx, not on AC for Afib * Appreciate cardiology recs 3. History of CHF: Pt on lasix 20mg daily at home. * Hold lasix as this time. Re-start once pt has adequate Ins and Outs. 4. History of hypertension: * Con't Metoprolol succinate * As BP elevated, would consider adding her ARB per cardiology to her regimen. 5. History of hypothyroidism. * Con't Synthroid .125 PO Daily 6. History of diabetes: * Full liquid diet starting today per surgery * RISS 7. History of colon cancer status post right hemicolectomy: * Dr. Son notified 8. Anemia: Last CBC on 11/07 shows HB 8.2 and HCT 26.3. * Continue to monitor 9. UTI: Pt was started on Unasyn on 11/08/2016 for treatment of UTI. Her Nov 06 culture shows greater than 100,000 CFU of Klebsiella Oxytoca resistant to Ampicillin and Cefazolin. However, her Nov 05 UA shows no nitrite or leukocyte esterase. She has 1-3 WBC. Pt is asymptomatic and denies any urinary symptoms and has remained afebrile. * From a medicine perspective would suggest no need for antibiotics as this most likely represents colonization. However, if wish to treat the culture then would do a total of 3 days of treatment for uncomplicated UTI. Thank you for letting us take part in this interesting consult. Pt is medically stable from in-patient medicine perspective. We will sign off at this time. If there are any further questions, please do not heistate to reach out for re- consult or follow up. FC Full liq diet chem ppx Plan: see above Subjective Subjective: Saw pt at bedside this AM. She was sitting OOB at chair. No acute overnight events or complaints. Her BP was elevated up to 170 systolic. She is tolerating diet and wants to advance to low residue. Having flatus and watery stool. Review of Systems Constitutional: Reports: no symptoms. Denies: diaphoresis, fever. EENTM: Reports: no symptoms. Cardiovascular: Denies: chest pain, palpitations. Respiratory: Denies: short of breath. Gastrointestinal: Reports: abdominal pain, distention. Denies: nausea, vomiting. Genitourinary: Reports: no symptoms. Musculoskeletal: Reports: no symptoms. Objective Last 24 Hrs of Vital Signs/I&O Vital Signs Date Time Temp Pulse Resp B/P B/P Pulse O2 O2 Flow FiO2 Mean Ox Delivery Rate 11/10 0829 79 138/68 11/10 0637 98.2 79 20 138/68 94 Room Air 11/09 2250 Room Air 11/09 2158 95 164/68 11/09 2154 98.2 95 20 164/68 96 11/09 1600 Nasal 2.0L Cannula 11/09 1524 97.8 77 20 134/80 100 Nasal 3.0L Cannula Intake & Output 11/10 1600 11/10 0800 11/10 0000 Intake Total 600 200 Output Total Balance 600 200 Intake, IV 200 Intake, Oral 400 200 Physical Exam General Appearance: well developed/nourished, no apparent distress, alert, awake Head: atraumatic, normal appearance Ears, Nose, Throat: normal pharynx Neck: normal inspection, supple Cardiovascular: regular rate/rhythm Respiratory: normal breath sounds, chest non-tender, no respiratory distress, quiet respiration Abdomen: jaime at midline. wound healing well with no evidence of dehisence, bleeding or drainage. Current Medications: Current Medications Sig/Darrell Start time Last Medication Dose Route Stop Time Status Admin Acetaminophen 650 MG Q4P PRN 11/09 0800 AC PO Ampicillin Sodium/ 3,000 MG Q6 11/08 1200 AC 11/10 Sulbactam Sodium IV 11/10 1300 0604 Sodium Chloride 100 ML Dextrose/Lactated 1,000 ML Q24H 11/08 1130 DC 11/08 Ringer's IV 1214 Heparin Sodium 5,000 UNIT Q8 11/06 2200 AC 11/10 (Porcine) SC 0555 Insulin Human Regular 4 UNITS .STK-MED ONE 11/09 1708 DC IV 11/09 1709 Insulin Human Regular 4 UNITS .STK-MED ONE 11/09 1234 DC IV 11/09 1235 Insulin Human Regular 0 TIDAC/HS 11/08 2100 AC 11/10 SC 0829 Levothyroxine Sodium 0.125 MG DAILY AC 11/09 0700 AC 11/10 PO 0555 Melatonin 5 MG AT BEDTIME 11/09 0100 AC 11/09 PO 2157 Metoprolol Tartrate 12.5 MG BID 11/08 1103 AC 11/10 PO 0829 Morphine Sulfate 2 MG Q4-6 PRN PRN 11/06 1330 AC 11/08 IV 1839 Ondansetron HCl 4 MG Q8P PRN 11/06 1315 AC IV Oxycodone/ 1 TAB Q4P PRN 11/09 0800 AC Acetaminophen PO Oxycodone/ 2 TAB Q4P PRN 11/09 0800 AC Acetaminophen PO Results Last 24 Hrs Lab/Sanjeev Results: bg Ryan MD,Sarai 11/10/17 1159: Attending MD Review Statement Attending Sign Off Attending Cosign Statement: I have: examined this patient, reviewed [facility] EMR data, discussd w/resident/PA/ ORTHOPEDIC DESIGNER, agreed w/resident/PA/ORTHOPEDIC DESIGNER, amended to note. Other Findings: Patient seen and examined, overall doing well. Able to tolerate diet. Diet will be advanced per surgery. Heart rate and blood pressure are stable. Metoprolol succinate can be started today instead of metoprolol tartrate. Please follow further recommendations from cardiology in terms of adding ARBs. Antibiotics per surgery but no indication to treat benign looking urinalysis. Overall medical issues are stable. We'll sign off but please call if there are any questions.
--- NOTE | 2017-11-10 13:07 | Patient Discharge Instructions ---
Discharge Instructions General Discharge Information You were seen/treated for: Small bowel obstruction, Metastatic colon cancer You had these procedures: On 11/06/17, 1. Diagnostic laparoscopy 2. Exploratory laparotomy 3. Enterocolonic anastomosis bypass 4. Enteroenteric bypass 5. Omental excisional biopsy 6. Abdominal wall excisional biopsy Watch for these problems: Increased abdominal pain, distention, nausea, vomiting, inability to pass gas or flatus, redness, swelling or purulent drainage from your incisions Call Surgeon to remove: Carlos Do not soak the wound: Yes No bath, but you may shower: Yes Other wound care: Keep incisions clean and dry Ok to shower Special Instructions: Contact Dr. Martin's office to shedule a follow up appointment in 7-10 days for wound check and staple removal follow up with Dr Finn in 2-3 weeks, call to make appointment. Diet Continue normal diet: No Recommended Diet: Diabetic, Low Residue Activity Full Activity/No Limits: No Pounds, do NOT lift more than: 10 (x 4 weeks) Other activity limits: No heavy lifting or strenous activity x 4 weeks or until cleared by surgeon Acute Coronary Syndrome Inclusion Criteria At DC or during hospital stay patient has or had the following: ACS DIAGNOSIS No Discharge Core Measures Meds if any: Prescribed or Continued at Discharge Meds if any: NOT Prescribed or Continued at Discharge Congestive Heart Failure Inclusion Criteria At DC or during hospital stay patient has or had the following: CHF DIAGNOSIS No Discharge Core Measures Meds if any: Prescribed or Continued at Discharge Meds if any: NOT Prescribed or Continued at Discharge Cerebrovascular accident Inclusion Criteria At DC or during hospital stay patient has or had the following: CVA/TIA Diagnosis No Discharge Core Measures Meds if any: Prescribed or Continued at Discharge Meds if any: NOT Prescribed or Continued at Discharge Venous thromboembolism Inclusion Criteria VTE Diagnosis No VTE Type NONE VTE Confirmed by (Test) NONE Discharge Core Measures - Per Current guidelines, there needs to be overlap - treatment for the first 5 days of Warfarin therapy. - If discharged on Warfarin prior to 5 days of - overlap therapy, the patient will need to be - assessed for post discharge needs including - *Post discharge parental anticoagulation - *Warfarin and/or parental anticoagulation education - *Follow up date to check INR post discharge At least 5 days overlap therapy as Inpatient No Meds if any: Prescribed or Continued at Discharge Note: Overlap Therapy is Warfarin and Anticoagulant Meds if any: NOT Prescribed or Continued at Discharge
--- NOTE | 2017-11-10 13:32 | Surgical Discharge Summary ---
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 Home Who Do You Live With? Spouse Services at Home: None What is Your Primary Language? Cypriot Review of Systems: Refer to H&P Hospital Course Course Attending Physician: Marbella Jha MD Primary Care Physician: Alec AVALOS,Jatinder Lacy Hospital Course: Presented to the ED with abdominal pain, nausea and vomiting with imaging revealing small bowel obstruction and known metastasis at her surgical anastomosis. Patient was recently admitted with SBO and was managed conservatively. Due to her recurrent obstructive findings and poor prognosis of her metastatic disease, patient was taken to the OR for palliative surgical intervention. Preoperatively she was evaluated by medicine and cardiology. On she underwent a exploratory laparotomy, enteroenteric bypass, enterocolonic anastomosis bypass with omental and abdominal wall excisional biopsies due to metastatic colon cancer with Dr. Martin. Patient tolerated the procedure well. Diet was slowly advanced and the patient had return of bowel function. Allergies: Coded Allergies: Sulfa (Sulfonamide Antibiotics) (Intermediate, RASH 03/26/17) adhesive tape (PAPER TAPE OK PER PT 03/26/17) Significant Procedures: On 11/06/17, 1. Diagnostic laparoscopy 2. Exploratory laparotomy 3. Enterocolonic anastomosis bypass 4. Enteroenteric bypass 5. Omental excisional biopsy 6. Abdominal wall excisional biopsy Disposition Summary Disposition Principal Diagnosis: SBO due to metastatic colon cancer Additional Diagnosis: Metastatic colon cancer s/p diagnostic laparoscopy exploratory laparotomy, enterocolonic anastomosis bypass, enteroenteric bypass, omental excisional biopsy and abdominal wall excisional biopsy Discharge Disposition: home health services (PT) Discharge Instructions General Discharge Information Code Status: Full Code Patient's Diet: Low residue Patient's Activity: Ambulate as tolerated, no strenous activity Follow-Up Instructions/Appts: Follow up with Dr. Martin in 7-10 days for postop check Medications at Discharge Discharge Medications: Continue taking these medications: Irbesartan (Avapro) 300 MG TABLET 1 Tablet ORAL DAILY Comments: NOT GIVEN IN HOSPITAL [place] GIVEN 05/15/17 AT 1050 Alprazolam (Xanax) 0.5 MG TABLET 1 Tablet ORAL as needed for ANXIETY Comments: NOT TAKEN Atorvastatin Calcium (Lipitor) 20 MG TABLET 1 Tablet ORAL DAILY Comments: NOT TAKEN Sitagliptin Phosphate (Januvia) 100 MG TABLET 1 Tablet ORAL DAILY Comments: NOT GIVEN IN HOSPITAL Solifenacin Succinate (Vesicare) 5 MG TABLET 1 Tablet ORAL DAILY Comments: NOT GIVEN IN HOSPITAL [place]ROPAN GIVEN Levothyroxine Sodium (Synthroid) 125 MCG TABLET 1 Tablet ORAL DAILY BEFORE BREAKFAST Comments: Last Taken: 11/12/17 Time: 600 AM Cranberry Fruit Concentrate (Cranberry) 450 MG CAPSULE 1 Capsule ORAL DAILY Days = 60 Comments: NOT GIVEN IN HOSPITAL Potassium Chloride (Potassium Chloride) 20 MEQ TABLET.ER 1 Tablet ORAL DAILY Comments: IV DOSES GIVEN Cholecalciferol (Vitamin D3) (Vitamin D) 1,000 UNIT TABLET 1 Tablet ORAL DAILY Comments: NOT TAKEN Insulin Detemir (Levemir) 100 UNIT/ML VIAL 40 Unit Inject into fatty tissue TWICE DAILY Comments: NOT TAKEN Gabapentin (Gabapentin) 300 MG CAPSULE 1 Capsule ORAL DAILY Days = 30 Comments: NOT TAKEN Colchicine (Colchicine) 0.6 MG TABLET 300 Microgram ORAL TWICE DAILY Qty = 30 Comments: NOT TAKEN Baclofen (Baclofen) 10 MG TABLET 1 Tablet ORAL THREE TIMES A DAY NEEDED as needed for muscle spasm/strain Qty = 30 Comments: NOT TAKEN Metoprolol Succinate (Metoprolol Succinate) 25 MG TAB 50 Milligram ORAL DAILY Qty = 90 Comments: Last Taken:11/12/17 Time:9amM Furosemide (Lasix) 40 MG TABLET 0.5 Tablet ORAL DAILY Instructions: Note that dosage has changed from 40mg daily to 20mg daily. Take one half of a tablet daily until follow up with Dr Ferguson in 10 days. Comments: not taken Start taking the following new medications: Acetaminophen (Tylenol) 325 MG TABLET 650 Milligram ORAL Every 6-8 Hours as Needed as needed for pain control Days = 10 No Refills Instructions: available over the counter
[2017-11-10 14:08] VITALS: BP 130/56
[2017-11-10 21:57] VITALS: BP 124/56
[2017-11-11 06:57] VITALS: BP 158/66
--- NOTE | 2017-11-11 07:46 | PN- Cardiology ---
Subjective Subjective: Feels great, no complaints Objective Vital Signs and I&Os Vital Signs Date Time Temp Pulse Resp B/P B/P Pulse O2 O2 Flow FiO2 Mean Ox Delivery Rate 11/11 0657 97.8 72 20 158/66 95 Room Air 11/10 2157 98.8 95 20 124/56 94 11/10 2110 92 124/56 11/10 1600 Room Air 11/10 1408 98.0 59 18 130/56 98 Room Air 11/10 0829 79 138/68 Intake & Output 11/11 0800 11/11 0000 11/10 1600 11/10 0800 11/10 0000 11/09 1600 Intake Total 250 542 600 600 200 736 Output Total 200 Balance 250 342 600 600 200 736 Intake, IV 150 200 336 Intake, Oral 250 542 450 400 200 400 Number 1 0 Bowel Movements Output, Urine 200 Physical Exam: HEENT-PERRLA Neck-JVP normal Lungs-clear bilaterally Heart-S1S2 irregular, 2/6 KEDAR at the base Abdomen-soft, BS+, no organomegaly, not tender Extr-no edema, 2+ pulses Neuro-non focal Current Medications: Current Medications Sig/Darrell Start time Last Medication Dose Route Stop Time Status Admin Acetaminophen 650 MG .STK-MED ONE 11/10 2106 DC PO 11/10 210 Acetaminophen 650 MG Q4P PRN 11/09 0800 AC 11/10 PO 2107 Ampicillin Sodium/ 3,000 MG Q6 11/08 1200 DC 11/10 Sulbactam Sodium IV 11/10 1300 1154 Sodium Chloride 100 ML Heparin Sodium 5,000 UNIT Q8 11/06 2200 AC 11/11 (Porcine) SC 0639 Insulin Human Regular 4 UNITS .STK-MED ONE 11/10 1642 DC IV 11/10 1643 Insulin Human Regular 4 UNITS .STK-MED ONE 11/10 1146 DC IV 11/10 1147 Insulin Human Regular 2 UNITS .STK-MED ONE 11/10 0821 DC IV 11/10 0822 Insulin Human Regular 0 TIDAC/HS 11/08 2100 AC 11/10 SC 1737 Levothyroxine Sodium 0.125 MG DAILY AC 11/09 0700 AC 11/11 PO 0639 Melatonin 5 MG AT BEDTIME 11/09 0100 AC 11/10 PO 2107 Metoprolol Succinate 50 MG DAILY 11/11 1000 AC PO Metoprolol Tartrate 12.5 MG BID 11/08 1103 DC 11/10 PO 11/10 2200 2110 Morphine Sulfate 2 MG Q4-6 PRN PRN 11/06 1330 AC 11/08 IV 1839 Ondansetron HCl 4 MG Q8P PRN 11/06 1315 AC IV Oxycodone/ 1 TAB Q4P PRN 11/09 0800 AC Acetaminophen PO Oxycodone/ 2 TAB Q4P PRN 11/09 0800 AC Acetaminophen PO Assessment/Plan Assessment/Plan 86-year-old female with past medical history of atrial fibrillation on xarelto, moderate to severe aortic stenosis, hypertension, hyperlipidemia, TIA, hypothyroidism, diabetes mellitus, gout, osteoarthritis, colon cancer status post resection and chemotherapy, h/o GI bleed, recurrent SBO, s/p enterocolic/ entero-enteric bypass. Doing well postoperatively, no evidence of CHF, AF borderline controlled (was on lower dose of metoprolol in the hospital). BP fluctuates but lower than last admission. Plan: continue metoprolol succinate 50 mg po qd no anticoagulation monitor BP ?D/C home tomorrow restart Lasix 40 mg po qd 1/2 tbl for discharge Continue telemetry? Yes
[2017-11-11] MEDS ORDERED: TYLENOL325 M1 PO (08:44)
--- NOTE | 2017-11-11 08:53 | PN- General Surgery ---
See Addendum Subjective Subjective: Tolerating low fiber diet. No nausea. +bm this morning. Out of bed with rolling walker assistance. She denies dizziness. No shortness of breath. No chest pains. Pain controlled with tylenol. She expresses interest in going home, but is concerned about her coming to get her in the snow. "I don't want my driving in this weather". Objective Vital Signs and I&Os Vital Signs Date Time Temp Pulse Resp B/P B/P Pulse O2 O2 Flow FiO2 Mean Ox Delivery Rate 11/11 0810 72 158/66 11/11 0657 97.8 72 20 158/66 95 Room Air 11/10 2157 98.8 95 20 124/56 94 11/10 2110 92 124/56 11/10 1600 Room Air 11/10 1408 98.0 59 18 130/56 98 Room Air Intake & Output 11/11 1600 11/11 0800 11/11 0000 11/10 1600 11/10 0800 11/10 0000 Intake Total 250 542 600 600 200 Output Total 200 Balance 250 342 600 600 200 Intake, IV 150 200 Intake, Oral 250 542 450 400 200 Number 1 Bowel Movements Output, Urine 200 Physical Exam: General - alert & oriented x 3. out of bed to chair. no acute distress. Lungs - clear Cardiac - s1s2. irreg irreg Abdomen - soft. midline incision approximated with jaime. no erythema or exudates. Extremities - warm bilaterally. no c/c/e. calves soft and nontender b/l. Current Medications: Current Medications Sig/Darrell Start time Last Medication Dose Route Stop Time Status Admin Acetaminophen 650 MG .STK-MED ONE 11/10 2106 DC PO 11/10 210 Acetaminophen 650 MG Q4P PRN 11/09 0800 11/10 PO 2107 Ampicillin Sodium/ 3,000 MG Q6 11/08 1200 DC 11/10 Sulbactam Sodium IV 11/10 1300 1154 Sodium Chloride 100 ML Heparin Sodium 5,000 UNIT Q8 11/06 2200 11/11 (Porcine) OK 0639 Insulin Human Regular 4 UNITS .STK-MED ONE 11/10 1642 DC IV 11/10 1643 Insulin Human Regular 4 UNITS .STK-MED ONE 11/10 1146 DC IV 11/10 1147 Insulin Human Regular 0 TIDAC/HS 01/14 2100 AC 11/11 SC 0810 Levothyroxine Sodium 0.125 MG DAILY AC 11/09 0700 AC 11/11 PO 0639 Melatonin 5 MG AT BEDTIME 11/09 0100 AC 11/10 PO 2107 Metoprolol Succinate 50 MG DAILY 11/11 1000 AC 11/11 PO 0810 Metoprolol Tartrate 12.5 MG BID 11/08 1103 DC 11/10 PO 11/10 2200 2110 Morphine Sulfate 2 MG Q4-6 PRN PRN 11/06 1330 AC 11/08 IV 1839 Ondansetron HCl 4 MG Q8P PRN 11/06 1315 AC IV Oxycodone/ 1 TAB Q4P PRN 11/09 0800 AC Acetaminophen PO Oxycodone/ 2 TAB Q4P PRN 11/09 08 AC Acetaminophen PO Assessment/Plan Assessment/Plan This is an 87 year-old woman POD#5 s/p lap to open enteroenteric and enterocolonic bypasses secondary to obstructing metastatic recurrances, with klebsiella UTI tolerating low fiber diet pain controlled with tylenol completed unasyn duration for uti yesterday continue oob/ambulation hep sc - dvt ppx to resume lasix at time of discharge per cards recommendations continue Toprol XL daily d/c home ?today vs tomorrow (shes stable, but concerned about weather / driving conditions) will d/w Core Measures Venous Thromboembolism VTE Risk Factors Age>40 No Mechanical VTE Prophylaxis d/t N/A MechProphylax Ordered No VTE Pharm Prophylaxis d/t NA PharmProphylax ordered
[2017-11-11 14:57] VITALS: BP 120/58
[2017-11-11 22:15] VITALS: BP 160/58
[2017-11-12 06:17] VITALS: BP 132/56
--- NOTE | 2017-11-12 07:30 | PN- Cardiology ---
Subjective Subjective: No complaints Objective Vital Signs and I&Os Vital Signs Date Time Temp Pulse Resp B/P B/P Pulse O2 O2 Flow FiO2 Mean Ox Delivery Rate 11/12 616 98.3 87 20 132/56 94 Room Air 11/11 2215 98.6 80 20 160/58 96 Room Air 11/11 1457 98.2 70 18 120/58 96 Room Air 11/11 0810 72 158/66 Intake & Output 11/12 0800 11/12 0000 11/11 1600 11/11 0800 11/11 0000 11/10 1600 Intake Total 240 400 500 250 542 600 Output Total 300 200 Balance 240 100 500 250 342 600 Intake, IV 150 Intake, Oral 240 400 500 250 542 450 Number 1 1 1 Bowel Movements Output, Urine 300 200 Physical Exam: HEENT-PERRLA Neck-JVP normal Lungs-clear bilaterally Heart-S1S2 irregular, 2/6 KEDAR Abdomen-soft, BS+, not tender, no organomegaly Extr-no edema, 2+ pulses Neuro non focal Current Medications: Current Medications Sig/Darrell Start time Last Medication Dose Route Stop Time Status Admin Acetaminophen 650 MG Q4P PRN 11/09 0800 AC 11/10 PO 2107 Heparin Sodium 5,000 UNIT Q8 11/06 2200 AC 11/12 (Porcine) SC 0536 Insulin Human Regular 4 UNITS .STK-MED ONE 11/11 1847 DC IV 11/11 1848 Insulin Human Regular 4 UNITS .STK-MED ONE 11/11 1159 DC IV 11/11 1200 Insulin Human Regular 2 UNITS .STK-MED ONE 11/11 0808 DC IV 11/11 0809 Insulin Human Regular 0 TIDAC/HS 11/08 2100 AC 11/11 SC 1847 Levothyroxine Sodium 0.125 MG DAILY AC 11/09 0700 AC 11/12 PO 0536 Melatonin 5 MG AT BEDTIME 11/09 0100 AC 11/11 PO 2358 Metoprolol Succinate 50 MG DAILY 11/11 1000 AC 11/11 PO 0810 Morphine Sulfate 2 MG Q4-6 PRN PRN 11/06 1330 AC 11/08 IV 1839 Ondansetron HCl 4 MG Q8P PRN 11/06 1315 AC IV Oxycodone/ 1 TAB Q4P PRN 11/09 0800 AC Acetaminophen PO Oxycodone/ 2 TAB Q4P PRN 01/15 0800 AC Acetaminophen PO Assessment/Plan Assessment/Plan 86-year-old female with past medical history of atrial fibrillation on xarelto, moderate to severe aortic stenosis, hypertension, hyperlipidemia, TIA, hypothyroidism, diabetes mellitus, gout, osteoarthritis, colon cancer status post resection and chemotherapy, h/o GI bleed, recurrent SBO, s/p enterocolic/ entero-enteric bypass. Doing well postoperatively, no evidence of CHF, AF borderline controlled (was on lower dose of metoprolol in the hospital). BP fluctuates but lower than last admission. Wants to go home Plan: continue metoprolol succinate 50 mg po qd no anticoagulation ?D/C home today restart Lasix 40 mg po qd 1/2 tbl for discharge f/u with me in 2-3 weeks-will arrange Continue telemetry? No
--- NOTE | 2017-11-12 08:38 | PN- General Surgery ---
See Addendum Subjective Subjective: no complaints, + large watery bm overninght. minimal abd pain, no nv. wants to be discharged home Objective Vital Signs and I&Os Vital Signs Date Time Temp Pulse Resp B/P B/P Pulse O2 O2 Flow FiO2 Mean Ox Delivery Rate 11/12 0617 98.3 87 20 132/56 94 Room Air 11/11 2215 98.6 80 20 160/58 96 Room Air 11/11 1457 98.2 70 18 120/58 96 Room Air Intake & Output 11/12 1600 11/12 0800 11/12 0000 11/11 1600 11/11 0800 11/11 0000 Intake Total 240 400 500 250 542 Output Total 300 200 Balance 240 100 500 250 342 Intake, Oral 240 400 500 250 542 Number 1 1 1 Bowel Movements Output, Urine 300 200 Physical Exam: wdwn, aox3, nad heent-wnl abd- soft, nt,nd, active bs, incisions benign ext- no edema or calf pain. Assessment/Plan Assessment/Plan This is an 87 year-old woman POD#6 s/p lap to open enteroenteric and enterocolonic bypasses secondary to obstructing metastatic recurrances tolerating low fiber diet pain controlled with tylenol continue oob/ambulation hep sc - dvt ppx to resume lasix at time of discharge per cards recommendations at 1/2 dose, dw pt continue Toprol XL daily d/c home today Core Measures Venous Thromboembolism VTE Risk Factors Age>40 No Mechanical VTE Prophylaxis d/t N/A MechProphylax Ordered No VTE Pharm Prophylaxis d/t NA PharmProphylax ordered No Mechanical VTE Prophylaxis d/t N/A MechProphylax Ordered No VTE Pharm Prophylaxis d/t NA PharmProphylax ordered
[2017-11-12 09:40] VITALS: BP 132/56
== END 2017-11-12 13:30 | disposition home health service (06) | DRG 330 ==
LOC: ERH 17:35 → 1NO 23:47 → ERHI 23:47 → EDBEDREQ 11-05 10:17 → ENRESERV 11-05 13:44 → 1NO 11-05 14:35 → ENRESERV 11-06 13:39 → CRI 11-06 14:11 → ENTRNSPT 11-06 14:17 → EDTRNSPTSTS 11-06 14:29 → EDTRNSPT 11-06 14:29 → CMPTRNSPT 11-06 14:50 → ENTRNSPT 11-08 16:32 → EDTRNSPTSTS 11-08 16:44 → CMPTRNSPT 11-08 17:22 → 1NO 11-08 17:42 → ENPENDDIS 11-12 09:04 → ENTRNSPT 11-12 13:06 → EDTRNSPTSTS 11-12 13:16 → CMPTRNSPT 11-12 13:30 → 1NO 11-12 13:30
PROVIDERS: Emergency Medicine; Physician Assistant; Physician Assistant Surgical
PROC: 0D1B0ZL Bypass Ileum to Transverse Colon, Open Approach (ICD-10-PCS; principal; 2017-11-06)
PROC: 0D1B0ZL Bypass Ileum to Transverse Colon, Open Approach (ICD-10-PCS; 2017-11-06)
DX: C18.4 Malignant neoplasm of transverse colon (principal); C78.4 Secondary malignant neoplasm of small intestine; I11.0 Hypertensive heart disease with heart failure; I48.91 Unspecified atrial fibrillation; I50.9 Heart failure, unspecified; E11.42 Type 2 diabetes mellitus with diabetic polyneuropathy; M06.9 Rheumatoid arthritis, unspecified; Z79.4 Long term (current) use of insulin; Z86.73 Personal history of transient ischemic attack (TIA), and cerebral infarction without residual deficits; M10.9 Gout, unspecified; M19.90 Unspecified osteoarthritis, unspecified site; E78.5 Hyperlipidemia, unspecified; E03.9 Hypothyroidism, unspecified; I35.0 Nonrheumatic aortic (valve) stenosis
CPT/HCPCS: 1NP; 1NSP; CCU; ERO; 36415; 71045; 74177; 81001; 82436; 86902; 86920; 86922; 87086; 88305; 88307; 93005; 93010; 96374; 96375; 96376; 97110-GO; 97116-GO; 97162-GP; 97530-GO; C9399; J0131; J0690; J1644; J1815; J2405; J3490; J7042; S5012

== ENCOUNTER 2017-12-09 06:26 | Inpatient (IN) | payer OTHER, MEDICARE ==
[~2017-12-09] VITALS: Ht 167.6 cm; Wt 75.8 kg
[~2017-12-09 06:26] MED LIST changes: +TYLENOL325 M1 PO
--- NOTE | 2017-12-09 06:39 | ED CARDIAC/CP/PALPITATIONS ---
See Addendum History of Present Illness General Chief Complaint: Dyspnea (COPD, CHF, Other) Stated Complaint: SOB Source: patient, family, EMS Exam Limitations: no limitations Vital Signs & Intake/Output Vital Signs & Intake/Output Vital Signs Date Time Temp Pulse Resp B/P B/P Pulse O2 O2 Flow FiO2 Mean Ox Delivery Rate 12/09 0733 96.6 90 16 133/65 100 Room Air 12/09 0633 99 Room Air 12/09 0627 97.9 101 20 131/71 96 Room Air Allergies Coded Allergies: Sulfa (Sulfonamide Antibiotics) (Intermediate, RASH 03/26/17) adhesive tape (PAPER TAPE OK PER PT 03/26/17) Reconcile Medications Acetaminophen (Tylenol) 325 MG TABLET 650 MG PO Q6-8P PRN pain control available over the counter Alprazolam (Xanax) 0.5 MG TABLET 1 TAB PO PRN ANXIETY (Reported) Atorvastatin Calcium (Lipitor) 20 MG TABLET 1 TAB PO DAILY CHOLESTEROL ( Reported) Baclofen 10 MG TABLET 1 TAB PO TIDPRN PRN muscle spasm/strain Cholecalciferol (Vitamin D3) (Vitamin D) 1,000 UNIT TABLET 1 TAB PO DAILY SUPPLEMENT (Reported) Colchicine 0.6 MG TABLET 300 MCG PO BID PSEUDOGOUT Cranberry Fruit Concentrate (Cranberry) 450 MG CAPSULE 1 CAP PO DAILY SUPPLEMENT (Reported) Furosemide (Lasix) 40 MG TABLET 0.5 TAB PO DAILY heart (Reported) Note that dosage has changed from 40mg daily to 20mg daily. Take one half of a tablet daily until follow up with Dr Ferguson in 10 days. Gabapentin 300 MG CAPSULE 1 CAP PO DAILY NEUROPATHY Insulin Detemir (Levemir) 100 UNIT/ML VIAL 40 UNIT SC BID DM (Reported) Irbesartan (Avapro) 300 MG TABLET 1 TAB PO DAILY BP (Reported) Levothyroxine Sodium (Synthroid) 125 MCG TABLET 1 TAB PO DAILY AC THYROID ( Reported) Metoprolol Succinate 25 MG TAB 50 MG PO DAILY AFIB (Reported) Potassium Chloride 20 MEQ TABLET.ER 1 TAB PO DAILY SUPPLEMENT (Reported) Sitagliptin Phosphate (Januvia) 100 MG TABLET 1 TAB PO DAILY DM (Reported) Solifenacin Succinate (Vesicare) 5 MG TABLET 1 TAB PO DAILY BLADDER (Reported ) Triage Note: BIBA FROM HOME WITH C/O BEING AWOKEN WITH SOB, DIAPHORESIS AND PALPATATIONS. PT WITH HX OF AFIB. PER EMS PT WAS IN A RAPID AFIB, PT DENIES CHEST PAIN. PT REPORTS HAVING DIARRHEA X 2 WEEKS AND WAS GIVEN LOMOTIL WITH OUT EFFECT AND THEN GIVEN "SALTS FOR MORE BULK". DR BETANCOURT IN ROOM. PT PLACED ON MONITOR AFIB IN THE 120'S NOTED. PT A+oX3, MAEX4. AT BEDSIDE. Triage Nurses Notes Reviewed? yes Onset: Gradual Duration: day(s): Timing: recent history Quality/Severity: moderate Location: central Radiation: no radiation Activities at Onset: none Associated Symptoms: abdominal pain HPI: 87 yo woman h/o afib h/o colon canceer s/p resection in recent weeks, off anticoagulation still, presents with palpitations, shortness of breath, chest heaviness, diaphoresis that began "a little bit" last night and progressed this morning. She notes that she has had several episodes of diarrhea for the past several days. She notes no cough, fever, phlegm, nausea, vomiting. (Asia AVALOS,Dominick Conley) Past History Travel History Traveled to [place] past 21 day No Medical History Any Pertinent Medical History? 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 No (Asia AVALOS,Dominick Conley) Review of Systems Review of Systems Constitutional: Reports: no symptoms. EENTM: Reports: no symptoms. Respiratory: Reports: no symptoms. Cardiovascular: Reports: no symptoms. GI: Reports: no symptoms. Genitourinary: Reports: no symptoms. Musculoskeletal: Reports: no symptoms. Skin: Reports: no symptoms. Neurological/Psychological: Reports: no symptoms. Hematologic/Endocrine: Reports: no symptoms. Immunologic/Allergic: Reports: no symptoms. All Other Systems: Reviewed and Negative (Asia AVALOS,Dominick Cnoley) Physical Exam Physical Exam General Appearance: well developed/nourished, mild distress Head: atraumatic, normal appearance Eyes: Bilateral: normal appearance. Ears, Nose, Throat: normal pharynx, normal ENT inspection, dry mucosa Neck: normal inspection, supple, full range of motion Respiratory: normal breath sounds, chest non-tender, no respiratory distress, quiet respiration, lungs clear Cardiovascular: irregularly irregular Gastrointestinal: soft, moderately distended, mildly diffusely tender to palpation. +bowel sounds. Rectal: brown stool, guiac positive Back: normal inspection, normal range of motion Extremities: normal inspection Neurologic/Psych: no motor/sensory deficits, awake, alert, normal gait Skin: poor skin turgor Core Measures ACS in differential dx? No CVA/TIA Diagnosis No Sepsis Present: No Sepsis Focused Exam Completed? No (Asia AVALOS,Dominick Conley) Progress Differential Diagnosis: afib, mi, acs, gi bleed vs other. Plan of Care: Orders Procedure Date/time Status Heart Healthy Diet 12/09 L Active Patient Data 12/09 0924 Active ED Holding Orders 12/09 0923 Active Admit to inpatient 12/09 0923 Active Vital Signs 12/09 0923 Active Code Status 12/09 0923 Active RAPID VIRAL INFLUENZA A 12/09 0708 Complete PARTIAL THROMBOPLASTIN TIME 12/09 0640 Complete PROTHROMBIN TIME 12/09 0640 Complete TYPE & SCREEN (NOT X-MATCH) 12/09 0640 Active TROPONIN LEVEL 12/09 0639 Complete LIPASE 12/09 0639 Complete HEPATIC FUNCTION PANEL 12/09 0639 Complete CBC WITHOUT DIFFERENTIAL 12/09 0639 Complete BASIC METABOLIC PANEL 12/09 0639 Complete AMYLASE 12/09 0639 Complete EKG 12/09 0630 Active Laboratory Tests 12/09/17 0654: Anion Gap 10, Estimated GFR > 60, BUN/Creatinine Ratio 25.7 H, Glucose 153 H, Calcium 8.5, Total Bilirubin 0.3, Direct Bilirubin 0.2, AST 25, ALT 20, Alkaline Phosphatase 63, Troponin I 0.25 *H, Total Protein 5.6 L, Albumin 3.0 L, Amylase 64, Lipase 292, PT 14.5 H, INR 1.39 H, APTT 31, CBC w Diff NO MAN DIFF REQ, RBC 3.59 L, MCV 72.6 L, MCH 22.9 L, MCHC 31.5 L, RDW 22.5 H, MPV 8.2, Gran % 80.4 H, Lymphocytes % 8.4 L, Monocytes % 9.8 H, Eosinophils % 1.0, Basophils % 0.4, Absolute Granulocytes 6.9 H, Absolute Lymphocytes 0.7 L, Absolute Monocytes 0.8 H, Absolute Eosinophils 0.1, Absolute Basophils 0 Microbiology 12/09 0741 NASOPHARYN: Influenza Virus A & B Rapid Smear - COMP 12/09/2017 7:13:44 AM Patient signed out to me by Dr. Betancourt. Pending labs, CT scan imaging. 9:19 AM D/W DR MCPHERSON, ADMIT TO TELE. 9:[address] FERGUSON, DR CARO PAGED. 9:31 AM - D/W DR FERGUSON, WILL CONSULT IN HOSPITAL. 9:35 AM D/W DR CARO, WILL CONTINUE TO FOLLOW. IF SHE DEVELOPS SIGNS OF SBO ( CURRENTLY HAVING DIARRHEA) THEN SHE WOULD LIKE TO BE CONTACTED AGAIN. (Felicitas AVALOS,Janiya) Diagnostic Imaging: Viewed by Me: CT Scan. Discussed w/RAD: CT Scan. Initial ED EKG: afib, Hand-Off Endorsed To: Janiya Polk MD Endorsed Time: 0700 Pending: CT, labs (Asia AVALOS,Dominick Conley) Radiology Impression: PATIENT: LARS FENG PRESENT AGE: 87 PATIENT ACCOUNT NO: [id number] : 30 LOCATION: [facility] ORDERING PHYSICIAN: Dominick Betancourt MD SERVICE DATE: 12/09/17 EXAM TYPE: CAT - CT ABD & PELVIS W/O IV CONTRAS EXAMINATION: CT ABDOMEN AND PELVIS WITHOUT CONTRAST CLINICAL INFORMATION: Abdominal pain, diarrhea, status post colon resection COMPARISON: 10/22/2017 TECHNIQUE: Multidetector volumetric imaging was performed from the superior aspect of the liver through the pubic symphysis. Sagittal and coronal reformatted images were obtained on the technologist's workstation. FINDINGS: Study is limited by lack of IV or enteral contrast. LUNG BASES: Small bilateral pleural effusions, new from prior CT scan. This bibasilar atelectasis. Moderate cardiomegaly, present previously as well. Coronary artery calcifications. LIVER, GALLBLADDER, AND BILIARY TREE: Limited noncontrast evaluation of the liver demonstrates no gross focal lesion. The liver measures 20 cm craniocaudal. The gallbladder surgically absent. PANCREAS: The pancreas is atrophied. There is a low density well-circumscribed 2 cm mass in the tail the pancreas, incompletely evaluated without IV contrast. No peripancreatic inflammatory changes. SPLEEN: Spleen is normal in size. ADRENAL GLANDS: 1.4 cm right adrenal nodule with density greater than 10 Hounsfield units. Its unchanged from the prior study 11/04/2017. KIDNEYS AND URETERS: No hydronephrosis or calculi. Multiple low density renal lesions are seen, incompletely evaluated without IV contrast. BLADDER: Unremarkable. GASTROINTESTINAL TRACT: The stomach is collapsed. The small bowel is nondilated. The prior study demonstrated multiple air-fluid levels, no longer seen. Status post right partial colectomy. There is likely a prior right colectomy. Surgical anastomotic sutures are seen in the central abdomen. There are fecalized small bowel contents throughout multiple loops of small bowel. Fecalized small bowel contents are seen extending across the small bowel anastomoses in the pelvis. There are decompressed loops of small bowel in the right pelvis. There is persistent ill-defined fluid and fat stranding surrounding the bowel loops in the right lower quadrant. This was present previously as well. ABDOMINAL WALL: No significant hernia is appreciated. LYMPH NODES: There is persistent retrocrural and retroperitoneal lymphadenopathy. There are prominent to mildly enlarged central mesenteric lymph nodes. There is bilateral iliac/pelvic sidewall and right external iliac lymphadenopathy. VASCULAR: Normal caliber abdominal aorta. Moderate calcified atherosclerotic change. PELVIC VISCERA: The uterus is not well seen, either diminutive or surgically absent. No adnexal mass. OSSEOUS STRUCTURES: No acute or suspicious osseous abnormality. Multilevel degenerative changes of the thoracolumbar spine. Severe degenerative disc disease at L5-S1. Lower lumbar facet arthropathy. IMPRESSION: Study is limited by lack of IV and enteral contrast. There is postoperative anatomy, status post partial colectomy. Findings are consistent with a partial or developing small bowel obstruction. There are small bowel loops in the pelvis with fecalized small bowel contents, consistent with prolonged small bowel transit time or stasis, and decompressed loops of small bowel in the pelvis. Persistent multifocal lymphadenopathy including retrocrural, retroperitoneal, and iliac lymphadenopathy. The appearance is consistent with metastatic lymphadenopathy. DICTATED BY: Miguel Hill MD DATE/TIME DICTATED:12/09/17722 CLEANER INDUSTRIAL:ALEX DATE/TIME TRANSCRIBED:12/09/17722 CONFIDENTIAL, DO NOT COPY WITHOUT APPROPRIATE AUTHORIZATION. <Electronically signed in Other Vendor System> SIGNED BY: Miguel Hill MD 12/09/17 0743, PATIENT: LARS FENG PRESENT AGE: 87 PATIENT ACCOUNT NO: [id number] : 30 LOCATION: [facility] ORDERING PHYSICIAN: Dominick Betancourt MD SERVICE DATE: 12/09/17 EXAM TYPE: CAT - CTA CHEST-PULMONARY EMBOLISM EXAMINATION: CT ANGIOGRAM OF THE CHEST WITH AND WITHOUT CONTRAST (CT PULMONARY ANGIOGRAM FOR PE) CLINICAL INFORMATION: Dyspnea. COMPARISON: Chest x-ray 2017 and CTA of the chest 10/09/2017. TECHNIQUE: Prior to contrast administration, noncontrast localization images were obtained. Subsequently, multidetector volumetric imaging was performed from the thoracic inlet to below the diaphragms following the administration of 125 mL Optiray 350 intravenous contrast. No contrast reaction reported. Sagittal, coronal, and MIP oblique sagittal reformatted images were obtained on the CT workstation, uploaded to PACS, and reviewed. Total exam dose-length product 536.85 mGy-cm. FINDINGS: QUALITY OF STUDY/CONTRAST BOLUS: Satisfactory PULMONARY ARTERIES: The caliber of the main pulmonary artery is 3.8 cm , larger compared to the prior study. There are no central and segmental pulmonary emboli or thrombi. THORACIC AORTA: No aneurysms or dissections are demonstrated. The caliber of the aorta is 4.4 cm at the level of the pulmonary artery, similar compared to the prior study. There are atheromatous calcifications of the aorta and great vessels of the neck. There are atheromatous calcifications of the coronary arteries. LUNG: The study redemonstrates mosaic attenuation of the lung parenchyma in the upper zones bilaterally, more prominent compared to the prior study. There is atelectasis at the bases bilaterally adjacent to the pleural effusions. There is also atelectasis in the lingula and right middle lobe. PLEURA: There are moderate bilateral pleural effusions which have developed since the prior study. MEDIASTINUM: The heart is enlarged, increased compared to the prior study. The right atrium is slightly prominent and there is reflux of contrast 2 the hepatic veins. There is no pericardial effusion. There are prominent retrocrural and retroaortic lymph nodes, which measure up to 2 cm in short axis, similar compared to the prior study. There has been no significant interval change in a left superior mediastinal lymph node. This node distorts the posterior aspect of the left lobe of the thyroid gland which otherwise appears normal. The study redemonstrates a filling defect in the left atrial appendage, consistent with an atrial thrombus which appears similar compared to the prior study. CHEST WALL/ AXILLA: There has been interval increase in the size of a left axillary lymph node which now measures 1.7 x 1.4 cm, increased from 1.3 x 1.2 cm. The study redemonstrates a central port catheter from the right chest, unchanged. OSSEOUS STRUCTURES: There are severe degenerative changes at the right shoulder joint. There is multilevel spondylosis. There is invagination of disc into the superior endplate of T12 and the inferior endplate of L1, demonstrated on prior imaging. There are multilevel spondylitic changes in the chest with narrowing of intervertebral disc height marginal osteophytes. UPPER ABDOMEN: Adrenal glands are not enlarged. There are cysts at the upper pole of the left kidneys bilaterally. There is reflux of contrast into the hepatic veins, suggestive of elevated right heart pressures. IMPRESSION: 1. There is no evidence of a pulmonary embolus or thrombus. 2. There has been interval slight increase in the caliber of the main pulmonary artery. There is reflux of contrast into the hepatic veins. 3. There has been slight interval increase in superior mediastinal and left axillary lymphadenopathy. Retrocrural lymphadenopathy appears relatively stable. 4. The study redemonstrates thrombus in the left atrial appendage. This could be correlated with cardiac echo. There has been slight interval increase in the size of the heart. 5. The caliber of the aorta is mildly dilated, similar compared to the prior study. 7. There are now moderate bilateral pleural effusions. VTE: Negative. DICTATED BY: Yandel Lancaster MD DATE/TIME DICTATED:12/09/17804 CLEANER INDUSTRIAL:ALEX DATE/TIME TRANSCRIBED:12/09/17804 CONFIDENTIAL, DO NOT COPY WITHOUT APPROPRIATE AUTHORIZATION. <Electronically signed in Other Vendor System> SIGNED BY: Yandel Lancaster MD 12/09/17837 Rhythm Strip: atrial fibrillation (Janiya Polk MD) Departure Departure Disposition: STILL A PATIENT Condition: Stable Referrals: Alec AVALOS,Jatinder Lacy (PCP/Family) Departure Forms: Customer Survey General Discharge Information (Dominick Betancourt MD) Departure Time of Disposition: 916 Clinical Impression Primary Impression: Palpitations Secondary Impressions: Elevated troponin, Hyponatremia Admission Note Spoke With: Lobito AVALOS,Miriam Documentation of Exam: Documentation of any treatments & extenuating circumstances including Concerns Regarding Discharge (functional status, medication knowledge or non-compliance, living conditions, etc.) that warrant an admission rather than observation: [ TELE MONITOR, SERIAL EKG/TROPONIN, RATE CONTROL, CARDIOLOGY CONSULT DR FERGUSON CALLED, SURGICAL CONSULT DR CARO CALLED] (Janiya Polk MD) Critical Care Note Critical Care Note Critical Care Time: non-applicable (Asia AVALOS,Dominick Conley)
[2017-12-09 07:17] LABS: ABSOLUTE BASOPHIL COUNT 0 /CUMM (0.0-0.2); ABSOLUTE EOSINOPHIL COUNT 0.1 /CUMM (0.0-0.7); ABSOLUTE GRANULOCYTE CT 6.9 /CUMM (1.4-6.5); ABSOLUTE LYMPH COUNT 0.7 /CUMM (1.2-3.4); ABSOLUTE MONOCYTE COUNT 0.8 /CUMM (0.10-0.60); BASOPHIL % 0.4 % (0.0-2.0); GRANULOCYTE % 80.4 % (42.2-75.2); HEMATOCRIT 26.1 % (37-47); MEAN CORPUSCULAR HGB 22.9 PG (27.0-31.0); MEAN CORPUSCULAR HGB CONC 31.5 G/DL (33.0-37.0); MEAN CORPUSCULAR VOLUME 72.6 FL (81.0-99.0); MEAN PLATELET VOLUME 8.2 FL (7.4-10.4); PLATELET COUNT 320 /CUMM (130-400); RBC DISTRIBUTION WIDTH 22.5 % (11.5-14.5); RED BLOOD CELL CT 3.59 /CUMM (4.20-5.40); WHITE BLOOD CELL COUNT 8.6 /CUMM (4.8-10.8)
[2017-12-09 07:24] LABS: PT 14.5 SEC (9.4-12.5); PTT 31 SEC (25-37)
--- NOTE | 2017-12-09 07:43 | CT SCAN REPORT ---
EXAMINATION: CT ABDOMEN AND PELVIS WITHOUT CONTRAST CLINICAL INFORMATION: Abdominal pain, diarrhea, status post colon resection COMPARISON: 10/22/2017 TECHNIQUE: Multidetector volumetric imaging was performed from the superior aspect of the liver through the pubic symphysis. Sagittal and coronal reformatted images were obtained on the technologist's workstation. FINDINGS: Study is limited by lack of IV or enteral contrast. LUNG BASES: Small bilateral pleural effusions, new from prior CT scan. This bibasilar atelectasis. Moderate cardiomegaly, present previously as well. Coronary artery calcifications. LIVER, GALLBLADDER, AND BILIARY TREE: Limited noncontrast evaluation of the liver demonstrates no gross focal lesion. The liver measures 20 cm craniocaudal. The gallbladder surgically absent. PANCREAS: The pancreas is atrophied. There is a low density well-circumscribed 2 cm mass in the tail the pancreas, incompletely evaluated without IV contrast. No peripancreatic inflammatory changes. SPLEEN: Spleen is normal in size. ADRENAL GLANDS: 1.4 cm right adrenal nodule with density greater than 10 Hounsfield units. Its unchanged from the prior study 11/04/2017. KIDNEYS AND URETERS: No hydronephrosis or calculi. Multiple low density renal lesions are seen, incompletely evaluated without IV contrast. BLADDER: Unremarkable. GASTROINTESTINAL TRACT: The stomach is collapsed. The small bowel is nondilated. The prior study demonstrated multiple air-fluid levels, no longer seen. Status post right partial colectomy. There is likely a prior right colectomy. Surgical anastomotic sutures are seen in the central abdomen. There are fecalized small bowel contents throughout multiple loops of small bowel. Fecalized small bowel contents are seen extending across the small bowel anastomoses in the pelvis. There are decompressed loops of small bowel in the right pelvis. There is persistent ill-defined fluid and fat stranding surrounding the bowel loops in the right lower quadrant. This was present previously as well. ABDOMINAL WALL: No significant hernia is appreciated. LYMPH NODES: There is persistent retrocrural and retroperitoneal lymphadenopathy. There are prominent to mildly enlarged central mesenteric lymph nodes. There is bilateral iliac/pelvic sidewall and right external iliac lymphadenopathy. VASCULAR: Normal caliber abdominal aorta. Moderate calcified atherosclerotic change. PELVIC VISCERA: The uterus is not well seen, either diminutive or surgically absent. No adnexal mass. OSSEOUS STRUCTURES: No acute or suspicious osseous abnormality. Multilevel degenerative changes of the thoracolumbar spine. Severe degenerative disc disease at L5-S1. Lower lumbar facet arthropathy. IMPRESSION: Study is limited by lack of IV and enteral contrast. There is postoperative anatomy, status post partial colectomy. Findings are consistent with a partial or developing small bowel obstruction. There are small bowel loops in the pelvis with fecalized small bowel contents, consistent with prolonged small bowel transit time or stasis, and decompressed loops of small bowel in the pelvis. Persistent multifocal lymphadenopathy including retrocrural, retroperitoneal, and iliac lymphadenopathy. The appearance is consistent with metastatic lymphadenopathy.
--- NOTE | 2017-12-09 08:38 | CT SCAN REPORT ---
EXAMINATION: CT ANGIOGRAM OF THE CHEST WITH AND WITHOUT CONTRAST (CT PULMONARY ANGIOGRAM FOR PE) CLINICAL INFORMATION: Dyspnea. COMPARISON: Chest x-ray 11/04/2017 and CTA of the chest 10/09/2017. TECHNIQUE: Prior to contrast administration, noncontrast localization images were obtained. Subsequently, multidetector volumetric imaging was performed from the thoracic inlet to below the diaphragms following the administration of 125 mL Optiray 350 intravenous contrast. No contrast reaction reported. Sagittal, coronal, and MIP oblique sagittal reformatted images were obtained on the CT workstation, uploaded to PACS, and reviewed. Total exam dose-length product 536.85 mGy-cm. FINDINGS: QUALITY OF STUDY/CONTRAST BOLUS: Satisfactory PULMONARY ARTERIES: The caliber of the main pulmonary artery is 3.8 cm , larger compared to the prior study. There are no central and segmental pulmonary emboli or thrombi. THORACIC AORTA: No aneurysms or dissections are demonstrated. The caliber of the aorta is 4.4 cm at the level of the pulmonary artery, similar compared to the prior study. There are atheromatous calcifications of the aorta and great vessels of the neck. There are atheromatous calcifications of the coronary arteries. LUNG: The study redemonstrates mosaic attenuation of the lung parenchyma in the upper zones bilaterally, more prominent compared to the prior study. There is atelectasis at the bases bilaterally adjacent to the pleural effusions. There is also atelectasis in the lingula and right middle lobe. PLEURA: There are moderate bilateral pleural effusions which have developed since the prior study. MEDIASTINUM: The heart is enlarged, increased compared to the prior study. The right atrium is slightly prominent and there is reflux of contrast 2 the hepatic veins. There is no pericardial effusion. There are prominent retrocrural and retroaortic lymph nodes, which measure up to 2 cm in short axis, similar compared to the prior study. There has been no significant interval change in a left superior mediastinal lymph node. This node distorts the posterior aspect of the left lobe of the thyroid gland which otherwise appears normal. The study redemonstrates a filling defect in the left atrial appendage, consistent with an atrial thrombus which appears similar compared to the prior study. CHEST WALL/AXILLA: There has been interval increase in the size of a left axillary lymph node which now measures 1.7 x 1.4 cm, increased from 1.3 x 1.2 cm. The study redemonstrates a central port catheter from the right chest, unchanged. OSSEOUS STRUCTURES: There are severe degenerative changes at the right shoulder joint. There is multilevel spondylosis. There is invagination of disc into the superior endplate of T12 and the inferior endplate of L1, demonstrated on prior imaging. There are multilevel spondylitic changes in the chest with narrowing of intervertebral disc height marginal osteophytes. UPPER ABDOMEN: Adrenal glands are not enlarged. There are cysts at the upper pole of the left kidneys bilaterally. There is reflux of contrast into the hepatic veins, suggestive of elevated right heart pressures. IMPRESSION: 1. There is no evidence of a pulmonary embolus or thrombus. 2. There has been interval slight increase in the caliber of the main pulmonary artery. There is reflux of contrast into the hepatic veins. 3. There has been slight interval increase in superior mediastinal and left axillary lymphadenopathy. Retrocrural lymphadenopathy appears relatively stable. 4. The study redemonstrates thrombus in the left atrial appendage. This could be correlated with cardiac echo. There has been slight interval increase in the size of the heart. 5. The caliber of the aorta is mildly dilated, similar compared to the prior study. 7. There are now moderate bilateral pleural effusions. VTE: Negative.
--- NOTE | 2017-12-09 09:42 | History & Physical ---
[facility] General Information and HPI MD Statement: I have seen and personally examined LARS FENG and documented this H&P. The patient is a 87 year old F who presented with a patient stated chief complaint of [Heart racing and SOB]. Source of Information: patient, family, old records Exam Limitations: no limitations History of Present Illness: Mrs. Feng is an 87 yo lady with past medical history of atrial fibrillation not on AC 2/2 GI bleed, moderate aortic stenosis, hypertension, hyperlipidemia, TIA, hypothyroidism, diabetes mellitus, gout, osteoarthritis, colon cancer status post resection and chemotherapy at 2015 with also a recent bowel resection about 2 weeks ago presented to emergency department with a complaint of shortness of breath and heart racing started yesterday overnight. Patient reported that she couldn't sleep yesterday because of a feeling that her heart is going to jump of Her Chest, she also felt clammy last night, she reports also shortness of breath with no sore throat or cough, patient reports that over the last week she is feeling winded whenever she walk around her house , she had diarrhea for about 2 weeks that started after surgery, she was prescribed Imodium with little improvement, she has been told by her surgeon that she needs to eat small portion of white rice and light food, however she keeps herself hydrated well. She denies any chest pain, dizziness, headache, weakness, abdominal pain, and there is no change in urinary habits (she is incontinent at her baseline) Allergies/Medications Home Med list Alprazolam (Xanax) 0.5 MG TABLET 1 TAB PO PRN ANXIETY (Reported) Atorvastatin Calcium (Lipitor) 20 MG TABLET 1 TAB PO DAILY CHOLESTEROL ( Reported) Cholecalciferol (Vitamin D3) (Vitamin D) 1,000 UNIT TABLET 1 TAB PO DAILY SUPPLEMENT (Reported) Cranberry Fruit Concentrate (Cranberry) 450 MG CAPSULE 1 CAP PO DAILY SUPPLEMENT (Reported) Furosemide (Lasix) 40 MG TABLET 0.5 TAB PO DAILY heart (Reported) Note that dosage has changed from 40mg daily to 20mg daily. Take one half of a tablet daily until follow up with Dr Ferguson in 10 days. Gabapentin 300 MG CAPSULE 1 CAP PO DAILY NEUROPATHY Insulin Detemir (Levemir) 100 UNIT/ML VIAL 39 UNIT SC BID DM (Reported) Irbesartan (Avapro) 300 MG TABLET 1 TAB PO DAILY BP (Reported) Levothyroxine Sodium (Synthroid) 125 MCG TABLET 1 TAB PO DAILY AC THYROID ( Reported) Metoprolol Succinate 25 MG TAB 50 MG PO DAILY AFIB (Reported) Multivit-Min/FA/Lycopen/Lutein (Centrum Silver Tablet) 0.4 MG-300 MCG-250 MCG TABLET 1 TAB PO DAILY VITAMIN SUPPORT (Reported) Potassium Chloride 20 MEQ TABLET.ER 1 TAB PO DAILY SUPPLEMENT (Reported) Sitagliptin Phosphate (Januvia) 100 MG TABLET 1 TAB PO DAILY DM (Reported) Solifenacin Succinate (Vesicare) 5 MG TABLET 1 TAB PO DAILY BLADDER (Reported ) Past History Travel History Traveled to [place] past 21 day No Medical History Neurological: TIA, PERINEURON EENT: NONE Cardiovascular: AFIB, CHF, hypertension, hyperlipidemia Respiratory: NONE Gastrointestinal: NONE Hepatic: NONE Renal: NONE Musculoskeletal: gout, osteoarthritis Psychiatric: anxiety Endocrine: diabetes, hypothyroidism, vitamin D deficiency Blood Disorders: NONE Cancer(s): colon/rectal cancer MD PSYCHIATRY/Reproductive: NONE Other Medical Hx: Gout Rheumatoid arthritis History of MRSA: No History of VRE: No History of CDIFF: No Influenza Vaccine: 08/26/17 Surgical History Surgical History: cholecystectomy, colon resection (right hemicolectomy), c- section, hysterectomy, diagnostic laparoscopy, PERNELL Past Family/Social History Family History Relations & Conditions if any FATHER FH: heart disease MOTHER FH: diabetes mellitus Psychosocial History Who Do You Live With? spouse Services at Home: None ETOH Use: denies use Illicit Drug Use: denies illicit drug use Functional Ability ADLs Independent: dressing, eating, toileting, bathing. Ambulation: independent IADLs Independent: shopping, housework, finances, food prep, telephone, medication admin. Needs Assist: transportation. Review of Systems Review of Systems Constitutional: Reports: diaphoresis. EENTM: Reports: no symptoms. Cardiovascular: Reports: palpitations. Respiratory: Reports: short of breath. GI: Reports: diarrhea. Denies: abdominal pain. Genitourinary: Reports: no symptoms. Musculoskeletal: Reports: no symptoms. Skin: Reports: no symptoms. All Other Systems: Reviewed and Negative Exam & Diagnostic Data Last 24 Hrs of Vital Signs/I&O Vital Signs Date Time Temp Pulse Resp B/P B/P Pulse O2 O2 Flow FiO2 Mean Ox Delivery Rate 12/09 1222 97.6 105 18 146/60 97 Room Air 12/09 1012 97.8 83 18 159/70 97 Room Air 12/09 0733 96.6 90 16 133/65 100 Room Air 12/09 0633 99 Room Air 12/09 0627 97.9 101 20 131/71 96 Room Air Intake & Output 12/09 1600 12/09 0800 12/09 0000 Intake Total 1000 Output Total Balance 1000 Intake, IV 1000 Patient 167 lb Weight Weight Reported by Patient Measurement Method Physical Exam General Appearance Alert, Oriented X3, Cooperative, No Acute Distress Skin No Rashes, No Breakdown, No Significant Lesion Last 24 Hrs of Labs/Sanjeev: Laboratory Tests 12/09/17 1226: Troponin I Pending 12/09/17 0654: Anion Gap 10, Estimated GFR > 60, BUN/Creatinine Ratio 25.7 H, Glucose 153 H, Calcium 8.5, Total Bilirubin 0.3, Direct Bilirubin 0.2, AST 25, ALT 20, Alkaline Phosphatase 63, Troponin I 0.25 *H, Total Protein 5.6 L, Albumin 3.0 L, Amylase 64, Lipase 292, PT 14.5 H, INR 1.39 H, APTT 31, CBC w Diff NO MAN DIFF REQ, RBC 3.59 L, MCV 72.6 L, MCH 22.9 L, MCHC 31.5 L, RDW 22.5 H, MPV 8.2, Gran % 80.4 H, Lymphocytes % 8.4 L, Monocytes % 9.8 H, Eosinophils % 1.0, Basophils % 0.4, Absolute Granulocytes 6.9 H, Absolute Lymphocytes 0.7 L, Absolute Monocytes 0.8 H, Absolute Eosinophils 0.1, Absolute Basophils 0 Microbiology 12/09 0741 NASOPHARYN: Influenza Virus A & B Rapid Smear - COMP Diagnostic Data EKG Results A. fib, rate of 106, QTC 532, T-wave inversion at V2, V3 Other Results Chest CTA: 1. There is no evidence of a pulmonary embolus or thrombus. 2. There has been interval slight increase in the caliber of the main pulmonary artery. There is reflux of contrast into the hepatic veins. Abdomen pelvis CT: IMPRESSION: Study is limited by lack of IV and enteral contrast. There is postoperative anatomy, status post partial colectomy. Findings are consistent with a partial or developing small bowel obstruction. There are small bowel loops in the pelvis with fecalized small bowel contents, consistent with prolonged small bowel transit time or stasis, and decompressed loops of small bowel in the pelvis. Persistent multifocal lymphadenopathy including retrocrural, retroperitoneal, and iliac lymphadenopathy. The appearance is consistent with metastatic lymphadenopathy. 3. There has been slight interval increase in superior mediastinal and left axillary lymphadenopathy. Retrocrural lymphadenopathy appears relatively stable. 4. The study redemonstrates thrombus in the left atrial appendage. This could be correlated with cardiac echo. There has been slight interval increase in the size of the heart. 5. The caliber of the aorta is mildly dilated, similar compared to the prior study. 7. There are now moderate bilateral pleural effusions. VTE: Negative. Assessment/Plan Assessment: Mrs. Feng is an 87 yo lady with past medical history of atrial fibrillation not on AC 2/2 GI bleed, moderate aortic stenosis, hypertension, hyperlipidemia, TIA, hypothyroidism, diabetes mellitus, gout, osteoarthritis, colon cancer status post resection and chemotherapy at 2014 with also a recent bowel resection about 2 weeks ago presented to emergency department with a complaint of shortness of breath and heart racing started yesterday overnight. Admitted to telemetry floor for A. fib with rapid ventricular response, positive troponin , shortness of breath in setting of moderate aortic stenosis. Vitals, examination, and labs as above Assessment and plan: #Positive troponin with mild EKG changes, no chest pain: Patient presented to emergency department with feeling of heart racing she was found to have A. fib with new T-wave inversion in V2, V3 with no ST segment changes. Per ED staff spoke with Dr. Torres who recommended holding on anticoagulation until he see the patient given that the patient had a history of GI bleed, her psoriasis to help last year after that episode. During evaluation she didn't have any active chest pain, no indication for nitroglycerin. We'll trend troponins, EKG, will place on official consult with Dr. Ferguson. #A. fib initially rate controlled and now with rapid ventricular response, ALSO CT FINDING OF thrombus in the left atrial appendage. Will continue to monitor heart rate, will hold on starting beta herman given the history of moderate aortic stenosis which could exacerbate the problem. Will also speak with about the ct finding of left atrial thrombus. #History of moderate aortic stenosis: Last echo was done on January, which showed normal ejection fraction of 65%, and RVSP of 55 mmHg, will resume her home dose of Lasix 20 mg by mouth daily #History of colon cancer status post surgical resection 2 weeks ago: Will let Dr. Brewer knows that the patient admitted to the hospital, also will place on official consult with her surgeon #Diarrhea: Patient was started on Imodium with slight improvement, will be cautious with hydration given her history of moderate aortic stenosis, and also on examination she has bibasilar fine crackles #CT finding of a partial or developing small bowel obstruction: Patient denies any active abdominal pain, no distention reported, will call her surgeon for the finding #Hypoglycemia in setting of diabetes on insulin therapy: Patient had bowel resection 2 weeks ago she may have some sort of malabsorption, she had 2 episodes of hypoglycemia less than 50 at the emergency department she received 2 doses of IV dextrose, will hold on giving her dose of Levemir 35 units twice a day today, will assess in the morning her blood sugar reading. Will start insulin sliding scale. #History of hypothyroidism: We'll resume her home dose of Synthroid #History of TIA: She doesn't have any active neurological issues will resume home dose of atorvastatin #Hyperlipidemia: We'll continue atorvastatin #History of osteoarthritis, gout: Pain management pathway, no active gouty attack DVT prophylaxis with Alps Full code As Ranked By This Provider Problem List: 1. Elevated troponin 2. Palpitations 3. Status post partial colectomy Core Measures/Misc (07/12) Acute Coronary Syndrome ACS Diagnosis: No Congestive Heart Failure Congestive Heart Failure Diagnosis Yes Cerebrovascular Accident CVA/TIA Diagnosis: No VTE (View Protocol) VTE Risk Factors Cancer/chemo/othr therapy No Mechanical VTE Prophylaxis d/t N/A MechProphylax Ordered No VTE Pharm Prophylaxis d/t Medical Contraindication Sepsis (View protocol) Sepsis Present: No Resident Review Statement Resident Statement: Patient H&P dictated by resident Rachael Dao MD 12/09/17 1602: General Information and HPI Allergies/Medications Allergies: Coded Allergies: Sulfa (Sulfonamide Antibiotics) (Intermediate, RASH 12/09/17) adhesive tape (PAPER TAPE OK PER PT 12/09/17) Attending MD Review Statement Attending Statement Attending MD Statement: examined this patient, discuss w/resident/PA/STAMPING BENCH DIE MAKER, agreed w/resident/PA/STAMPING BENCH DIE MAKER, reviewed EMR data (avail), discussed with nursing, discussed with case mgmt, reviewed images Attending Assessment/Plan: 87-year-old fairly complex female with history of metastatic colorectal carcinoma recent surgery in October for small bowel obstruction with documented metastases at anastomotic site. She also has A. fib was on anticoagulation but given bleeding risk was taken off anticoagulation. She is here with acute rapid A. fib, elevated troponin likely demand ischemia in the setting of the rapid A. fib, hypoglycemia. A CTA while negative for a PE did show pulmonary hypertension with a left atrial appendage thrombus. I discussed with Dr. Johan Ferguson, he is aware of the CTA findings but the patient is very high risk for bleeding given the metastatic colon cancer. At this point point we are going to watch her off anticoagulation. Give her Lasix as recommended by Dr. Ferguson, feed her as we don't really think she is obstructed. She is requesting to speak to a colorectal surgeon so will call an official consult. Control the heart rate, trend the troponin closely. And repeat the echocardiogram.
[2017-12-09] MEDS ORDERED: CENTRUM SILVER1 EAC3 PO (10:19)
[2017-12-09] MEDS ORDERED: CLONIDINE HCL0.1 MG PO (10:22)
--- NOTE | 2017-12-09 13:12 | Cons- Cardiology ---
General Information and HPI Consulting Request Date of Consult: 12/09/17 Requested By: Lobito AVALOS,Miriam Reason for Consult: ABNORMAL TROPONIN Source of Information: patient, family Exam Limitations: no limitations, unable to give history History of Present Illness: 87-year-old female with past medical history of chronic atrial fibrillation, moderate to severe aortic stenosis, hypertension, hyperlipidemia, TIA, hypothyroidism, diabetes mellitus, gout, osteoarthritis, colon cancer status post resection and chemotherapy, GI bleed, recurrence of cancer with metastases, SBO, s/p recent bowel bypass surgery 4 weeks ago. Patient reports having diarrhea very time she eats since her surgery. She takes immodium without improvement. She reports increased dyspnea on exertion over the past 2 weeks. She noticed her blood sugar at night decreases to 60's. Last night around 1 am she woke up with palpitations,no chest pain. She felt little SOB. Symptoms lasted for about 10 min and she went then back to bed. She again woke up around 5 am with profound diaphoresis. She called ambulance and presented to ER. Found to have low sugar, her troponin was mildly elevated. She reports no chest pain. She has been off anticoagulation or antiplatelet therapy due to recurrent GI bleed. Allergies/Medications Allergies: Coded Allergies: Sulfa (Sulfonamide Antibiotics) (Intermediate, RASH 03/26/17) adhesive tape (PAPER TAPE OK PER PT 03/26/17) Home Med List: Alprazolam (Xanax) 0.5 MG TABLET 1 TAB PO PRN ANXIETY (Reported) Atorvastatin Calcium (Lipitor) 20 MG TABLET 1 TAB PO DAILY CHOLESTEROL ( Reported) Cholecalciferol (Vitamin D3) (Vitamin D) 1,000 UNIT TABLET 1 TAB PO DAILY SUPPLEMENT (Reported) Cranberry Fruit Concentrate (Cranberry) 450 MG CAPSULE 1 CAP PO DAILY SUPPLEMENT (Reported) Furosemide (Lasix) 40 MG TABLET 0.5 TAB PO DAILY heart (Reported) Note that dosage has changed from 40mg daily to 20mg daily. Take one half of a tablet daily until follow up with Dr Ferguson in 10 days. Gabapentin 300 MG CAPSULE 1 CAP PO DAILY NEUROPATHY Insulin Detemir (Levemir) 100 UNIT/ML VIAL 39 UNIT SC BID DM (Reported) Irbesartan (Avapro) 300 MG TABLET 1 TAB PO DAILY BP (Reported) Levothyroxine Sodium (Synthroid) 125 MCG TABLET 1 TAB PO DAILY AC THYROID ( Reported) Metoprolol Succinate 25 MG TAB 50 MG PO DAILY AFIB (Reported) Multivit-Min/FA/Lycopen/Lutein (Centrum Silver Tablet) 0.4 MG-300 MCG-250 MCG TABLET 1 TAB PO DAILY VITAMIN SUPPORT (Reported) Potassium Chloride 20 MEQ TABLET.ER 1 TAB PO DAILY SUPPLEMENT (Reported) Sitagliptin Phosphate (Januvia) 100 MG TABLET 1 TAB PO DAILY DM (Reported) Solifenacin Succinate (Vesicare) 5 MG TABLET 1 TAB PO DAILY BLADDER (Reported ) Current Medications: Current Medications Sig/Darrell Start time Last Medication Dose Route Stop Time Status Admin Acetaminophen 650 MG Q6P PRN 12/09 1000 AC PO Alprazolam 0.5 MG DAILY 12/10 1000 AC PO 12/16 1229 Atorvastatin Calcium 20 MG 1700 12/09 1700 AC PO Dextrose 25 GM ONCE ONE 12/09 0645 DC 12/09 IV 12/09 0646 0644 Furosemide 0 .STK-MED ONE 12/09 1249 DC PO Furosemide 20 MG DAILY 12/09 1224 AC PO Gabapentin 0 .STK-MED ONE 12/09 1251 DC PO Gabapentin 300 MG DAILY 12/09 1224 AC PO Insulin Aspart 0 TIDAC 12/09 1700 AC SC Insulin Detemir 35 UNITS BID 12/10 1000 CAN SC Levothyroxine Sodium 0.125 MG DAILY AC 12/09 1225 AC PO Losartan Potassium 0 .STK-MED ONE 12/09 1249 DC PO Losartan Potassium 50 MG DAILY 12/09 1224 AC PO Multivitamins 0 .STK-MED ONE 12/09 1249 DC PO Multivitamins 1 TAB DAILY 12/09 1000 AC PO Potassium Chloride 0 .STK-MED ONE 12/09 1249 DC PO Potassium Chloride 20 MEQ DAILY 12/09 1225 AC PO Sodium Chloride 1,000 ML BOLUS ONE 12/09 0700 DC 12/09 IV 12/09 0759 0659 Review of Systems Review of Systems Constitutional: Denies: no symptoms, see HPI, chills, diaphoresis, fever, malaise, weakness, unexplained weight loss. EENTM: Denies: no symptoms, see HPI, blurred vision, double vision, visual changes, eye pain, eye drainage, eye tearing, icterus, ear discharge, ear pain, ear redness, hearing changes, nasal congestion, epistaxis, nasal pain, throat pain, throat swelling, mouth pain, tooth pain. Cardiovascular: Reports: orthopena, palpitations. Denies: no symptoms, see HPI, chest pain, edema, peripheral edema, syncope. Respiratory: Reports: short of breath. Denies: no symptoms, see HPI, cough, hemoptysis, orthopnea, sputum production, stridor, wheezing. GI: Reports: diarrhea, distention. Denies: no symptoms, see HPI, abdominal pain, bloating, constipation, bowel incontinence, melena, nausea, bloody stool, changes in stool, vomiting, steatorrhea. Genitourinary: Denies: no symptoms, see HPI, discharge, dysuria, frequency, hematuria, hesitation, nocturia, pain, urgency. Musculoskeletal: Denies: no symptoms, see HPI, back pain, gout, joint pain, joint swelling, muscle pain, muscle stiffness, neck pain. Skin: Denies: no symptoms, see HPI, cysts, change in skin color, change in hair/nails, dryness, erythema, jaundice, lesions, lymphangitis, lumps, moles, rash. Neurological/Psychological: Denies: no symptoms, see HPI, anxiety, ataxia, cognitive dysfunction, confusion, depressed, dementia, emotional problems, headache, numbness, paresthesia, pre- existing deficit, petit mal seizures, tingling, tremors, tonic-clonic seizures, unable to move lower ext, unable to move upper ext, weakness, other. Hematologic/Endocrine: Denies: no symptoms, see HPI, bruising, bleeding, polyuria, polydipsia, other. Immunologic/Allergic: Denies: no symptoms, see HPI, splenectomy, HIV/AIDS, lymphadenopathy, other. Past History Travel History Traveled to [place] past 21 day No Medical History Neurological: TIA, PERINEURON EENT: NONE Cardiovascular: AFIB, CHF, hypertension, hyperlipidemia Respiratory: NONE Gastrointestinal: NONE Hepatic: NONE Renal: NONE Musculoskeletal: gout, osteoarthritis Psychiatric: anxiety Endocrine: diabetes, hypothyroidism, vitamin D deficiency Blood Disorders: NONE Cancer(s): colon/rectal cancer LOGGING ENGINEER/Reproductive: NONE Other Medical Hx: Gout Rheumatoid arthritis Surgical History Surgical History: cholecystectomy, colon resection (right hemicolectomy), c- section, hysterectomy, diagnostic laparoscopy, PERNELL Family History Relations & Conditions If Any: FATHER FH: heart disease MOTHER FH: diabetes mellitus Psychosocial History Who Do You Live With? spouse Services at Home: None ETOH Use: denies use Illicit Drug Use: denies illicit drug use Functional Ability ADLs Independent: dressing, eating, toileting, bathing. Ambulation: independent IADLs Independent: shopping, housework, finances, food prep, telephone, medication admin. Needs Assist: transportation. Exam & Diagnostic Data Vital Signs and I&O Vital Signs Date Time Temp Pulse Resp B/P B/P Pulse O2 O2 Flow FiO2 Mean Ox Delivery Rate 12/09 1222 97.6 105 18 146/60 97 Room Air 12/09 1012 97.8 83 18 159/70 97 Room Air 12/09 0733 96.6 90 16 133/65 100 Room Air 12/09 0633 99 Room Air 12/09 0627 97.9 101 20 131/71 96 Room Air Intake & Output 12/09 1600 12/09 0800 12/09 0000 12/08 1600 12/08 0800 12/08 0000 Intake Total 1000 Output Total Balance 1000 Intake, IV 1000 Patient 167 lb Weight Weight Reported by Patient Measurement Method Physical Exam: No acute respiratory distress Skin-no rash HEENT-PERRLA Neck-JVP normal, no bruits Lungs-bilateral crackles Heart-S1S2 irregular, 3/6 KEDAR at the base ABdomen-soft, distended, BS slugghish, no organomegaly Extr-1+ edema, 2+ pulses, no cyanosis Neuro-AAOx3, non focal Vascular-good peripheral pulses,no bruits Labs/Sanjeev Results: Laboratory Tests 12/09 12/09 1226 0654 Chemistry Sodium (137 - 145 mmol/L) 131 L Potassium (3.5 - 5.1 mmol/L) 4.5 Chloride (98 - 107 mmol/L) 99 Carbon Dioxide (22 - 30 mmol/L) 22 Anion Gap (5 - 16) 10 BUN (7 - 17 mg/dL) 18 H Creatinine (0.5 - 1.0 mg/dL) 0.7 Estimated GFR (>60 ml/min) > 60 BUN/Creatinine Ratio (7 - 25 %) 25.7 H Glucose (65 - 99 mg/dL) 153 H Calcium (8.4 - 10.2 mg/dL) 8.5 Total Bilirubin (0.2 - 1.3 mg/dL) 0.3 Direct Bilirubin (< 0.4 mg/dL) 0.2 AST (14 - 36 U/L) 25 ALT (9 - 52 U/L) 20 Alkaline Phosphatase (<127 U/L) 63 Troponin I (< 0.11 ng/ml) Pending 0.25 *H Total Protein (6.3 - 8.2 g/dL) 5.6 L Albumin (3.5 - 5.0 g/dL) 3.0 L Amylase (30 - 110 U/L) 64 Lipase (23 - 300 U/L) 292 Coagulation PT (9.4 - 12.5 SEC) 14.5 H INR (0.90 - 1.19) 1.39 H APTT (25 - 37 SEC) 31 Hematology CBC w Diff NO MAN DIFF REQ WBC (4.8 - 10.8 /CUMM) 8.6 RBC (4.20 - 5.40 /CUMM) 3.59 L Hgb (12.0 - 16.0 G/DL) 8.2 L Hct (37 - 47 %) 26.1 L MCV (81.0 - 99.0 FL) 72.6 L MCH (27.0 - 31.0 PG) 22.9 L MCHC (33.0 - 37.0 G/DL) 31.5 L RDW (11.5 - 14.5 %) 22.5 H Plt Count (130 - 400 /CUMM) 320 MPV (7.4 - 10.4 FL) 8.2 Gran % (42.2 - 75.2 %) 80.4 H Lymphocytes % (20.5 - 51.1 %) 8.4 L Monocytes % (1.7 - 9.3 %) 9.8 H Eosinophils % (0 - 5 %) 1.0 Basophils % (0.0 - 2.0 %) 0.4 Absolute Granulocytes (1.4 - 6.5 /CUMM) 6.9 H Absolute Lymphocytes (1.2 - 3.4 /CUMM) 0.7 L Absolute Monocytes (0.10 - 0.60 /CUMM) 0.8 H Absolute Eosinophils (0.0 - 0.7 /CUMM) 0.1 Absolute Basophils (0.0 - 0.2 /CUMM) 0 Diagnostic Data EKG Results aF 85 bpm, diffuse non specific ST abnormalities, unchanged. CXR Results CTA chest CT abdoment results reviewed Assessment/Plan Assessment/Plan 86-year-old female with past medical history of atrial fibrillation, moderate to severe aortic stenosis, hypertension, hyperlipidemia, TIA, hypothyroidism, diabetes mellitus, gout, osteoarthritis, colon cancer status post resection and chemotherapy, GI bleed, recurrence of cancer with metastases, s/p recent surgery for SBO presents with palpitations, dyspnea on exertion, diarrhea, low blood sugar, abdominal disension. Clinically and by CT scan she is in HFpEF in the setting of aortic stenosis, faster atrial fibrillation. Troponin is mildly elevated-?demand ischemia due to rapid AF vs NSTEMI. Either way, she is not a candidate for invasive treatment ( advanced colon cancer, unable to take antiplatelet therapy). Evidence of ?SBO by CT scan. Hyponatremia likely due to diarrhea, and heart failure. Plan: admit to hospitalist on telemetry check BNP serial troponins Lasix 40mg iv qd-monitor I's and O's monitor lytes, renal function continue metoprolol-same dose as oupatient, will increase if necessary based on heart rate sugery consult Dr. Parikh no anticoagulation or antiplatelet therapy repeat echo adjust antidiabetic meds to avoid hypoglycemia at night Consult Acknowledgment - Thank you for your consult request.
--- NOTE | 2017-12-09 13:21 | Admission Certification ---
Admission Certification Certification Statement - As attending physician, I certify that at the time of - admission, based on clinical presentation, severity of - symptoms, need for further diagnostic testing and - therapeutic interventions, and risk of adverse outcomes - without in-hospital treatment, in my clinical assessment, - this patient requires an acute hospital stay for a minimum - of two nights or longer. I have also considered psychsocial - factors such as support system, advanced age, financial - issues, cognitive issues, and failed out-patient treatments, - past re-admission history, safety of patient, and lack of - compliance as applicable. Specific rationale supporting this admission is: Rapid A. fib, positive troponin likely type II IA.
--- NOTE | 2017-12-09 17:47 | PN- General Surgery ---
Surgical Brief Attending Note Brief Attending Note: Pt is well known to me. She had right colectomy for colon CA approximately 2 years ago. She had subsequent anastomotic recurrence and abdominal seeding with nearly obstructing lesions in the small bowel. Pt had e-lap and small bowel bypasses x2 for mets. According to the patient, she has good appetite and daily loose BM. She denies nausea, emesis, or abdominal pain. She has been started on lomotil and questran to slow down the bowel transit and solidify her BM. Based on the complexity of patient's bowel continuity, CT A/P alone would be suboptimal for the diagnosis of bowel obstruction without an appropriate correlation with her clinical presentation. Pt doesn't exhibit any symptoms of bowel obstruction at this time. There is no need for acute surgical intevention.
[2017-12-09 20:10] VITALS: BP 118/64
[2017-12-10 06:45] VITALS: BP 140/70
--- NOTE | 2017-12-10 07:58 | PN- Housestaff ---
See Addendum Subjective Follow-up For: Palpitation, A. fib Heart failure Complaints: no complaints Tele-Events Since Last Visit: Manoharfib Rate:73-94 No events Subjective: Patient seen and examined, no acute distress, denies any complaint Vitals stable, in negative fluid balance Review of Systems Constitutional: Reports: no symptoms. EENTM: Reports: no symptoms. Cardiovascular: Reports: no symptoms. Respiratory: Reports: no symptoms. Gastrointestinal: Reports: no symptoms. Genitourinary: Reports: no symptoms. Musculoskeletal: Reports: no symptoms. Neurological/Psychological: Reports: no symptoms. Objective Last 24 Hrs of Vital Signs/I&O Vital Signs Date Time Temp Pulse Resp B/P B/P Pulse O2 O2 Flow FiO2 Mean Ox Delivery Rate 12/10 0645 97.9 79 12 140/70 97 Room Air 12/09 2009 99.1 92 22 118/64 Room Air 12/09 1858 98.4 107 20 142/66 97 Room Air 12/09 1749 97.0 108 20 124/74 97 Room Air 12/09 1606 97.8 107 20 141/76 12/09 1535 97.8 107 20 141/76 97 Room Air 12/09 1401 97.2 101 18 128/62 98 Room Air 12/09 1222 97.6 105 18 146/60 97 Room Air 12/09 1012 97.8 83 18 159/70 97 Room Air Intake & Output 12/10 1600 12/10 0800 12/10 0000 Intake Total 30 50 Output Total 1000 Balance -970 50 Intake, Oral 30 50 Output, Urine 1000 Patient 167 lb Weight Weight Reported by Patient Measurement Method Physical Exam General Appearance: Alert, Oriented X3, Cooperative, No Acute Distress Neck: Supple, No JVD Cardiovascular: Regular Rate, Normal S1, Normal S2, Systolic murmur Lungs: Normal Air Movement, bibasilar crackles Abdomen: Normal Bowel Sounds, Soft, No Tenderness Neurological: Normal Speech, Strength at 5/5 X4 Ext, Normal Tone, Sensation Intact Extremities: Normal Pulses, trace edema Vascular: Normal Pulses, Pulses Symmetrical Current Medications: Current Medications Sig/Darrell Start time Last Medication Dose Route Stop Time Status Admin Acetaminophen 650 MG Q6P PRN 12/09 1000 AC PO Alprazolam 0.5 MG DAILY 12/10 1000 AC PO 12/16 1229 Atorvastatin Calcium 20 MG 1700 12/09 1700 AC 12/09 PO 1857 Furosemide 0 .STK-MED ONE 12/09 1603 DC IV Furosemide 40 MG DAILY 12/09 1530 AC 12/09 IV 1606 Furosemide 0 .STK-MED ONE 12/09 1249 DC PO Furosemide 20 MG DAILY 12/09 1224 DC 12/09 PO 1304 Gabapentin 0 .STK-MED ONE 12/09 1251 DC PO Gabapentin 300 MG DAILY 12/09 1224 AC 12/09 PO 1304 Insulin Aspart 0 TIDAC 12/09 1700 AC SC Insulin Detemir 35 UNITS BID 12/10 1000 CAN SC Levothyroxine Sodium 0.125 MG DAILY AC 12/09 1225 AC 12/10 PO 0630 Losartan Potassium 0 .STK-MED ONE 12/09 1249 DC PO Losartan Potassium 50 MG DAILY 12/09 1224 AC 12/09 PO 1304 Metoprolol Tartrate 0 .STK-MED ONE 12/09 1602 DC PO Metoprolol Tartrate 50 MG DAILY 12/09 1531 AC 12/09 PO 1606 Multivitamins 0 .STK-MED ONE 12/09 1249 DC PO Multivitamins 1 TAB DAILY 12/09 1000 AC 12/09 PO 1304 Potassium Chloride 0 .STK-MED ONE 12/09 1249 DC PO Potassium Chloride 20 MEQ DAILY 12/09 1225 AC 12/09 PO 1304 Last 24 Hrs of Lab/Sanjeev Results Last 24 Hrs of Labs/Mics: Laboratory Tests 12/10/17 0628: Anion Gap 10, Estimated GFR > 60, BUN/Creatinine Ratio 24.3, Triglycerides 83, Cholesterol 72, LDL Cholesterol, Calc 31 L, HDL Cholesterol 25 L, Cholesterol/ HDL Ratio 3, D-Dimer High Sensitivty 851 H, CBC w Diff NO MAN DIFF REQ, RBC 3.82 L, MCV 73.3 L, MCH 22.7 L, MCHC 30.9 L, RDW 23.0 H, MPV 9.0, Gran % 70.8, Lymphocytes % 14.1 L, Monocytes % 12.7 H, Eosinophils % 1.8, Basophils % 0.6, Absolute Granulocytes 4.8, Absolute Lymphocytes 1.0 L, Absolute Monocytes 0.9 H, Absolute Eosinophils 0.1, Absolute Basophils 0 12/09/17 1226: Troponin I 0.19 *H Microbiology 12/09 1544 STOOL: Clostridium difficile Toxin A & B - COLB Assessment/Plan Assessment: Assessment and plan: #Positive troponin with mild EKG changes, no chest pain: * Postive troponin related to demand ischemia, trending down * saw the patient and recommend to repeat ECHO #Heart failure: * Strated on Lasix 40mg daily * She is in negative fluid balance * D-dimer 800 * Breathing improving * Echo today #A. fib initially rate controlled and now with rapid ventricular response, ALSO CT FINDING OF thrombus in the left atrial appendage. * Will continue to monitor heart rate * No anticoagulation or antiplatelet 2/2 high risk GI bleed * She also a high risk for strok, needs to monitor hemodynamic closely * Metoprolol succ. 25mg was started for rate control #History of moderate aortic stenosis: Last echo was done on January, which showed normal ejection fraction of 65%, and RVSP of 55 mmHg, on Lasix 40mg daily Will repeat echo #History of colon cancer status post surgical resection 2 weeks ago with a CT finding of a partial or developing small bowel obstruction: Will let Dr. Brewer knows that the patient admitted to the hospital, saw the patient yesterday, no surgical intervention as there is no clinical evidence for obstruction #Diarrhea: resolved #Hypoglycemia in setting of diabetes on insulin therapy: Patient had bowel resection 2 weeks ago she may have some sort of malabsorption, she had 2 episodes of hypoglycemia less than 50 at the emergency department she received 2 doses of IV dextrose, will hold on giving her dose of Levemir 35 units twice a day today, will assess in the morning her blood sugar reading. Will start insulin sliding scale. today her BS reading the highest is 105mg/dl, no need to resume Levemir for now #History of hypothyroidism: We'll resume her home dose of Synthroid #History of TIA: She doesn't have any active neurological issues will resume home dose of atorvastatin #Hyperlipidemia: We'll continue atorvastatin #History of osteoarthritis, gout: Pain management pathway, no active gouty attack DVT prophylaxis with Alps Full code Problem List: 1. Elevated troponin 2. Palpitations 3. Atrial fibrillation with normal ventricular rate Pain Ratin Pain Location: - Pain Goal: Remain pain free (-) Pain Plan: - Tomorrow's Labs & Rationales: cbc, bep DVT/Prophylaxis: mechanical
[2017-12-10 08:13] LABS: ABSOLUTE BASOPHIL COUNT 0 /CUMM (0.0-0.2); ABSOLUTE EOSINOPHIL COUNT 0.1 /CUMM (0.0-0.7); ABSOLUTE GRANULOCYTE CT 4.8 /CUMM (1.4-6.5); ABSOLUTE MONOCYTE COUNT 0.9 /CUMM (0.10-0.60); BASOPHIL % 0.6 % (0.0-2.0); EOSINOPHIL % 1.8 % (0-5); GRANULOCYTE % 70.8 % (42.2-75.2); MEAN CORPUSCULAR HGB 22.7 PG (27.0-31.0); MEAN CORPUSCULAR HGB CONC 30.9 G/DL (33.0-37.0); MEAN CORPUSCULAR VOLUME 73.3 FL (81.0-99.0); PLATELET COUNT 301 /CUMM (130-400); RED BLOOD CELL CT 3.82 /CUMM (4.20-5.40); WHITE BLOOD CELL COUNT 6.8 /CUMM (4.8-10.8)
--- NOTE | 2017-12-10 12:35 | PN- General Surgery ---
Surgical Brief Attending Note Brief Attending Note: Pt denies N/V, no abdominal pain, tolerating clears, positive flatus. Abdominal exam benign. No clinical evidence of SBO. No need for surgical intervention at this time.
[2017-12-10 14:22] VITALS: BP 114/60
--- NOTE | 2017-12-10 19:41 | ECHOCARDIOGRAM REPORT ---
LARS FENG Age: 87 : 1930 Gender: F Exam Date: 12/10/2017 11:06 Exam Location: [address] Ht (in): 66 Wt (lb): 167 BSA: 1.89 BP: 140 / 70 Ordering Physician: Avelina Chen MD Referring Physician: Avelina Chen MD Technologist: Gonzalo Pruitt [facility] Room Number: 180-1 Indications: AFIB/FLUTTER Rhythm: Atrial fibrillation Technical Quality: Fair FINDINGS Left Ventricle Normal size left ventricle. Mild concentric left ventricular hypertrophy. Low normal left ventricular ejection fraction visually estimated at 50-55 %. No obvious regional wall motion abnormalities. Right Ventricle Normal right ventricular size and function. Right Atrium Moderate to severe right atrial dilatation. Left Atrium Severe left atrial dilatation. Mitral Valve Mitral annular calcification. Mitral valve thickened. Mild-to- moderate mitral regurgitation. Aortic Valve Diffuse thickening of the aortic valve cusps with reduced excursion. Moderate aortic stenosis. Mild aortic regurgitation. Tricuspid Valve Tricuspid valve not well visualized, grossly normal. Mild-to- moderate tricuspid regurgitation. Right ventricular systolic pressure estimated to be elevated at 53 mmHg. Pulmonic Valve Pulmonic valve not well visualized, grossly normal. Mild pulmonic regurgitation. Pericardium No pericardial effusion. Great Vessels Normal size aortic root. CONCLUSIONS Normal size left ventricle. Mild concentric left ventricular hypertrophy. Low normal left ventricular ejection fraction visually estimated at 50-55 %. Moderate to severe right atrial dilatation. Severe left atrial dilatation. Vkag-ly-tblyyhih mitral regurgitation. Moderate aortic stenosis. Hxki-zm-bemhypcy tricuspid regurgitation. Right ventricular systolic pressure estimated to be elevated at 53 mmHg. Mild pulmonic regurgitation. Mild aortic regurgitation. Low normal left ventricular ejection fraction visually estimated at 50-55 %. Chris Sandoval M.D. (Electronically Signed) Final Date: 10 December 2017 19:40 MEASUREMENTS (Male / Female) Normal Values 2D ECHO LV Diastolic Diameter PLAX 5.2 cm 4.2 - 5.9 / 3.9 - 5.3 cm LV Systolic Diameter PLAX 3.7 cm 2.1 - 4.0 cm LV Fractional Shortening PLAX 28.8 % 25 - 46 % LV Ejection Fraction 2D Teich 55.1 % IVS Diastolic Thickness 1.1 cm LVPW Diastolic Thickness 1.1 cm LV Relative Wall Thickness 0.4 RV Internal Dim ED PLAX 4.3 cm 1.9 - 3.8 cm LVOT Diameter 2.3 cm Aortic Root Diameter 3.1 cm LA Systolic Diameter LX 5.0 cm 3.0 - 4.0 / 2.7 - 3.8 cm LA Volume 183.0 cm 18 - 58 / 22 - 52 cm Ascending Aorta Diameter 3.5 cm DOPPLER AV Peak Velocity 320.0 cm/s AV Peak Gradient 41.0 mmHg AV Mean Velocity 231.0 cm/s AV Mean Gradient 24.0 mmHg AV Velocity Time Integral 68.0 cm AI Deceleration [place] 333.0 cm/s AI Peak Velocity 358.0 cm/s AI Pressure Half Time 314.0 ms AI Peak Gradient 51.3 mmHg LVOT Peak Velocity 76.2 cm/s LVOT Peak Gradient 2.3 mmHg LVOT Mean Velocity 49.2 cm/s LVOT Mean Gradient 1.0 mmHg LVOT Velocity Time Integral 17.1 cm LVOT Stroke Volume 71.0 cm AV Area Cont Eq vti 1.0 cm AV Area Cont Eq pk 1.0 cm Mitral E Point Velocity 196.0 cm/s MV Deceleration Time 130.0 ms MR Peak Velocity 596.0 cm/s MR Peak Gradient 142.1 mmHg TR Peak Velocity 328.0 cm/s TR Peak Gradient 43.0 mmHg Right Atrial Pressure 10.0 mmHg Pulmonary Artery Systolic Pressu 53.0 mmHg Right Ventricular Systolic Press 53.0 mmHg PV Peak Velocity 97.9 cm/s PV Peak Gradient 3.8 mmHg PV Mean Velocity 68.0 cm/s PV Mean Gradient 2.0 mmHg PV Velocity Time Integral 18.1 cm LV E' Lateral Velocity 11.7 cm/s Mitral E to LV E' Lateral Ratio 16.8 LV E' Septal Velocity 8.4 cm/s Mitral E to LV E' Septal Ratio 23.4
[2017-12-10 22:44] VITALS: BP 112/68
[2017-12-11 06:55] VITALS: BP 150/80
--- NOTE | 2017-12-11 08:06 | PN- Housestaff ---
See Addendum Subjective Follow-up For: Palpitation, Manohar marks Heart failure Complaints: no complaints Tele-Events Since Last Visit: Corinne 90-112 no events Subjective: Pateint seen and examined, no acute distress, she denies any SOB, chest pain or palpitation. She passes gas, but no bowel movement in 2 days. Vitals stable in negative fluid balance Review of Systems Constitutional: Reports: no symptoms. EENTM: Reports: no symptoms. Cardiovascular: Reports: no symptoms. Respiratory: Reports: no symptoms. Gastrointestinal: Reports: no symptoms. Genitourinary: Reports: no symptoms. Musculoskeletal: Reports: no symptoms. Skin: Reports: no symptoms. Neurological/Psychological: Reports: no symptoms. Hematologic/Endocrine: Reports: no symptoms. Immunologic/Allergic: Reports: no symptoms. Objective Last 24 Hrs of Vital Signs/I&O Vital Signs Date Time Temp Pulse Resp B/P B/P Pulse O2 O2 Flow FiO2 Mean Ox Delivery Rate 12/11 0655 98.5 100 20 150/80 96 Room Air 12/10 2244 98.2 78 18 112/68 95 Room Air 12/10 2158 Room Air 12/10 1422 97.6 67 18 114/60 97 Room Air 12/10 1000 98.0 80 16 122/68 12/10 1000 98.0 80 16 122/68 Physical Exam General Appearance: Alert, Oriented X3, Cooperative, No Acute Distress Skin: No Rashes, No Breakdown, No Significant Lesion HEENT: Atraumatic, PERRLA, EOMI, Mucous Membr. moist/pink Neck: Supple, No JVD, No thryomegaly Lymphatic: Axillary nl, Cervical nl Cardiovascular: Regular Rate, Normal S1, Normal S2 Lungs: Clear to Auscultation, Normal Air Movement Abdomen: Normal Bowel Sounds, Soft, No Tenderness Neurological: Strength at 5/5 X4 Ext, Normal Tone, Sensation Intact Extremities: No Clubbing, No Cyanosis, Trace edema Vascular: Normal Pulses, Pulses Symmetrical Current Medications: Current Medications Sig/Darrell Start time Last Medication Dose Route Stop Time Status Admin Acetaminophen 650 MG Q6P PRN 12/09 1000 AC PO Alprazolam 0.5 MG DAILY 12/10 1000 AC /15 PO 12/16 1229 0955 Atorvastatin Calcium 20 MG 1700 12/09 1700 AC 12/10 PO 1744 Furosemide 40 MG DAILY 12/09 1530 AC 12/10 IV 0956 Gabapentin 300 MG DAILY 12/09 1224 AC 12/10 PO 0955 Insulin Aspart 0 TIDAC 12/09 1700 AC 12/11 SC 0838 Insulin Detemir 20 UNITS BID 12/11 1000 AC SC Lactobacillus 1 CAP DAILY 12/11 1000 AC Acidophilus PO Levothyroxine Sodium 0.125 MG DAILY AC 12/09 1225 AC 12/11 PO 0525 Losartan Potassium 50 MG DAILY 12/09 1224 AC 12/10 PO 1000 Metoprolol Tartrate 50 MG DAILY 12/09 1531 AC 12/10 PO 1000 Multivitamins 1 TAB DAILY 12/09 1000 AC 12/10 PO 0955 Patient Medication 1 ED ONE ONE 12/10 1145 DC 12/10 Teaching ED 12/10 1146 1233 Polyethylene Glycol 17 GM DAILY NEEDED PRN 12/11 0915 AC PO Potassium Chloride 20 MEQ DAILY 12/09 1225 AC 12/10 PO 0955 Assessment/Plan Assessment: Assessment and plan: #Positive troponin with mild EKG changes, no chest pain: * Postive troponin related to demand ischemia, trending down * saw the patient and recommend to repeat ECHO #Heart failure: * On Lasix 40mg daily * She is in negative fluid balance * D-dimer 800 * Breathing improving * Echo: Shows:Normal size left ventricle. Mild concentric left ventricular hypertrophy. Low normal left ventricular ejection fraction visually estimated at 50-55 %. Moderate to severe right atrial dilatation. Severe left atrial dilatation. Zcol-gv-hyawsbcb mitral regurgitation. Moderate aortic stenosis. Fmns-gp-kvhvqpko tricuspid regurgitation. Right ventricular systolic pressure estimated to be elevated at 53mmHg. Mild pulmonic regurgitation. Mild aortic regurgitation. #A. fib initially rate controlled and now with rapid ventricular response, ALSO CT FINDING OF thrombus in the left atrial appendage. * Will continue to monitor heart rate, currently she is rate controlled with no events overnight * No anticoagulation or antiplatelet 2/2 high risk GI bleed * She also a high risk for strok, needs to monitor hemodynamic closely * Will continue Metoprolol succ. 25mg for rate control #History of moderate aortic stenosis: Echo as above #History of colon cancer status post surgical resection 2 weeks [address] with a CT finding of a partial or developing small bowel obstruction: Will let Dr. Brewer knows that the patient admitted to the hospital, saw the patient yesterday, no surgical intervention as there is no clinical evidence for obstruction. She pass gasses but no bowel movement for 2 days, will give probiotic and Miralax as needed #Diarrhea: resolved #Hypoglycemia in setting of diabetes on insulin therapy: Patient had bowel resection 2 weeks ago she may have some sort of malabsorption, she had 2 episodes of hypoglycemia less than 50 at the emergency department she received 2 doses of IV dextrose, Her BS is not controlled overnight will resume Levemir 20 Units BID, and f/u how she respond. #History of hypothyroidism: We'll resume her home dose of Synthroid #History of TIA: She doesn't have any active neurological issues will resume home dose of atorvastatin #Hyperlipidemia: We'll continue atorvastatin #History of osteoarthritis, gout: Pain management pathway, no active gouty attack DVT prophylaxis with Alps Full code Problem List: 1. Status post partial colectomy 2. Atrial fibrillation with normal ventricular rate 3. Diabetes Pain Ratin Pain Location: - Pain Goal: Remain pain free (-) Pain Plan: - Tomorrow's Labs & Rationales: - DVT/Prophylaxis: mechanical
--- NOTE | 2017-12-11 09:24 | PN- General Surgery ---
Surgical Brief Attending Note Brief Attending Note: Pt seen and examined. She is tolerating PO diet, has flatus and had BM movement today. She denies any abdominal pain, cramping, or discomfort. No evidence of bowel obstruction, no surgical issues at this time. Please, recall as needed. Otherwise, will follow on the outpatient basis.
[2017-12-11 14:02] VITALS: BP 142/68
[2017-12-11] MEDS ORDERED: LEVEMIR100 UNIT/1 SC (14:05)
[2017-12-11] MEDS ORDERED: LASIX20 M1 PO ×2 (14:05→14:22)
--- NOTE | 2017-12-11 14:09 | Patient Discharge Instructions ---
Discharge Instructions General Discharge Information You were seen/treated for: -A. FIB NOT ON ANTICOAGULATION 2/2 GI BLEED RISK -HEART FAILURE -MYELOPROLIFERATIVE DISORDER Special Instructions: -Follow up with your software technician as an outpatient in 1 week after discharge -Follow up with your molded goods embossing press operator as an outpatient after discharge -Follow up with your primary care physician in 1 week after discharge, your insulin dose and other hypoglycemic medication needs to be adjusted as your blood sugar runs low please f/u with your pcp. Activity Full Activity/No Limits: Yes (As tolerated) Acute Coronary Syndrome Inclusion Criteria At DC or during hospital stay patient has or had the following: ACS DIAGNOSIS No Discharge Core Measures Meds if any: Prescribed or Continued at Discharge Meds if any: NOT Prescribed or Continued at Discharge Congestive Heart Failure Inclusion Criteria At DC or during hospital stay patient has or had the following: CHF DIAGNOSIS Yes Discharge Core Measures Meds if any: Prescribed or Continued at Discharge Meds if any: NOT Prescribed or Continued at Discharge Cerebrovascular accident Inclusion Criteria At DC or during hospital stay patient has or had the following: CVA/TIA Diagnosis No Discharge Core Measures Meds if any: Prescribed or Continued at Discharge Meds if any: NOT Prescribed or Continued at Discharge Venous thromboembolism Inclusion Criteria VTE Diagnosis No VTE Type NONE VTE Confirmed by (Test) NONE Discharge Core Measures - Per Current guidelines, there needs to be overlap - treatment for the first 5 days of Warfarin therapy. - If discharged on Warfarin prior to 5 days of - overlap therapy, the patient will need to be - assessed for post discharge needs including - *Post discharge parental anticoagulation - *Warfarin and/or parental anticoagulation education - *Follow up date to check INR post discharge At least 5 days overlap therapy as Inpatient No Meds if any: Prescribed or Continued at Discharge Note: Overlap Therapy is Warfarin and Anticoagulant Meds if any: NOT Prescribed or Continued at Discharge
--- NOTE | 2017-12-11 15:57 | Discharge Summary ---
Visit Information Visit Dates Admission Date: 12/09/17 Discharge Date: 12/11/17 Hospital Course Course Attending Physician: Sylwia AVALOS,Rachael Villela Primary Care Physician: Alec AVALOS,Jatinder Lacy Consulting Request: Consulting Specialty: Cardiology Hospital Course: Mrs. Moreland is an 87 yo lady with past medical history of atrial fibrillation not on AC 2/2 GI bleed, moderate aortic stenosis, hypertension, hyperlipidemia, TIA, hypothyroidism, diabetes mellitus, gout, osteoarthritis, colon cancer status post resection and chemotherapy at 2014 with also a recent bowel resection about 2 weeks ago presented to emergency department with a complaint of shortness of breath and heart racing started overnight. Admitted to telemetry floor for A. fib with rapid ventricular response, positive troponin, shortness of breath in setting of moderate aortic stenosis. Initial Vitals: Temperature 97.6, pulse 105, RR 18, blood pressure 146/60, saturating well on room air. On exam: A O 3, cooperative, no acute distress, neck supple, JVD normal, no lymphadenopathy, mucosa moist, no focal neurological deficit, +1 B/L LE edema, no obvious skin rashes or inflammation CVS: S1-S2, RRR. RS: Clear to auscultate bilaterally. Abdomen: Soft, no tenderness, +ve bowel sound Labs pertinent to: H&H: 8.2/26.1, Plt:320, Na:131 BUN/Creatinine Ratio 25.7 , Glucose 153 , Troponin: 0.25 .............................................................................. ............................................................ EKG Results A. fib, rate of 106, QTC 532, T-wave inversion at V2, V3 Other Results Chest CTA: 1. There is no evidence of a pulmonary embolus or thrombus. 2. There has been interval slight increase in the caliber of the main pulmonary artery. There is reflux of contrast into the hepatic veins. .............................................................................. .............................................................. Abdomen pelvis CT: IMPRESSION: Study is limited by lack of IV and enteral contrast. There is postoperative anatomy, status post partial colectomy. Findings are consistent with a partial or developing small bowel obstruction. There are small bowel loops in the pelvis with fecalized small bowel contents, consistent with prolonged small bowel transit time or stasis, and decompressed loops of small bowel in the pelvis. Persistent multifocal lymphadenopathy including retrocrural, retroperitoneal, and iliac lymphadenopathy. The appearance is consistent with metastatic lymphadenopathy. 3. There has been slight interval increase in superior mediastinal and left axillary lymphadenopathy. Retrocrural lymphadenopathy appears relatively stable. 4. The study redemonstrates thrombus in the left atrial appendage. This could be correlated with cardiac echo. There has been slight interval increase in the size of the heart. 5. The caliber of the aorta is mildly dilated, similar compared to the prior study. 7. There are now moderate bilateral pleural effusions. VTE: Negative. .............................................................................. ........................................................ Echocardiogram: CONCLUSIONS Normal size left ventricle. Mild concentric left ventricular hypertrophy. Low normal left ventricular ejection fraction visually estimated at 50-55 %. Moderate to severe right atrial dilatation. Severe left atrial dilatation. [id number] mitral regurgitation. Moderate aortic stenosis. [id number]-[id number] tricuspid regurgitation. Right ventricular systolic pressure estimated to be elevated at 53 mmHg. Mild pulmonic regurgitation. Mild aortic regurgitation. Low normal left ventricular ejection fraction visually estimated at 50-55 %. .............................................................................. ....................................................... During hospitalization we managed the following: #Heart failure: we started Lasix 40mg iv qd, daily monitor I's and O's, she was seen at discharge day by Dr. Paez who recommend Lasix 20mg 4 times a week alternative with Lasix 40mg 3 times a week upon discharge with outpatient follow up with her mill recorder #Positive troponin with mild EKG changes, no chest pain: Patient presented to emergency department with feeling of heart racing she was found to have A. fib with new T-wave inversion in V2, V3 with no ST segment changes. She was evaluated by mill recorder Dr. Torres who recommended to continue holding anticoagulation for the high risk of GI bleed. We trended to troponin which was trended down in the second set, it is elevated 2/2 demand ischemia. #A. fib with a CT FINDING OF thrombus in the left atrial appendage. We continues Metoprolol-same dose as oupatient. #History of moderate aortic stenosis: Last echo was done on January, which showed normal ejection fraction of 65%, and RVSP of 55 mmHg, will resume her home dose of Lasix 20 mg by mouth daily #History of metastatic colon cancer status post surgical resection 2 weeks ago. #Diarrhea:Resolved #CT finding of a partial or developing small bowel obstruction: Patient denies any active abdominal pain, no distention reported, Her surgeon evaluated her during this hospitalization, No clinical evidence of bowel obstruction, no surgical issues at this time #Hypoglycemia in setting of diabetes on insulin therapy: Patient had bowel resection 2 weeks ago she may have some sort of malabsorption, she had 2 episodes of hypoglycemia less than 50 at the emergency department she received 2 doses of IV dextrose, we initially hold on giving her dose of Levemir 35 units twice a day today, we started insulin sliding scale. Hwever her sugar started to trend up later during her hospital stay so, we started Levemir 20 Units BID, she needs to f/u with her PCP regarding optimum insulin dosing and BS control. #History of hypothyroidism: Her home dose of Synthroid continued #History of TIA: She doesn't have any active neurological issues we resume home dose of atorvastatin #Hyperlipidemia: We continued atorvastatin #History of osteoarthritis, gout: Pain management pathway, no active gouty attack DVT prophylaxis with Alps The patient is very realistic about her diagnosis. She understands that she has metastatic cancer and A. fib not a candidate for anticoagulation. Attending spoke at length with her and in view of her advanced disease she wants to change the CODE STATUS to DNR/DNI. She wants all treatment but does not want to be resuscitated or intubated. We also spoke to the patient's son and . At this point she is going to go home with visiting nurse service. The idea is that if she deteriorates or has pain then she'll be transitioned to hospice care. They understand that given the extent of metastases, the moderate to severe , A. fib not on anticoagulation- her prognosis is very poor. Complications: Non Allergies: Coded Allergies: Sulfa (Sulfonamide Antibiotics) (Intermediate, RASH 12/09/17) adhesive tape (PAPER TAPE OK PER PT 12/09/17) Disposition Summary Disposition Principal Diagnosis: -Heart failure -valvular disease and diastolic heart failure - Demand ischemia -Afib not on AC -Metastatic colon cancer -DM -HLD -Hypothyroidism Additional Diagnosis: As above Discharge Disposition: home health services Discharge Instructions General Discharge Information Code Status: Do Not Resucitate/Intubat Patient's Diet: Diabetic diet Patient's Activity: As tolerated Follow-Up Instructions/Appts: -Follow up with your mill recorder as an outpatient in 1 week after discharge -Follow up with your assembler surgical garment as an outpatient after discharge -Follow up with your primary care physician in 1 week after discharge, your insulin dose and other hypoglycemic medication needs to be adjusted as your blood sugar runs low please f/u with your pcp. Medications at Discharge Discharge Medications: Stop taking the following medications: Insulin Detemir (Levemir) 100 UNIT/ML VIAL Inject into fatty tissue TWICE DAILY Furosemide (Lasix) 40 MG TABLET ORAL DAILY Continue taking these medications: Irbesartan (Avapro) 300 MG TABLET 1 Tablet ORAL DAILY Comments: Last Taken: 12/11/17 Time: 9:20 AM (RECEIVED A SUBSTITUTION) Alprazolam (Xanax) 0.5 MG TABLET 1 Tablet ORAL as needed for ANXIETY Comments: Last Taken: 12/10/17 Time: 9:55 AM Atorvastatin Calcium (Lipitor) 20 MG TABLET 1 Tablet ORAL DAILY Comments: Last Taken: 12/10/17 Time: 5:45 PM Sitagliptin Phosphate (Januvia) 100 MG TABLET 1 Tablet ORAL DAILY Comments: Last Taken: NOT GIVEN IN HOSPITAL Time: Solifenacin Succinate (Vesicare) 5 MG TABLET 1 Tablet ORAL DAILY Comments: NOT GIVEN IN HOSPITAL Levothyroxine Sodium (Synthroid) 125 MCG TABLET 1 Tablet ORAL DAILY BEFORE BREAKFAST Comments: Last Taken: 12/11/17 Time: 5:25 AM Cranberry Fruit Concentrate (Cranberry) 450 MG CAPSULE 1 Capsule ORAL DAILY Days = 60 Comments: Last Taken: NOT GIVEN IN HOSPTIAL Time: Potassium Chloride (Potassium Chloride) 20 MEQ TABLET.ER 1 Tablet ORAL DAILY Comments: Last Taken: 12/11/17 Time: 9:15 AM Cholecalciferol (Vitamin D3) (Vitamin D) 1,000 UNIT TABLET 1 Tablet ORAL DAILY Comments: Last Taken: NOT GIVEN IN HOSPITAL Time: Gabapentin (Gabapentin) 300 MG CAPSULE 1 Capsule ORAL DAILY Days = 30 Comments: Last Taken: 12/11/17 Time: 9:15 AM Metoprolol Succinate (Metoprolol Succinate) 25 MG TAB 50 Milligram ORAL DAILY Qty = 90 Comments: Last Taken: 12/11/17 Time: 9:20 AM Multivit-Min/FA/Lycopen/Lutein (Centrum Silver Tablet) 0.4 MG-300 MCG-250 MCG TABLET 1 Tablet ORAL DAILY Comments: Last Taken: 12/11/17 Time: 9:15 AM Start taking the following new medications: Furosemide (Lasix) 20 MG TABLET 1 Tablet ORAL INSTRUCTED Qty = 30 No Refills Instructions: LASIX 40MG: THURSDAY, THURSDAY AND THURSDAY LASIX 20mg: THURSDAY, , THURSDAY AND THURSDAY Comments: Last Taken: 12/11/17 Time: 9:15 AM Insulin Detemir (Levemir) 100 UNIT/ML VIAL 20 Units Inject into fatty tissue TWICE DAILY Qty = 2 No Refills Comments: Last Taken: 12/11/17 Time: 9:15 AM Copies To: Alec AVALOS,Jatinder Lacy; Phyllis AVALOS,Johan; Marbella Jha MD
== END 2017-12-11 16:50 | disposition home health service (06) | DRG 292 ==
LOC: ERH 06:26 → 1NO 09:23 → ERHI 09:23 → ENRESERV 17:15 → ENTRNSPT 19:04 → EDTRNSPTSTS 19:09 → EDTRNSPT 19:22 → CMPTRNSPT 20:05 → 1NO 20:16 → ENPENDDIS 12-11 14:36 → ENTRNSPT 12-11 16:43 → 1NO 12-11 16:50 → EDTRNSPTSTS 12-11 16:52 → EDTRNSPT 12-11 16:52 → CMPTRNSPT 12-11 17:02
PROVIDERS: Pediatrics; Student in an Organized Health Care Education/Training Program
DX: I11.0 Hypertensive heart disease with heart failure (principal); C79.9 Secondary malignant neoplasm of unspecified site; E11.649 Type 2 diabetes mellitus with hypoglycemia without coma; I24.8 Other forms of acute ischemic heart disease; I48.2 Chronic atrial fibrillation; I35.0 Nonrheumatic aortic (valve) stenosis; I51.3 Intracardiac thrombosis, not elsewhere classified; I50.33 Acute on chronic diastolic (congestive) heart failure; E78.5 Hyperlipidemia, unspecified; M10.9 Gout, unspecified; Z66 Do not resuscitate; E03.9 Hypothyroidism, unspecified; Z85.038 Personal history of other malignant neoplasm of large intestine; Z79.4 Long term (current) use of insulin; Z86.73 Personal history of transient ischemic attack (TIA), and cerebral infarction without residual deficits
CPT/HCPCS: 1NSP; 36592; 74176; 82436; 86902; 86920; 86922; 87804; 87804-59; 93005; 93010; 93306; 96374; J1940